=== PATIENT | male | born 1960 ===

== ENCOUNTER 2016-11-15 18:31 | Inpatient (IN) | payer BC, OTHER ==
[2016-11-15 18:36] VITALS: BMI 22.1
[2016-11-15] MEDS ORDERED: Sodium Chloride 0.9% 1,000 ML IV STA (18:49)
--- NOTE | 2016-11-15 18:50 | ED PDOC ---
Arrival/HPI - General Chief Complaint: Weakness/Neurological Deficit Time Seen by Provider: 11/15/16 18:40 Historian: Patient - History of Present Illness Narrative History of Present Illness (Text): 11/15/16 18:55 56 year old male whose past medical history includes stomach CA presents to the emergency department with weakness and difficulty ambulating for the past few weeks. reports today he was spitting up blood before falling in the bathroom. Patient reports he took excessive NSAID's. Patient also complaining of chest discomfort. Time/Duration: > week Symptom Onset: Gradual Symptom Course: Unchanged Modifying Factors (Text): None Associated Symptoms (Text): None Past Medical History - Provider Review Nursing Documentation Reviewed: Yes - Neurological Hx Multiple Sclerosis: Yes - Hematological/Oncological Hx Cancer: Yes (Abdominal) Hx Chemotherapy: Yes (4 years ago and radiation 4 years ago) - Gastrointestinal Other/Comment: Stomach CA,Esaphagal CA - Psychiatric Hx Substance Use: No - Surgical History Other/Comment: "Removed / or stomach" Family/Social History - Physician Review Nursing Documentation Reviewed: Yes Family/Social History: Unknown Family HX Smoking Status: Current Some Days Smoker Hx Alcohol Use: No Hx Substance Use: No Allergies/Home Meds Allergies/Adverse Reactions: Allergies No Known Allergies Allergy (Verified 11/15/16 18:36) Home Medications: Home Meds Medication Instructions Recorded Confirmed No Known Home Med 11/15/16 11/15/16 Review of Systems - Physician Review All systems were reviewed & negative as marked: Yes Physical Exam - Physical Exam Narrative Physical Exam (Text): - Review of Systems Constitutional: Weakness, difficulty ambulating absent: Weight Change, Fevers Eyes: Normal ENT: Normal Respiratory: Spitting up blood absent: SOB, Cough, Sputum Cardiovascular: Chest discomfort absent: Palpitations, Syncope Gastrointestinal: Normal absent: Abdominal pain, Diarrhea, Nausea, Vomiting Genitourinary: Normal. absent: Dysuria, Frequency, Hematuria Musculoskeletal: Normal. absent: Arthralgias, Back Pain, Neck Pain Skin: Normal Neurological: Normal absent: Focal Weakness Endocrine: Normal Hemo/Lymphatic: Normal Psychiatric: Normal - Physical exam Patient appears age appropriate, speaking full sentences without difficulty - Systems Exam Head: Present: Atraumatic, Normocephalic Pupils: Present: PERRL Extraocular Muscles: Present: EOMI Conjunctiva: Present: Pale conjunctiva Mouth: Present: Moist Mucous Membranes Neck: Present: Normal Range of Motion. No: MIDLINE TENDERNESS, Paraspinal Tenderness Respiratory/Chest: Present: Clear to Auscultation, Good Air Exchange. No: Respiratory Distress, Accessory Muscle Use, Tachypnic Cardiovascular: Present: Regular Rate and Rhythm, Normal S1, S2, Peripheral Pulses Present. No: Murmurs Abdomen: Present: Normal Bowel Sounds, No: Tenderness, Peritoneal Signs, Rebound, Guarding, Distention Back: Present: Normal Inspection. No: Midline Tenderness, Paraspinal Tenderness Rectal: Guaiac positive Upper Extremity: Present: Normal Inspection. No: Cyanosis, Edema Lower Extremity: Present: Normal Inspection. No: Edema Neurological: Present: GCS=15, Speech Normal, cranial nerves II through XII fully intact with no cerebellar abnormality, neuro-sensory fully intact. No focal neurological deficits. Skin: Present: Warm, Dry, Pale No: Rashes Lymphatic: Present: OX3, NI, NC Psychiatric: Present: Alert, Oriented x 3, Normal Insight, Normal Concentration. Vital Signs Reviewed: Yes Vital Signs Temp Pulse Resp BP Pulse Ox 11/15/16 19:40 97.6 F 87 18 127/92 H 100 11/15/16 19:24 80 16 122/74 100 11/15/16 18:31 98.0 F 80 18 115/79 95 Temperature: Afebrile Blood Pressure: Normal Pulse: Regular Respiratory Rate: Normal Appearance: Positive for: Non-Toxic, Comfortable, Ill-Appearing Pain Distress: None Mental Status: Positive for: Alert and Oriented X 3 Medical Decision Making ED Course and Treatment: Impression: 56 year old male whose past medical history includes stomach CA presents to the emergency department with weakness and difficulty ambulating for the past few weeks. On physical exam, patient is pale appearing with pale conjunctiva, guaiac positive stool (witnessed by Suman ED scribe). Differential Diagnosis included but are not limited to: GI bleed Plan: -- EKG, Chest X-ray -- Protonix -- Reassess and disposition Progress Notes: EKG shows NSR at [address]-segment elevations, normal intervals. Interpreted by me. 11/15/16 19:[address] Mera who accepts patient for admission to [facility] PRBC ordered and consent obtained Chest xray interpreted by ED physician shows no pneumothorax, no cardiomegaly, no infiltrates - Critical Care Critical Care Minutes: 30 minutes - Lab Interpretations Lab Results: 11/15/16 18:35 11/15/16 18:35 Lab Results 11/15/16 18:35: TIBC 195 L 11/15/16 18:35: Sodium 137, Chloride 107, Potassium 4.7, Carbon Dioxide 23, Anion Gap 12, BUN 43 H, Creatinine 0.7, Est GFR ( Amer) > 60, Est GFR ( Non-Af Amer) > 60, Random Glucose 156 H, Calcium 7.8 L, Ferritin Pending, Total Bilirubin 0.4, AST 27, ALT 37, Alkaline Phosphatase 395 H, Lactate Dehydrogenase 670, Total Creatine Kinase 75, Troponin I < 0.01, NT-Pro-B Natriuret Pep 394, Total Protein 5.5 L, Albumin 2.5 L, Globulin 3.0, Albumin/ Globulin Ratio 0.8 L, Lipase 183 11/15/16 18:35: PT 13.0 H, INR 1.20 H, APTT 26.7 11/15/16 18:35: WBC 11.8 H, RBC 2.60 L, Hgb 6.7 L*, Hct 21.1 L, MCV 81.2, MCH 25.8, MCHC 31.8, RDW 15.5 H, Plt Count 473 H, MPV 9.8, Gran % 55.3, Lymph % ( Auto) 28.4, [place] % (Auto) 8.2 H, Eos % (Auto) 7.7 H, Baso % (Auto) 0.4, Gran # 6.51 H, Lymph # 3.3, [place] # 1.0 H, Eos # 0.9 H, Baso # 0.05 11/15/16 18:35: pO2 61 H, VBG pH 7.33, VBG pCO2 46.0, VBG HCO3 24.3, VBG Total CO2 25.7, VBG O2 Sat (Calc) 94.1 H, VBG Base Excess -1.9 L, VBG Potassium 5.0, Sodium 139.0, Chloride 112.0 H, Glucose 170 H, Lactate 3.0 H, FiO2 21.0, Venous Blood Potassium 5.0 - RAD Interpretation Radiology Orders: 11/15/16 18:41 CHEST PORTABLE [RAD] Stat - EKG Interpretation Interpreted by ED Physician: Yes Type: 12 lead EKG - Medication Orders Current Medication Orders: Pantoprazole Sodium (Protonix 40mg Ivpb) 40 mg in 100 mls @ 20 mls/hr IVPB .Q5H ASHLIE Last Admin: 11/15/16 21:24 Dose: 20 mls/hr Sodium Chloride (Sodium Chloride 0.9%) 1,000 mls @ 125 mls/hr IV .Q8H ASHLIE Last Admin: 11/15/16 21:24 Dose: 125 mls/hr Discontinued Medications Sodium Chloride (Sodium Chloride 0.9%) 1,000 mls @ 1,000 mls/hr IV .Q1H STA Stop: 11/15/16 19:48 Last Admin: 11/15/16 18:45 Dose: 1,000 mls/hr Pantoprazole Sodium (Protonix Inj) 40 mg IVP STAT STA Stop: 11/15/16 18:50 Last Admin: 11/15/16 19:54 Dose: 40 mg - Scribe Statement The provider has reviewed the documentation as recorded by the Michelle Osorio Provider Scribe Attestation: All medical record entries made by the Michelle were at my direction and personally dictated by me. I have reviewed the chart and agree that the record accurately reflects my personal performance of the history, physical exam, medical decision making, and the department course for this patient. I have also personally directed, reviewed, and agree with the discharge instructions and disposition. Disposition/Present on Arrival - Present on Arrival Any Indicators Present on Arrival: No History of DVT/PE: No History of Uncontrolled Diabetes: No Urinary Catheter: No History of Decub. Ulcer: No History Surgical Site Infection Following: None - Disposition Have Diagnosis and Disposition been Completed?: Yes Diagnosis: Anemia Disposition: HOSPITALIZED Disposition Time: 19:43 Patient Plan: Admission Condition: FAIR
[2016-11-15 18:55] LABS: ADD MANUAL DIFF? NO
[2016-11-15 19:04] LABS: VENOUS BLOOD GAS BASE EXCESS -1.9 mmol/L (0.0-2.0); VENOUS BLOOD PH 7.33 (7.32-7.43)
[2016-11-15 19:10] LABS: BASO # 0.05 K/mm3 (0.0-2.0); BASO % 0.4 % (0.0-3.0); EOS # 0.9 (0.0-0.7); EOS % 7.7 % (1.5-5.0); GRAN # 6.51 (1.4-6.5); GRAN % 55.3 % (50.0-68.0); LYMPH # 3.3 (1.2-3.4); LYMPH % 28.4 % (22.0-35.0); MEAN CELL VOLUME 81.2 fL (80.0-105.0); MEAN CORPUSCULAR HEMOGLOBIN 25.8 pg (25.0-35.0); MEAN CORPUSCULAR HGB CONC 31.8 g/dl (31.0-37.0); MEAN PLATELET VOLUME 9.8 fl (7.0-11.0); MONO % 8.2 % (1.0-6.0); PLATELET COUNT 473 10^3/uL (120.0-450.0); RED CELL DISTRIBUTION WIDTH 15.5 % (11.5-14.5); WHITE BLOOD COUNT 11.8 10^3/ul (4.5-11.0)
[2016-11-15 19:15] LABS: ALB/GLOB RATIO 0.8 (1.1-1.8); ALKALINE PHOSPHATASE 395 U/L (38-133); ALT/SGPT 37 U/L (7-56); AST/SGOT 27 U/L (15-59); BILIRUBIN,TOTAL 0.4 mg/dL (0.2-1.3); BLOOD UREA NITROGEN 43 mg/dL (7-21); CALCIUM 7.8 mg/dL (8.4-10.5); CARBON DIOXIDE 23 mmol/L (21-33); CHLORIDE 107 mmol/L (98-107); GFR AFRICAN-AMERICAN > 60; GLUCOSE,RANDOM 156 mg/dL (70-110); INR 1.2 (0.93-1.08); LIPASE 183 U/L (23-300); PARTIAL THROMBOPLASTIN TIME 26.7 Seconds (23.7-30.8); POTASSIUM 4.7 mmol/L (3.6-5.0); SODIUM 137 mmol/L (132-148); TOTAL PROTEIN 5.5 g/dL (5.8-8.3)
[2016-11-15 19:16] LABS: HEMATOCRIT 21.1 % (42.0-52.0)
[2016-11-15 19:28] LABS: TROPONIN I < 0.01 ng/mL
--- NOTE | 2016-11-15 20:37 | CP.PCM.CON ---
<Aniket Fields - Last Filed: 11/16/16 02:00> History of Present Illness - History of Present Illness History of Present Illness: ICU NIGHT RESIDENT CONSULT NOTE CC:"Weakness, passed out, dark stools" HPI: Pt is a 56 year old male with a PMHx of multiple sclerosis, esophageal and stomach cancer s/p chemo and surgery, and gastroeshophageal reflux disease who presents to the ED complaining of weakness, spitting up 'ribbons' of dark blood , and a dark bowel movement earlier in the day. Pt reports that he felt so weak and dizzy that he passed out. His who is accompanying him at bedside reports that she heard a thumping sound from downstairs when he fell. Pt does not recall whether or not he hit hit head. reports that the pt was on his back when she got upstairs. He reports this occurred about 3 hours ago. The pt reports that he has been feeling weak for the past few weeks, but he began spitting up dark blood and had a very dark bowel movement today. Pt reports that he has been having body aches for the past couple of months so he has been taking aleve, motrin, and ibuprofen daily. He reports that he has been 3-6 tablets per day for the past 3-4 months. Pt reports that he experiencing chest pain earlier in the day but it is no lober there. Pt denies fever, chills, headache, shortness of breath, nausea, and vomiting. PMHx: Multiple sclerosis, esophageal and stomach cancer s/p chemo and surgery, and gastroeshophageal reflux disease Hpme medications: NSAIDs daily, was taking prednisone for multiple sclerosis but stoppped 2-3 months ago Past Surgical Hx: Gastric/Esophogeal surgery s/p gastroesophageal cancere Allergies: NKDA Social Hx: smokes 14 cigarettes.day; drinks alcohol on holidays, denies history of illicit drug abuse Family Hx: Diabetes, Cancer (maternal side) Review of Systems - Constitutional Constitutional: absent: Chills, Fever - EENT Eyes: absent: Blurred Vision, Change in Vision Ears: absent: Dizziness - Cardiovascular Cardiovascular: Chest Pain. absent: Dyspnea, Edema, Orthopnea - Respiratory Respiratory: absent: Cough, Wheezing - Gastrointestinal Gastrointestinal: Abdominal Pain, Early Satiety, Melena. absent: Vomiting - Genitourinary Genitourinary: Difficulty Urinating - Musculoskeletal Musculoskeletal: Arthralgias, Myalgias - Neurological Neurological: Dizziness. absent: Abnormal Hearing, Headaches - Psychiatric Psychiatric: absent: Anxiety - Hematologic/Lymphatic Hematologic: absent: Easy Bleeding Past Patient History - Past Social History Smoking Status: Current Some Days Smoker - NEUROLOGICAL Hx Multiple Sclerosis: Yes - HEMATOLOGICAL/ONCOLOGICAL Hx Cancer: Yes (Abdominal) Hx Chemotherapy: Yes (4 years ago and radiation 4 years ago) - GASTROINTESTINAL Other/Comment: Stomach CA,Esaphagal CA - PSYCHIATRIC Hx Substance Use: No - SURGICAL HISTORY Other/Comment: "Removed 1/3 or stomach" Meds Allergies/Adverse Reactions: Allergies Allergy/AdvReac Type Severity Reaction Status Date / Time No Known Allergies Allergy Verified 11/15/16 18:36 - Medications Medications: Current Medications Pantoprazole Sodium (Protonix 40mg Ivpb) 40 mg in 100 mls @ 20 mls/hr IVPB .Q5H ASHLIE Sodium Chloride (Sodium Chloride 0.9%) 1,000 mls @ 125 mls/hr IV .Q8H ASHLIE Physical Exam - Constitutional Appears: No Acute Distress - Head Exam Head Exam: ATRAUMATIC, NORMOCEPHALIC - Eye Exam Eye Exam: EOMI, PERRL - ENT Exam ENT Exam: Mucous Membranes Dry. absent: Mucous Membranes Moist - Neck Exam Neck exam: Positive for: Full Rom - Respiratory Exam Respiratory Exam: Prolonged Expiratory Phase. absent: Rales, Rhonchi, Wheezes - Cardiovascular Exam Cardiovascular Exam: +S1, +S2. absent: Gallop, Rubs - GI/Abdominal Exam GI & Abdominal Exam: Normal Bowel Sounds, Soft. absent: Distended, Firm, Guarding, Tenderness - Extremities Exam Extremities exam: Positive for: full ROM. Negative for: pedal edema - Neurological Exam Neurological exam: Alert, Oriented x3 - Psychiatric Exam Psychiatric exam: Normal Affect, Normal Mood - Skin Skin Exam: Normal Color, Warm Results - Vital Signs Recent Vital Signs: Last Vital Signs Temp 97.6 F 11/15/16 19:40 Pulse 87 11/15/16 19:40 Resp 18 11/15/16 19:40 BP 127/92 H 11/15/16 19:40 Pulse Ox 100 11/15/16 19:40 - Labs Result Diagrams: 11/15/16 18:35 11/15/16 18:35 Labs: Laboratory Results - last 24 hr 11/15/16 11/15/16 11/15/16 18:35 18:35 18:35 WBC 11.8 H RBC 2.60 L Hgb 6.7 L* Hct 21.1 L MCV 81.2 MCH 25.8 MCHC 31.8 RDW 15.5 H Plt Count 473 H MPV 9.8 Gran % 55.3 Lymph % (Auto) 28.4 [place] % (Auto) 8.2 H Eos % (Auto) 7.7 H Baso % (Auto) 0.4 Gran # 6.51 H Lymph # 3.3 [place] # 1.0 H Eos # 0.9 H Baso # 0.05 PT 13.0 H INR 1.20 H APTT 26.7 pO2 61 H VBG pH 7.33 VBG pCO2 46.0 VBG HCO3 24.3 VBG Total CO2 25.7 VBG O2 Sat (Calc) 94.1 H VBG Base Excess -1.9 L VBG Potassium 5.0 Sodium 139.0 Chloride 112.0 H Glucose 170 H Lactate 3.0 H FiO2 21.0 Potassium Carbon Dioxide Anion Gap BUN Creatinine Est GFR ( Amer) Est GFR (Non-Af Amer) Random Glucose Calcium TIBC Total Bilirubin AST ALT Alkaline Phosphatase Lactate Dehydrogenase Total Creatine Kinase Troponin I NT-Pro-B Natriuret Pep Total Protein Albumin Globulin Albumin/Globulin Ratio Lipase Venous Blood Potassium 5.0 Crossmatch BBK History Checked 11/15/16 11/15/16 11/15/16 18:35 18:35 20:01 WBC RBC Hgb Hct MCV MCH MCHC RDW Plt Count MPV Gran % Lymph % (Auto) [place] % (Auto) Eos % (Auto) Baso % (Auto) Gran # Lymph # [place] # Eos # Baso # PT INR APTT pO2 VBG pH VBG pCO2 VBG HCO3 VBG Total CO2 VBG O2 Sat (Calc) VBG Base Excess VBG Potassium Sodium 137 Chloride 107 Glucose Lactate FiO2 Potassium 4.7 Carbon Dioxide 23 Anion Gap 12 BUN 43 H Creatinine 0.7 Est GFR ( Amer) > 60 Est GFR (Non-Af Amer) > 60 Random Glucose 156 H Calcium 7.8 L TIBC 195 L Total Bilirubin 0.4 AST 27 ALT 37 Alkaline Phosphatase 395 H Lactate Dehydrogenase 670 Total Creatine Kinase 75 Troponin I < 0.01 NT-Pro-B Natriuret Pep 394 Total Protein 5.5 L Albumin 2.5 L Globulin 3.0 Albumin/Globulin Ratio 0.8 L Lipase 183 Venous Blood Potassium Crossmatch See Detail BBK History Checked No verified bt Assessment & Plan - Assessment and Plan (Free Text) Assessment: GI Bleed: Stool guaiac positive GI, Dr. Elizabeth, consulted. Help appreciated. Protonix Drip NS 125 cc/hr Hgb 6.7 Hct - 21.1 BUN/Cr 43/0.7 Type and cross matched; 2 units of prbcs transfused Iron studies pending NPO diet Chest Pain: Troponins negative x 1 EKG - NSR (please see full report) Serial cardiac enzymes pending Leukocytosis/Thrombocytosis: WBC-11.8 Platelets - 473 Lactate 3.0 Afebrile, nontachycardic Blood, urine cultures pending Fall: Pt refused head CT Prophylactic Measures: DVT: SCDs, checmical anticoagulation contraindicated due to GI bleed GI: Protonix drip <Samaria DOMINGUEZ,Onur - Last Filed: 11/21/16 05:48> Meds - Medications Medications: Current Medications Acetaminophen (Tylenol 650 Mg Supp) 650 mg RC Q6H PRN PRN Reason: Fever >100.4 F Last Admin: 11/20/16 12:53 Dose: 650 mg Hydromorphone HCl (Dilaudid) 0.5 mg IVP Q4H PRN PRN Reason: Pain, moderate (4-7) Last Admin: 11/21/16 03:57 Dose: 0.5 mg Ceftriaxone Sodium (Rocephin 1 Gram Ivpb) 1 gm in 100 mls @ 100 mls/hr IVPB DAILY ASHLIE PRN Reason: Protocol Last Admin: 11/20/16 11:01 Dose: 100 mls/hr Magnesium Citrate (Citrate Of Mag) 300 ml PO ONCE ONE Stop: 11/21/16 06:01 Pantoprazole Sodium (Protonix Inj) 40 mg IVP DAILY [facility] Results - Vital Signs Recent Vital Signs: Last Vital Signs Temp 99.7 F H 11/21/16 00:01 Pulse 76 11/21/16 02:00 Resp 19 11/21/16 00:01 BP 147/90 11/21/16 00:01 Pulse Ox 97 11/20/16 15:58 - Labs Result Diagrams: 11/20/16 05:00 05/09/17 05:00 Labs: Laboratory Results - last 24 hr 11/20/16 11/20/16 11/20/16 05:00 05:00 05:00 WBC 10.6 D RBC 2.69 L Hgb 7.5 L Hct 22.0 L MCV 81.8 MCH 27.9 MCHC 34.1 RDW 15.7 H Plt Count 353 MPV 9.8 Gran % 74.6 H Lymph % (Auto) 8.4 L [place] % (Auto) 16.4 H Eos % (Auto) 0.5 L Baso % (Auto) 0.1 Gran # 7.93 H Lymph # 0.9 L [place] # 1.7 H Eos # 0.1 Baso # 0.01 PT 11.9 H INR 1.10 H Sodium 136 Potassium 3.5 L Chloride 104 Carbon Dioxide 25 Anion Gap 11 BUN 11 Creatinine 0.7 Est GFR ( Amer) > 60 Est GFR (Non-Af Amer) > 60 Random Glucose 111 H Calcium 7.7 L Total Bilirubin 2.8 H AST 26 ALT 37 Alkaline Phosphatase 278 H Total Protein 5.8 Albumin 2.5 L Globulin 3.3 Albumin/Globulin Ratio 0.8 L Blood Type Antibody Screen Crossmatch BBK History Checked 11/20/16 07:45 WBC RBC Hgb Hct MCV MCH MCHC RDW Plt Count MPV Gran % Lymph % (Auto) [place] % (Auto) Eos % (Auto) Baso % (Auto) Gran # Lymph # [place] # Eos # Baso # PT INR Sodium Potassium Chloride Carbon Dioxide Anion Gap BUN Creatinine Est GFR ( Amer) Est GFR (Non-Af Amer) Random Glucose Calcium Total Bilirubin AST ALT Alkaline Phosphatase Total Protein Albumin Globulin Albumin/Globulin Ratio Blood Type O POSITIVE Antibody Screen Negative Crossmatch See Detail BBK History Checked Patient has bt Attending/Attestation - Attestation I have personally seen and examined this patient.: Yes I have fully participated in the care of the patient.: Yes I have reviewed all pertinent clinical information: Yes
[2016-11-15] MEDS: Sodium Chloride 0.9% 1,000 ML IV SCH (21:24)
[2016-11-15] MEDS: Pantoprazole 40mg/100ml IVPB 40 MG/100 ML BAG IVPB SCH (21:24)
[2016-11-16] MEDS: Pantoprazole 40mg/100ml IVPB 40 MG/100 ML BAG IVPB SCH ×5 (01:30→22:51)
--- NOTE | 2016-11-16 02:19 | CP.PCM.HP ---
<Aniket Fields - Last Filed: 11/16/16 02:15> History of Present Illness - History of Present Illness History of Present Illness: CC:"Weakness, passed out, dark stools" HPI: Pt is a 56 year old male with a PMHx of multiple sclerosis, esophageal and stomach cancer s/p chemo and surgery, and gastroeshophageal reflux disease who presents to the ED complaining of weakness, spitting up 'ribbons' of dark blood , and a dark bowel movement earlier in the day. Pt reports that he felt so weak and dizzy that he passed out. His who is accompanying him at bedside reports that she heard a thumping sound from downstairs when he fell. Pt does not recall whether or not he hit hit head. reports that the pt was on his back when she got upstairs. He reports this occurred about 3 hours ago. The pt reports that he has been feeling weak for the past few weeks, but he began spitting up dark blood and had a very dark bowel movement today. Pt reports that he has been having body aches for the past couple of months so he has been taking aleve, motrin, and ibuprofen daily. He reports that he has been 3-6 tablets per day for the past 3-4 months. Pt reports that he experiencing chest pain earlier in the day but it is no lober there. Pt denies fever, chills, headache, shortness of breath, nausea, and vomiting. PMHx: Multiple sclerosis, esophageal and stomach cancer s/p chemo and surgery, and gastroeshophageal reflux disease Hpme medications: NSAIDs daily, was taking prednisone for multiple sclerosis but stoppped 2-3 months ago Past Surgical Hx: Gastric/Esophogeal surgery s/p gastroesophageal cancere Allergies: NKDA Social Hx: smokes 14 cigarettes.day; drinks alcohol on holidays, denies history of illicit drug abuse Family Hx: Diabetes, Cancer (maternal side) Present on Admission - Present on Admission Any Indicators Present on Admission: No Review of Systems - Constitutional Constitutional: absent: Chills, Fever - EENT Eyes: absent: Blurred Vision Ears: Dizziness Nose/Mouth/Throat: absent: Epistaxis - Cardiovascular Cardiovascular: absent: Dyspnea, Edema, Leg Edema - Respiratory Respiratory: absent: Cough, Wheezing - Gastrointestinal Gastrointestinal: Abdominal Pain, Melena. absent: Diarrhea, Dyspepsia - Genitourinary Genitourinary: Difficulty Urinating - Musculoskeletal Musculoskeletal: Arthralgias, Myalgias - Neurological Neurological: Dizziness - Psychiatric Psychiatric: absent: Confusion Past Patient History - Past Social History Smoking Status: Current Some Days Smoker - CARDIAC Hx Cardiac Disorders: No - PULMONARY Hx Respiratory Disorders: No - NEUROLOGICAL Hx Multiple Sclerosis: Yes - HEENT Hx HEENT Problems: Yes (wears glasses) - RENAL Hx Chronic Kidney Disease: No - ENDOCRINE/METABOLIC Hx Endocrine Disorders: No - HEMATOLOGICAL/ONCOLOGICAL Hx Cancer: Yes (Abdominal) Hx Chemotherapy: Yes (4 years ago and radiation 4 years ago) - INTEGUMENTARY Hx Dermatological Problems: No - MUSCULOSKELETAL/RHEUMATOLOGICAL Hx Musculoskeletal Disorders: Yes Hx Falls: Yes Hx Fractures: Yes (Right ankle with metal pin) Other/Comment: Multiple Sclerosis - GASTROINTESTINAL Other/Comment: Stomach CA,Esaphagal CA - GENITOURINARY/GYNECOLOGICAL Hx Genitourinary Disorders: No - PSYCHIATRIC Hx Substance Use: No - SURGICAL HISTORY Other/Comment: "Removed 1/ or stomach" Meds Allergies/Adverse Reactions: Allergies Allergy/AdvReac Type Severity Reaction Status Date / Time No Known Allergies Allergy Verified 11/15/16 18:36 Physical Exam - Constitutional Appears: No Acute Distress - Head Exam Head Exam: ATRAUMATIC, NORMOCEPHALIC - Eye Exam Eye Exam: EOMI, PERRL - ENT Exam ENT Exam: Mucous Membranes Dry - Respiratory Exam Respiratory Exam: Clear to Auscultation Bilateral. absent: Rales, Rhonchi, Wheezes - Cardiovascular Exam Cardiovascular Exam: +S1, +S2. absent: Gallop, Rubs - GI/Abdominal Exam GI & Abdominal Exam: Normal Bowel Sounds, Soft, Tenderness. absent: Distended, Firm, Guarding Additional comments: mid epigastric tenderness - Extremities Exam Extremities exam: Positive for: full ROM. Negative for: pedal edema - Neurological Exam Neurological exam: Alert, Oriented x3 - Psychiatric Exam Psychiatric exam: Normal Affect, Normal Mood - Skin Skin Exam: Dry, Warm Results - Vital Signs Recent Vital Signs: Last Vital Signs Temp 97.6 F 11/16/16 01:00 Pulse 77 11/16/16 01:00 Resp 18 11/16/16 01:00 BP 117/75 11/16/16 01:00 Pulse Ox 100 11/16/16 00:01 - Labs Result Diagrams: 11/15/16 18:35 11/15/16 18:35 Labs: Laboratory Results - last 24 hr 11/15/16 11/15/16 20:01 20:44 Blood Type O POSITIVE Blood Type Confirm O POSITIVE Antibody Screen Negative Crossmatch See Detail BBK History Checked No verified bt Assessment & Plan - Assessment and Plan (Free Text) Assessment: GI Bleed: Stool guaiac positive GI, Dr. Elizabeth, consulted. Help appreciated. Protonix Drip NS 125 cc/hr Hgb 6.7 Hct - 21.1 BUN/Cr 43/0.7 Type and cross matched; 2 units of prbcs transfused Iron studies pending NPO diet Chest Pain: Troponins negative x 1 EKG - NSR (please see full report) Serial cardiac enzymes pending Leukocytosis/Thrombocytosis: WBC-11.8 Platelets - 473 Lactate 3.0 Afebrile, nontachycardic Blood, urine cultures pending Fall: Pt refused head CT Prophylactic Measures: DVT: SCDs, checmical anticoagulation contraindicated due to GI bleed GI: Protonix drip <Samaria DOMINGUEZ,Onur - Last Filed: 11/16/16 14:38> Results - Vital Signs Recent Vital Signs: Last Vital Signs Temp 99.3 F 11/16/16 12:00 Pulse 77 11/16/16 12:00 Resp 20 11/16/16 12:00 BP 135/89 11/16/16 12:00 Pulse Ox 100 11/16/16 14:03 - Labs Result Diagrams: 11/16/16 09:30 11/16/16 09:30 Labs: Laboratory Results - last 24 hr 11/15/16 11/15/16 11/16/16 20:01 20:44 05:30 WBC RBC Hgb Hct MCV MCH MCHC RDW Plt Count MPV Gran % Lymph % (Auto) Tillman % (Auto) Eos % (Auto) Baso % (Auto) Gran # Lymph # Tillman # Eos # Baso # pO2 VBG pH VBG pCO2 VBG HCO3 VBG Total CO2 VBG O2 Sat (Calc) VBG Base Excess VBG Potassium Sodium Chloride Glucose Lactate FiO2 Potassium Carbon Dioxide Anion Gap BUN Creatinine Est GFR ( Amer) Est GFR (Non-Af Amer) Random Glucose Calcium Phosphorus Magnesium Total Bilirubin AST ALT Alkaline Phosphatase Lactate Dehydrogenase Total Creatine Kinase CK-MB (CK-2) CK-MB (CK-2) % Troponin I Total Protein Albumin Globulin Albumin/Globulin Ratio Venous Blood Potassium Stool Occult Blood Positive H Blood Type O POSITIVE Blood Type Confirm O POSITIVE Antibody Screen Negative Crossmatch See Detail BBK History Checked No verified bt 11/16/16 11/16/16 11/16/16 09:30 09:30 09:30 WBC 12.0 H RBC 3.38 L Hgb 9.2 L Hct 27.4 L MCV 81.1 MCH 27.2 MCHC 33.6 RDW 14.6 H Plt Count 457 H MPV 9.7 Gran % 73.5 H Lymph % (Auto) 13.0 L Tillman % (Auto) 12.3 H Eos % (Auto) 1.0 L Baso % (Auto) 0.2 Gran # 8.85 H Lymph # 1.6 Tillman # 1.5 H Eos # 0.1 Baso # 0.02 pO2 29 L VBG pH 7.32 VBG pCO2 50.0 VBG HCO3 25.8 VBG Total CO2 27.3 VBG O2 Sat (Calc) 56.3 VBG Base Excess -0.9 L VBG Potassium 3.8 Sodium 142.0 142 Chloride 113.0 H 107 Glucose 92 Lactate 1.4 FiO2 21.0 Potassium 3.7 Carbon Dioxide 26 Anion Gap 13 BUN 34 H Creatinine 0.6 Est GFR ( Amer) > 60 Est GFR (Non-Af Amer) > 60 Random Glucose 89 Calcium 8.3 L Phosphorus 2.8 Magnesium 2.1 Total Bilirubin 2.6 H AST 130 H ALT 51 Alkaline Phosphatase 510 H Lactate Dehydrogenase 2912 H Total Creatine Kinase 382 H CK-MB (CK-2) 2.7 CK-MB (CK-2) % Cancelled Troponin I < 0.01 Total Protein 6.9 Albumin 3.4 Globulin 3.6 Albumin/Globulin Ratio 0.9 L Venous Blood Potassium 3.8 Stool Occult Blood Blood Type Blood Type Confirm Antibody Screen Crossmatch BBK History Checked Attending/Attestation - Attestation I have personally seen and examined this patient.: Yes I have fully participated in the care of the patient.: Yes I have reviewed all pertinent clinical information: Yes Notes (Text): 11/16/16 14:38 -I agree with the above H&P completed by the resident physician.
[2016-11-16] MEDS: Sodium Chloride 0.9% 1,000 ML IV SCH ×3 (07:16→22:07)
--- NOTE | 2016-11-16 08:39 | RAD ---
HISTORY: cough COMPARISON: None FINDINGS: LUNGS: The lungs are well inflated and clear. PLEURA: No significant pleural effusion identified, no pneumothorax apparent. CARDIOVASCULAR: Normal. OSSEOUS STRUCTURES: No significant abnormalities. VISUALIZED UPPER ABDOMEN: Normal. OTHER FINDINGS: Retrocardiac opacity is most compatible with a hiatal hernia. IMPRESSION: No active pulmonary disease.
[2016-11-16 09:48] LABS: ADD MANUAL DIFF? NO
[2016-11-16 09:52] LABS: VENOUS BLOOD GAS BASE EXCESS -0.9 mmol/L (0.0-2.0); VENOUS BLOOD PH 7.32 (7.32-7.43)
[2016-11-16 09:53] LABS: BASO # 0.02 K/mm3 (0.0-2.0); BASO % 0.2 % (0.0-3.0); EOS # 0.1 (0.0-0.7); GRAN # 8.85 (1.4-6.5); GRAN % 73.5 % (50.0-68.0); HEMATOCRIT 27.4 % (42.0-52.0); LYMPH # 1.6 (1.2-3.4); MEAN CELL VOLUME 81.1 fL (80.0-105.0); MEAN CORPUSCULAR HEMOGLOBIN 27.2 pg (25.0-35.0); MEAN CORPUSCULAR HGB CONC 33.6 g/dl (31.0-37.0); MEAN PLATELET VOLUME 9.7 fl (7.0-11.0); MONO # 1.5 (0.1-0.6); MONO % 12.3 % (1.0-6.0); PLATELET COUNT 457 10^3/uL (120.0-450.0); RED CELL DISTRIBUTION WIDTH 14.6 % (11.5-14.5)
[2016-11-16 10:02] LABS: ALB/GLOB RATIO 0.9 (1.1-1.8); ALKALINE PHOSPHATASE 510 U/L (38-133); ALT/SGPT 51 U/L (7-56); AST/SGOT 130 U/L (15-59); BILIRUBIN,TOTAL 2.6 mg/dL (0.2-1.3); BLOOD UREA NITROGEN 34 mg/dL (7-21); CALCIUM 8.3 mg/dL (8.4-10.5); CARBON DIOXIDE 26 mmol/L (21-33); CHLORIDE 107 mmol/L (98-107); GFR AFRICAN-AMERICAN > 60; GLUCOSE,RANDOM 89 mg/dL (70-110); MAGNESIUM 2.1 mg/dL (1.7-2.2); PHOSPHOROUS 2.8 mg/dL (2.5-4.5); POTASSIUM 3.7 mmol/L (3.6-5.0); SODIUM 142 mmol/L (132-148); TOTAL PROTEIN 6.9 g/dL (5.8-8.3)
[2016-11-16 10:14] LABS: TROPONIN I < 0.01 ng/mL
[2016-11-16] MEDS ORDERED: Lactated Ringer's 1,000 ML IV SCH (13:55)
[2016-11-16] MEDS ORDERED: Propofol 10 mg/ml Inj (20 ML) ONE (14:05)
--- NOTE | 2016-11-16 14:38 | CON ---
DATE: 11/16/2016 Seen and examined at the bedside earlier. REQUEST FOR CONSULTATION: For GI bleed. HISTORY OF PRESENT ILLNESS: This is a 56-year-old male with a past medical history of esophageal and stomach cancer with history of chemotherapy and surgery. This patient has a history of multiple scl erosis and has been complaining of body aches. The patient takes NSAIDs daily of Aleve, Motrin and i buprofen. He has been taking this for at least 3-4 months. The patient complains of having dark bow el movements as well as spitting up blood. He did report having bloody bowel movement. Denies any b right red blood. The patient's last endoscopy was in 2011. He was found to have an ulcer. He said he had multiple endoscopies for dilation. The patient went to the Emergency Room. He felt dizzy and passed out. On admission, he was found to have a hemoglobin of 6.7. This morning, he is status pos t 2 units of packed RBC. He does complain of epigastric burning, but no current nausea, no vomiting or hematemesis. Denies any shortness of breath or chest pain. PAST MEDICAL HISTORY: Esophageal and stomach cancer and multiple sclerosis, GERD, history of peptic ulcer disease. PAST SURGICAL HISTORY: Gastric and esophageal surgery, history of multiple endoscopies, last endosco py was in 2011, found to have ulcer. FAMILY HISTORY: Diabetes, cancer. ALLERGIES: No known drug allergies. MEDICATIONS: Reviewed as per MAR. SOCIAL HISTORY: The patient does have positive for smoking, does drink alcohol and denies any drug a buse. REVIEW OF SYSTEMS: Systems reviewed with positive findings, see HPI. VITAL SIGNS: Temperature is 98.3, blood pressure 114/70, pulse is 79, respirations 20. LABORATORIES: WBC is 12.0, H and H is 9.2 and hematocrit is 27.4, platelets is 457. PT 13.0, INR is 1.20, PTT is 26.7. Sodium 142, K 3.7, BUN 34, creatinine 0.6. Total bilirubin is 2.6, AST 130, ALT 51, alkaline phosphatase is 510. LDH is 2912. Total creatine kinase is 382. Troponin is negative x 2. Stool for guaiac is positive. IMAGING: The patient had a chest x-ray and this shows no pleural effusion, no pneumothorax. Impress ion: No active pulmonary disease. PHYSICAL EXAMINATION: HEENT: Sclera is anicteric. NECK: Supple. CARDIAC: S1, S2. LUNG SOUNDS: With decreased breath sounds, but did not hear any rales or wheeze. ABDOMEN: With bowel sounds, soft. Does have some epigastric discomfort. No rebound, guarding, or o rganomegaly. EXTREMITIES: No edema, no calf tenderness. NEUROLOGIC: Awake, alert, and oriented. ASSESSMENT: This is a 56-year-old male with a history of esophageal and stomach carcinoma, status po st chemo and surgery, comes in with complaints of melena and patient with symptomatic anemia. The pa tiekaitlyn does have history of nonsteroidal anti-inflammatory drug use, rule out any peptic ulcer disease . The patient also has history of multiple sclerosis. Complains of epigastric discomfort. The donavon ent noted to have elevated liver enzymes. PLAN: Monitor H and H, status post 2 units of packed red blood cells. We will do endoscopy today, d iscussed with the patient. He is currently n.p.o. Continue with Protonix drip, IV fluids for hydrat ion. Likely request for abdominal ultrasound, rule out any gallbladder pathology and trend LFTs and monitor for overt gastrointestinal bleed. Thank you for this consult and for allowing us to participate in your patient's care. We will make f urther recommendation based upon patient's clinical course. The patient was seen and case discussed with Dr. Elizabeth. Karen PAYNE cc: 451 TT: 11/16/2016 14:37:33 Confirmation # [id number] Dictation # [id number] en
--- NOTE | 2016-11-16 17:13 | CARD ---
APPROVED REPORT EKG Measurement Heart [id number] <Conclusion> Normal sinus rhythm Normal ECG
--- NOTE | 2016-11-16 18:43 | CP.PCM.CON ---
<Brie Osorio - Last Filed: 11/16/16 19:44> History of Present Illness - History of Present Illness History of Present Illness: General Surgery Dr. Morton HPI: 56y/o M w/ PMHx of MS, gastric/esophageal Ca, PUD, and GERD presented to ED w/ c/o weakness, syncope, and dark stools. Pt reports feeling fatigued and weak for weeks prior to the syncopal episode. Pt reports attempting to urinate when becoming dizzy and lightheaded. Shortly there afte, pt lost consciousness. Pt reports vomiting streaks of blood at home as well as 1 dark bloody BM prior to arrival in the ED. Pt reports having body aches and back pain for the last few months for which pt admits to taking multiple NSAIDs multiple times per day. Pt currently c/o twisting, crampy abd pain localized to epigastric region w / radiation to the flanks as well as headache. Pt admits to increased urgency, but denies dysuria. Pt denies F/C, SOB, CP, N/V, weakness, numbness, tingling. Pt was transfused 2 units pRBCs upon admission. Pt had 1 dark BM overnight which was sent for FOB. Pt had EGD today which showed gastric outlet obstruction and esophageal ulcers w/ no obvious signs of bleeding. PMHx: MS, esophageal/stomach Ca, PUD, GERD Meds: reviewed in chart NKDA PSHx: Gastric/Esophogeal surgery SHx: 14 cigarettes/day; social EtOH, denies drug abuse FHx: Diabetes, Cancer (maternal side) Review of Systems - Review of Systems All systems: reviewed and no additional remarkable complaints except (see HPI) Past Patient History - Past Social History Smoking Status: Current Some Days Smoker - CARDIAC Hx Cardiac Disorders: No - PULMONARY Hx Respiratory Disorders: No - NEUROLOGICAL Hx Multiple Sclerosis: Yes - HEENT Hx HEENT Problems: Yes (wears glasses) - RENAL Hx Chronic Kidney Disease: No - ENDOCRINE/METABOLIC Hx Endocrine Disorders: No - HEMATOLOGICAL/ONCOLOGICAL Hx Cancer: Yes (Abdominal) Hx Chemotherapy: Yes (4 years ago and radiation 4 years ago) - INTEGUMENTARY Hx Dermatological Problems: No - MUSCULOSKELETAL/RHEUMATOLOGICAL Hx Musculoskeletal Disorders: Yes Hx Falls: Yes Hx Fractures: Yes (Right ankle with metal pin) Other/Comment: Multiple Sclerosis - GASTROINTESTINAL Other/Comment: Stomach CA,Esaphagal CA - GENITOURINARY/GYNECOLOGICAL Hx Genitourinary Disorders: No - PSYCHIATRIC Hx Substance Use: No - SURGICAL HISTORY Other/Comment: "Removed 1/3 or stomach" Meds Allergies/Adverse Reactions: Allergies Allergy/AdvReac Type Severity Reaction Status Date / Time No Known Allergies Allergy Verified 01/29/17 16:35 - Medications Medications: Current Medications Pantoprazole Sodium (Protonix 40mg Ivpb) 40 mg in 100 mls @ 20 mls/hr IVPB .Q5H [facility] Last Admin: 11/16/16 17:42 Dose: 20 mls/hr Sodium Chloride (Sodium Chloride 0.9%) 1,000 mls @ 125 mls/hr IV .Q8H [facility] Last Admin: 11/16/16 12:37 Dose: 125 mls/hr Physical Exam - Constitutional Appears: No Acute Distress, Older Than Stated Age, Chronically Ill - Head Exam Head Exam: NORMAL INSPECTION - Eye Exam Eye Exam: Normal appearance - ENT Exam ENT Exam: Mucous Membranes Moist - Respiratory Exam Respiratory Exam: Clear to Auscultation Bilateral, NORMAL BREATHING PATTERN. absent: Accessory Muscle Use, Respiratory Distress - Cardiovascular Exam Cardiovascular Exam: REGULAR RHYTHM. absent: Bradycardia, Tachycardia - GI/Abdominal Exam GI & Abdominal Exam: Guarding (voluntary), Normal Bowel Sounds, Soft, Tenderness (epigastic TTP). absent: Distended, Firm, Rebound, Rigid - Extremities Exam Extremities exam: Positive for: normal inspection. Negative for: pedal edema, tenderness - Neurological Exam Neurological exam: Alert, Oriented x3 - Psychiatric Exam Psychiatric exam: Normal Affect, Normal Mood - Skin Skin Exam: Dry, Intact, Pallor, Warm Results - Vital Signs Recent Vital Signs: Last Vital Signs Temp 98.4 F 11/16/16 17:59 Pulse 90 11/16/16 18:00 Resp 20 11/16/16 17:59 BP 135/81 11/16/16 17:59 Pulse Ox 100 11/16/16 16:11 - Labs Result Diagrams: 11/16/16 19:00 11/16/16 09:30 Labs: Laboratory Tests 11/15/16 11/16/16 11/16/16 18:35 05:30 09:30 Hgb 6.7 L* 9.2 L Hct 21.1 L 27.4 L Stool Occult Blood Positive H - EKG Data EKG Interpreted by: Other EKG shows normal: Sinus rhythm Rate: Normal - Imaging and Cardiology Chest x-ray Status: Image reviewed by me, Report reviewed by me Assessment & Plan - Assessment and Plan (Free Text) Assessment: 56 y/o M w/ GI bleeding, gastric outlet obstruction, and non-bleeding esophageal ulcers - monitor Hbg - H/H Q6hrs - monitor bowel mvts - pain management - cont Protonix - advance diet per GI - cont medical management - no surgical intervention at this time - will continue to follow Pt discussed w/ Dr. Selene Osorio DO PGY1 <Navdeep Morton - Last Filed: 02/13/17 22:30> Results - Vital Signs Recent Vital Signs: Last Vital Signs Temp 98.0 F 11/23/16 06:00 Pulse 57 L 11/23/16 06:00 Resp 18 11/23/16 06:00 BP 113/72 11/23/16 06:00 Pulse Ox 98 11/23/16 06:00 - Labs Result Diagrams: 11/23/16 06:45 11/23/16 06:45 Assessment & Plan - Assessment and Plan (Free Text) Plan: Patient was seen and examined by me. I agree with assessment and plan as per resident's note. - Date & Time Date: 11/16/16 Time: 19:30
[2016-11-16 19:14] LABS: HEMATOCRIT 24.3 % (42.0-52.0)
[2016-11-16] MEDS: HYDROmorphone 0.5 mg/0.5 ml ISec IVP PRN (21:26)
[2016-11-17] MEDS: HYDROmorphone 0.5 mg/0.5 ml ISec IVP PRN ×3 (03:05→23:15)
[2016-11-17 03:37] LABS: MEAN CELL VOLUME 80.1 fL (80.0-105.0); MEAN CORPUSCULAR HEMOGLOBIN 27.2 pg (25.0-35.0); MEAN CORPUSCULAR HGB CONC 33.9 g/dl (31.0-37.0); MEAN PLATELET VOLUME 8.8 fl (7.0-11.0); WHITE BLOOD COUNT 14.6 10^3/ul (4.5-11.0)
[2016-11-17 03:39] LABS: HEMATOCRIT 22.1 % (42.0-52.0)
[2016-11-17] MEDS: Pantoprazole 40mg/100ml IVPB 40 MG/100 ML BAG IVPB SCH ×4 (04:13→22:01)
[2016-11-17] MEDS: Sodium Chloride 0.9% 1,000 ML IV SCH (05:37)
[2016-11-17 06:48] LABS: ADD MANUAL DIFF? NO
[2016-11-17 07:23] LABS: ALB/GLOB RATIO 0.8 (1.1-1.8); ALKALINE PHOSPHATASE 367 U/L (38-133); ALT/SGPT 39 U/L (7-56); AST/SGOT 73 U/L (15-59); BILIRUBIN,TOTAL 1.2 mg/dL (0.2-1.3); BLOOD UREA NITROGEN 19 mg/dL (7-21); CALCIUM 7.9 mg/dL (8.4-10.5); CARBON DIOXIDE 24 mmol/L (21-33); CHLORIDE 110 mmol/L (98-107); GFR AFRICAN-AMERICAN > 60; GLUCOSE,RANDOM 101 mg/dL (70-110); POTASSIUM 3.9 mmol/L (3.6-5.0); SODIUM 139 mmol/L (132-148); TOTAL PROTEIN 6.1 g/dL (5.8-8.3)
[2016-11-17 07:55] LABS: BASO # 0.01 K/mm3 (0.0-2.0); BASO % 0.1 % (0.0-3.0); EOS % 0.1 % (1.5-5.0); GRAN % 77.3 % (50.0-68.0); HEMATOCRIT 24.2 % (42.0-52.0); LYMPH # 1.1 (1.2-3.4); LYMPH % 6.1 % (22.0-35.0); MEAN CELL VOLUME 81.8 fL (80.0-105.0); MEAN CORPUSCULAR HGB CONC 33.1 g/dl (31.0-37.0); MEAN PLATELET VOLUME 9.9 fl (7.0-11.0); MONO % 16.4 % (1.0-6.0); PLATELET COUNT 385 10^3/uL (120.0-450.0); RED CELL DISTRIBUTION WIDTH 15.2 % (11.5-14.5); WHITE BLOOD COUNT 18.5 10^3/ul (4.5-11.0)
[2016-11-17] MEDS ORDERED: Sodium Chloride 0.9% 1,000 ML IV SCH (08:58)
--- NOTE | 2016-11-17 09:01 | CP.PCM.PN ---
<Ward Harrington Derek - Last Filed: 11/17/16 09:02> Subjective - Date & Time of Evaluation Date of Evaluation: 11/17/16 Time of Evaluation: 08:58 - Subjective Subjective: Gen Sx: Dr Morton Pt S&E. NAEO. States pain is well controlled now. Denies N/V, F/C. Denies any further bloody BM. Remains NPO. HgB back down this morning 7.2, being transfused additional 2 units. Has made more than adequate urine output Objective - Vital Signs/Intake and Output Vital Signs (last 24 hours): Temp Pulse Resp BP Pulse Ox 99 F 95 H 18 133/84 98 11/17/16 06:09 11/17/16 06:09 11/17/16 06:09 11/17/16 06:09 11/17/16 06:09 Intake and Output: 11/17/16 11/17/16 06:59 18:59 Intake Total 1740 Output Total 1150 Balance 590 - Medications Medications: Current Medications Hydromorphone HCl (Dilaudid) 0.5 mg IVP Q4H PRN PRN Reason: Pain, moderate (4-7) Last Admin: 11/17/16 03:05 Dose: 0.5 mg Pantoprazole Sodium (Protonix 40mg Ivpb) 40 mg in 100 mls @ 20 mls/hr IVPB .Q5H [facility] Last Admin: 11/17/16 04:13 Dose: 20 mls/hr - Labs Labs: 11/17/16 06:00 11/17/16 06:00 PT 13.0 Seconds (9.9-11.8) H 11/15/16 18:35 INR 1.20 (0.93-1.08) H 11/15/16 18:35 APTT 26.7 Seconds (23.7-30.8) 11/15/16 18:35 - Constitutional Appears: Non-toxic, No Acute Distress - ENT Exam ENT Exam: Mucous Membranes Dry - Respiratory Exam Respiratory Exam: absent: Accessory Muscle Use, Respiratory Distress - Cardiovascular Exam Cardiovascular Exam: REGULAR RHYTHM. absent: Tachycardia - GI/Abdominal Exam GI & Abdominal Exam: Soft. absent: Distended, Guarding, Rigid, Tenderness - Neurological Exam Neurological Exam: Alert, Awake, Oriented x3 - Psychiatric Exam Psychiatric exam: Normal Affect, Normal Mood - Skin Skin Exam: Dry, Normal Color, Warm. absent: Pallor Assessment and Plan - Assessment and Plan (Free Text) Assessment: 56M w/ GI bleed from unknown source, presumably gastric ulcer 2/2 NSAID use Plan: Transfuse PRN will decrease fluids as pt is -3L and making more than adequate urine output plus receiving blood will need to identify source of bleeding, possibly repeat EGD f/u CT chest read will d/w Dr Selene Harrington, DO, PGY2 <Navdeep Morton - Last Filed: 02/13/17 22:31> Objective - Vital Signs/Intake and Output Vital Signs (last 24 hours): Temp Pulse Resp BP Pulse Ox 98.0 F 57 L 18 113/72 98 11/23/16 06:00 11/23/16 06:00 11/23/16 06:00 11/23/16 06:00 11/23/16 06:00 - Labs Labs: 11/23/16 06:45 11/23/16 06:45 PT 11.9 Seconds (9.9-11.8) H 11/20/16 05:00 INR 1.10 (0.93-1.08) H 11/20/16 05:00 APTT 32.6 Seconds (23.7-30.8) H 11/18/16 06:30 Assessment and Plan - Assessment and Plan (Free Text) Plan: Patient was seen and examined by me. I agree with assessment and plan as per resident's note.
[2016-11-17] MEDS ORDERED: Dextrose 5%/0.9% NS 1,000 ML IV SCH (10:15)
--- NOTE | 2016-11-17 11:36 | CT ---
PROCEDURE: CT Chest without contrast HISTORY: gastric outlet obstruction, GIB,esophgastrectomy COMPARISON: None. TECHNIQUE: Contiguous axial images were obtained through the chest without intravenous contrast enhancement. Sagittal and coronal reconstructions were performed. Radiation dose (DLP): 329 mGy-cm. This CT exam was performed using one or more of the following dose reduction techniques: Automated exposure control, adjustment of the mA and/or kV according to patient size, and/or use of iterative reconstruction technique. FINDINGS: LUNGS: Diffuse emphysematous changes with evidence of prior right thoracotomy. MEDIASTINUM: Unremarkable thoracic aorta. No aneurysm. Normal sized heart. Main pulmonary artery unremarkable. No vascular congestion. No lymphadenopathy. Partial intrathoracic stomach with surgical clips noted. PLEURA: No pleural fluid. No pneumothorax. BONES: No fracture. No destructive lesion. UPPER ABDOMEN: Innumerable hypodense masses throughout the liver consistent with metastatic disease. Roughly 3 centimeter right adrenal mass. OTHER FINDINGS: None. IMPRESSION: Partial interval rested since stomach with surgical clips present. Innumerable masses throughout the liver as well as a 3 centimeter mass within the right adrenal gland consistent metastatic disease.
--- NOTE | 2016-11-17 11:41 | CP.PCM.PN ---
<Chen Murray - Last Filed: 11/17/16 11:56> Subjective - Date & Time of Evaluation Date of Evaluation: 11/17/16 Time of Evaluation: 07:30 - Subjective Subjective: Pt seen and evaluated at bedside. Pt denies dizziness and chest pain. Reports no stool in past day. Will be having 2 PRBC transfused later in morning. Objective - Vital Signs/Intake and Output Vital Signs (last 24 hours): Temp Pulse Resp BP Pulse Ox 100.6 F H 102 H 18 141/85 98 11/17/16 11:05 11/17/16 11:05 11/17/16 11:05 11/17/16 11:05 11/17/16 06:09 Intake and Output: 11/17/16 11/17/16 06:59 18:59 Intake Total 1740 Output Total 1150 Balance 590 - Medications Medications: Current Medications Hydromorphone HCl (Dilaudid) 0.5 mg IVP Q4H PRN PRN Reason: Pain, moderate (4-7) Last Admin: 11/17/16 03:05 Dose: 0.5 mg Pantoprazole Sodium (Protonix 40mg Ivpb) 40 mg in 100 mls @ 20 mls/hr IVPB .Q5H AHSLIE Last Admin: 11/17/16 09:59 Dose: 20 mls/hr Dextrose/Sodium Chloride (Dextrose 5%/0.9% Ns 1000 Ml) 1,000 mls @ 150 mls/hr IV .[id number] ASHLIE - Labs Labs: 11/17/16 06:00 11/17/16 06:00 PT 13.0 Seconds (9.9-11.8) H 11/15/16 18:35 INR 1.20 (0.93-1.08) H 11/15/16 18:35 APTT 26.7 Seconds (23.7-30.8) 11/15/16 18:35 - Constitutional Appears: No Acute Distress - Head Exam Head Exam: ATRAUMATIC, NORMOCEPHALIC - Eye Exam Eye Exam: EOMI, Normal appearance Pupil Exam: NORMAL ACCOMODATION, PERRL - Respiratory Exam Respiratory Exam: Clear to Ausculation Bilateral, NORMAL BREATHING PATTERN - Cardiovascular Exam Cardiovascular Exam: Tachycardia, +S1, +S2 - GI/Abdominal Exam GI & Abdominal Exam: Soft. absent: Tenderness - Exam External exam: absent: Ecchymosis, Erythema - Extremities Exam Extremities Exam: absent: Pedal Edema, Tenderness - Neurological Exam Neurological Exam: Alert, Awake - Skin Skin Exam: Intact, Pallor Assessment and Plan - Assessment and Plan (Free Text) Plan: 56 yo M PMHx of esophageal and gastric cancer s/p chemotherapy and sx, presents with hematemesis and dark stool. Hemoglobin 7. 2 PRBC transferred. Admitted for symptomatic anemia. GI Bleed: Stool guaiac positive GI, Dr. Elizabeth, consulted. Help appreciated. Protonix Drip NS/D5 Hgb 6.7, today 7.1 when overnight in 8 BUN/Cr 43/0.7---now 19/.6 Type and cross matched; 2 units of prbcs transfused yesterday, and 2 today. Iron studies: normal ferritin, TIBC 195, transferritin 135, likely due to bleed NPO diet EGD: gastric outlet obstruction, gastric [id number] Abd CT shows multiple masses in liver and 3 cm mass in R adrenal gland, most likely all mets. Chest Pain: Troponins negative x 1 EKG - NSR (please see full report) Serial cardiac enzymes pending Leukocytosis/Thrombocytosis: WBC-11.8-->18.5 Platelets - 473-->385 Lactate 3.0--->1.4 Afebrile, nontachycardic Blood neg at 24hrs, urine cultures pending Fall: Pt refused head CT Prophylactic Measures: DVT: SCDs, checmical anticoagulation contraindicated due to GI bleed GI: Protonix drip <Marichuy DOMINGUEZ,Iza - Last Filed: 11/17/16 15:04> Objective - Vital Signs/Intake and Output Vital Signs (last 24 hours): Temp Pulse Resp BP Pulse Ox 99.1 F 85 18 137/85 98 11/17/16 13:35 11/17/16 13:35 11/17/16 13:35 11/17/16 13:35 11/17/16 06:09 Intake and Output: 11/17/16 11/17/16 06:59 18:59 Intake Total 1740 325 Output Total 1150 Balance 590 325 - Medications Medications: Current Medications Hydromorphone HCl (Dilaudid) 0.5 mg IVP Q4H PRN PRN Reason: Pain, moderate (4-7) Last Admin: 11/17/16 03:05 Dose: 0.5 mg Pantoprazole Sodium (Protonix 40mg Ivpb) 40 mg in 100 mls @ 20 mls/hr IVPB .Q5H ASHLIE Last Admin: 11/17/16 09:59 Dose: 20 mls/hr Dextrose/Sodium Chloride (Dextrose 5%/0.9% Ns 1000 Ml) 1,000 mls @ 75 mls/hr IV .[id number] ASHLIE Last Admin: 11/17/16 14:31 Dose: 75 mls/hr - Labs Labs: 11/17/16 06:00 11/17/16 06:00 PT 13.0 Seconds (9.9-11.8) H 11/15/16 18:35 INR 1.20 (0.93-1.08) H 11/15/16 18:35 APTT 26.7 Seconds (23.7-30.8) 11/15/16 18:35 Attending/Attestation - Attestation I have personally seen and examined this patient.: Yes I have fully participated in the care of the patient.: Yes I have reviewed all pertinent clinical information, including history, physical exam and plan: Yes Notes (Text): Patient was seen and examined with director [employer] medical [employer] .Agreed with resident assessment and plan. 56 yrs old Male with PMHx of esophageal and gastric cancer s/p chemotherapy and sx, presents with hematemesis and dark stool, EGD was attempted by GI yesterday that showed food particle ,concern for pyloric obstruction.CT scan of chest showed possible metastasis in liver, will get CT scan of abdomen and Pelvis.Patient hemoglobin dropped to 7.5, blood transfusion has been ordered.Patient is on Protonix drip.Patient has leukocytosis, he is afebrile, we will get UA and urine culture, we will hold of antibiotics at this time. Prognosis is guarded. Management plan was discussed in detail with patient Education was provided.
[2016-11-17] MEDS: Dextrose 5%/0.9% NS 1,000 ML IV SCH (14:31)
[2016-11-17 17:36] LABS: HEMATOCRIT 26.2 % (42.0-52.0)
[2016-11-17 22:39] LABS: HEMATOCRIT 27.4 % (42.0-52.0)
[2016-11-18] MEDS: Dextrose 5%/0.9% NS 1,000 ML IV SCH ×3 (03:00→19:58)
[2016-11-18] MEDS: Pantoprazole 40mg/100ml IVPB 40 MG/100 ML BAG IVPB SCH ×5 (03:00→19:58)
[2016-11-18 06:44] LABS: HEMATOCRIT 25.4 % (42.0-52.0); MEAN CELL VOLUME 82.2 fL (80.0-105.0); MEAN CORPUSCULAR HEMOGLOBIN 27.8 pg (25.0-35.0); MEAN CORPUSCULAR HGB CONC 33.9 g/dl (31.0-37.0); RED CELL DISTRIBUTION WIDTH 15.4 % (11.5-14.5); WHITE BLOOD COUNT 17.7 10^3/ul (4.5-11.0)
[2016-11-18 06:49] LABS: ALB/GLOB RATIO 0.8 (1.1-1.8); ALKALINE PHOSPHATASE 306 U/L (38-133); ALT/SGPT 39 U/L (7-56); AST/SGOT 25 U/L (15-59); BILIRUBIN,TOTAL 1.4 mg/dL (0.2-1.3); BLOOD UREA NITROGEN 18 mg/dL (7-21); CALCIUM 7.9 mg/dL (8.4-10.5); CARBON DIOXIDE 22 mmol/L (21-33); CHLORIDE 109 mmol/L (95-110); GFR AFRICAN-AMERICAN > 60; GLUCOSE,RANDOM 131 mg/dL (70-110); POTASSIUM 3.6 mmol/L (3.6-5.0); SODIUM 138 mmol/L (132-148); TOTAL PROTEIN 5.8 g/dL (5.8-8.3)
[2016-11-18 07:02] LABS: INR 1.26 (0.93-1.08); PARTIAL THROMBOPLASTIN TIME 32.6 Seconds (23.7-30.8)
[2016-11-18] MEDS: HYDROmorphone 0.5 mg/0.5 ml ISec IVP PRN ×4 (07:20→20:02)
[2016-11-18] MEDS ORDERED: Iohexol 240 (50 ml) ONE (08:27)
--- NOTE | 2016-11-18 10:05 | CP.PCM.PN ---
<Brie Osorio - Last Filed: 11/18/16 11:04> Subjective - Date & Time of Evaluation Date of Evaluation: 11/18/16 Time of Evaluation: 09:59 - Subjective Subjective: General Surgery Dr. Morton Pt S&E @bedside. Pt transfused 1units pRBC, otherwise NAEO. Pt at radiology for CT A/P. Objective - Vital Signs/Intake and Output Vital Signs (last 24 hours): Temp Pulse Resp BP Pulse Ox 98.7 F 74 20 131/87 99 11/18/16 05:55 11/18/16 05:55 11/18/16 05:55 11/18/16 05:55 11/18/16 05:55 Intake and Output: 11/18/16 11/18/16 06:59 18:59 Intake Total 1140 Output Total 1200 Balance -60 - Medications Medications: Current Medications Hydromorphone HCl (Dilaudid) 0.5 mg IVP Q4H PRN PRN Reason: Pain, moderate (4-7) Last Admin: 11/18/16 07:20 Dose: 0.5 mg Pantoprazole Sodium (Protonix 40mg Ivpb) 40 mg in 100 mls @ 20 mls/hr IVPB .Q5H ASHLIE Last Admin: 11/18/16 08:29 Dose: 20 mls/hr Dextrose/Sodium Chloride (Dextrose 5%/0.9% Ns 1000 Ml) 1,000 mls @ 75 mls/hr IV .[id number] ASHLIE Last Admin: 11/18/16 03:00 Dose: 75 mls/hr Phytonadione 20 mg/ Sodium (Chloride) 52 mls @ 100 mls/hr IV ONCE ONE Stop: 11/18/16 10:01 - Labs Labs: 11/18/16 06:30 11/18/16 06:30 PT 13.6 Seconds (9.9-11.8) H 11/18/16 06:30 INR 1.26 (0.93-1.08) H 11/18/16 06:30 APTT 32.6 Seconds (23.7-30.8) H 11/18/16 06:30 Assessment and Plan - Assessment and Plan (Free Text) Assessment: 56 y/o M w/ gastric outlet obstruction, esopageal ulcers, and GI bleeding from unknown source - administer Vit K - H/H Q4hr - f/u CT A/P w/ PO & IV contrast - monitor vitals - pain management - f/u GI - continue conservative management - may need to be rescoped if pt continues to bleed Pt discussed w/ Dr. Selene Osorio DO PGY1 <Navdeep Morton - Last Filed: 02/13/17 22:32> Objective - Vital Signs/Intake and Output Vital Signs (last 24 hours): Temp Pulse Resp BP Pulse Ox 98.0 F 57 L 18 113/72 98 11/23/16 06:00 11/23/16 06:00 11/23/16 06:00 11/23/16 06:00 11/23/16 06:00 - Labs Labs: 11/23/16 06:45 11/23/16 06:45 PT 11.9 Seconds (9.9-11.8) H 11/20/16 05:00 INR 1.10 (0.93-1.08) H 11/20/16 05:00 APTT 32.6 Seconds (23.7-30.8) H 11/18/16 06:30 Assessment and Plan - Assessment and Plan (Free Text) Plan: Patient was seen and examined by me. I agree with assessment and plan as per resident's note.
[2016-11-18] MEDS ORDERED: Iohexol 350 MG/100 ML VIAL ONE (10:30)
--- NOTE | 2016-11-18 12:55 | CT ---
PROCEDURE: CT Abdomen and Pelvis with contrast HISTORY: please use omnipaque NO BARIUM COMPARISON: None. TECHNIQUE: Contrast dose: 100 cc of Omnipaque 300 Radiation dose: Total exam DLP = 351 mGy-cm. This CT exam was performed using one or more of the following dose reduction techniques: Automated exposure control, adjustment of the mA and/or kV according to patient size, and/or use of iterative reconstruction technique. FINDINGS: LOWER THORAX: Large hiatal hernia.. LIVER: Innumerable heterogeneously enhancing masses consistent with metastatic disease with confluent masses in the right hepatic lobe measuring up to 10.6 x 9.5 centimeters. GALLBLADDER AND BILE DUCTS: Unremarkable. PANCREAS: Unremarkable. No gross lesion or ductal dilatation. SPLEEN: Unremarkable. ADRENALS: 3.2 centimeter enhancing mass in the right adrenal gland. KIDNEYS AND URETERS: Unremarkable. No hydronephrosis. No solid mass. VASCULATURE: Unremarkable. No aortic aneurysm. BOWEL: Unremarkable. No obstruction. No gross mural thickening. APPENDIX: Normal appendix. PERITONEUM: Mild pelvic ascites. LYMPH NODES: Extensive necrotic retroperitoneal, gastrohepatic ligament, Marina pancreatic and portal lymphadenopathy. Largest confluent lymph nodes in the retrocaval space measuring 2.7 x 4.1 centimeters. BLADDER: Unremarkable. REPRODUCTIVE: Unremarkable. BONES: No acute fracture. OTHER FINDINGS: None. IMPRESSION: Innumerable heterogeneously enhancing masses throughout the liver with large confluence of masses in the right hepatic lobe as well as extensive intra-abdominal lymphadenopathy compatible with metastatic disease. Primary malignancy not definitively determined on this exam.
--- NOTE | 2016-11-18 14:15 | CP.PCM.PN ---
<Chen Murray - Last Filed: 11/18/16 16:53> Subjective - Date & Time of Evaluation Date of Evaluation: 11/18/16 Time of Evaluation: 08:40 - Subjective Subjective: Pt seen and evaluated at bedside. Pt denies any hematuria or dark/bloody stools. Afebrile overnight, though had febrile event midday yesterday of 100.6 that resolved. Objective - Vital Signs/Intake and Output Vital Signs (last 24 hours): Temp Pulse Resp BP Pulse Ox 99.4 F 80 19 132/86 99 11/18/16 12:08 11/18/16 12:08 11/18/16 12:08 11/18/16 12:08 11/18/16 05:55 Intake and Output: 11/18/16 11/18/16 06:59 18:59 Intake Total 1140 Output Total 1200 125 Balance -60 -125 - Medications Medications: Current Medications Hydromorphone HCl (Dilaudid) 0.5 mg IVP Q4H PRN PRN Reason: Pain, moderate (4-7) Last Admin: 11/18/16 12:32 Dose: 0.5 mg Pantoprazole Sodium (Protonix 40mg Ivpb) 40 mg in 100 mls @ 20 mls/hr IVPB .Q5H ASHLIE Last Admin: 11/18/16 08:29 Dose: 20 mls/hr Dextrose/Sodium Chloride (Dextrose 5%/0.9% Ns 1000 Ml) 1,000 mls @ 75 mls/hr IV .[id number] ASHLIE Last Admin: 11/18/16 03:00 Dose: 75 mls/hr - Labs Labs: 11/18/16 06:30 11/18/16 06:30 PT 13.6 Seconds (9.9-11.8) H 11/18/16 06:30 INR 1.26 (0.93-1.08) H 11/18/16 06:30 APTT 32.6 Seconds (23.7-30.8) H 11/18/16 06:30 - Additional Findings Additional findings: - Constitutional Appears: No Acute Distress - Head Exam Head Exam: ATRAUMATIC, NORMOCEPHALIC - Eye Exam Eye Exam: EOMI, Normal appearance - Respiratory Exam Respiratory Exam: Clear to Ausculation Bilateral, NORMAL BREATHING PATTERN - Cardiovascular Exam Cardiovascular Exam: not Tachycardia, +S1, +S2 - GI/Abdominal Exam GI & Abdominal Exam: Soft. absent: Tenderness - Exam External exam: absent: Ecchymosis, Erythema - Extremities Exam Extremities Exam: absent: Pedal Edema, Tenderness - Neurological Exam Neurological Exam: Alert, Awake - Skin Skin Exam: Intact, Pallor Assessment and Plan - Assessment and Plan (Free Text) Plan: 56 yo M PMHx of esophageal and gastric cancer s/p chemotherapy and sx, presents with hematemesis and dark stool. Hemoglobin 7. 2 PRBC transfused in ED. Admitted for symptomatic anemia. GI Bleed: Stool guaiac positive GI, Dr. Elizabeth, consulted. Help appreciated. Protonix Drip NS/D5 at 75 cc Hgb 6.7 initially, currently 8.6 BUN/Cr 43/0.7---now 18/.6 Type and cross matched; 2 units of prbcs transfused 11/16, and one 11/17. Iron studies: normal ferritin, TIBC 195, transferritin 135, likely due to bleed NPO diet EGD: gastric outlet obstruction, gastric [id number] Chest CT and abd CT shows multiple masses in liver and 3 cm mass in R adrenal gland, most likely all mets. Chest Pain: Troponins negative x 1 EKG - NSR (please see full report) Serial cardiac enzymes pending Leukocytosis/Thrombocytosis: WBC-11.8-->18.5-->17.7 Platelets - 473-->385-->344 Lactate 3.0--->1.4 Afebrile, nontachycardic Blood neg at 24hrs, urine cultures pending Fall: Pt refused head CT Prophylactic Measures: DVT: SCDs, checmical anticoagulation contraindicated due to GI bleed GI: Protonix drip <Marichuy DOMINGUEZ,Adaliriversideanne - Last Filed: 11/18/16 17:05> Objective - Vital Signs/Intake and Output Vital Signs (last 24 hours): Temp Pulse Resp BP Pulse Ox 99.4 F 80 19 132/86 99 11/18/16 12:08 11/18/16 12:08 11/18/16 12:08 11/18/16 12:08 11/18/16 05:55 Intake and Output: 11/18/16 11/18/16 06:59 18:59 Intake Total 1140 0 Output Total 1200 1225 Balance -60 -1225 - Medications Medications: Current Medications Acetaminophen (Tylenol 650 Mg Supp) 650 mg RC Q6H PRN PRN Reason: Fever >100.4 F Hydromorphone HCl (Dilaudid) 0.5 mg IVP Q4H PRN PRN Reason: Pain, moderate (4-7) Last Admin: 11/18/16 15:33 Dose: 0.5 mg Pantoprazole Sodium (Protonix 40mg Ivpb) 40 mg in 100 mls @ 20 mls/hr IVPB .Q5H ASHLIE Last Admin: 11/18/16 08:29 Dose: 20 mls/hr Dextrose/Sodium Chloride (Dextrose 5%/0.9% Ns 1000 Ml) 1,000 mls @ 75 mls/hr IV .[id number] [facility] Last Admin: 11/18/16 03:00 Dose: 75 mls/hr Piperacillin Sod/Tazobactam Sod (Zosyn 3.375 In Ns 100ml) 100 mls @ 200 mls/hr IVPB Q6 ASHLIE PRN Reason: Protocol - Labs Labs: 11/18/16 14:25 11/18/16 06:30 PT 13.6 Seconds (9.9-11.8) H 11/18/16 06:30 INR 1.26 (0.93-1.08) H 11/18/16 06:30 APTT 32.6 Seconds (23.7-30.8) H 11/18/16 06:30 Attending/Attestation - Attestation I have personally seen and examined this patient.: Yes I have fully participated in the care of the patient.: Yes I have reviewed all pertinent clinical information, including history, physical exam and plan: Yes Notes (Text): 11/18/16 16:58 Patient was seen and examined with medical csr .Agreed with resident assessment and plan. 56 Yrs old Male with PMHx of esophageal and gastric cancer ,SP Surgery and chemotherapy , presents with hematemesis and dark stool, EGD was attempted by GI on Saturday that showed food particle ,concern for pyloric obstruction.CT scan of chest showed possible metastasis in liver, Abdominal CT scan showed multiple liver metastasis and lymphadenopathy, Patient NPO on protonix drip , he is SP 4 units PRBC, Hemoglobin is slowly dropping GI and surgery on case.We will continue monitoring hemoglobin and hematocrit. Patient has elevated WBC , and low grade fevere,Etiology is unclear, Chest CT and abdominal CT is negative for any infectious pathology, could be aspiration cultures negative, we will start patient on IV zosyn, we will order Procalcitonin level. Prognosis is guarded. Management plan was discussed in detail with patient Education was provided.
[2016-11-18 14:30] LABS: HEMATOCRIT 28.2 % (42.0-52.0)
--- NOTE | 2016-11-18 17:07 | PN ---
DATE: 11/18/2016 SUBJECTIVE: This patient was seen and evaluated earlier today. The patient at the time of examination was just returned from the CAT scan. The patient did have an oral contrast and also IV contrast CAT scan. Complaining of some abdominal discomfort post CAT scan because of the distention. PHYSICAL EXAMINATION: VITAL SIGNS: Temperature is 99.4, blood pressure 132/86, pulse 80, respirations 19. HEENT: Atraumatic. The patient is anicteric, appears cachectic. NECK: Supple. HEART: S1, S2 heard. LUNGS: Bilateral air entry present. ABDOMEN: Softly distended. Some tenderness in the epigastric area. EXTREMITIES: No cyanosis, no clubbing, no edema. The patient appears very cachectic. LABORATORY DATA: WBC count is 17.7, hemoglobin 8.6, hematocrit 25.4, platelets 344. Chemistry: Total bilirubin 1.4, alkaline phosphatase 306. IMPRESSION: This is a 56-year-old patient with what appears to be cancer of the stomach, probably fundus or the cardia area. The patient appears to have had partial esophagogastrectomy, status post chemotherapy. The patient was being followed in [facility], had multiple endoscopies done and the last endoscopy was a long time back and the patient was admitted with vomiting blood. The patient was taking NSAIDs. Upper GI endoscopy revealed multiple esophageal ulcerations, and a large amount of gastric bezoar. Gastric outlet could not be clearly identified. The part of the ulcerations of the esophagus and this could be secondary to the reflux disease from the stasis of the foot in the stomach. The patient does have complaints of not able to take any solid food, was vomiting out, but he was able to handle liquids. The patient had a CT scan of the chest done before, which showed multiple hepatic lesions. Possible metastases. Status post transfusion. Leukocytosis. The patient's white cell count was progressively going up; the source is unclear of any infection. RECOMMENDATIONS: 1. Followup of the CT scan of the abdomen to evaluate. 2. Will dw Dr. Morton regarding surgical option . 3. Increasing WBC, [place] cultures. We will follow up the cultures. Continue the PPI. Follow up of the hemoglobin and hematocrit. Will review the CT scan. Thank you very much for allowing us to participate in the care of the patient. Annita Elizabeth MD cc: [id number] TT: 11/18/2016 17:06:31 Confirmation # [id number] Dictation # [id number] dn MTDD
[2016-11-18] MEDS: Piperacillin/Tazobact 3.375 gm 100 ML IVPB SCH (17:14)
[2016-11-18 17:44] LABS: HEMATOCRIT 23.9 % (42.0-52.0)
[2016-11-18 21:42] LABS: URINE BILIRUBIN NEGATIVE (NEGATIVE); URINE COLOR AMBER (YELLOW); URINE GLUCOSE (UA) NEGATIVE (Normal)
[2016-11-18 21:43] LABS: URINE KETONE NEGATIVE (NEGATIVE)
[2016-11-18 21:44] LABS: URINE BLOOD NEGATIVE (NEGATIVE); URINE PROTEIN 1+ mg/dL (NEGATIVE)
[2016-11-18 21:52] LABS: URINE LEUKOCYTE ESTERASE NEG Leu/uL (Negative)
[2016-11-18 23:54] LABS: HEMATOCRIT 24.1 % (42.0-52.0)
[2016-11-19] MEDS: HYDROmorphone 0.5 mg/0.5 ml ISec IVP PRN ×5 (00:01→21:07)
[2016-11-19] MEDS: Piperacillin/Tazobact 3.375 gm 100 ML IVPB SCH ×3 (00:01→12:25)
[2016-11-19 00:39] LABS: URINE APPEARANCE SL CLOUDY (CLEAR)
[2016-11-19] MEDS: Pantoprazole 40mg/100ml IVPB 40 MG/100 ML BAG IVPB SCH ×6 (01:29→23:18)
[2016-11-19 07:20] LABS: HEMATOCRIT 25.5 % (42.0-52.0); MEAN CELL VOLUME 83.9 fL (80.0-105.0); MEAN CORPUSCULAR HEMOGLOBIN 27.6 pg (25.0-35.0); MEAN CORPUSCULAR HGB CONC 32.9 g/dl (31.0-37.0); WHITE BLOOD COUNT 15.3 10^3/ul (4.5-11.0)
--- NOTE | 2016-11-19 08:30 | CP.PCM.PN ---
<James Raygoza - Last Filed: 11/19/16 14:26> Subjective - Date & Time of Evaluation Date of Evaluation: 11/19/16 Time of Evaluation: 08:25 - Subjective Subjective: General surgery progress note for Dr. Morton- James Raygoza PGY1 Patient seen and examined at bedside this morning. No acute overnight events or new complaints reported. Denies nausea, vomiting, melena, hematochezia, hematemesis. H/H has been stable thus far. Will continue to follow. Objective - Vital Signs/Intake and Output Vital Signs (last 24 hours): Temp Pulse Resp BP Pulse Ox 99.1 F 79 20 137/75 98 11/19/16 05:59 11/19/16 05:59 11/19/16 05:59 11/19/16 05:59 11/19/16 05:59 Intake and Output: 11/19/16 11/19/16 06:59 18:59 Intake Total 760 Output Total 850 Balance -90 - Medications Medications: Current Medications Acetaminophen (Tylenol 650 Mg Supp) 650 mg RC Q6H PRN PRN Reason: Fever >100.4 F Hydromorphone HCl (Dilaudid) 0.5 mg IVP Q4H PRN PRN Reason: Pain, moderate (4-7) Last Admin: 11/19/16 08:07 Dose: 0.5 mg Pantoprazole Sodium (Protonix 40mg Ivpb) 40 mg in 100 mls @ 20 mls/hr IVPB .Q5H [facility] Last Admin: 11/19/16 05:41 Dose: 20 mls/hr Dextrose/Sodium Chloride (Dextrose 5%/0.9% Ns 1000 Ml) 1,000 mls @ 75 mls/hr IV .[id number] ASHLIE Last Admin: 11/18/16 19:58 Dose: 75 mls/hr Piperacillin Sod/Tazobactam Sod (Zosyn 3.375 In Ns 100ml) 100 mls @ 200 mls/hr IVPB Q6 ASHLIE PRN Reason: Protocol Last Admin: 11/19/16 05:38 Dose: 200 mls/hr - Labs Labs: 11/19/16 06:15 11/18/16 06:30 PT 13.6 Seconds (9.9-11.8) H 11/18/16 06:30 INR 1.26 (0.93-1.08) H 11/18/16 06:30 APTT 32.6 Seconds (23.7-30.8) H 11/18/16 06:30 - Constitutional Appears: No Acute Distress - Head Exam Head Exam: ATRAUMATIC, NORMAL INSPECTION, NORMOCEPHALIC - Eye Exam Eye Exam: EOMI, PERRL - ENT Exam ENT Exam: Mucous Membranes Moist - Neck Exam Neck Exam: Normal Inspection - Respiratory Exam Respiratory Exam: Clear to Ausculation Bilateral. absent: Rales, Rhonchi, Wheezes - Cardiovascular Exam Cardiovascular Exam: +S1, +S2. absent: Gallop, Rubs - GI/Abdominal Exam GI & Abdominal Exam: Soft, Tenderness (epigastric). absent: Distended, Firm, Rigid, Rebound - Neurological Exam Neurological Exam: Alert, Awake, Oriented x3 - Psychiatric Exam Psychiatric exam: Normal Affect, Normal Mood - Skin Skin Exam: Dry, Intact, Normal Color, Warm Assessment and Plan - Assessment and Plan (Free Text) Plan: 56yo male with history of gastric and esophageal Ca, multiple sclerosis and GERD presents c/o hematemesis and melena -EGD revealed gastric outlet obstruction, non-bleeding gastric ulcers -CT Abdomen/Pelvis reviewed; multiple liver mets w/ multiple retro-peritoneal lymph nodes -H/H stable -monitor vitals -pain management -f/u GI recommendations -Advance diet as per GI recommendations -continue conservative management -Pt may need to be rescoped if he continues to bleed -Recommend liver biopsy -no surgical intervention at this time Patient seen and case discussed with Dr. Selene Raygoza DO PGY1 <Navdeep Morton - Last Filed: 02/13/17 22:32> Objective - Vital Signs/Intake and Output Vital Signs (last 24 hours): Temp Pulse Resp BP Pulse Ox 98.0 F 57 L 18 113/72 98 11/23/16 06:00 11/23/16 06:00 11/23/16 06:00 11/23/16 06:00 11/23/16 06:00 - Labs Labs: 11/23/16 06:45 11/23/16 06:45 PT 11.9 Seconds (9.9-11.8) H 11/20/16 05:00 INR 1.10 (0.93-1.08) H 11/20/16 05:00 APTT 32.6 Seconds (23.7-30.8) H 11/18/16 06:30 Assessment and Plan - Assessment and Plan (Free Text) Plan: Patient was seen and examined by me. I agree with assessment and plan as per resident's note.
[2016-11-19] MEDS: Dextrose 5%/0.9% NS 1,000 ML IV SCH (11:07)
--- NOTE | 2016-11-19 12:18 | CP.PCM.PN ---
<Jos éMiguel Cantu - Last Filed: 11/19/16 12:15> Subjective - Date & Time of Evaluation Date of Evaluation: 11/19/16 Time of Evaluation: 07:45 - Subjective Subjective: Medicine Progress note. Dr. Richardson Pt seen and examined at bedside. Denies any acute events overnight. States that he is hungry. Denies any episodes of N/V. No BMs, no melena, no dark stools, no red stools. No signs of bleeding. No F/C for the past 48hours. He denies any episodes of dizziness or headaches. No new complaints. Objective - Vital Signs/Intake and Output Vital Signs (last 24 hours): Temp Pulse Resp BP Pulse Ox 99.1 F 79 20 137/75 98 11/19/16 05:59 11/19/16 05:59 11/19/16 05:59 11/19/16 05:59 11/19/16 05:59 Intake and Output: 11/19/16 11/19/16 06:59 18:59 Intake Total 760 Output Total 850 Balance -90 - Medications Medications: Current Medications Acetaminophen (Tylenol 650 Mg Supp) 650 mg RC Q6H PRN PRN Reason: Fever >100.4 F Hydromorphone HCl (Dilaudid) 0.5 mg IVP Q4H PRN PRN Reason: Pain, moderate (4-7) Last Admin: 11/19/16 08:07 Dose: 0.5 mg Pantoprazole Sodium (Protonix 40mg Ivpb) 40 mg in 100 mls @ 20 mls/hr IVPB .Q5H [facility] Last Admin: 11/19/16 11:07 Dose: 20 mls/hr Dextrose/Sodium Chloride (Dextrose 5%/0.9% Ns 1000 Ml) 1,000 mls @ 75 mls/hr IV .[id number] [facility] Last Admin: 11/19/16 11:07 Dose: 75 mls/hr Ceftriaxone Sodium (Rocephin 1 Gram Ivpb) 1 gm in 100 mls @ 100 mls/hr IVPB DAILY [facility] PRN Reason: Protocol - Labs Labs: 11/19/16 06:15 11/18/16 06:30 PT 13.6 Seconds (9.9-11.8) H 11/18/16 06:30 INR 1.26 (0.93-1.08) H 11/18/16 06:30 APTT 32.6 Seconds (23.7-30.8) H 11/18/16 06:30 - Constitutional Appears: Well, No Acute Distress - Head Exam Head Exam: ATRAUMATIC, NORMAL INSPECTION, NORMOCEPHALIC - Eye Exam Eye Exam: EOMI, Normal appearance. absent: Scleral icterus Pupil Exam: PERRL - ENT Exam ENT Exam: Mucous Membranes Moist - Neck Exam Neck Exam: Full ROM - Respiratory Exam Respiratory Exam: Clear to Ausculation Bilateral, NORMAL BREATHING PATTERN. absent: Wheezes - Cardiovascular Exam Cardiovascular Exam: RRR, +S1, +S2. absent: JVD - GI/Abdominal Exam GI & Abdominal Exam: Soft, Normal Bowel Sounds. 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 Here for GI bleeding. 1. GI Bleeding GI, Dr. Elizabeth, consulted. Help appreciated. EGD on 11/16: Gastric outlet obstruction, non-bleeding gastric ulcers Possible repeat EGD 11/20 Abd flat plate today, then Clear liquid diet Protonix Drip NS/D5 at 75 cc Hgb 6.7 initially, currently 8.4 s/p 4U pRBCs since admission Iron studies: normal ferritin, TIBC 195, transferritin 135 NPO diet, will advance following Abd flat plate 2. Possible Metastatic Disease CT Chest, Abd Pelvis multiple masses in liver and 3 cm mass in R adrenal gland, lymphadenopathy most likely all mets. Hx of Esophageal & Stomach CA s/p chemo + Surgical resection in Aug 2010 Heme/Onc consulted, Dr. Hernandez, appreciate recs Consider new primary as the previous CA hx is 6 years ago. Consulted IR, Dr. Jude Paris, appreciate recs Will eval for possible bx Previous Oncologist at [place], Patient states that he was lost to follow up due to loss in his insurance Contacted [place] for records, however, it will take 7-10 business days as the medical record is in storage 3. Leukocytosis WBC 15.3 today, trending down Afebrile, nontachycardic Procalcitonin - 0.98 (mildly elevated) Blood Cxs NGTD Urine Cxs NGTD Consider this as a reactive cause Will place on Rocephin Cont to monitor clinically 4. PPx Protonix Drip SCDs Anticoagulation contraindicated due recent GI bleed Discussed case with Dr. Debra Cantu PGY1 <Kelsie Richardson - Last Filed: 11/19/16 13:11> Objective - Vital Signs/Intake and Output Vital Signs (last 24 hours): Temp Pulse Resp BP Pulse Ox 99 F 76 20 138/88 98 11/19/16 12:32 11/19/16 12:32 11/19/16 12:32 11/19/16 12:32 11/19/16 05:59 Intake and Output: 11/19/16 11/19/16 06:59 18:59 Intake Total 760 Output Total 850 Balance -90 - Medications Medications: Current Medications Acetaminophen (Tylenol 650 Mg Supp) 650 mg RC Q6H PRN PRN Reason: Fever >100.4 F Hydromorphone HCl (Dilaudid) 0.5 mg IVP Q4H PRN PRN Reason: Pain, moderate (4-7) Last Admin: 11/19/16 12:26 Dose: 0.5 mg Pantoprazole Sodium (Protonix 40mg Ivpb) 40 mg in 100 mls @ 20 mls/hr IVPB .Q5H [facility] Last Admin: 11/19/16 11:07 Dose: 20 mls/hr Dextrose/Sodium Chloride (Dextrose 5%/0.9% Ns 1000 Ml) 1,000 mls @ 75 mls/hr IV .[id number] [facility] Last Admin: 11/19/16 11:07 Dose: 75 mls/hr Ceftriaxone Sodium (Rocephin 1 Gram Ivpb) 1 gm in 100 mls @ 100 mls/hr IVPB DAILY [facility] PRN Reason: Protocol Last Admin: 11/19/16 12:26 Dose: 100 mls/hr - Labs Labs: 11/19/16 06:15 11/18/16 06:30 PT 13.6 Seconds (9.9-11.8) H 11/18/16 06:30 INR 1.26 (0.93-1.08) H 11/18/16 06:30 APTT 32.6 Seconds (23.7-30.8) H 11/18/16 06:30 Attending/Attestation - Attestation I have personally seen and examined this patient.: Yes I have fully participated in the care of the patient.: Yes I have reviewed all pertinent clinical information, including history, physical exam and plan: Yes Notes (Text): 11/19/16 13:03 56 year old male with past medical history of gastric and esophageal cancer s/p surgery and chemotherapy who presented with complaint of hematemesis and dark stools. He was found to have significant anemia which improved after prbc transfusions. He was seen by GI and underwent EGD which showed non-bleeding gastric ulcers, esophageal ulcers and gastric outlet obstruction. He is on NPO on iv protonix. Plan is to check abdominal xray today and repeat EGD tomorrow as per GI. CT chest/abdomen were reviewed which showed multiple liver masses, lymphadenopathy and adrenal lesion, likely metastatic. Hematology/oncology evaluation is requested. Will also request for prior records from [facility] and IR evaluation for possible biopsy. He has been afebrile x 48 hrs. He does have mild leukocytosis and elevation of procalcitonin for which he is on empiric antibiotics. Kelsie Richardson MD Hospitalist.
[2016-11-19] MEDS: cefTRIAXone 1 gm 1 GM/100 ML BAG IVPB SCH (12:26)
--- NOTE | 2016-11-19 13:07 | PN ---
DATE: 11/19/2016 Seen and examined at the bedside earlier this morning. Denies any nausea, vomiting. His abdominal p ain is much better. No complaints of any hemoptysis, hematemesis, or bleeding per rectum. Currently n.p.o. VITAL SIGNS: Temperature is 99.1, blood pressure is 137/75, pulse 69, respirations 20, 98 nasal devan kiera. LABORATORY DATA: Today, WBC is 15.3, H and H is 8.4 and 25.5, platelets are 388. PHYSICAL EXAMINATION: HEENT: Sclera is anicteric. NECK: Supple. CARDIAC: S1, S2. LUNGS: Sounds with decreased breath sounds with good air entry. No rales or wheeze. ABDOMEN: With bowel sounds, soft, not distended. No tenderness on palpation at this time. No rebou nd or guarding. EXTREMITIES: No edema. NEUROLOGIC: Awake, alert, and oriented. ASSESSMENT: A 56-year-old male with history of gastric and esophageal cancer and multiple sclerosis, came with history of gastroesophageal reflux disease, came with complaints of hematemesis and melena . The patient had upper endoscopy, found to have esophageal ulcers and gastric outlet obstruction. We sent the patient for a CT scan showing multiple liver metastasis with retroperitoneal lymph nodes. PLAN: We will request for a flat plate to follow up the gastric outlet obstruction to see if any con trast is present. If this is clear, then we will consider starting a clear liquid diet and we will p carolann for repeat endoscopy tomorrow. Currently, the patient is on IV fluids for hydration. He is on P rotonix. He is on IV antibiotics of ceftriaxone. Anemia secondary to gastrointestinal bleed. He is status post a total of 3 units. Monitor H and H. He is being followed by surgery for evaluation fo r biopsy and oncology. The patient was seen and case discussed with Dr. Elizabeth. Karen PAYNE cc: [id number] TT: 11/19/2016 13:06:36 Confirmation # [id number] Dictation # [id number]
--- NOTE | 2016-11-19 15:04 | RAD ---
HISTORY: gastric oulet obstruction COMPARISON: No prior. FINDINGS: BOWEL: Normal. No obstruction. No free air. BONES: Normal. OTHER FINDINGS: None. IMPRESSION: No active disease.
--- NOTE | 2016-11-20 00:28 | CON ---
DATE: 11/19/2016 LOCATION: The patient is in room 262, bed 1. REASON FOR CONSULTATION: Retroperitoneal lymph node metastasis, along with innumerable lesions in th e liver, most compatible with metastatic carcinoma. Etiology unclear. PAST MEDICAL HISTORY: Significant for multiple sclerosis, esophageal carcinoma with gastroesophageal carcinoma, for which he was treated initially in a neoadjuvant fashion with systemic chemotherapy, w ith chemotherapy consisting of capecitabine, epirubicin, and native. Finished and completed the ch emotherapy for about 6 cycles, then underwent surgery. At the time of surgery, was found to have pos itive lymph nodes in 2009, and he never received any postop radiation or postop chemotherapy. The lilian chino had been followed. Last PET/CT scan and blood work were in 2013, when everything was within no rmal limits. No evidence of recurrence of cancer at that time. His treating oncologist was Dr. Mikki nickerson from [facility] in [place]. The patient tells me that over the last several alejandra hs he had been having increasing back pain in the lower back pain, radiating anteriorly to his epigas tric area, and he is taking also some medications [id number] while he was still working, includ ing NSAIDs, along with Eula-Carmel, and other medications . The patient had felt weak at home, passed out, and was also passing dark stools. His , who was accompanying him, reported that she was attempting to transfer him from upstairs in his bedroom when he fell. The patient does not recal l whether he hit his head or not. reports that the patient was on his back when she got upstair s. He reported that this occurred about 3 hours ago. The patient has been feeling weak for the past several weeks. He has been spitting up dark blood and very hard and very dark bowel movements today , on the day of admission. The patient admits to taking Motrin and ibuprofen daily, plus has been ta wilfred 3-6 tablets a day for the past 3-4 months. He reports that he was experiencing pain earlier in the day, which is no longer there. The patient denies fevers, chills, headache, shortness of breath, nausea, vomiting. Past medical history is also significant for multiple sclerosis, esophageal and s tomach cancer, status post chemotherapy, gastroesophageal reflux disease. MEDICATIONS: Included NSAIDs at home. Along with this he was taking prednisone for multiple sclero sis, which he stopped about 2-3 months ago. PAST SURGICAL HISTORY: Significant for surgical resection of the gastroesophageal tumor after chemot herapy. ALLERGIES: The patient has no known allergies. SOCIAL HISTORY: Smokes 14 cigarettes a day. Does not drink on holidays. Denies any history of illi cit drug abuse or diabetes mellitus. REVIEW OF SYSTEMS: Except for what is mentioned in the HPI, 14-point review of systems is negative. ALLERGIES: The patient has no known allergies. SOCIAL HISTORY: Smokes 14 cigarettes a day. Drinks alcohol. No other related , only on holida ys. Denies any history of illicit drug abuse. FAMILY HISTORY: Diabetes and cancer maternal side. His grandmother and mother had breast cancer. O ne other member had a lymphoma. PHYSICAL EXAMINATION: GENERAL: The patient is awake, alert, and oriented, in no acute distress. VITAL SIGNS: Stable. HEENT: Conjunctivae pale. Sclerae are anicteric. Pupils are equally reactive to light and accommod ation. Examination of the oropharynx, there is no oropharyngeal lesion. CHEST: Exam of posterior aspect of the chest, there is a thoracotomy scar on the right side posterio rly. LUNGS: Relatively clear to percussion and auscultation. CARDIOVASCULAR: Reveals S1 and S2 to be normal. No gallop or murmur is heard. ABDOMEN: Soft, nontender. Bowel sounds are present. EXTREMITIES: With no cyanosis, clubbing, or edema. NEUROLOGIC: Higher functions are normal. No focal deficits are noted. PSYCHIATRIC: The patient's history is significant for smoking , related to cancer. Bianka maddox smoked less than 5 days ago. No history of any cardiac disorders or respiratory disorders. No hi story of any HEENT problems at this time. ALLERGIES: The patient has no known allergies. VITAL SIGNS: Were reviewed. T-max of 98.4, pulse of 77, respirations 18, blood pressure 117/75, pul se ox is 100% on room air. LABORATORY DATA: Reveals a white count of 11.3; hemoglobin 6.7; hematocrit 21; platelet count of 473 ,000. Sodium is 137, potassium is 4.7, chloride 107, CO2 of 23, BUN of 43, creatinine of 0.7, blood sugar 156. The patient is O positive. ASSESSMENT NOTES AND PLAN: The patient, on review of the scans, has extensive metastases to the live r, right greater than the left, with extensive retroperitoneal adenopathy, especially the infra crura l, retrocrural area, which shows necrotic lymph nodes, most compatible with a malignancy. Given a hi story of gastroesophageal cancer, this is most likely recurrent cancer, but we cannot prove this and that is why the patient will need a CT-guided biopsy under CAT scan done. We will be able to do the biopsy and will send the core tissues for further analysis. The patient's adrenal exam on the right side also appears to be enlarged and metastatic from the primary. PLAN: In view of these facts, we had a detailed discussion with the patient. Told him I would try t o get the information from outside, as well. Will try to schedule the patient for CT-guided biopsy o f one of the lesions in his liver, send it for [facility], as well, to see what adjuvant shantell g combinations he could get for palliation. Will check as well. Routine post exam instruction s have been given to the patient. The patient will be returning to see us in a short while. Ravin Hernandez MD cc: [id number] TT: 11/20/2016 00:27:33 Confirmation # [id number] Dictation # [id number]
[2016-11-20] MEDS: HYDROmorphone 0.5 mg/0.5 ml ISec IVP PRN ×3 (01:53→18:22)
[2016-11-20] MEDS: Dextrose 5%/0.9% NS 1,000 ML IV SCH (01:53)
[2016-11-20] MEDS: Pantoprazole 40mg/100ml IVPB 40 MG/100 ML BAG IVPB SCH ×2 (04:50→11:01)
[2016-11-20 06:10] LABS: BASO # 0.01 K/mm3 (0.0-2.0); BASO % 0.1 % (0.0-3.0); EOS # 0.1 (0.0-0.7); EOS % 0.5 % (1.5-5.0); GRAN # 7.93 (1.4-6.5); GRAN % 74.6 % (50.0-68.0); LYMPH # 0.9 (1.2-3.4); LYMPH % 8.4 % (22.0-35.0); MEAN CELL VOLUME 81.8 fL (80.0-105.0); MEAN CORPUSCULAR HEMOGLOBIN 27.9 pg (25.0-35.0); MEAN CORPUSCULAR HGB CONC 34.1 g/dl (31.0-37.0); MEAN PLATELET VOLUME 9.8 fl (7.0-11.0); MONO # 1.7 (0.1-0.6); PLATELET COUNT 353 10^3/uL (120.0-450.0); RED CELL DISTRIBUTION WIDTH 15.7 % (11.5-14.5); WHITE BLOOD COUNT 10.6 10^3/ul (4.5-11.0)
[2016-11-20 06:15] LABS: ADD MANUAL DIFF? NO
[2016-11-20 06:17] LABS: INR 1.1 (0.93-1.08)
[2016-11-20 06:31] LABS: ALB/GLOB RATIO 0.8 (1.1-1.8); ALKALINE PHOSPHATASE 278 U/L (38-133); ALT/SGPT 37 U/L (7-56); AST/SGOT 26 U/L (15-59); BILIRUBIN,TOTAL 2.8 mg/dL (0.2-1.3); BLOOD UREA NITROGEN 11 mg/dL (7-21); CALCIUM 7.7 mg/dL (8.4-10.5); CARBON DIOXIDE 25 mmol/L (21-33); CHLORIDE 104 mmol/L (98-107); GFR AFRICAN-AMERICAN > 60; GLUCOSE,RANDOM 111 mg/dL (70-110); POTASSIUM 3.5 mmol/L (3.6-5.0); SODIUM 136 mmol/L (132-148); TOTAL PROTEIN 5.8 g/dL (5.8-8.3)
[2016-11-20 07:02] LABS: MONO % 16.4 % (1.0-6.0)
--- NOTE | 2016-11-20 08:15 | CON ---
DATE: 11/19/2016 ADDENDUM This is an addendum to the GI consultation progress report dictated by Karen Haines NP. The patient did have an abdominal x-ray flat plate done which showed contrast in the colon. There was no contrast in the stomach noticed. The patient has been started on clear liquid diet, tolerating it. The original plan was to do an endoscopy again tomorrow to further evaluate the gastric outlet opening to decide whether he would benefit from surgery or for dilation. The patient is not able to tolerate the solid food, able to tolerate only liquids. This patient was evaluated earlier. At that time, patient's son and family were at that time and he had some and also pistachio. I told them not to take it. We will try to evaluate. I told him about the importance of the endoscopic evaluation and to stay only on a clear liquid diet. The patient is scheduled for the procedure tomorrow for an upper GI endoscopy and possible dilation. Annita Elizabeth MD cc: [id number] TT: 11/19/2016 20:16:33 Confirmation # [id number] Dictation # [id number] hayder BENZ
[2016-11-20] MEDS: cefTRIAXone 1 gm 1 GM/100 ML BAG IVPB SCH (11:01)
--- NOTE | 2016-11-20 12:07 | CP.PCM.PN ---
<James Raygoza - Last Filed: 11/20/16 14:17> Subjective - Date & Time of Evaluation Date of Evaluation: 11/20/16 Time of Evaluation: 09:00 - Subjective Subjective: General surgery progress note for Dr. Morton- James Raygoza PGY1 Patient seen and examined at bedside. No acute overnight events or new complaints reported. Denies nausea, vomiting, melena, hematochezia, hematemesis. Objective - Vital Signs/Intake and Output Vital Signs (last 24 hours): Temp Pulse Resp BP Pulse Ox 100.1 F H 61 18 131/77 95 11/20/16 11:58 11/20/16 11:58 11/20/16 11:58 11/20/16 11:58 11/20/16 05:49 Intake and Output: 11/20/16 11/20/16 06:59 18:59 Intake Total 0 400 Output Total 700 Balance -700 400 - Medications Medications: Current Medications Acetaminophen (Tylenol 650 Mg Supp) 650 mg RC Q6H PRN PRN Reason: Fever >100.4 F Hydromorphone HCl (Dilaudid) 0.5 mg IVP Q4H PRN PRN Reason: Pain, moderate (4-7) Last Admin: 11/20/16 12:00 Dose: 0.5 mg Pantoprazole Sodium (Protonix 40mg Ivpb) 40 mg in 100 mls @ 20 mls/hr IVPB .Q5H [facility] Last Admin: 11/20/16 11:01 Dose: 20 mls/hr Dextrose/Sodium Chloride (Dextrose 5%/0.9% Ns 1000 Ml) 1,000 mls @ 75 mls/hr IV .[id number] [facility] Last Admin: 11/20/16 01:53 Dose: 75 mls/hr Ceftriaxone Sodium (Rocephin 1 Gram Ivpb) 1 gm in 100 mls @ 100 mls/hr IVPB DAILY [facility] PRN Reason: Protocol Last Admin: 11/20/16 11:01 Dose: 100 mls/hr - Labs Labs: 11/20/16 05:00 11/20/16 05:00 PT 11.9 Seconds (9.9-11.8) H 11/20/16 05:00 INR 1.10 (0.93-1.08) H 11/20/16 05:00 APTT 32.6 Seconds (23.7-30.8) H 11/18/16 06:30 - Constitutional Appears: No Acute Distress - Head Exam Head Exam: ATRAUMATIC, NORMAL INSPECTION, NORMOCEPHALIC - Eye Exam Eye Exam: EOMI, PERRL - ENT Exam ENT Exam: Mucous Membranes Moist - Respiratory Exam Respiratory Exam: Clear to Ausculation Bilateral. absent: Rales, Rhonchi, Wheezes - Cardiovascular Exam Cardiovascular Exam: +S1, +S2. absent: Gallop, Rubs - GI/Abdominal Exam GI & Abdominal Exam: Soft, Tenderness. absent: Distended, Firm, Guarding, Rigid , Rebound - Neurological Exam Neurological Exam: Alert, Awake, Oriented x3 - Psychiatric Exam Psychiatric exam: Normal Affect, Normal Mood - Skin Skin Exam: Dry, Intact, Normal Color, Warm Assessment and Plan - Assessment and Plan (Free Text) Plan: 56yo male with history of gastric and esophageal Ca, multiple sclerosis and GERD presents c/o hematemesis and melena -EGD revealed gastric outlet obstruction, non-bleeding gastric ulcers -CT Abdomen/Pelvis reviewed; multiple liver mets w/ multiple retro-peritoneal lymph nodes -Continue to follow H/H and transfuse as needed -monitor vitals -pain management -f/u GI recommendations -Advance diet as per GI recommendations -continue conservative management -Recommend CT guided liver biopsy -no surgical intervention at this time Case discussed with Dr. Selene Raygoza DO PGY1 <Navdeep Morton - Last Filed: 02/13/17 22:34> Objective - Vital Signs/Intake and Output Vital Signs (last 24 hours): Temp Pulse Resp BP Pulse Ox 98.0 F 57 L 18 113/72 98 11/23/16 06:00 11/23/16 06:00 11/23/16 06:00 11/23/16 06:00 11/23/16 06:00 - Labs Labs: 11/23/16 06:45 11/23/16 06:45 PT 11.9 Seconds (9.9-11.8) H 11/20/16 05:00 INR 1.10 (0.93-1.08) H 11/20/16 05:00 APTT 32.6 Seconds (23.7-30.8) H 11/18/16 06:30 Assessment and Plan - Assessment and Plan (Free Text) Plan: Patient was seen and examined by me. I agree with assessment and plan as per resident's note.
--- NOTE | 2016-11-20 12:43 | CP.PCM.PN ---
<AlondraJosé Miguel - Last Filed: 11/20/16 12:33> Subjective - Date & Time of Evaluation Date of Evaluation: 11/20/16 Time of Evaluation: 07:00 - Subjective Subjective: Medicine Progress note. Dr. Richardson Pt seen and examined at bedside. No acute events overnight. Denies any F/C. No CP/SOB. No Dizziness. No Fatigue. Ambulates within room. States that he is hungry. Objective - Vital Signs/Intake and Output Vital Signs (last 24 hours): Temp Pulse Resp BP Pulse Ox 100.1 F H 61 18 131/77 95 11/20/16 11:58 11/20/16 11:58 11/20/16 11:58 11/20/16 11:58 11/20/16 05:49 Intake and Output: 11/20/16 11/20/16 06:59 18:59 Intake Total 0 400 Output Total 700 Balance -700 400 - Medications Medications: Current Medications Acetaminophen (Tylenol 650 Mg Supp) 650 mg RC Q6H PRN PRN Reason: Fever >100.4 F Hydromorphone HCl (Dilaudid) 0.5 mg IVP Q4H PRN PRN Reason: Pain, moderate (4-7) Last Admin: 11/20/16 12:00 Dose: 0.5 mg Pantoprazole Sodium (Protonix 40mg Ivpb) 40 mg in 100 mls @ 20 mls/hr IVPB .Q5H [facility] Last Admin: 11/20/16 11:01 Dose: 20 mls/hr Dextrose/Sodium Chloride (Dextrose 5%/0.9% Ns 1000 Ml) 1,000 mls @ 75 mls/hr IV .[id number] [facility] Last Admin: 11/20/16 01:53 Dose: 75 mls/hr Ceftriaxone Sodium (Rocephin 1 Gram Ivpb) 1 gm in 100 mls @ 100 mls/hr IVPB DAILY [facility] PRN Reason: Protocol Last Admin: 11/20/16 11:01 Dose: 100 mls/hr - Labs Labs: 11/20/16 05:00 11/20/16 05:00 PT 11.9 Seconds (9.9-11.8) H 11/20/16 05:00 INR 1.10 (0.93-1.08) H 11/20/16 05:00 APTT 32.6 Seconds (23.7-30.8) H 11/18/16 06:30 - Constitutional Appears: Well, No Acute Distress - Head Exam Head Exam: ATRAUMATIC, NORMAL INSPECTION, NORMOCEPHALIC - Eye Exam Eye Exam: EOMI, Normal appearance. absent: Scleral icterus - ENT Exam ENT Exam: Mucous Membranes Moist - Respiratory Exam Respiratory Exam: Clear to Ausculation Bilateral, NORMAL BREATHING PATTERN. absent: Wheezes - Cardiovascular Exam Cardiovascular Exam: RRR, +S1, +S2. absent: JVD - GI/Abdominal Exam GI & Abdominal Exam: Soft. 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 Here for GI bleeding. 1. GI Bleeding GI, Dr. Elizabeth, consulted. Help appreciated. EGD on 11/16: Gastric outlet obstruction, non-bleeding gastric ulcers Repeat EGD 11/20 Protonix Drip NS/D5 at 75 cc Hgb 6.7 initially, currently 7.5. Will transfuse another pRBC today Iron studies: normal ferritin, TIBC 195, transferritin 135 Diet recs as per GI following EGD 2. Possible Metastatic Disease CT Chest, Abd Pelvis multiple masses in liver and 3 cm mass in R adrenal gland, lymphadenopathy most likely all mets. Hx of Esophageal & Stomach CA s/p chemo + Surgical resection in Aug 2010 Heme/Onc consulted, Dr. Hernandez, appreciate recs Consider new primary as the previous CA hx is 6 years ago. Consulted IR, Dr. Jude Paris, appreciate recs CT guided Liver bx today at 1530 Previous Oncologist at [facility], Patient states that he was lost to follow up due to loss in his insurance 11/19: Contacted [facility] for records, however, it will take 7-10 business days as the medical record is in storage 3. Leukocytosis trending down Afebrile, nontachycardic Procalcitonin - 0.98 (mildly elevated) Blood Cxs NGTD Urine Cxs NGTD Consider this as a reactive cause Will place on Rocephin Cont to monitor clinically 4. PPx Protonix Drip SCDs Anticoagulation contraindicated due recent GI bleed Discussed case with Dr. Debra Cantu PGY1 <Kelsie Richardson - Last Filed: 11/20/16 12:49> Objective - Vital Signs/Intake and Output Vital Signs (last 24 hours): Temp Pulse Resp BP Pulse Ox 99.1 F 65 16 133/86 95 11/20/16 12:00 11/20/16 12:00 11/20/16 12:00 11/20/16 12:00 11/20/16 05:49 Intake and Output: 11/20/16 11/20/16 06:59 18:59 Intake Total 0 400 Output Total 700 Balance -700 400 - Medications Medications: Current Medications Acetaminophen (Tylenol 650 Mg Supp) 650 mg RC Q6H PRN PRN Reason: Fever >100.4 F Hydromorphone HCl (Dilaudid) 0.5 mg IVP Q4H PRN PRN Reason: Pain, moderate (4-7) Last Admin: 11/20/16 12:00 Dose: 0.5 mg Pantoprazole Sodium (Protonix 40mg Ivpb) 40 mg in 100 mls @ 20 mls/hr IVPB .Q5H [facility] Last Admin: 11/20/16 11:01 Dose: 20 mls/hr Dextrose/Sodium Chloride (Dextrose 5%/0.9% Ns 1000 Ml) 1,000 mls @ 75 mls/hr IV .[id number] [facility] Last Admin: 11/20/16 01:53 Dose: 75 mls/hr Ceftriaxone Sodium (Rocephin 1 Gram Ivpb) 1 gm in 100 mls @ 100 mls/hr IVPB DAILY [facility] PRN Reason: Protocol Last Admin: 11/20/16 11:01 Dose: 100 mls/hr - Labs Labs: 11/20/16 05:00 11/20/16 05:00 PT 11.9 Seconds (9.9-11.8) H 11/20/16 05:00 INR 1.10 (0.93-1.08) H 11/20/16 05:00 APTT 32.6 Seconds (23.7-30.8) H 11/18/16 06:30 Attending/Attestation - Attestation I have personally seen and examined this patient.: Yes I have fully participated in the care of the patient.: Yes I have reviewed all pertinent clinical information, including history, physical exam and plan: Yes Notes (Text): 11/20/16 12:46 56 year old male with past medical history of gastric and esophageal cancer s/p surgery and chemotherapy who presented with complaint of hematemesis and dark stools. He was found to have significant anemia requiring prbc transfusions. He was seen by GI and underwent EGD which showed non-bleeding gastric ulcers, esophageal ulcers and gastric outlet obstruction. He is on NPO on iv protonix. Abdominal xray was negative yesterday. Plan is for EGD today. Patient also has hemoglobin of 7.5 and will receive another unit of prbc transfusion CT chest/abdomen showed multiple liver masses, lymphadenopathy and adrenal lesion, likely metastatic. Hematology/oncology evaluation was appreciated. IR evaluation was requested for evaluation for biopsy. We have also requested for prior records from [facility]. He has been afebrile x 72 hrs. He had mild leukocytosis and elevation of procalcitonin for which he is on empiric antibiotics. Leukocytosis today has improved. Will replete and repeat potassium. Kelsie Richardson MD Hospitalist.
[2016-11-20] MEDS ORDERED: Propofol 10 mg/ml Inj (20 ML) ONE ×2 (14:15→14:30)
[2016-11-20] MEDS ORDERED: Midazolam 2 MG/2 ML VIAL ONE (14:15)
[2016-11-20] MEDS ORDERED: Lactated Ringer's 1,000 ML IV SCH (15:02)
[2016-11-20] MEDS ORDERED: Bisacodyl 5mg EC Tab PO ONE (17:12)
[2016-11-20] MEDS ORDERED: Magnesium Citrate Oral SOL (300 ml) PO ONE (17:12)
--- NOTE | 2016-11-21 01:01 | PN ---
DATE: 11/20/2016 SUBJECTIVE: 1. This patient was seen and evaluated. The patient had an upper GI endoscopy done, which showed pa rtially covered gastroduodenoscopy. There are surgical clips and suture lines noticed. There is a s mall amount of bezoar noticed. There are no significant stricture noticed. The esophageal ulceratio n appeared to be much improved. Would recommend the patient be long-term pureed diet. 2. Continue the PPI. Can discontinue the Protonix drip, change to once a day PPI Protonix. 3. The patient is scheduled for a liver biopsy. The etiology of the liver lesions, possible metast asis and primary is unclear. The patient may benefit from the colonoscopy evaluation. The patient w ill be scheduled for the procedure tomorrow. Thank you for allowing me to participate in the care of this patient. I have discussed with the patie kaitlyn's who was at bedside and also with ____ earlier today. Annita Elizabeth MD cc: [id number] TT: 11/21/2016 01:01:25 Confirmation # [id number] Dictation # [id number] raina
[2016-11-21] MEDS: HYDROmorphone 0.5 mg/0.5 ml ISec IVP PRN ×3 (03:57→16:43)
[2016-11-21] MEDS ORDERED: Magnesium Citrate Oral SOL (300 ml) PO ONE (06:00)
[2016-11-21 06:02] LABS: ADD MANUAL DIFF? NO
[2016-11-21 06:32] LABS: BASO # 0.01 K/mm3 (0.0-2.0); BASO % 0.1 % (0.0-3.0); EOS # 0.1 (0.0-0.7); EOS % 1.1 % (1.5-5.0); GRAN % 74.8 % (50.0-68.0); LYMPH # 0.9 (1.2-3.4); LYMPH % 7.9 % (22.0-35.0); MEAN CELL VOLUME 80.8 fL (80.0-105.0); MEAN CORPUSCULAR HEMOGLOBIN 27.3 pg (25.0-35.0); MEAN CORPUSCULAR HGB CONC 33.8 g/dl (31.0-37.0); MEAN PLATELET VOLUME 9.9 fl (7.0-11.0); MONO # 1.8 (0.1-0.6); MONO % 16.1 % (1.0-6.0); PLATELET COUNT 430 10^3/uL (120.0-450.0); RED CELL DISTRIBUTION WIDTH 15.5 % (11.5-14.5); WHITE BLOOD COUNT 10.8 10^3/ul (4.5-11.0)
[2016-11-21 06:48] LABS: ALB/GLOB RATIO 0.7 (1.1-1.8); ALKALINE PHOSPHATASE 275 U/L (38-133); ALT/SGPT 36 U/L (7-56); AST/SGOT 26 U/L (15-59); BILIRUBIN,TOTAL 4.3 mg/dL (0.2-1.3); BLOOD UREA NITROGEN 11 mg/dL (7-21); CALCIUM 7.8 mg/dL (8.4-10.5); CARBON DIOXIDE 26 mmol/L (21-33); CHLORIDE 104 mmol/L (98-107); GFR AFRICAN-AMERICAN > 60; GLUCOSE,RANDOM 89 mg/dL (70-110); POTASSIUM 3.1 mmol/L (3.6-5.0); SODIUM 135 mmol/L (132-148); TOTAL PROTEIN 5.7 g/dL (5.8-8.3)
[2016-11-21] MEDS: cefTRIAXone 1 gm 1 GM/100 ML BAG IVPB SCH (10:11)
[2016-11-21] MEDS ORDERED: Midazolam 2 MG/2 ML VIAL ONE (12:29)
--- NOTE | 2016-11-21 12:45 | CP.PCM.PN ---
<AlondraJosé Miguel - Last Filed: 11/21/16 12:42> Subjective - Date & Time of Evaluation Date of Evaluation: 11/21/16 Time of Evaluation: 07:00 - Subjective Subjective: Medicine Progress note. Dr. Richardson Pt seen and examined at bedside. No acute events overnight. Patient denies any N /V/D. No Abd pain. Still has back pain, well controlled with current regimen. No F/C overnight. No New complaints Objective - Vital Signs/Intake and Output Vital Signs (last 24 hours): Temp Pulse Resp BP Pulse Ox 99 F 64 20 126/91 H 97 11/21/16 11:55 11/21/16 11:55 11/21/16 11:55 11/21/16 11:55 11/20/16 15:58 Intake and Output: 11/21/16 11/21/16 06:59 18:59 Intake Total 1255 Output Total 1200 Balance 55 - Medications Medications: Current Medications Acetaminophen (Tylenol 650 Mg Supp) 650 mg RC Q6H PRN PRN Reason: Fever >100.4 F Last Admin: 11/20/16 12:53 Dose: 650 mg Hydromorphone HCl (Dilaudid) 0.5 mg IVP Q4H PRN PRN Reason: Pain, moderate (4-7) Last Admin: 11/21/16 09:41 Dose: 0.5 mg Potassium Chloride (Potassium Chloride 20 Meq/100 Ml) 20 meq in 100 mls @ 50 mls/hr IVPB Q2H [facility] [place] Stop: 11/21/16 13:14 Last Admin: 11/21/16 12:06 Dose: 50 mls/hr Ceftriaxone Sodium (Rocephin 1 Gram Ivpb) 1 gm in 100 mls @ 100 mls/hr IVPB DAILY [facility] PRN Reason: Protocol Last Admin: 11/21/16 10:11 Dose: 100 mls/hr Pantoprazole Sodium (Protonix Inj) 40 mg IVP DAILY [facility] Last Admin: 11/21/16 09:43 Dose: 40 mg - Labs Labs: 11/21/16 05:30 11/21/16 05:30 PT 11.9 Seconds (9.9-11.8) H 11/20/16 05:00 INR 1.10 (0.93-1.08) H 11/20/16 05:00 APTT 32.6 Seconds (23.7-30.8) H 11/18/16 06:30 - Constitutional Appears: Well, No Acute Distress - Head Exam Head Exam: ATRAUMATIC, NORMAL INSPECTION, NORMOCEPHALIC - Eye Exam Eye Exam: EOMI, Scleral icterus - ENT Exam ENT Exam: Mucous Membranes Moist - Respiratory Exam Respiratory Exam: NORMAL BREATHING PATTERN. absent: Wheezes - Cardiovascular Exam Cardiovascular Exam: RRR, +S1, +S2. absent: JVD - GI/Abdominal Exam GI & Abdominal Exam: Soft. absent: Distended, Guarding, Rigid, Tenderness - Extremities Exam Extremities Exam: Normal Inspection - Neurological Exam Neurological Exam: Alert, Awake, Oriented x3 - Psychiatric Exam Psychiatric exam: Normal Affect, Normal Mood - Skin Skin Exam: Dry, Intact, Warm Additional comments: Visible jaundice. Bilateral antecubital fossa with small areas of redness and induration. No fluctuance Assessment and Plan - Assessment and Plan (Free Text) Assessment: 56yo M with PMHx of Esophageal & Stomach CA s/p Chemo + Surgical resection in Aug 2010. Here for GI bleeding. 1. GI Bleeding GI, Dr. Elizabeth, consulted. Help appreciated. EGD on 11/16: Gastric outlet obstruction, non-bleeding ulcers Repeat EGD 11/20: no gastric outlet obstruction, healing esophageal ulcer To Colonoscopy today Hb stable. s/p 4 pRBCs over the course of the hospital stay Iron studies: normal ferritin, TIBC 195, transferritin 135 Protonix 40mg IV Daily Diet recs as per GI following Colonoscopy 2. Possible Metastatic Disease CT Chest, Abd Pelvis multiple masses in liver and 3 cm mass in R adrenal gland, lymphadenopathy most likely all mets. Hx of Esophageal & Stomach CA s/p chemo + Surgical resection in Aug 2010 Heme/Onc consulted, Dr. Hernandez, appreciate recs Consider new primary as the previous CA hx is 6 years ago. Consulted IR, Dr. Jude Paris, appreciate recs CT guided Liver bx to be scheduled Previous Oncologist at [place], Patient states that he was lost to follow up due to loss in his insurance Previous pathology reports from [place] are on the physical chart 3. Leukocytosis improved Low grade fever (100.1F) yesterday during blood transfusion nontachycardic Procalcitonin - 0.98 (mildly elevated) Blood Cxs NGTD Urine Cxs NGTD Consider this as a reactive cause Will place on Rocephin Cont to monitor clinically 4. Bilateral antecubital fossa early abscess continue to monitor apply warm compresses to affected area 5. PPx Protonix SCDs Anticoagulation contraindicated due recent GI bleed Discussed case with Dr. Debra Cantu PGY1 <Kelsie Richardson - Last Filed: 11/21/16 13:48> Objective - Vital Signs/Intake and Output Vital Signs (last 24 hours): Temp Pulse Resp BP Pulse Ox 99 F 64 20 126/91 H 97 11/21/16 11:55 11/21/16 11:55 11/21/16 11:55 11/21/16 11:55 11/20/16 15:58 Intake and Output: 11/21/16 11/21/16 06:59 18:59 Intake Total 1255 Output Total 1200 Balance 55 - Medications Medications: Current Medications Acetaminophen (Tylenol 650 Mg Supp) 650 mg RC Q6H PRN PRN Reason: Fever >100.4 F Last Admin: 11/20/16 12:53 Dose: 650 mg Hydromorphone HCl (Dilaudid) 0.5 mg IVP Q6H PRN PRN Reason: Pain, severe (8-10) Ceftriaxone Sodium (Rocephin 1 Gram Ivpb) 1 gm in 100 mls @ 100 mls/hr IVPB DAILY [facility] PRN Reason: Protocol Last Admin: 11/21/16 10:11 Dose: 100 mls/hr Oxycodone/Acetaminophen (Percocet 5/325 Mg Tab) 1 tab PO Q6H PRN PRN Reason: Pain, moderate (4-7) Stop: 11/24/16 13:45 Pantoprazole Sodium (Protonix Inj) 40 mg IVP DAILY [facility] Last Admin: 11/21/16 09:43 Dose: 40 mg - Labs Labs: 11/21/16 05:30 11/21/16 05:30 PT 11.9 Seconds (9.9-11.8) H 11/20/16 05:00 INR 1.10 (0.93-1.08) H 11/20/16 05:00 APTT 32.6 Seconds (23.7-30.8) H 11/18/16 06:30 Attending/Attestation - Attestation I have personally seen and examined this patient.: Yes I have fully participated in the care of the patient.: Yes I have reviewed all pertinent clinical information, including history, physical exam and plan: Yes Notes (Text): 11/21/16 13:45 56 year old male with past medical history of gastric and esophageal cancer s/p surgery and chemotherapy who presented with complaint of hematemesis and dark stools. He was found to have significant anemia requiring prbc transfusions. CT chest/abdomen showed multiple liver masses, lymphadenopathy and adrenal lesion, likely metastatic. He was seen by GI and underwent EGD which initially showed non-bleeding gastric ulcers, esophageal ulcers and gastric outlet obstruction. He had repeat EGD yesterday which showed healing esophageal ulceration without gastric outlet obstruction. Plan is for possible colonoscopy and liver biopsy today. Continue with protonix. Continue to monitor cbc closely. Will follow up with GI and oncology recommendations. Will replete and repeat potassium for hypokalemia. Kelsie Richardson MD Hospitalist.
[2016-11-21] MEDS: Sodium Chloride 0.45% 1,000 ML IV SCH (15:49)
[2016-11-21] MEDS ORDERED: Alum-Mag Hydrox-Simethicone Susp (30 mL) PO ONE (16:33)
--- NOTE | 2016-11-21 18:07 | CT ---
PROCEDURE: CT guided liver biopsy. HISTORY: Us soft the Wendy carcinoma. Status post surgery. Multiple liver lesions. Evaluate for metastatic disease. PHYSICIAN(S): Jay Paris MD. TECHNIQUE: The relative risks and indications of the procedure were explained to the patient and consent obtained. The patient was placed supine on the CT scanner and preliminary images through the liver obtained. Conscious sedation and monitoring were provided throughout the procedure by a nurse. There are multiple low-attenuation liver lesions present. A dominant 12 cm mass in the right lobe was selected for biopsy. A right lateral approach was selected and the area prepped and draped in the usual sterile fashion. 1% Xylocaine was used to anesthetize the skin and soft tissues. A 17-gauge guiding needle was advanced into the 12 cm right liver mass. Its position was confirmed with CT. Using coaxial technique, multiple core biopsies were obtained. The postprocedure images show no evidence of significant hemorrhage. IMPRESSION: 1. CT-guided liver biopsy as described above.
--- NOTE | 2016-11-21 18:09 | PN ---
DATE: 11/21/2016 HISTORY OF PRESENT ILLNESS: Seen and examined at the bedside today. The patient denies any nausea, v omiting, abdominal pain or any bleeding. He was prepped for colonoscopy last night, having dark brow n, liquid stools. No bleeding. VITAL SIGNS: Temperature is 99, blood pressure is 126/91, pulse rate 72, respirations 19, 100% nasal cannula. LABORATORY DATA: WBC is 10.8, hemoglobin is 8.1, hematocrit 24.0, platelets of 430. His sodium is 1 35, K 3.1, BUN 11, creatinine is 0.6. Total bilirubin is 4.3, AST 26, ALT 36, alkaline phosphatase i s 275. PHYSICAL EXAMINATION: HEENT: Sclerae anicteric. NECK: Supple. CARDIAC: S1, S2. LUNGS: Decreased breath sounds but good air entry. ABDOMEN: With bowel sounds, soft, nontender. No rebound, guarding. EXTREMITIES: No edema. NEUROLOGIC: Awake, alert, oriented. ASSESSMENT: This is a 56-year-old male with a history of gastric and esophageal cancer, multiple scl erosis, gastroesophageal reflux disease, came with hematemesis or melena. The patient had endoscopy initially which revealed gastric outlet obstruction and nonbleeding gastric ulcers. The patient went for a CT scan, reporting multiple liver metastases with retroperitoneal lymph nodes. The patient al so, with anemia, has been transfused a total of 4 units of packed RBCs. He had a repeat endoscopy ye sterday and found to have healing esophageal ulcers and angulated pylorus. Originally what was thoug ht to be a gastric outlet obstruction was a large food bezoar. PLAN: The patient is rescheduled for liver biopsy today. The patient was to go yesterday, but sched uling conflict. The patient is going to go for liver biopsy this afternoon. Colonoscopy will be rancho alex on hold. Continue to monitor H and H. He will resume clear liquid diet and be n.p.o. in the morn ing. The patient was noted to have hypokalemia. He got potassium replacement. Continue current syl tment. The patient was seen and case discussed with Dr. Elizabeth. Karen PAYNE cc: [id number] TT: 11/21/2016 18:09:14 Confirmation # [id number] Dictation # [id number] ln
[2016-11-21] MEDS ORDERED: Sucralfate 1 gm/10 ml Oral Susp UD PO SCH (19:45)
--- NOTE | 2016-11-21 20:00 | PN ---
DATE: 11/21/2016 On the telemetry floor. For Dr. Hernandez. SUBJECTIVE: The patient is a 56-year-old male seen lying awake in bed, being transfused 2 units of p acked red blood cells as per Dr. Hernandez's recommendations for a hemoglobin of 8.1. He is known to h lisa had 4 units of blood transfused to date with the patient now reporting he is in no acute distress . He has reported a dark bowel movement recently. With this, the patient has a history of gastroeso phageal cancer, possibly recurrent, with treatment in [place], [place] with Dr. Monge in the [facility]. PHYSICAL EXAMINATION: VITAL SIGNS: Temperature 98, pulse 86, respirations 18, blood pressure 135/67 with a pulse ox of 97% . HEENT: Unremarkable. NECK: Supple. HEART: Regular rate. LUNGS: Clear. ABDOMEN: Soft, nontender. EXTREMITIES: No edema. SKIN: Warm, dry and clear. NEUROLOGIC: Awake, alert. LABORATORY DATA: The patient's labs were done. White blood cell count of 10.8, hemoglobin 8.1. Yes terday's hemoglobin was 7.5, hematocrit of 24.0, platelet count of 430,000 with a chem metabolic pane l showing a potassium of 3.1. He is status post replenishment. We will check labs in the morning. Calcium of 7.8. T-bili of 4.3. His alkaline phosphatase was 275. Procalcitonin done 3 days prior w as 0.9. Stool for occult blood was positive 5 days prior. HIV testing was negative. The patient's urine culture, blood cultures were negative. The patient is status post liver biopsy earlier today. ASSESSMENT: Symptomatic anemia, gastrointestinal bleed?, gastric outlet obstruction, esophageal ulce r, metastases to the liver, questionable primary, retroperitoneal adenopathy, history of gastroesopha geal cancer, history of MS?. PLAN: To transfuse packed red blood cells as per Dr. Hernandez's recommendations with the patient to c ontinue clear liquids. He reports he would like [place] [employer] candies to suck on. We will allow thi s. We will await the biopsy done by Dr. Jay Paris earlier today for results with transfusions and the patient's labs to be monitored and the patient to be monitored clinically. The prognosis for thi s patient is guarded. Franky Sandoval MD cc: [id number] TT: 11/21/2016 19:59:41 Confirmation # [id number] Dictation # [id number] mn
[2016-11-21] MEDS ORDERED: POLYETHYLENE GLYCOL 3350 17 GM/Dose PACKET PO STA (20:22)
[2016-11-21] MEDS ORDERED: Bisacodyl 5mg EC Tab PO STA (20:22)
[2016-11-21] MEDS ORDERED: POLYETHYLENE GLYCOL 3350 17 GM/Dose PACKET PO ONE (22:30)
[2016-11-22] MEDS: Oxycodone/Acetaminophen 5/325 mg Tab PO PRN ×2 (00:02→23:11)
--- NOTE | 2016-11-22 00:55 | PN ---
DATE: 11/21/2016 ADDENDUM This is an addendum to the GI progress report dictated by Karen Haines NP. The patient was seen and evaluated earlier. The patient's was at bedside. He is receiving bloo d transfusion. The patient had a liver biopsy today. The patient's LFTs were found to be increasing . I would request ultrasound scan of the abdomen and profile as to further evaluate. The donavon ent was rescheduled for colonoscopy in a.m. Followup of the liver biopsy report. Thank you very muc h for allowing us to participate in the care of the patient. Annita Elizabeth MD cc: [id number] TT: 11/22/2016 00:54:31 Confirmation # [id number] Dictation # [id number] hayder
--- NOTE | 2016-11-22 01:07 | PN ---
DATE: 11/22/2016 ADDENDUM: This is an addendum to the GI progress report dictated by Karen Haines NP. SUBJECTIVE: Discussed with the patient's who was at bedside. The patient is tolerating clear liquid diet. Yesterday's endoscopy findings are discussed. PHYSICAL EXAMINATION: ABDOMEN: Soft. There is no mass palpable. No tenderness. IMPRESSION AND PLAN: Hemoglobin was 8.1, is receiving a blood transfusion. The patient has no obvious bright red blood per rectum. The patient did have a preparation, but was only fair had enemas. The patient elected to take magnesium citrate or GoLYTELY. We will start the patient on MiraLax 2 doses today and also Dulcolax. Will schedule the patient for colonoscopy tomorrow. Another concern is increasing liver function tests and total bilirubin is about 4.3. The patient does have multiple liver mets. The patient's LFTs are going up. It is reasonable to consider ultrasound scan of the abdomen to further evaluate. We will continue to closely follow up her care. Thank you very much for allowing us to participate in the care of the patient. Annita Elizabeth MD cc: [id number] TT: 11/22/2016 01:07:25 Confirmation # [id number] Dictation # [id number] hayder BENZ
[2016-11-22 06:03] LABS: ADD MANUAL DIFF? NO
[2016-11-22 06:09] LABS: BASO # 0.01 K/mm3 (0.0-2.0); BASO % 0.1 % (0.0-3.0); GRAN % 85.3 % (50.0-68.0); HEMATOCRIT 32.4 % (42.0-52.0); LYMPH # 1.1 (1.2-3.4); LYMPH % 8.5 % (22.0-35.0); MEAN CELL VOLUME 81.8 fL (80.0-105.0); MEAN CORPUSCULAR HGB CONC 34.3 g/dl (31.0-37.0); MEAN PLATELET VOLUME 9.8 fl (7.0-11.0); MONO # 0.8 (0.1-0.6); MONO % 6.1 % (1.0-6.0); PLATELET COUNT 525 10^3/uL (120.0-450.0); RED CELL DISTRIBUTION WIDTH 15.7 % (11.5-14.5); WHITE BLOOD COUNT 12.3 10^3/ul (4.5-11.0)
[2016-11-22 06:30] LABS: ALB/GLOB RATIO 0.7 (1.1-1.8); ALKALINE PHOSPHATASE 324 U/L (38-133); ALT/SGPT 33 U/L (7-56); AST/SGOT 24 U/L (15-59); BILIRUBIN,TOTAL 4.6 mg/dL (0.2-1.3); BLOOD UREA NITROGEN 14 mg/dL (7-21); CALCIUM 7.8 mg/dL (8.4-10.5); CARBON DIOXIDE 26 mmol/L (21-33); CHLORIDE 102 mmol/L (98-107); GFR AFRICAN-AMERICAN > 60; GLUCOSE,RANDOM 122 mg/dL (70-110); POTASSIUM 3.7 mmol/L (3.6-5.0); SODIUM 137 mmol/L (132-148); TOTAL PROTEIN 5.7 g/dL (5.8-8.3)
[2016-11-22] MEDS ORDERED: Propofol 10 mg/ml Inj (20 ML) ONE (07:57)
[2016-11-22] MEDS ORDERED: Sodium Chloride 0.9% 1,000 ML IV SCH (08:45)
[2016-11-22] MEDS: Sucralfate 1 gm/10 ml Oral Susp UD PO SCH ×2 (09:46→16:52)
[2016-11-22] MEDS: cefTRIAXone 1 gm 1 GM/100 ML BAG IVPB SCH (09:47)
[2016-11-22] MEDS: HYDROmorphone 0.5 mg/0.5 ml ISec IVP PRN ×2 (11:59→18:18)
--- NOTE | 2016-11-22 12:38 | US ---
HISTORY: r/o obstructive jaundice COMPARISON: CT abdomen/ pelvis 11/18/2016 TECHNIQUE: Sonographic evaluation of the abdomen. FINDINGS: LIVER: Measures 23.5 cm. Diffusely increased echogenicity of the liver parenchyma. Multiple hepatic masses, largest 10.1 x 8.4 x 11.1 cm. Consistent with metastatic disease. No intrahepatic biliary ductal dilatation. GALLBLADDER: Cholelithiasis. Minimal mural thickening, 3 mm. . Trace pericholecystic fluid is noted. . Negative sonographic Malcolm's sign. The findings are equivocal for cholecystitis. COMMON BILE DUCT: Measures 5 mm. No stones. No dilatation. PANCREAS: Unremarkable as visualized. No mass. No ductal dilatation. RIGHT KIDNEY: Measures 12.1cm. Normal echogenicity. No calculus, mass, or hydronephrosis. LEFT KIDNEY: Measures 11.6cm. Normal echogenicity. No calculus, mass, or hydronephrosis. SPLEEN: Normal in size and contour. No mass. AORTA: No aneurysmal dilatation. IVC: Unremarkable. OTHER FINDINGS: None. IMPRESSION: Hepatomegaly with multiple hepatic masses. No evidence of biliary obstruction. Cholelithiasis with minimal mural thickening and pericholecystic fluid but negative sonographic Malcolm's sign. Findings equivocal for cholecystitis.
--- NOTE | 2016-11-22 14:40 | CP.PCM.PN ---
<Lauri Muñoz - Last Filed: 11/22/16 14:26> Subjective - Date & Time of Evaluation Date of Evaluation: 11/22/16 Time of Evaluation: 14:00 - Subjective Subjective: General Surgery Pt S&E, NAEO. Pt denies any F/C, N/V. Denies RUQ abd pain. No complaints at this time. Objective - Vital Signs/Intake and Output Vital Signs (last 24 hours): Temp Pulse Resp BP Pulse Ox 97.5 F L 53 L 20 126/75 97 11/22/16 12:00 11/22/16 12:00 11/22/16 12:00 11/22/16 12:00 11/22/16 09:08 Intake and Output: 11/22/16 11/22/16 06:59 18:59 Intake Total 1870 1225 Balance 1870 1225 - Medications Medications: Current Medications Acetaminophen (Tylenol 650 Mg Supp) 650 mg RC Q6H PRN PRN Reason: Fever >100.4 F Last Admin: 11/20/16 12:53 Dose: 650 mg Hydromorphone HCl (Dilaudid) 0.5 mg IVP Q6H PRN PRN Reason: Pain, severe (8-10) Last Admin: 11/22/16 11:59 Dose: 0.5 mg Sodium Chloride (Sodium Chloride 0.45%) 1,000 mls @ 80 mls/hr IV .[id number] [facility] Last Admin: 11/21/16 15:49 Dose: 80 mls/hr Ondansetron HCl (Zofran Inj) 4 mg IVP Q6H PRN PRN Reason: Nausea/Vomiting Oxycodone/Acetaminophen (Percocet 5/325 Mg Tab) 1 tab PO Q6H PRN PRN Reason: Pain, moderate (4-7) Stop: 11/24/16 13:45 Last Admin: 11/22/16 00:02 Dose: 1 tab Pantoprazole Sodium (Protonix Inj) 40 mg IVP DAILY [facility] Last Admin: 11/22/16 09:47 Dose: 40 mg Sucralfate (Carafate Oral Susp) 1 gm PO ACBD [facility] Last Admin: 11/22/16 09:46 Dose: 1 gm - Labs Labs: 11/22/16 05:44 11/22/16 05:44 PT 11.9 Seconds (9.9-11.8) H 11/20/16 05:00 INR 1.10 (0.93-1.08) H 11/20/16 05:00 APTT 32.6 Seconds (23.7-30.8) H 11/18/16 06:30 - Constitutional Appears: Non-toxic, No Acute Distress - Head Exam Head Exam: ATRAUMATIC, NORMOCEPHALIC - Eye Exam Eye Exam: EOMI, Scleral icterus - Respiratory Exam Respiratory Exam: NORMAL BREATHING PATTERN. absent: Respiratory Distress - GI/Abdominal Exam GI & Abdominal Exam: Soft. absent: Distended, Firm, Guarding, Rigid, Tenderness , Rebound - Neurological Exam Neurological Exam: Alert, Awake, Oriented x3 Assessment and Plan - Assessment and Plan (Free Text) Assessment: 56yo male with history of gastric and esophageal Ca, multiple sclerosis and GERD presents c/o hematemesis and melena Plan: US abd reviewed: no GB wall thickening, +stones. Pericholecystic fluid likely due to edema/ascites 2/2 metastatic disease. Elevated bilirubin 2/2 metastatic disease . Pt is not TTP on abdominal exam. Pt does not have acute cholecystitis. No surgical intervention required. D/W Dr. Selene Muñoz PGY3 <Navdeep Morton - Last Filed: 02/13/17 22:34> Objective - Vital Signs/Intake and Output Vital Signs (last 24 hours): Temp Pulse Resp BP Pulse Ox 98.0 F 57 L 18 113/72 98 11/23/16 06:00 11/23/16 06:00 11/23/16 06:00 11/23/16 06:00 11/23/16 06:00 - Labs Labs: 11/23/16 06:45 11/23/16 06:45 PT 11.9 Seconds (9.9-11.8) H 11/20/16 05:00 INR 1.10 (0.93-1.08) H 11/20/16 05:00 APTT 32.6 Seconds (23.7-30.8) H 11/18/16 06:30 Assessment and Plan - Assessment and Plan (Free Text) Plan: Patient was seen and examined by me. I agree with assessment and plan as per resident's note.
--- NOTE | 2016-11-22 16:24 | CP.PCM.PN ---
<José Miguel Cantu - Last Filed: 11/22/16 16:20> Subjective - Date & Time of Evaluation Date of Evaluation: 11/22/16 Time of Evaluation: 07:55 - Subjective Subjective: Medicine Progress note. Dr. Richardson Pt seen and examined at bedside. No acute events overnight. Patient states that he will go for a colonoscopy today morning. Denies any N/V/D. Still with diffuse back pain and body aches. No F/C. No new complaints. Objective - Vital Signs/Intake and Output Vital Signs (last 24 hours): Temp Pulse Resp BP Pulse Ox 97.5 F L 53 L 20 126/75 97 11/22/16 12:00 11/22/16 12:00 11/22/16 12:00 11/22/16 12:00 11/22/16 09:08 Intake and Output: 11/22/16 11/22/16 06:59 18:59 Intake Total 1870 1225 Balance 1870 1225 - Medications Medications: Current Medications Acetaminophen (Tylenol 650 Mg Supp) 650 mg RC Q6H PRN PRN Reason: Fever >100.4 F Last Admin: 11/20/16 12:53 Dose: 650 mg Hydromorphone HCl (Dilaudid) 0.5 mg IVP Q6H PRN PRN Reason: Pain, severe (8-10) Last Admin: 11/22/16 11:59 Dose: 0.5 mg Sodium Chloride (Sodium Chloride 0.45%) 1,000 mls @ 80 mls/hr IV .[id number] [facility] Last Admin: 11/21/16 15:49 Dose: 80 mls/hr Ondansetron HCl (Zofran Inj) 4 mg IVP Q6H PRN PRN Reason: Nausea/Vomiting Oxycodone/Acetaminophen (Percocet 5/325 Mg Tab) 1 tab PO Q6H PRN PRN Reason: Pain, moderate (4-7) Stop: 11/24/16 13:45 Last Admin: 11/22/16 00:02 Dose: 1 tab Pantoprazole Sodium (Protonix Inj) 40 mg IVP DAILY [facility] Last Admin: 11/22/16 09:47 Dose: 40 mg Sucralfate (Carafate Oral Susp) 1 gm PO ACBD [facility] Last Admin: 11/22/16 09:46 Dose: 1 gm - Labs Labs: 11/22/16 05:44 11/22/16 05:44 PT 11.9 Seconds (9.9-11.8) H 11/20/16 05:00 INR 1.10 (0.93-1.08) H 11/20/16 05:00 APTT 32.6 Seconds (23.7-30.8) H 11/18/16 06:30 - Constitutional Appears: Well, No Acute Distress - Head Exam Head Exam: ATRAUMATIC, NORMAL INSPECTION, NORMOCEPHALIC - Eye Exam Eye Exam: EOMI, PERRL, Scleral icterus - ENT Exam ENT Exam: Mucous Membranes Moist - Neck Exam Neck Exam: Full ROM - Respiratory Exam Respiratory Exam: Clear to Ausculation Bilateral, NORMAL BREATHING PATTERN. absent: Decreased Breath Sounds, Wheezes, Respiratory Distress - Cardiovascular Exam Cardiovascular Exam: REGULAR RHYTHM, RRR, +S1, +S2. absent: JVD - GI/Abdominal Exam GI & Abdominal Exam: Soft. absent: Distended, Guarding, Tenderness Additional comments: Liver biopsy site bandage clean dry and intact. No Rebound. No RUQ tenderness. - Extremities Exam Extremities Exam: Normal Inspection - Neurological Exam Neurological Exam: Alert, Awake, Normal Gait, Oriented x3 - Psychiatric Exam Psychiatric exam: Normal Affect, Normal Mood - Skin Skin Exam: Dry, Intact, Warm Additional comments: Jaundice Assessment and Plan - Assessment and Plan (Free Text) Assessment: 56yo M with PMHx of Esophageal & Stomach CA s/p Chemo + Surgical resection in Aug 2010. Here for GI bleeding. 1. GI Bleeding GI, Dr. Elizabeth, consulted. Help appreciated. EGD on 11/16: Gastric outlet obstruction, non-bleeding ulcers Repeat EGD 11/20: no gastric outlet obstruction, healing esophageal ulcer Colonoscopy 11/22: Internal hemmoroids, no masses Hb stable. s/p 4 pRBCs over the course of the hospital stay Iron studies: normal ferritin, TIBC 195, transferritin 135 Protonix 40mg IV Daily Continue Pureed diet Jaundice and T.Bili/Alk Phos increasing RUQ Abd US performed- Poss cholecystitis. No Biliary obstruction MRCP requested by Dr. Elizabeth Surgical re-eval requested, Dr. Morton: No evidence of acute cholecystitis ; No plan for any acute surgery 2. Possible Metastatic Disease CT Chest, Abd Pelvis multiple masses in liver and 3 cm mass in R adrenal gland, lymphadenopathy most likely all mets. Hx of Esophageal & Stomach CA s/p chemo + Surgical resection in Aug 2010 Heme/Onc consulted, Dr. Hernandez, appreciate recs Consider new primary as the previous CA hx is 6 years ago. Consulted IR, Dr. 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 Leukocytosis improved afebrile nontachycardic Procalcitonin - 0.98 (mildly elevated) Blood Cxs NGTD Urine Cxs NGTD Consider this as a reactive cause Patient completed 5 days of IV abx Cont to monitor clinically 4. Bilateral antecubital fossa early abscess continue to monitor apply warm compresses to affected area 5. PPx Protonix SCDs Anticoagulation contraindicated due recent GI bleed Discussed case with Dr. Debra Cantu PGY1 <Kelsie Richardson - Last Filed: 11/22/16 16:49> Objective - Vital Signs/Intake and Output Vital Signs (last 24 hours): Temp Pulse Resp BP Pulse Ox 97.5 F L 89 20 126/75 97 11/22/16 12:00 11/22/16 14:00 11/22/16 12:00 11/22/16 12:00 11/22/16 09:08 Intake and Output: 11/22/16 11/22/16 06:59 18:59 Intake Total 1870 1225 Balance 1870 1225 - Medications Medications: Current Medications Acetaminophen (Tylenol 650 Mg Supp) 650 mg RC Q6H PRN PRN Reason: Fever >100.4 F Last Admin: 11/20/16 12:53 Dose: 650 mg Hydromorphone HCl (Dilaudid) 0.5 mg IVP Q6H PRN PRN Reason: Pain, severe (8-10) Last Admin: 11/22/16 11:59 Dose: 0.5 mg Sodium Chloride (Sodium Chloride 0.45%) 1,000 mls @ 80 mls/hr IV .[id number] Last Admin: 11/21/16 15:49 Dose: 80 mls/hr Ondansetron HCl (Zofran Inj) 4 mg IVP Q6H PRN PRN Reason: Nausea/Vomiting Oxycodone/Acetaminophen (Percocet 5/325 Mg Tab) 1 tab PO Q6H PRN PRN Reason: Pain, moderate (4-7) Stop: 11/24/16 13:45 Last Admin: 11/22/16 00:02 Dose: 1 tab Pantoprazole Sodium (Protonix Inj) 40 mg IVP DAILY [facility] Last Admin: 11/22/16 09:47 Dose: 40 mg Sucralfate (Carafate Oral Susp) 1 gm PO ACBD [facility] Last Admin: 11/22/16 09:46 Dose: 1 gm - Labs Labs: 11/22/16 05:44 11/22/16 05:44 PT 11.9 Seconds (9.9-11.8) H 11/20/16 05:00 INR 1.10 (0.93-1.08) H 11/20/16 05:00 APTT 32.6 Seconds (23.7-30.8) H 11/18/16 06:30 Attending/Attestation - Attestation I have personally seen and examined this patient.: Yes I have fully participated in the care of the patient.: Yes I have reviewed all pertinent clinical information, including history, physical exam and plan: Yes Notes (Text): 11/22/16 16:47 56 year old male with past medical history of gastric and esophageal cancer s/p surgery and chemotherapy who presented with complaint of hematemesis and dark stools. He was found to have significant anemia requiring prbc transfusions. CT chest/abdomen showed multiple liver masses, lymphadenopathy and adrenal lesion, likely metastatic. He was seen by GI and underwent EGD which initially showed non-bleeding gastric ulcers, esophageal ulcers and gastric outlet obstruction. He had repeat EGD which showed healing esophageal ulceration without gastric outlet obstruction. He had colonoscopy today which was reviewed as above. He is s/p liver biopsy yesterday. Case was discussed with crna today; awaiting results. He has elevated bilirubin for which abdominal US was done which was reviewed as above. MRCP is ordered. GI/Sx are following. Kelsie Richardson MD Hospitalist.
[2016-11-22] MEDS: Sodium Chloride 0.45% 1,000 ML IV SCH (18:45)
--- NOTE | 2016-11-22 21:49 | PN ---
DATE: 11/22/2016 HISTORY OF PRESENT ILLNESS: This is the patient's hospital visit on the medical floor as he was sofia sferred from telemetry earlier today. The patient is a 56-year-old male seen lying awake in bed, sta tus post transfusion of 2 additional units of packed red blood cells, total of 6 units since admissio n with hemoglobin now improving to 11.0. He also is known to have findings suspicious for his underl destini disease process as he has a history of esophageal carcinoma with gastroesophageal carcinoma syl kelley in the past and status post surgery in [address] Monge in [place] in [place]. The donavon ent is known to have innumerable lesions in the liver compatible with metastatic carcinoma. He also has a history of multiple sclerosis. At this point, the patient is resting comfortably, reporting th at the bleeding has stopped. He did report some penile shaft of the penis swelling, which was self-li mited earlier today. He is transferred from telemetry to the med/surg oncology floor. Despite his l iver function tests, ALT and AST being within normal range, his T-bili has now risen to 4.6 and is be ing evaluated by Dr. Elizabeth with ERCP possible in the near future. PHYSICAL EXAMINATION: VITAL SIGNS: Temperature 97.5, pulse 89, respirations 20, blood pressure 126/75 with a pulse ox of 9 7%. HEENT: Unremarkable. NECK: Supple. HEART: Regular rate. LUNGS: Clear. ABDOMEN: Soft. Minimal tenderness to the mid epigastrium. EXTREMITIES: No edema. SKIN: Warm, dry and clear. NEUROLOGIC: Awake, alert, and oriented x 3. LABORATORY DATA: The patient's labs were done. White blood cell count of 12.3 with hemoglobin 11.1 increased from 8.1 yesterday, hematocrit 32.4 status post transfusion, platelet count of 525,000 with a chem metabolic panel showing calcium of 7.8. T-bili of 4.6 up from 4.3 yesterday and alkaline shamika sphatase of 324, total protein 5.7. INR 2 days ago was 1.1. HIV testing was negative. The patient had abdominal ultrasound done earlier today. It was read as hepatomegaly with multiple he patic masses, no evidence of biliary obstruction. Cholelithiasis with minimal mural thickening and p ericholecystic fluid, but negative sonographic Malcolm sign. Findings equivocal for cholecystitis. The patient did have a colonoscopy done earlier today, showing hemorrhoids. Yesterday, the patient h ad an EGD showing healing esophageal ulcers, angulated pylorus by Dr. Elizabeth. ASSESSMENT: Symptomatic anemia, status post gastrointestinal bleed and esophageal ulcer, gastric outl et obstruction, questionable mets to liver, retroperitoneal adenopathy, history of gastroesophageal c ancer, history of multiple sclerosis, abnormal bilirubin, penile swelling self-limited. PLAN: The patient is to continue present medical regimen as per Dr. Richardson with further testing as p er Dr. Elizabeth. We will monitor clinically and with labs with tissue diagnosis pending as CT biopsy of the liver done yesterday by Dr. Jay Paris. Prognosis for this patient is guarded. We will also restart his oxygen at 2 liters nasal cannula p.r.n. Franky Sandoval MD cc: [phone] TT: 11/22/2016 21:48:53 Confirmation # [id number] Dictation # [id number]
[2016-11-22] MEDS ORDERED: POLYETHYLENE GLYCOL 3350 17 GM/Dose PACKET PO ONE (22:30)
[2016-11-23] MEDS: HYDROmorphone 0.5 mg/0.5 ml ISec IVP PRN ×3 (00:54→14:59)
[2016-11-23 07:05] LABS: ADD MANUAL DIFF? NO
[2016-11-23 07:18] LABS: BASO # 0.01 K/mm3 (0.0-2.0); BASO % 0.1 % (0.0-3.0); EOS # 0.1 (0.0-0.7); EOS % 0.7 % (1.5-5.0); GRAN % 75.9 % (50.0-68.0); HEMATOCRIT 30.3 % (42.0-52.0); LYMPH # 1.4 (1.2-3.4); LYMPH % 10.2 % (22.0-35.0); MEAN CELL VOLUME 82.3 fL (80.0-105.0); MEAN CORPUSCULAR HEMOGLOBIN 27.7 pg (25.0-35.0); MEAN CORPUSCULAR HGB CONC 33.7 g/dl (31.0-37.0); MEAN PLATELET VOLUME 9.7 fl (7.0-11.0); MONO # 1.8 (0.1-0.6); MONO % 13.1 % (1.0-6.0); PLATELET COUNT 574 10^3/uL (120.0-450.0); RED CELL DISTRIBUTION WIDTH 16.2 % (11.5-14.5); WHITE BLOOD COUNT 13.7 10^3/ul (4.5-11.0)
[2016-11-23 07:31] LABS: ALB/GLOB RATIO 0.9 (1.1-1.8); ALKALINE PHOSPHATASE 372 U/L (38-133); ALT/SGPT 37 U/L (7-56); AST/SGOT 25 U/L (15-59); BILIRUBIN,TOTAL 2.5 mg/dL (0.2-1.3); BLOOD UREA NITROGEN 16 mg/dL (7-21); CALCIUM 7.6 mg/dL (8.4-10.5); CARBON DIOXIDE 25 mmol/L (21-33); CHLORIDE 104 mmol/L (95-110); GFR AFRICAN-AMERICAN > 60; GLUCOSE,RANDOM 83 mg/dL (70-110); POTASSIUM 3.9 mmol/L (3.6-5.0); SODIUM 137 mmol/L (132-148); TOTAL PROTEIN 5.3 g/dL (5.8-8.3)
[2016-11-23 07:58] VITALS: BP 113/72; PULSE 57; RESP 18; TEMP 98; O2SAT 98
[2016-11-23] MEDS: Sucralfate 1 gm/10 ml Oral Susp UD PO SCH (09:33)
--- NOTE | 2016-11-23 12:16 | PN ---
DATE: 11/23/2016 This is the patient's hospital visit on the medical floor. For Dr. Hernandez. SUBJECTIVE: The patient is a 56-year-old male seen lying awake in bed for a procedure later this day with Dr. Elizabeth, ERCP, questionable planned, with the patient reporting that he is in no acute dis tress with vague abdominal discomfort now improved. He has been transfused 6 units of packed red blo od cells since his admission approximately 8 days prior and with no further bleeding at this point wi th the hemoglobin today 10.2. OBJECTIVE: PHYSICAL EXAMINATION: VITAL SIGNS: Temperature 98, pulse 61, respirations 18, blood pressure 113/72, pulse ox 98%. HEENT: Unremarkable. NECK: Supple. HEART: Regular rate. LUNGS: Clear. ABDOMEN: Soft. Minimal tenderness to the mid epigastrium. EXTREMITIES: No edema. SKIN: Warm, dry and clear. NEUROLOGIC: Awake, alert, and oriented x 3. LABORATORY DATA: The patient's labs were done with white blood cell count 13.7, hemoglobin 10.2, hem atocrit 30.3 with a platelet count of 574,000. Chem metabolic panel showed a calcium of 7.6, T-bili now is 2.5, down from 4.6 yesterday, with a normal AST, ALT, alkaline phosphatase of 372. ASSESSMENT: Gastroesophageal carcinoma, symptomatic anemia, status post transfusion, GI bleed, gastr ic outlet obstruction, questionable mets to the liver, retroperitoneal adenopathy, history of multipl e sclerosis, normal bilirubin, improving. Blood cultures and urine cultures were negative at 5 days. We await his pathology report for biopsy done by Dr. Jay Paris earlier this week. PLAN: As above. Continue present medical regimen. Await testing as per Dr. Elizabeth for MRCP with f urther recommendations as indicated. We will monitor clinically and with labs. Prognosis for this p atient is guarded. Franky Sandoval MD cc: [phone] TT: 11/23/2016 12:15:58 Confirmation # [id number] Dictation # [id number]
--- NOTE | 2016-11-23 12:53 | PN ---
DATE: 11/23/2016 Seen and examined at the bedside earlier today. The patient is waiting to go for MRCP. He is anxiously awaiting to be sent home. No acute overnight reported and patient with no new complaints. VITAL SIGNS: Temperature is 98, blood pressure 113/72, pulse 57, respirations 18, 98% nasal cannula. LABORATORY DATA: WBC is 13.7, H and H is 10.2 and 30.3, platelets are 574. Sodium 137, K 3.9, BUN is 16, creatinine is 0.7. Total bilirubin is 2.5, AST 25 , ALT 37, alk phos is 372. There is some improvement in his total bilirubin. The patient went for an abdominal ultrasound yesterday and that showed some cholelithiasis with mural thickening and trace of pericholecystic fluid. Negative sonographic Malcolm sign. The finding are equivocal for cholecystitis. Also noted to have hepatomegaly with multiple hepatic masses. No evidence of biliary obstruction. The patient is status post liver biopsy. PHYSICAL EXAMINATION: HEENT: Sclerae are icteric. NECK: Supple. CARDIAC: S1, S2. LUNGS: Decreased breath sounds, but clear. ABDOMEN: With bowel sounds, soft, not distended, nontender on palpation. No rebound or guarding. EXTREMITIES: No edema. NEUROLOGIC: Awake, alert, oriented. ASSESSMENT: This is a 56-year-old male with a history of gastric and esophageal cancer, as well as multiple sclerosis and gastroesophageal reflux disease, came with hematemesis and melena. The patient also with anemia, status post blood transfusion. He had an upper endoscopy, found to have initially a gastric outlet obstruction and nonbleeding gastric ulcer. The patient was sent for a CT scan, found to have multiple liver metastases with retroperitoneal lymph node. He is status post liver biopsy. The patient has repeat endoscopy in view of this gastric outlet obstruction and noted to have healing esophageal ulcers and an angulated pylorus, no obstruction. PLAN: Status post colonoscopy and found to have hemorrhoids. He was noted to have elevating total bilirubin, thought maybe likely secondary to metastases, but in view of ultrasound with cholelithiasis and elevating alk phos, we will rule out any CBD stones or any other abnormality. Will follow up MRCP that he is supposed to be going for today. Likely after this, he will be discharged and the liver biopsy results need to be followed up. The patient was seen and case discussed with Dr. Elizabeth. Karen PAYNE cc: [id number] TT: 11/23/2016 12:52:42 Confirmation # [id number] Dictation # [id number]
--- NOTE | 2016-11-23 16:30 | CP.PCM.DIS ---
<José Miguel Cantu - Last Filed: 11/25/16 13:48> Provider - Provider Date of Admission: 11/15/16 19:40 Attending physician: Kelsie Richardson MD Primary care physician: NO PRIMARY CARE PROVIDER Consults: GI: Glenn Heme/Onc: David Surgery: Selene IR: Jude Paris Time Spent in preparation of Discharge (in minutes): 45 Hospital Course - Lab Results Lab Results: Micro Results 11/15/16 20:20 Blood-Venous Blood Culture - Final NO GROWTH AFTER 5 DAYS 11/15/16 20:20 Blood-Venous Gram Stain - Final TEST NOT PERFORMED 11/18/16 14:18 Urine,Clean Catch Urine Culture - Final No Growth (<1,000 CFU/ML) Most Recent Lab Values WBC 13.7 10^3/ul (4.5-11.0) H 11/23/16 06:45 RBC 3.68 10^6/uL (3.5-6.1) 11/23/16 06:45 Hgb 10.2 gm/dL (14.0-18.0) L 11/23/16 06:45 Hct 30.3 % (42.0-52.0) L 11/23/16 06:45 MCV 82.3 fL (80.0-105.0) 11/23/16 06:45 MCH 27.7 pg (25.0-35.0) 11/23/16 06:45 MCHC 33.7 g/dl (31.0-37.0) 11/23/16 06:45 RDW 16.2 % (11.5-14.5) H 11/23/16 06:45 Plt Count 574 10^3/uL (120.0-450.0) H 11/23/16 06:45 MPV 9.7 fl (7.0-11.0) 11/23/16 06:45 Gran % 75.9 % (50.0-68.0) H 11/23/16 06:45 Lymph % (Auto) 10.2 % (22.0-35.0) L 11/23/16 06:45 [place] % (Auto) 13.1 % (1.0-6.0) H 11/23/16 06:45 Eos % (Auto) 0.7 % (1.5-5.0) L 11/23/16 06:45 Baso % (Auto) 0.1 % (0.0-3.0) 11/23/16 06:45 Gran # 10.40 (1.4-6.5) H 11/23/16 06:45 Lymph # 1.4 (1.2-3.4) 11/23/16 06:45 [place] # 1.8 (0.1-0.6) H 11/23/16 06:45 Eos # 0.1 (0.0-0.7) 11/23/16 06:45 Baso # 0.01 K/mm3 (0.0-2.0) 11/23/16 06:45 PT 11.9 Seconds (9.9-11.8) H 11/20/16 05:00 INR 1.10 (0.93-1.08) H 11/20/16 05:00 APTT 32.6 Seconds (23.7-30.8) H 11/18/16 06:30 pO2 29 mm/Hg (30-55) L 11/16/16 09:30 VBG pH 7.32 (7.32-7.43) 11/16/16 09:30 VBG pCO2 50.0 (40-60) 11/16/16 09:30 VBG HCO3 25.8 mmol/l (21-28) 11/16/16 09:30 VBG Total CO2 27.3 mmol.L (22-28) 11/16/16 09:30 VBG O2 Sat (Calc) 56.3 % (40-65) 11/16/16 09:30 VBG Base Excess -0.9 mmol/L (0.0-2.0) L 11/16/16 09:30 VBG Potassium 3.8 mmol/L (3.6-5.2) 11/16/16 09:30 Sodium 142.0 mmol/L (132-148) 11/16/16 09:30 Chloride 113.0 mmol/L (98-107) H 11/16/16 09:30 Glucose 92 mg/dl (75-110) 11/16/16 09:30 Lactate 1.4 mmol/L (0.7-2.1) 11/16/16 09:30 FiO2 21.0 % 11/16/16 09:30 Sodium 137 mmol/L (132-148) 11/23/16 06:45 Potassium 3.9 mmol/L (3.6-5.0) 11/23/16 06:45 Chloride 104 mmol/L (95-110) 11/23/16 06:45 Carbon Dioxide 25 mmol/L (21-33) 11/23/16 06:45 Anion Gap 12 (10-20) 11/23/16 06:45 BUN 16 mg/dL (7-21) 11/23/16 06:45 Creatinine 0.7 mg/dL (0.5-1.4) 11/23/16 06:45 Est GFR ( Amer) > 60 11/23/16 06:45 Est GFR (Non-Af Amer) > 60 11/23/16 06:45 Random Glucose 83 mg/dL (70-110) 11/23/16 06:45 Calcium 7.6 mg/dL (8.4-10.5) L 11/23/16 06:45 Phosphorus 2.8 mg/dL (2.5-4.5) 11/16/16 09:30 Magnesium 2.1 mg/dL (1.7-2.2) 11/16/16 09:30 TIBC 195 ug/dL (261-462) L 11/15/16 18:35 Transferrin 134.80 mg/dL (206-381) L 11/15/16 18:35 Ferritin 66.0 ng/mL 11/15/16 18:35 Total Bilirubin 2.5 mg/dL (0.2-1.3) H 11/23/16 06:45 AST 25 U/L (15-59) 11/23/16 06:45 ALT 37 U/L (7-56) 11/23/16 06:45 Alkaline Phosphatase 372 U/L (38-133) H 11/23/16 06:45 Lactate Dehydrogenase 2912 U/L (333-699) H 11/16/16 09:30 Total Creatine Kinase 382 U/L (35-230) H 11/16/16 09:30 CK-MB (CK-2) 2.7 ng/mL (0.0-3.6) 11/16/16 09:30 CK-MB (CK-2) % Cancelled 11/16/16 09:30 Troponin I < 0.01 ng/mL 11/16/16 09:30 NT-Pro-B Natriuret Pep 394 pg/mL (0-450) 11/15/16 18:35 Total Protein 5.3 g/dL (5.8-8.3) L 11/23/16 06:45 Albumin 2.5 g/dL (3.0-4.8) L 11/23/16 06:45 Globulin 2.9 gm/dL 11/23/16 06:45 Albumin/Globulin Ratio 0.9 (1.1-1.8) L 11/23/16 06:45 Lipase 183 U/L (23-300) 11/15/16 18:35 Procalcitonin 0.98 NG/ML (0.19-0.49) H 11/18/16 17:30 Venous Blood Potassium 3.8 mmol/L (3.6-5.2) 11/16/16 09:30 Urine Color Alfreda (YELLOW) 11/18/16 14:18 Urine Appearance Sl cloudy (CLEAR) 11/18/16 14:18 Urine pH 6.0 (5.0-8.0) 11/18/16 14:18 Ur Specific [place] > 1.060 (1.003-1.030) H 11/18/16 14:18 Urine Protein 1+ mg/dL (NEGATIVE) H 11/18/16 14:18 Urine Glucose (UA) Negative mg/dL (Normal) 11/18/16 14:18 Urine Ketones Negative mg/dL (NEGATIVE) 11/18/16 14:18 Urine Blood Negative (NEGATIVE) 11/18/16 14:18 Urine Nitrate Negative (NEGATIVE) 11/18/16 14:18 Urine Bilirubin Negative (NEGATIVE) 11/18/16 14:18 Urine Urobilinogen 2.0 mg/dL (0.2-1.0) 11/18/16 14:18 Ur Leukocyte Esterase Neg Beau/uL (Negative) 11/18/16 14:18 Stool Occult Blood Positive (NEGATIVE) H 11/16/16 05:30 HIV 1&2 Ag/Ab, 4th Gen Nonreactive (Nonreactive) 11/16/16 09:30 Blood Type O POSITIVE 11/20/16 07:45 Blood Type Confirm O POSITIVE 11/15/16 20:44 Antibody Screen Negative 11/20/16 07:45 Crossmatch See Detail 11/20/16 07:45 BBK History Checked Patient has bt 11/20/16 07:45 - Hospital Course Hospital Course: Upon Admission: 56yo M with PMHx of Gastro-Esophageal CA s/p chemo and resection in Aug 2010, Multiple Sclerosis, HTN, and GERD here for evaluation of Weakness, Dark stools. He reports spitting up "ribbons" of dark blood and having a dark stool the day of arrival. He reports daily NSAID use. In the ER, he was found to have a hemaglobin of 6.7. He was transfused and admitted to the hospital. GI evaluation was obtained and he was taken to the Endoscopy suite for EGD which was showed a possible gastric outlet obstruction and esophageal ulcers. Surgery consult was obtained as well. Patient was made NPO and started on aggressive IVF. After receiving multiple PRBCs, his hemaglobin was stable. CT chest was performed which showed post-surgical clips in the stomach and incidental masses in the liver. CT Abd/Pelvis was performed which showed retropritoneal lymphadenopathy, and multiple liver masses suspicious for metastatic disease. He was taken for repeat EGD which showed no outlet obstruction and healing esophageal ulcers. IR consult was obtained in order to get a CT guided liver biopsy and was sent for pathology. Heme/Onc consult was obtained and concerns for a new primary tumor vs. mets secondary to previous Gastro-esophageal CA was brought up. Patient obtained a Colonoscopy which showed internal hemmaroids, no masses and no biopsies obtained. Patient started to have elevations in T.Bili and started having jaundice over the course of his hospital stay. Abd US was obtained which showed possible cholecystitis and gallstones. Patient denied any RUQ pain and surgery eval recommended out-patient elective (high-risk) surgery for cholecystectomy, no requirement for emergent acute surgery. MRCP was ordered by the GI team to further evaluate CBD stone. MRI was delayed by a day due to scheduling reasons. T.Bili decreased from 4.6 to 2.5 over the 24hours during the delay. Patient elected to sign out against medical advice. He was counseled at length about the risks involved with his decision. He understood all risks including the risk of severe infection and , he understood the symptoms he had to look for and decided to leave AMA. He was asked to follow-up with Dr. Hernandez for further management and for liver biopsy results. He was also counseled on having genetic screening performed for the rest of his relatives to look for a genetic predisposition for CA. During this hospital stay, we obtained records of his previous gastro- esophageal CA resection from [place]. Summary is below: Resection was performed by Dr. Hayden Cevallos in Aug 2010. Frozen sections during the operation were negative. Pathology: Distal Eshophagus and proximal stomach, esophagogastrectomy - Invasive moderately differentiated adenocarcinoma, intestinal type, of the gastroesophageal junction. Tumor measures 5.5cm in greatest diameter. Carcinoma invades into and focally through the muscularis propria into esophageal adventitia and perigastric subserosal soft tissue. Lymphovascular space invasion is not definitively identified. Perineural space invasion is present. 6 of 29 lymph nodes were positive for metastatic adenocarcinoma. Morphometric analysis score for Her-2/ Alycia: 0(negative). Alcian blue stain reveals multilayered epithelium. (complete record received from [place] on physical chart) Patient elected to sign out Against Medical Advice. 1. Upper GI Bleed; Stable s/p multiple PRBC transfusions. Secondary to esophageal ulcer; consider NSAID overuse 2. Liver lesions; suspicious for metastatic disease. Follow up with Dr. Hernandez , Heme/Onc 3. Transient T. Bili elevation; MRCP refused. Abd US - gallstones. Down trending on day of AMA 4. Hx of HTN Discharge Exam - Head Exam Head Exam: ATRAUMATIC, NORMAL INSPECTION, NORMOCEPHALIC - Eye Exam Eye Exam: EOMI, Scleral icterus - ENT Exam ENT Exam: Mucous Membranes Moist - Respiratory Exam Respiratory Exam: Clear to PA & Lateral, NORMAL BREATHING PATTERN, UNREMARKABLE. absent: Rhonchi, Wheezes - Cardiovascular Exam Cardiovascular Exam: RRR, +S1, +S2. absent: JVD - GI/Abdominal Exam GI & Abdominal Exam: Soft, Tenderness Additional comments: Diffuse tenderness. No rebound, no guarding. Negative Malcolm's sign - Extremities Exam Extremities exam: normal inspection - Neurological Exam Neurological exam: Alert, Normal Gait, Oriented x3 - Skin Skin Exam: Dry, Intact, Warm Additional comments: Jaundice improved since yesterday Discharge Plan - Follow Up Plan Condition: FAIR Disposition: AGAINST MEDICAL ADVICE Referrals: PCP,NO [Primary Care Provider] - <Kelsie Richardson - Last Filed: 11/25/16 16:06> Provider - Provider Date of Admission: 11/15/16 19:40 Attending physician: Kelsie Richardson MD Primary care physician: KAREN PRIMARY CARE PROVIDER Hospital Course - Lab Results Lab Results: Micro Results 11/15/16 20:20 Blood-Venous Blood Culture - Final NO GROWTH AFTER 5 DAYS 11/15/16 20:20 Blood-Venous Gram Stain - Final TEST NOT PERFORMED 11/18/16 14:18 Urine,Clean Catch Urine Culture - Final No Growth (<1,000 CFU/ML) Most Recent Lab Values WBC 13.7 10^3/ul (4.5-11.0) H 11/23/16 06:45 RBC 3.68 10^6/uL (3.5-6.1) 11/23/16 06:45 Hgb 10.2 gm/dL (14.0-18.0) L 11/23/16 06:45 Hct 30.3 % (42.0-52.0) L 11/23/16 06:45 MCV 82.3 fL (80.0-105.0) 11/23/16 06:45 MCH 27.7 pg (25.0-35.0) 11/23/16 06:45 MCHC 33.7 g/dl (31.0-37.0) 11/23/16 06:45 RDW 16.2 % (11.5-14.5) H 11/23/16 06:45 Plt Count 574 10^3/uL (120.0-450.0) H 11/23/16 06:45 MPV 9.7 fl (7.0-11.0) 11/23/16 06:45 Gran % 75.9 % (50.0-68.0) H 11/23/16 06:45 Lymph % (Auto) 10.2 % (22.0-35.0) L 11/23/16 06:45 [place] % (Auto) 13.1 % (1.0-6.0) H 11/23/16 06:45 Eos % (Auto) 0.7 % (1.5-5.0) L 11/23/16 06:45 Baso % (Auto) 0.1 % (0.0-3.0) 11/23/16 06:45 Gran # 10.40 (1.4-6.5) H 11/23/16 06:45 Lymph # 1.4 (1.2-3.4) 11/23/16 06:45 [place] # 1.8 (0.1-0.6) H 11/23/16 06:45 Eos # 0.1 (0.0-0.7) 11/23/16 06:45 Baso # 0.01 K/mm3 (0.0-2.0) 11/23/16 06:45 PT 11.9 Seconds (9.9-11.8) H 11/20/16 05:00 INR 1.10 (0.93-1.08) H 11/20/16 05:00 APTT 32.6 Seconds (23.7-30.8) H 11/18/16 06:30 pO2 29 mm/Hg (30-55) L 11/16/16 09:30 VBG pH 7.32 (7.32-7.43) 11/16/16 09:30 VBG pCO2 50.0 (40-60) 11/16/16 09:30 VBG HCO3 25.8 mmol/l (21-28) 11/16/16 09:30 VBG Total CO2 27.3 mmol.L (22-28) 11/16/16 09:30 VBG O2 Sat (Calc) 56.3 % (40-65) 11/16/16 09:30 VBG Base Excess -0.9 mmol/L (0.0-2.0) L 11/16/16 09:30 VBG Potassium 3.8 mmol/L (3.6-5.2) 11/16/16 09:30 Sodium 142.0 mmol/L (132-148) 11/16/16 09:30 Chloride 113.0 mmol/L (98-107) H 11/16/16 09:30 Glucose 92 mg/dl (75-110) 11/16/16 09:30 Lactate 1.4 mmol/L (0.7-2.1) 11/16/16 09:30 FiO2 21.0 % 11/16/16 09:30 Sodium 137 mmol/L (132-148) 11/23/16 06:45 Potassium 3.9 mmol/L (3.6-5.0) 11/23/16 06:45 Chloride 104 mmol/L (95-110) 11/23/16 06:45 Carbon Dioxide 25 mmol/L (21-33) 11/23/16 06:45 Anion Gap 12 (10-20) 11/23/16 06:45 BUN 16 mg/dL (7-21) 11/23/16 06:45 Creatinine 0.7 mg/dL (0.5-1.4) 11/23/16 06:45 Est GFR ( Amer) > 60 11/23/16 06:45 Est GFR (Non-Af Amer) > 60 11/23/16 06:45 Random Glucose 83 mg/dL (70-110) 11/23/16 06:45 Calcium 7.6 mg/dL (8.4-10.5) L 11/23/16 06:45 Phosphorus 2.8 mg/dL (2.5-4.5) 11/16/16 09:30 Magnesium 2.1 mg/dL (1.7-2.2) 11/16/16 09:30 TIBC 195 ug/dL (261-462) L 11/15/16 18:35 Transferrin 134.80 mg/dL (206-381) L 11/15/16 18:35 Ferritin 66.0 ng/mL 11/15/16 18:35 Total Bilirubin 2.5 mg/dL (0.2-1.3) H 11/23/16 06:45 AST 25 U/L (15-59) 11/23/16 06:45 ALT 37 U/L (7-56) 11/23/16 06:45 Alkaline Phosphatase 372 U/L (38-133) H 11/23/16 06:45 Lactate Dehydrogenase 2912 U/L (333-699) H 11/16/16 09:30 Total Creatine Kinase 382 U/L (35-230) H 11/16/16 09:30 CK-MB (CK-2) 2.7 ng/mL (0.0-3.6) 11/16/16 09:30 CK-MB (CK-2) % Cancelled 11/16/16 09:30 Troponin I < 0.01 ng/mL 11/16/16 09:30 NT-Pro-B Natriuret Pep 394 pg/mL (0-450) 11/15/16 18:35 Total Protein 5.3 g/dL (5.8-8.3) L 11/23/16 06:45 Albumin 2.5 g/dL (3.0-4.8) L 11/23/16 06:45 Globulin 2.9 gm/dL 11/23/16 06:45 Albumin/Globulin Ratio 0.9 (1.1-1.8) L 11/23/16 06:45 Lipase 183 U/L (23-300) 11/15/16 18:35 Procalcitonin 0.98 NG/ML (0.19-0.49) H 11/18/16 17:30 Venous Blood Potassium 3.8 mmol/L (3.6-5.2) 11/16/16 09:30 Urine Color Alfreda (YELLOW) 11/18/16 14:18 Urine Appearance Sl cloudy (CLEAR) 11/18/16 14:18 Urine pH 6.0 (5.0-8.0) 11/18/16 14:18 Ur Specific [place] > 1.060 (1.003-1.030) H 11/18/16 14:18 Urine Protein 1+ mg/dL (NEGATIVE) H 11/18/16 14:18 Urine Glucose (UA) Negative mg/dL (Normal) 11/18/16 14:18 Urine Ketones Negative mg/dL (NEGATIVE) 11/18/16 14:18 Urine Blood Negative (NEGATIVE) 11/18/16 14:18 Urine Nitrate Negative (NEGATIVE) 11/18/16 14:18 Urine Bilirubin Negative (NEGATIVE) 11/18/16 14:18 Urine Urobilinogen 2.0 mg/dL (0.2-1.0) 11/18/16 14:18 Ur Leukocyte Esterase Neg Beau/uL (Negative) 11/18/16 14:18 Stool Occult Blood Positive (NEGATIVE) H 11/16/16 05:30 HIV 1&2 Ag/Ab, 4th Gen Nonreactive (Nonreactive) 11/16/16 09:30 Blood Type O POSITIVE 11/20/16 07:45 Blood Type Confirm O POSITIVE 11/15/16 20:44 Antibody Screen Negative 11/20/16 07:45 Crossmatch See Detail 11/20/16 07:45 BBK History Checked Patient has bt 11/20/16 07:45 Attending/Attestation - Attestation I have personally seen and examined this patient.: Yes I have fully participated in the care of the patient.: Yes I have reviewed all pertinent clinical information, including history, physical exam and plan: Yes Notes (Text): 11/24/16 56 year old male with past medical history of gastric and esophageal cancer s/p surgery and chemotherapy who presented with complaint of hematemesis and dark stools. He was found to have significant anemia which improved after prbc transfusions. CT chest/abdomen showed multiple liver masses, lymphadenopathy and adrenal lesion, likely metastatic. He had liver biopsy with pending results. He was seen by hematology whom he will follow up with as outpatient. He was also seen by GI and underwent EGD which initially showed non-bleeding gastric ulcers, esophageal ulcers and gastric outlet obstruction. He had repeat EGD which showed healing esophageal ulceration without gastric outlet obstruction. He had colonoscopy which showed internal hemorrhoids. He had elevated bilirubin for which abdominal US was done which was reviewed as above. MRCP was ordered which patient refused and signed out AMA. Patient was strongly advised to follow up with his pmd. Follow up with Dr. Bailey early next week to follow up on biopsy results. Follow up with GI. Recommended MRCP. Kelsie Richardson MD Hospitalist.
== END 2016-11-23 16:15 | disposition left against medical advice (07) | DRG 381 ==
LOC: ED 18:31 → ERH 19:40 → 2RNO 22:59 → UNDODISIN 11-20 14:27 → 3RSO 11-22 17:27
PROVIDERS: ADMIT Internal Medicine; ATTEND Internal Medicine
PROC: 0DJ08ZZ Inspection of Upper Intestinal Tract, Via Natural or Artificial Opening Endoscopic (ICD-10-PCS; 2016-11-16)
PROC: 30233N1 Transfusion of Nonautologous Red Blood Cells into Peripheral Vein, Percutaneous Approach (ICD-10-PCS; 2016-11-16)
PROC: 0DJ08ZZ Inspection of Upper Intestinal Tract, Via Natural or Artificial Opening Endoscopic (ICD-10-PCS; 2016-11-20)
PROC: 0FB13ZX Excision of Right Lobe Liver, Percutaneous Approach, Diagnostic (ICD-10-PCS; 2016-11-21)
PROC: 0DJD8ZZ Inspection of Lower Intestinal Tract, Via Natural or Artificial Opening Endoscopic (ICD-10-PCS; principal; 2016-11-22 08:00)
DX: K22.11 Ulcer of esophagus with bleeding (principal); C78.7 Secondary malignant neoplasm of liver and intrahepatic bile duct; G35 Multiple sclerosis; D64.9 Anemia, unspecified; K64.8 Other hemorrhoids; Z85.028 Personal history of other malignant neoplasm of stomach; Z85.01 Personal history of malignant neoplasm of esophagus; K21.9 Gastro-esophageal reflux disease without esophagitis; F17.210 Nicotine dependence, cigarettes, uncomplicated; K25.9 Gastric ulcer, unspecified as acute or chronic, without hemorrhage or perforation; T18.2XXA Foreign body in stomach, initial encounter; E87.6 Hypokalemia; I10 Essential (primary) hypertension; Z92.21 Personal history of antineoplastic chemotherapy; Z87.11 Personal history of peptic ulcer disease; Z83.3 Family history of diabetes mellitus; Z80.7 Family history of other malignant neoplasms of lymphoid, hematopoietic and related tissues; Z80.3 Family history of malignant neoplasm of breast

== ENCOUNTER 2017-01-16 17:28 | Inpatient (IN) | payer MEDICAID, OTHER ==
[2017-01-16 17:29] VITALS: BMI 22.1
--- NOTE | 2017-01-16 18:32 | ED PDOC ---
Arrival/HPI - General Chief Complaint: Chest Pain Time Seen by Provider: 01/16/17 17:52 Historian: Patient - History of Present Illness Narrative History of Present Illness (Text): 01/16/17 18:32 A 56 year old male, whose past medical history includes metasatic gastric cancer , presents to the emergency department complaining of non-radiating midsternal chest pain since this morning. Patient describes it as a tightening sensation and notes a severity of 9/10. Patient reports feeling short of breath earlier today, which has resolved. Patient notes chronic abdominal pain but denies any fever, chills, nausea, vomiting, diarrhea, urinary symptoms, shortness of breath , cough or any other complaints at this time. Time/Duration: Other (this morning) Symptom Course: Unchanged Quality: Other Context: Other Past Medical History - Provider Review Nursing Documentation Reviewed: Yes - Infectious Disease Hx of Infectious Diseases: None - Cardiac Hx Cardiac Disorders: No - Pulmonary Hx Respiratory Disorders: No - Neurological Hx Multiple Sclerosis: Yes - HEENT Hx HEENT Disorder: Yes (wears glasses) - Renal Hx Renal Disorder: No - Endocrine/Metabolic Hx Endocrine Disorders: No - Hematological/Oncological Hx Cancer: Yes (Abdominal) Hx Chemotherapy: Yes (4 years ago and radiation 4 years ago) Other/Comment: esophogeal/stomach CA recent Dx May - Integumentary Hx Dermatological Disorder: No - Musculoskeletal/Rheumatological Other/Comment: Multiple Sclerosis - Gastrointestinal Other/Comment: Stomach CA,Esaphagal CA - Genitourinary/Gynecological Hx Genitourinary Disorders: No - Psychiatric Hx Psychophysiologic Disorder: No Hx Substance Use: No - Surgical History Other/Comment: "Removed 1/3 or stomach" Family/Social History - Physician Review Nursing Documentation Reviewed: Yes Family/Social History: No Known Family HX Smoking Status: Light Smoker < 10 Cigarettes Daily Hx Alcohol Use: No Hx Substance Use: No Allergies/Home Meds Allergies/Adverse Reactions: Allergies No Known Allergies Allergy (Verified 01/16/17 17:48) Home Medications: Home Meds Medication Instructions Recorded Confirmed Esomeprazole Magnesium [Nexium] 1 tab PO BID 01/16/17 01/16/17 Hydrocodone/Acetaminophen 10 mg PO PRN PRN MDD 4 01/16/17 01/16/17 oxyCODONE 10 mg PO PRN PRN MDD 6 01/16/17 01/16/17 Review of Systems - Physician Review All systems were reviewed & negative as marked: Yes - Review of Systems Constitutional: absent: Fevers, Night Sweats Respiratory: SOB (which resolved). absent: Cough Cardiovascular: Chest Pain Gastrointestinal: Abdominal Pain (chronic). absent: Diarrhea, Nausea, Vomiting Physical Exam Vital Signs Reviewed: Yes Vital Signs Temp Pulse Resp BP Pulse Ox 01/16/17 22:03 90 18 130/85 100 01/16/17 20:32 70 16 152/103 H 100 01/16/17 18:49 76 18 141/85 98 01/16/17 17:40 98.8 F 88 18 145/93 H 98 Temperature: Afebrile Blood Pressure: Hypertensive Pulse: Regular Respiratory Rate: Normal Appearance: Positive for: Non-Toxic, Comfortable, Other (Thin male) Pain Distress: None Mental Status: Positive for: Alert and Oriented X 3 - Systems Exam Head: Present: Atraumatic, Normocephalic Pupils: Present: PERRL Extroacular Muscles: Present: EOMI Conjunctiva: Present: Normal Mouth: Present: Moist Mucous Membranes Neck: Present: Normal Range of Motion Respiratory/Chest: Present: Clear to Auscultation, Good Air Exchange. No: Respiratory Distress, Accessory Muscle Use Cardiovascular: Present: Regular Rate and Rhythm, Normal S1, S2. No: Murmurs Abdomen: Present: Tenderness (Mild diffuse tenderness, normal to baseline due to chronic abdominal pain), Normal Bowel Sounds, Scars (Left sided surgical scar ). No: Distention, Peritoneal Signs Back: Present: Normal Inspection Upper Extremity: Present: Normal Inspection. No: Cyanosis, Edema Lower Extremity: Present: Edema (bilateral trace edema), NORMAL PULSES, Normal ROM, Neurovascularly Intact. No: CALF TENDERNESS, Tenderness, Swelling, Erythema, Deformity, Temperature Abnormalties Neurological: Present: GCS=15, CN II-XII Intact, Speech Normal Skin: Present: Warm, Dry, Normal Color. No: Rashes Psychiatric: Present: Alert, Oriented x 3, Normal Insight, Normal Concentration Medical Decision Making ED Course and Treatment: 01/16/17 18:32 Impression: A 56 year old male with midsternal chest pain. Notes chronic abdominal pain but denies any other complaints at this time. Plan: -- Chest xray -- EKG -- Labs -- Aspirin -- Reassess and disposition Progress Notes: EKG shows NSR at 87 BPM with normal axis, normal intervals. Interpreted by me. - Lab Interpretations Lab Results: 01/16/17 18:25 01/16/17 18:25 Lab Results 01/16/17 18:25: Sodium 137, Potassium 4.8, Chloride 101, Carbon Dioxide 28, Anion Gap 13, BUN 14, Creatinine 0.6, Est GFR ( Amer) > 60, Est GFR (Non- Af Amer) > 60, Random Glucose 95, Calcium 8.7, Magnesium 2.1, Total Bilirubin 2.7 H, AST 46, ALT 30, Alkaline Phosphatase 1246 H, Lactate Dehydrogenase 585, Total Creatine Kinase 104, Troponin I < 0.01, NT-Pro-B Natriuret Pep 1010 H, Total Protein 6.9, Albumin 2.9 L, Globulin 4.0, Albumin/Globulin Ratio 0.7 L 01/16/17 18:25: Urine Color Yellow, Urine Appearance Sl cloudy, Urine pH 6.0, Ur Specific [place] 1.025, Urine Protein Trace H, Urine Glucose (UA) Negative, Urine Ketones Negative, Urine Blood Moderate H, Urine Nitrate Negative, Urine Bilirubin Moderate H, Urine Urobilinogen 4.0 H, Ur Leukocyte Esterase Negative, Urine RBC 10 - 15, Urine WBC 0 - 2, Calcium Oxalate Crystal Occ, Urine Bacteria Few, Urine Other Mucus 01/16/17 18:25: WBC 11.7 H, RBC 3.35 L, Hgb 8.1 L, Hct 25.7 L, MCV 76.7 L, MCH 24.2 L, MCHC 31.5, RDW 18.1 H, Plt Count 596 H, MPV 8.6, Gran % 76.0 H, Lymph % (Auto) 13.4 L, [place] % (Auto) 10.1 H, Eos % (Auto) 0.5 L, Baso % (Auto) 0.0, Gran # 8.93 H, Lymph # 1.6, [place] # 1.2 H, Eos # 0.1, Baso # 0.00 I have reviewed the lab results: Yes - RAD Interpretation Radiology Orders: 01/16/17 17:52 CHEST PORTABLE [RAD] Stat 01/16/17 19:30 ANGIO CHEST PE PROTOCOL [CT] Stat - Medication Orders Current Medication Orders: Discontinued Medications Aspirin (Aspirin) 325 mg PO STAT STA Stop: 01/16/17 17:53 Last Admin: 01/16/17 18:35 Dose: 325 mg Iohexol (Omnipaque 350 100 Ml) Confirm Administered Dose 350 mg .ROUTE .STK-MED ONE Stop: 01/16/17 19:36 - Scribe Statement The provider has reviewed the documentation as recorded by the Kingibchris Bernard Provider Scribe Attestation: All medical record entries made by the Scribe were at my direction and personally dictated by me. I have reviewed the chart and agree that the record accurately reflects my personal performance of the history, physical exam, medical decision making, and the department course for this patient. I have also personally directed, reviewed, and agree with the discharge instructions and disposition. Disposition/Present on Arrival - Present on Arrival Any Indicators Present on Arrival: No History of DVT/PE: No History of Uncontrolled Diabetes: No Urinary Catheter: No History of Decub. Ulcer: No History Surgical Site Infection Following: None - Disposition Have Diagnosis and Disposition been Completed?: Yes Diagnosis: Chest pain Disposition: HOSPITALIZED Disposition Time: 21:00 Condition: STABLE
[2017-01-16 18:46] LABS: EOS # 0.1 (0.0-0.7); EOS % 0.5 % (1.5-5.0); GRAN # 8.93 (1.4-6.5); HEMOGLOBIN 8.1 gm/dL (14.0-18.0); LYMPH # 1.6 (1.2-3.4); LYMPH % 13.4 % (22.0-35.0); MEAN CELL VOLUME 76.7 fL (80.0-105.0); MEAN CORPUSCULAR HEMOGLOBIN 24.2 pg (25.0-35.0); MEAN CORPUSCULAR HGB CONC 31.5 g/dl (31.0-37.0); MEAN PLATELET VOLUME 8.6 fl (7.0-11.0); MONO # 1.2 (0.1-0.6); MONO % 10.1 % (1.0-6.0); PLATELET COUNT 596 10^3/uL (120.0-450.0); RBC 3.35 10^6/uL (3.5-6.1); RED CELL DISTRIBUTION WIDTH 18.1 % (11.5-14.5); URINE APPEARANCE SL CLOUDY (CLEAR); URINE BILIRUBIN MODERATE (NEGATIVE); URINE BLOOD MODERATE (NEGATIVE); URINE COLOR YELLOW (YELLOW); URINE GLUCOSE (UA) NEGATIVE (NEGATIVE); URINE LEUKOCYTE ESTERASE NEGATIVE Leu/uL (NEGATIVE); URINE NITRATE NEGATIVE (NEGATIVE); URINE PROTEIN TRACE mg/dL (<30 mg/dL); WHITE BLOOD COUNT 11.7 10^3/ul (4.5-11.0)
[2017-01-16 18:48] LABS: URINE WBC 0 - 2 /hpf (0-6)
[2017-01-16 18:49] LABS: URINE BACTERIA FEW (NEG); URINE CALCIUM OXALATE CRYSTALS OCC /hpf
[2017-01-16 18:52] LABS: ALB/GLOB RATIO 0.7 (1.1-1.8); ALBUMIN 2.9 g/dL (3.0-4.8); ALT/SGPT 30 U/L (7-56); AST/SGOT 46 U/L (15-59); BLOOD UREA NITROGEN 14 mg/dL (7-21); CALCIUM 8.7 mg/dL (8.4-10.5); GFR AFRICAN-AMERICAN > 60; GFR NON-AFRICAN AMERICAN > 60; MAGNESIUM 2.1 mg/dL (1.7-2.2)
[2017-01-16 19:04] LABS: B-TYPE NATRIURETIC PEPTIDE 1010 pg/mL (0-450)
[2017-01-16 19:20] LABS: TROPONIN I < 0.01 ng/mL
[2017-01-16] MEDS ORDERED: Iohexol 350 MG/100 ML VIAL ONE (19:35)
--- NOTE | 2017-01-16 21:01 | CT ---
EXAM: CT Angiography Chest With Intravenous Contrast CLINICAL HISTORY: 56 years old, male; Pain; Chest pain; Type not specified; Prior surgery; Surgery date: 6+ months; Surgery type: HX stomach and esophageal ca; Additional info: Cp/sob - h/o metastatic colon ca TECHNIQUE: Axial computed tomographic angiography images of the chest with intravenous contrast using pulmonary embolism protocol. This CT exam was performed using one or more of the following dose reduction techniques: automated exposure control, adjustment of the mA and/or kV according to patient size, and/or use of iterative reconstruction technique. MIP reconstructed images were created and reviewed. Coronal and sagittal reformatted images were created and reviewed. CONTRAST: 100 mL of omni 350 administered intravenously. COMPARISON: CT - CHEST W/O CONTRAST 11/16/2016 8:52:32 PM FINDINGS: Limitations: Motion artifact - mild. Pulmonary arteries: No definite pulmonary embolism. Aorta: No aneurysm. No dissection. Lungs: Multiple nodules, increased in size and number from previous examination. Minimal atelectasis/scarring. No consolidation. Pleural space: Small LEFT pleural effusion. No pneumothorax. Heart: Mild cardiomegaly. No significant pericardial effusion. Mediastinum: Postsurgical changes of esophagus/stomach with pull-through. Bones/joints: No acute fracture. No dislocation. Soft tissues: Mild diffuse stranding within subcutaneous tissues. Lymph nodes: No pathologically enlarged lymph nodes. Liver: Multiple hypodense lesions, indeterminate by CT criteria. Adrenals: Mass within RIGHT adrenal gland, grossly stable. Intraperitoneal space: Small free fluid within abdomen. IMPRESSION: 1. No definite CT evidence of pulmonary embolism. 2. Findings compatible with pulmonary, hepatic, adrenal metastases. 3. Incidental/non-acute findings are described above.
--- NOTE | 2017-01-17 00:21 | CP.PCM.CON ---
History of Present Illness - History of Present Illness History of Present Illness: General Surgery- Dr. Casillas 56M w/ PMHx of metastatic gastric cancer, PUD, GERD, presented to the ED with non-radiating midsternal chest pain that started this morning. Initially patient described the pain as tight and complained of being short of breath, which has currently resolved. Pt currently complaining of chronic generalized abdominal pain. had 1 episode of vomiting yesterday of food contents, non- bloody non-bilious. Pt tolerated lunch today. BM are regular and non-bloody. Denies current N/V, fevers chills SOB. PMHx: MS, PUD, GERD, esophageal/stomach Ca PSHx: partial gastrectomy and esophgeal resection in 2010 at [facility] ALL: NKDA Hospitalization: Recently hospitalized in November for GI bleed SocialHx: 5 cigarettes/day; social ETOH, denies illicit drug use Review of Systems - Constitutional Constitutional: As Per HPI - Cardiovascular Cardiovascular: As Per HPI - Respiratory Respiratory: As Per HPI - Gastrointestinal Gastrointestinal: As Per HPI Past Patient History - Infectious Disease Hx of Infectious Diseases: None - Past Social History Smoking Status: Light Smoker < 10 Cigarettes Daily - CARDIAC Hx Cardiac Disorders: No - PULMONARY Hx Respiratory Disorders: No - NEUROLOGICAL Hx Neurological Disorder: No - HEENT Hx HEENT Problems: Yes (wears glasses) - RENAL Hx Chronic Kidney Disease: No - ENDOCRINE/METABOLIC Hx Endocrine Disorders: No - HEMATOLOGICAL/ONCOLOGICAL Hx Cancer: Yes Hx Chemotherapy: Yes (4 years ago and radiation 4 years ago) Other/Comment: esophogeal/stomach CA recent Dx November - INTEGUMENTARY Hx Dermatological Problems: No - MUSCULOSKELETAL/RHEUMATOLOGICAL Other/Comment: Multiple Sclerosis - GASTROINTESTINAL Other/Comment: Stomach CA,Esaphagal CA - GENITOURINARY/GYNECOLOGICAL Hx Genitourinary Disorders: No - PSYCHIATRIC Hx Psychophysiologic Disorder: No - SURGICAL HISTORY Hx Surgeries: Yes Other/Comment: "Removed 1/3 or stomach" Meds Allergies/Adverse Reactions: Allergies Allergy/AdvReac Type Severity Reaction Status Date / Time No Known Allergies Allergy Verified 01/16/17 17:48 - Medications Medications: Current Medications Enoxaparin Sodium (Lovenox) 40 mg SC DAILY [facility] PRN Reason: Protocol Famotidine (Pepcid) 20 mg IVP DAILY [facility] Potassium Chloride 20 meq/ (Dextrose/Sodium Chloride) 1,010 mls @ 100 mls/hr IV .Q10H6M [facility] Morphine Sulfate (Morphine) 3 mg IV Q4H PRN PRN Reason: Pain, severe (8-10) Ondansetron HCl (Zofran Inj) 4 mg IVP Q6H PRN PRN Reason: Nausea/Vomiting Physical Exam - Constitutional Appears: Well, No Acute Distress - Head Exam Head Exam: ATRAUMATIC - Neck Exam Neck exam: Positive for: Normal Inspection - Respiratory Exam Respiratory Exam: Clear to Auscultation Bilateral, NORMAL BREATHING PATTERN. absent: Accessory Muscle Use, Chest Wall Tenderness, Rales, Rhonchi, Wheezes - Cardiovascular Exam Cardiovascular Exam: REGULAR RHYTHM, +S1, +S2. absent: JVD - GI/Abdominal Exam GI & Abdominal Exam: Guarding, Normal Bowel Sounds, Soft. absent: Bruit, Diminished Bowel Sounds, Distended, Firm, Hernia, Rebound Additional comments: voluntary guarding to palpation - Neurological Exam Neurological exam: Alert, Oriented x3 - Psychiatric Exam Psychiatric exam: Normal Affect, Normal Mood - Skin Skin Exam: Intact, Normal Color, Warm Results - Vital Signs Recent Vital Signs: Last Vital Signs Temp 98.9 F 01/16/17 22:47 Pulse 75 01/16/17 22:47 Resp 17 01/16/17 22:47 BP 156/90 H 01/16/17 22:47 Pulse Ox 100 01/16/17 22:47 - Labs Result Diagrams: 01/16/17 18:25 01/16/17 18:25 Assessment & Plan - Assessment and Plan (Free Text) Assessment: 56M w/ hx of gastric Ca and mets with possible symptomatic hiatal hernia Plan: - f/u gastrografin studies - elevated alk phos 2/2 liver mets - continue medical management - no surgical intervention at this time will discuss with Dr. Vinny Canseco PGY1 - Date & Time Date: 01/17/17 Time: 00:00
[2017-01-17] MEDS: Potassium Chloride 20 MEQ in Dextrose 5%/0.45% NS 1,000 ML IV SCH ×2 (00:53→19:26)
[2017-01-17] MEDS: Morphine 4 mg/ml ISec IV PRN ×2 (00:54→09:05)
--- NOTE | 2017-01-17 02:09 | CP.PCM.HP ---
<MICHEAL KEENE - Last Filed: 01/17/17 05:14> History of Present Illness - History of Present Illness History of Present Illness: 56 year old male with a PMH of gastroeophageal ca s/p resection in 2010, MS, GERD complains of a dull substernal chest pain which started at 11:30 this a.m. Patient states that the pain was constant and non radiating, rating it a 10/10. He likened the pain to someone squeezing his chest giving him a bear hug causing shortness of breath, stating that it tends to worsen with twisting movements. Patient admits to one episode of dry heaving the day prior stating that he couldn't vomit but only dry heave. 2 months prior, patient was admitted for a syncopal episode in which he was found to be anemic. Patient stated that he was experiencing hematemesis and dark stools for about a week. The anemia was corrected after prbc transfusions. CT of abdomen and chest revealed liver masses, LAD, and an adrenal lesion all which were highly suspicious of metastasis. PMHx: Gastroesophageal cancer, Multiple Sclerosis, GERD Meds:oxycodone 10 mg PO PRN, hydrocodone/Acetaminophen 10 mg PO PRN, Nexium 20 mg 1 tab PO BID PSHx: Esophagagastrectomy Allergies:NKDA SHx: smokes 5 cigarettes a day >25 years, denies drinking or substance abuse FHx: Review of Systems Constitutional: pt denies fever, chills, generalized weakness ENT: pt denies dysphagia, ofalgia, hearing deficit, rhinorrhea Eyes: pt denies sudden loss of vision, diplopia, blurred vision MSK: pt denies muscle stiffness, joint pain, extremity cramping, facial cramping Cardio: pt denies sob, heart murmur; see hpi Pulm: pt denies cough, hemoptysis, wheeze GI: pt denies loss of appetite, abdominal pain, constipation, melena, nausea/ vomiting/diarrhea : pt denies burning on urination, urinary frequency, hematuria, urinary urgency Neuro: pt denies paresis, paresthesia, dizziness, headache, numbness, tingling Derm: pt denies skin changes, lesions, nail changes Endo: pt denies intolerance to heat/cold, diaphoresis, night sweats, polydipsia Psych: pt denies anxiety, depression, admits mood changes Physical Exam Constitutional: very thin male, a&o x 4, no acute distress Head and Neck: neck supple, no jvd, trachea midline, carotid midline, no cervical/head mass Eyes: kristel, nonicteric sclera, eom intact ENT: auditory acuity grossly intact, throat not congested, no nasal deformity Cardio: rrr, no m/r/g, no carotid bruit, nml s1, s2 Pulm: no accessory muscle use, equal nml breath sounds bilaterally, ctab Abd: normal bowel sounds present, surgical scar, palpable liver, tenderness upon palpation of abdomen Derm: no rashes, no ulcers, no lesions Extr: no edema, no cyanosis, no calf tenderness, no lesions, no varicosities Neuro: cn II-XII grossly intact, ue and le 3+ muscle strength bilaterally, no los ue, le bilaterally and core Past Patient History - Infectious Disease Hx of Infectious Diseases: None - Past Social History Smoking Status: Light Smoker < 10 Cigarettes Daily - CARDIAC Hx Cardiac Disorders: No - PULMONARY Hx Respiratory Disorders: No - NEUROLOGICAL Hx Neurological Disorder: No - HEENT Hx HEENT Problems: Yes (wears glasses) - RENAL Hx Chronic Kidney Disease: No - ENDOCRINE/METABOLIC Hx Endocrine Disorders: No - HEMATOLOGICAL/ONCOLOGICAL Hx Cancer: Yes Hx Chemotherapy: Yes (4 years ago and radiation 4 years ago) Other/Comment: esophogeal/stomach CA recent Dx May - INTEGUMENTARY Hx Dermatological Problems: No - MUSCULOSKELETAL/RHEUMATOLOGICAL Other/Comment: Multiple Sclerosis - GASTROINTESTINAL Other/Comment: Stomach CA,Esaphagal CA - GENITOURINARY/GYNECOLOGICAL Hx Genitourinary Disorders: No - PSYCHIATRIC Hx Psychophysiologic Disorder: No - SURGICAL HISTORY Hx Surgeries: Yes Other/Comment: "Removed 1/3 or stomach" Meds Allergies/Adverse Reactions: Allergies Allergy/AdvReac Type Severity Reaction Status Date / Time No Known Allergies Allergy Verified 01/16/17 17:48 Results - Vital Signs Recent Vital Signs: Last Vital Signs Temp 97.6 F 01/16/17 23:40 Pulse 74 01/16/17 23:40 Resp 20 01/16/17 23:40 BP 139/97 H 01/16/17 23:40 Pulse Ox 100 01/16/17 22:47 - Labs Result Diagrams: 01/16/17 18:25 01/16/17 18:25 Labs: Laboratory Results - last 24 hr 01/17/17 00:15 Troponin I < 0.01 Assessment & Plan - Assessment and Plan (Free Text) Assessment: 1)Chest Pain/Shortness of Breath 2)Left Lower Extremity Edema 3)Partial Esophagastrectomy 4)GERD 5)DVT Prophylaxis 6)Ulcer Prophylaxis <Jean Paul Ochoa P - Last Filed: 01/17/17 06:04> Present on Admission - Present on Admission Any Indicators Present on Admission: No Results - Vital Signs Recent Vital Signs: Last Vital Signs Temp 97.7 F 01/17/17 00:01 Pulse 70 01/17/17 02:00 Resp 18 01/17/17 00:01 BP 125/82 01/17/17 00:01 Pulse Ox 97 01/17/17 00:01 - Labs Result Diagrams: 01/16/17 18:25 01/16/17 18:25 Labs: Laboratory Results - last 24 hr 01/17/17 00:15 Troponin I < 0.01 Attending/Attestation - Attestation I have personally seen and examined this patient.: Yes I have fully participated in the care of the patient.: Yes I have reviewed all pertinent clinical information: Yes Notes (Text): 01/17/17 05:58 Except as follows: Assessment * CP suspected from symptomatic hiatal hernia with air fluid levels in the chest and distension, d/w radiologist last night, to confirm a repeat chest/ abd /pelvis CT with gastrograffin oral contrast will be done if persistent distension may confirm, surgery consulted * Hepatic, adrenal mets with major hepatomegaly * Microcytic anemia with recent esophageal errosions * has not started on chemo since the diagnosis of recurrence 2 months back * Tobacco abuse * H/o MS no significant neuro finding * H/o Opiod pain med use * Unilateral leg swelling likely from venous insufficiency form pressure of hepatomegaly r/o dvt Plan * Oral contrast gastrografin study * NPO * IVF * Iv pain meds * Surgery consulted * Venous doppler * See orders for detail.
[2017-01-17] MEDS ORDERED: Iohexol 240 (50 ml) ONE (07:06)
--- NOTE | 2017-01-17 07:06 | CP.PCM.CON ---
Addendum entered and electronically signed by Brandee Wheat DO 01/17/17 11:40 : Pending MRCP with and without contrast ROS- negative otherwise not specifically listed Original Note: <Brandee Wheat - Last Filed: 01/17/17 10:48> History of Present Illness - History of Present Illness History of Present Illness: PGY-[address] Hernandez Consultation: Esophageal & Stomach (gastroesophageal carcinoma at EGD junction) carcinoma with New Liver Mets with retroperitoneal lymphadenopathy 56 year old male with a PMH of gastroeophageal ca s/p resection in 2010, esophageal cancer, MS, GERD complains of a dull substernal chest pain which started at 11:30 yesterday. Patient states that the pain was constant and non radiating, rating it a 10/10. He likened the pain to someone squeezing his chest giving him a bear hug causing shortness of breath, stating that it tends to worsen with twisting movements. Patient admits to one episode of dry heaving without vomit. Pt reported a similar chest pain episode 3 days ago, lasting for 24 hours, relieved only with hot shower and massage. 2 months prior, patient was admitted for a syncopal episode in which he was found to be anemic. Patient stated that he was experiencing hematemesis and dark stools for about a week. The anemia was corrected after prbc transfusions. CT of abdomen and chest revealed liver masses, LAD, and an adrenal lesion all which were highly suspicious of metastasis. ROS: (+) Jaundice (+) chest pain Hx Cancer: - Esophageal carcinoma with gastroesophageal carcinoma - treated initially with neoaduvant with capecitabine, epirubicin, and [place]. Finished 6 cycles (Dr. Monge from [facility]. [place]) - Underwent esophagagastrectomy. Found positive lymph nodes 2010 - invasice moderately differentiated adenocarcinoma, intestinal type, at GE junction (neg Her2/kenneth) - No postop radiation or postop chemo - PET on 2013 was normal - Scan 2017: extensive meastases to liver (R > L), extensive retroperotoneal adenopathy (infra crurual, retrocrural area, necrotic lymph nodes) - CT guided Liver biopsy (11/21/16): CK+/CK20+/CEA+/CDX2+ adenocarcinoma of upper gastrointestinal/pancreatobilirary tract origin - Repeat EGD: No outlet onstruction, healed esophgeal ulcers/ Colonoscopy: internal hemorrhoids, no masses - Elevated T. bili and jaundice - 01/16/17: CTA shows NEW pulmonary, hepatic, adrenal metastases. Fluid in posterior mediastinum PMHx: Gastroesophageal cancer, Multiple Sclerosis, GERD PSHx: Esophagagastrectomy FH: SHx: smokes 5 cigarettes a day >25 years, denies drinking or substance abuse All: NKDA Meds: oxycodone 10 mg PO PRN, hydrocodone/Acetaminophen 10 mg PO PRN, Nexium 20 mg 1 tab PO BID Outpatient oncologist: Dr. Hernandez Past Patient History - Infectious Disease Hx of Infectious Diseases: None - Past Social History Smoking Status: Light Smoker < 10 Cigarettes Daily - CARDIAC Hx Cardiac Disorders: No - PULMONARY Hx Respiratory Disorders: No - NEUROLOGICAL Hx Neurological Disorder: No - HEENT Hx HEENT Problems: Yes (wears glasses) - RENAL Hx Chronic Kidney Disease: No - ENDOCRINE/METABOLIC Hx Endocrine Disorders: No - HEMATOLOGICAL/ONCOLOGICAL Hx Cancer: Yes Hx Chemotherapy: Yes (4 years ago and radiation 4 years ago) Other/Comment: esophogeal/stomach CA recent Dx May - INTEGUMENTARY Hx Dermatological Problems: No - MUSCULOSKELETAL/RHEUMATOLOGICAL Other/Comment: Multiple Sclerosis - GASTROINTESTINAL Other/Comment: Stomach CA,Esaphagal CA - GENITOURINARY/GYNECOLOGICAL Hx Genitourinary Disorders: No - PSYCHIATRIC Hx Psychophysiologic Disorder: No - SURGICAL HISTORY Hx Surgeries: Yes Other/Comment: "Removed 1/3 or stomach" Meds Allergies/Adverse Reactions: Allergies Allergy/AdvReac Type Severity Reaction Status Date / Time No Known Allergies Allergy Verified 01/16/17 17:48 - Medications Medications: Current Medications Aspirin (Ecotrin) 81 mg PO DAILY [facility] Enoxaparin Sodium (Lovenox) 40 mg SC DAILY [facility] PRN Reason: Protocol Famotidine (Pepcid) 20 mg IVP DAILY [facility] Last Admin: 01/17/17 02:18 Dose: 20 mg Potassium Chloride 20 meq/ (Dextrose/Sodium Chloride) 1,010 mls @ 100 mls/hr IV .Q10H6M [facility] Last Admin: 01/17/17 00:53 Dose: 100 mls/hr Morphine Sulfate (Morphine) 3 mg IV Q4H PRN PRN Reason: Pain, severe (8-10) Last Admin: 01/17/17 00:54 Dose: 3 mg Ondansetron HCl (Zofran Inj) 4 mg IVP Q6H PRN PRN Reason: Nausea/Vomiting Pneumococcal Polyvalent Vaccine (Pneumovax 23 Vaccine) 0.5 ml IM .ONCE ONE Stop: 01/19/17 10:01 Physical Exam - Constitutional Appears: No Acute Distress, Cachectic, Chronically Ill - Head Exam Head Exam: ATRAUMATIC, NORMAL INSPECTION, NORMOCEPHALIC - Eye Exam Eye Exam: EOMI, PERRL, Scleral icterus Pupil Exam: NORMAL ACCOMODATION - ENT Exam ENT Exam: Mucous Membranes Moist - Neck Exam Neck exam: Negative for: Lymphadenopathy - Respiratory Exam Respiratory Exam: Clear to Auscultation Bilateral. absent: Rales, Rhonchi, Wheezes - Cardiovascular Exam Cardiovascular Exam: REGULAR RHYTHM, +S1, +S2. absent: Systolic Murmur - GI/Abdominal Exam GI & Abdominal Exam: Firm (LUQ), Normal Bowel Sounds, Organomegaly, Soft. absent: Guarding, Rigid - Extremities Exam Extremities exam: Positive for: normal capillary refill, pedal edema, pedal pulses present. Negative for: calf tenderness - Neurological Exam Neurological exam: Alert, Oriented x3 - Psychiatric Exam Psychiatric exam: Normal Affect, Normal Mood - Skin Skin Exam: Dry, Warm Additional comments: jaundice Results - Vital Signs Recent Vital Signs: Last Vital Signs Temp 98.0 F 01/17/17 06:00 Pulse 79 01/17/17 06:00 Resp 20 01/17/17 06:00 BP 126/90 01/17/17 06:00 Pulse Ox 97 01/17/17 06:00 - Labs Result Diagrams: 01/17/17 05:45 01/17/17 05:45 Labs: Laboratory Results - last 24 hr 01/17/17 00:15 Troponin I < 0.01 Assessment & Plan - Assessment and Plan (Free Text) Plan: 56 year old male with a PMH of esophageal and stomach cancer (gastroeophageal ca s/p resection in 2010), multiple sclerosis, and GERD admitted for chest pain. Chest pain is likely atypical due to irritation by fluid at posterior mediastinum, pulmonary/liver/adrenal mets. He has microcytic anemia with recent esophageal errosion due to NSAID uses s/p u pRBC. 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 - Port-a-cath placment requested - cyramza is contraindicated - Taxol 3-hr infusion weekly (transaminases < 10 ULN and bilirubin 2-5 ULN) rate 90 mg/m^2; BSA = 2.64 sq-m - Pending repeat CT harmon-scan R/O acute abdomen from perforation (Air-fluid level) - Oral contrast gastrografin study - NPO - NS with Kcl @100 direct hyperbilirubinemia: intrahepatic (ca mets) vs post hepatic obstruction ( Extrahepatic, occlusion vs cholestasis vs compression from tumor) - CMV pending - GI consult Unilateral leg swelling - likely from venous insufficiency form pressure of hepatomegaly - Pending official read of U/S to r/o dvt Atypical chest pain - Fluid in posterior mediastinum irritation - EKG - Echo? Tobacco abuse H/o MS no significant neuro finding H/o Opiod pain med use s/r/d/ w Dr. Hernandez - Date & Time Date: 01/17/17 Time: 07:09 <Ravin Hernandez P - Last Filed: 01/27/17 01:07> Results - Vital Signs Recent Vital Signs: Last Vital Signs Temp 98.4 F 01/21/17 16:00 Pulse 84 01/21/17 16:00 Resp 18 01/21/17 16:00 BP 145/99 H 01/21/17 16:00 Pulse Ox 98 01/21/17 16:00 - Labs Result Diagrams: 01/21/17 06:40 01/21/17 06:40 Attending/Attestation - Attestation I have personally seen and examined this patient.: Yes I have fully participated in the care of the patient.: Yes I have reviewed all pertinent clinical information: Yes
[2017-01-17 07:34] LABS: ALB/GLOB RATIO 0.7 (1.1-1.8); ALBUMIN 2.6 g/dL (3.0-4.8); ALT/SGPT 27 U/L (7-56); AST/SGOT 44 U/L (15-59); BLOOD UREA NITROGEN 11 mg/dL (7-21); CALCIUM 8.3 mg/dL (8.4-10.5); GFR AFRICAN-AMERICAN > 60; GFR NON-AFRICAN AMERICAN > 60; HDL CHOLESTEROL 19 mg/dL (29-60)
[2017-01-17 07:39] LABS: BASO # 0.01 K/mm3 (0.0-2.0); BASO % 0.1 % (0.0-3.0); EOS # 0.1 (0.0-0.7); EOS % 1.1 % (1.5-5.0); GRAN # 7.34 (1.4-6.5); GRAN % 72.6 % (50.0-68.0); LYMPH # 1.4 (1.2-3.4); LYMPH % 13.7 % (22.0-35.0); MEAN CELL VOLUME 75.8 fL (80.0-105.0); MEAN CORPUSCULAR HEMOGLOBIN 23.5 pg (25.0-35.0); MEAN CORPUSCULAR HGB CONC 31.1 g/dl (31.0-37.0); MEAN PLATELET VOLUME 8.8 fl (7.0-11.0); MONO # 1.3 (0.1-0.6); MONO % 12.5 % (1.0-6.0); PLATELET COUNT 606 10^3/uL (120.0-450.0); RED CELL DISTRIBUTION WIDTH 18.4 % (11.5-14.5); WHITE BLOOD COUNT 10.1 10^3/ul (4.5-11.0)
[2017-01-17 07:44] LABS: % IRON SATURATION 9 % (20-55); IRON 15 ug/dL (45-180); LDL CHOLESTEROL 97 mg/dL (0-129); TOTAL IRON BINDING CAPACITY 171 ug/dL (261-462)
[2017-01-17 07:46] LABS: TROPONIN I < 0.01 ng/mL
[2017-01-17 07:50] LABS: HEMOGLOBIN 7.3 gm/dL (14.0-18.0)
--- NOTE | 2017-01-17 08:20 | RAD ---
HISTORY: chest pain COMPARISON: 11/15/2016 FINDINGS: LUNGS: No active pulmonary disease. PLEURA: No significant pleural effusion identified, no pneumothorax apparent. CARDIOVASCULAR: Normal. OSSEOUS STRUCTURES: No significant abnormalities. VISUALIZED UPPER ABDOMEN: Normal. OTHER FINDINGS: None. IMPRESSION: No active disease.
[2017-01-17] MEDS: Enoxaparin 40 mg Syringe SC SCH (09:05)
--- NOTE | 2017-01-17 09:35 | CARD ---
APPROVED REPORT EKG Measurement Heart [id number] <Conclusion> Normal sinus rhythm LAD ASMI, new since ECG 11/15/16
[2017-01-17] MEDS ORDERED: DiphenhydrAMINE 50 mg/ml Inj IVP ONE (11:00)
--- NOTE | 2017-01-17 12:44 | CT ---
PROCEDURE: CT Chest, Abdomen and Pelvis without intravenous contrast HISTORY: for hiatal hernia, with po gastrograffin. COMPARISON: 11/18/2016 TECHNIQUE: Radiation dose: Total exam DLP = 764 mGy-cm. This CT exam was performed using one or more of the following dose reduction techniques: Automated exposure control, adjustment of the mA and/or kV according to patient size, and/or use of iterative reconstruction technique. FINDINGS: CT CHEST WITHOUT CONTRAST: LUNGS: Multiple pulmonary nodules are seen. These are unchanged MEDIASTINUM: Unremarkable. Normal caliber aorta and pulmonary arterial trunk. Normal size heart. LYMPH NODES: Unremarkable. PLEURA: Small left pleural effusion BONES: Unremarkable. OTHER FINDINGS: None. CT ABDOMEN AND PELVIS: LIVER: There is extensive metastatic disease throughout the liver. The previous study was performed with contrast. Comparison is difficult. The lesions appear to be more confluent an increased in size. GALLBLADDER AND BILE DUCTS: Unremarkable. PANCREAS: Unremarkable. No gross lesion or ductal dilatation. SPLEEN: Unremarkable. ADRENALS: Unremarkable. No mass. KIDNEYS AND URETERS: Unremarkable. No hydronephrosis. No solid mass. VASCULATURE: Unremarkable. No aortic aneurysm. BOWEL: Unremarkable. No obstruction. No gross mural thickening. Oral contrast material is seen in the esophagus and stomach. There is a large hiatal hernia with a least half the stomach above the diaphragm. There is no obstruction. The proximal small bowel is normal in caliber. The colon is unremarkable APPENDIX: Normal appendix. PERITONEUM: There is a moderate amount of ascites and mesenteric edema. This is a new finding. LYMPH NODES: Multiple retroperitoneal lymph nodes are again seen. No significant change in size BLADDER: Unremarkable. REPRODUCTIVE: Unremarkable. BONES: No acute fracture. OTHER FINDINGS: There is some residual contrast material in the renal collecting systems and the bladder from yesterday's contrast-enhanced chest study IMPRESSION: Large hiatal hernia without evidence of obstruction. Probable increase in metastatic disease to the liver. New moderate ascites and mesenteric edema. Multiple pulmonary nodules unchanged. .
--- NOTE | 2017-01-17 13:16 | CP.PCM.CON ---
<Karen Haines - Last Filed: 01/17/17 13:06> History of Present Illness - History of Present Illness History of Present Illness: Seen and examined at bedside, chart was reviewed. Request for consult for hyperbilirubinemia. HPI: This is a 56 year old male with a PMH of Gastroesophageal cancer s/p resection in 2010, , DIANA, came to the hospital with complaints of substernal chest pain that started yesterday around mid morning. He describes the pain to be squeezing pain and c/o SOB and worsens with movement. He did have episode of dry heaving, no vomiting. He was was seen in by our service 2 month ago for Anemia, had hematemesis and dark stool. He also had a Syncopal episode. 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 On repeat egd, found to have erosion/ulcer at anastomisis, and few superficial esophageal ulcers, and an angulated pylorus, no stricture or obstruction, he was recommended to consume puree food or at least soft food and chew well. He has been eating salad , had pizza yesterday, etc. No complain of dysphagia. He underwent a colonoscopy as well to r/o colonic malignancy and that revealed internal hemorrhoids, no other colonic lesion found. He had ct angio to r/o PE and that was negative,, did show small left pleural effusion and other findings compatable with pulmonary/hepatic/adrenal metastasis. He is being followed by oncology who are considering starting on chemo, He is noted to have increased TB and alk phos, chemo med to be titrated to LFT. On last admission patient was requested to go for MRI. PMH: Esophageal and stomach cancer, Anemia, anastomotic ulcer, Multiple sclerosis, GERD, H/O Peptic ulcer PSH: Esophagogastrectomy FH noncontributory at this time Allergies: NKDA MEDS: reviewed as per MAR Social HX: positive for smoking, denies ETOH, substance abuse ROS: systems reviewed, with positive findings, see HPI. Past Patient History - Infectious Disease Hx of Infectious Diseases: None - Past Social History Smoking Status: Light Smoker < 10 Cigarettes Daily - CARDIAC Hx Cardiac Disorders: No - PULMONARY Hx Respiratory Disorders: No - NEUROLOGICAL Hx Neurological Disorder: No - HEENT Hx HEENT Problems: Yes (wears glasses) - RENAL Hx Chronic Kidney Disease: No - ENDOCRINE/METABOLIC Hx Endocrine Disorders: No - HEMATOLOGICAL/ONCOLOGICAL Hx Cancer: Yes Hx Chemotherapy: Yes (4 years ago and radiation 4 years ago) Other/Comment: esophogeal/stomach CA recent Dx May - INTEGUMENTARY Hx Dermatological Problems: No - MUSCULOSKELETAL/RHEUMATOLOGICAL Other/Comment: Multiple Sclerosis - GASTROINTESTINAL Other/Comment: Stomach CA,Esaphagal CA - GENITOURINARY/GYNECOLOGICAL Hx Genitourinary Disorders: No - PSYCHIATRIC Hx Psychophysiologic Disorder: No - SURGICAL HISTORY Hx Surgeries: Yes Other/Comment: "Removed 1/3 or stomach" Meds Allergies/Adverse Reactions: Allergies Allergy/AdvReac Type Severity Reaction Status Date / Time No Known Allergies Allergy Verified 01/16/17 17:48 - Medications Medications: Current Medications Aspirin (Ecotrin) 81 mg PO DAILY [facility] Last Admin: 01/17/17 09:05 Dose: 81 mg Enoxaparin Sodium (Lovenox) 40 mg SC DAILY [facility] PRN Reason: Protocol Last Admin: 01/17/17 09:05 Dose: 40 mg Famotidine (Pepcid) 20 mg IVP DAILY [facility] Last Admin: 01/17/17 09:05 Dose: 20 mg Hydromorphone HCl (Dilaudid) 1 mg IVP Q3H PRN PRN Reason: Pain, moderate (4-7) Potassium Chloride 20 meq/ (Dextrose/Sodium Chloride) 1,010 mls @ 100 mls/hr IV .Q10H6M [facility] Ondansetron HCl (Zofran Inj) 4 mg IVP Q6H PRN PRN Reason: Nausea/Vomiting Pneumococcal Polyvalent Vaccine (Pneumovax 23 Vaccine) 0.5 ml IM .ONCE ONE Stop: 01/19/17 10:01 Physical Exam - Constitutional Appears: No Acute Distress - Head Exam Head Exam: NORMAL INSPECTION - Eye Exam Eye Exam: Scleral icterus - ENT Exam ENT Exam: Mucous Membranes Moist - Neck Exam Neck exam: Positive for: Normal Inspection - Respiratory Exam Respiratory Exam: NORMAL BREATHING PATTERN. absent: Respiratory Distress - Cardiovascular Exam Cardiovascular Exam: +S1, +S2 - GI/Abdominal Exam GI & Abdominal Exam: Normal Bowel Sounds, Soft. absent: Guarding, Rebound, Tenderness - Extremities Exam Extremities exam: Positive for: pedal edema, pedal pulses present. Negative for : calf tenderness - Neurological Exam Neurological exam: Alert, CN II-XII Intact, Oriented x3 - Skin Skin Exam: Dry, Warm Additional comments: mild jaundice Results - Vital Signs Recent Vital Signs: Last Vital Signs Temp 98.0 F 01/17/17 06:00 Pulse 81 01/17/17 08:08 Resp 20 01/17/17 06:00 BP 126/90 01/17/17 06:00 Pulse Ox 97 01/17/17 06:00 - Labs Result Diagrams: 01/17/17 05:45 01/17/17 05:45 Labs: Laboratory Results - last 24 hr 01/17/17 01/17/17 01/17/17 00:15 05:45 05:45 WBC 10.1 RBC 3.10 L Hgb 7.3 L Hct 23.5 L MCV 75.8 L MCH 23.5 L MCHC 31.1 RDW 18.4 H Plt Count 606 H MPV 8.8 Gran % 72.6 H Lymph % (Auto) 13.7 L [place] % (Auto) 12.5 H Eos % (Auto) 1.1 L Baso % (Auto) 0.1 Gran # 7.34 H Lymph # 1.4 [place] # 1.3 H Eos # 0.1 Baso # 0.01 Sodium 136 Potassium 3.8 Chloride 102 Carbon Dioxide 25 Anion Gap 13 BUN 11 Creatinine 0.6 Est GFR ( Amer) > 60 Est GFR (Non-Af Amer) > 60 Random Glucose 83 Hemoglobin A1c Calcium 8.3 L Iron TIBC % Saturation Transferrin Total Bilirubin 2.6 H Direct Bilirubin AST 44 ALT 27 Alkaline Phosphatase 1216 H Troponin I < 0.01 < 0.01 Total Protein 6.1 Albumin 2.6 L Globulin 3.5 Albumin/Globulin Ratio 0.7 L Triglycerides 126 Cholesterol 140 LDL Cholesterol Direct 97 HDL Cholesterol 19 L Blood Type Antibody Screen Crossmatch BBK History Checked 01/17/17 01/17/17 01/17/17 05:45 05:45 05:45 WBC RBC Hgb Hct MCV MCH MCHC RDW Plt Count MPV Gran % Lymph % (Auto) [place] % (Auto) Eos % (Auto) Baso % (Auto) Gran # Lymph # [place] # Eos # Baso # Sodium Potassium Chloride Carbon Dioxide Anion Gap BUN Creatinine Est GFR ( Amer) Est GFR (Non-Af Amer) Random Glucose Hemoglobin A1c 5.6 Calcium Iron 15 L TIBC 171 L % Saturation 9 L Transferrin 98.55 L Total Bilirubin Direct Bilirubin AST ALT Alkaline Phosphatase Troponin I Total Protein Albumin Globulin Albumin/Globulin Ratio Triglycerides Cholesterol LDL Cholesterol Direct HDL Cholesterol Blood Type Antibody Screen Crossmatch BBK History Checked 01/17/17 01/17/17 07:30 10:45 WBC RBC Hgb Hct MCV MCH MCHC RDW Plt Count MPV Gran % Lymph % (Auto) [place] % (Auto) Eos % (Auto) Baso % (Auto) Gran # Lymph # [place] # Eos # Baso # Sodium Potassium Chloride Carbon Dioxide Anion Gap BUN Creatinine Est GFR ( Amer) Est GFR (Non-Af Amer) Random Glucose Hemoglobin A1c Calcium Iron TIBC % Saturation Transferrin Total Bilirubin Direct Bilirubin 2.2 H AST ALT Alkaline Phosphatase Troponin I Total Protein Albumin Globulin Albumin/Globulin Ratio Triglycerides Cholesterol LDL Cholesterol Direct HDL Cholesterol Blood Type O POSITIVE Antibody Screen Negative Crossmatch See Detail BBK History Checked Patient has bt Assessment & Plan - Assessment and Plan (Free Text) Assessment: ASSESSEMENT: Esophagus, gastroesophago cancer w/metastasis Atypical chest Pain/SOB, ct angio negative for PE Elevated LFT,mainly alk phos and TB/DB, maybe secondary to liver metastasis, but r/o pancreo/biliary causes Anemia, also noted to have Iron deficiency H/O PUD Left Pleural Effusion Multiple Sclerosis PLAN: request for MRCP w/ MRI abdomen w/wo contrast, renal function WNL NPO, continue IVF for hydration continue Pepcid on Aspirin on lovenox monitor h/h, monitor for overt GIB pain mgt trend LFT spoke to patient and Dr. Wheat regarding MRCP, agree with plan. FU ct scan chest A&P and ext doppler Thank you for this consult and for allowing us to participate in your patient care, will make further recommendations based upon clinical course. Seen and discussed with Dr. Elizabeth. <Annita Elizabeth V - Last Filed: 01/18/17 01:09> Meds - Medications Medications: Current Medications Aspirin (Ecotrin) 81 mg PO DAILY [facility] Last Admin: 01/17/17 09:05 Dose: 81 mg Enoxaparin Sodium (Lovenox) 40 mg SC DAILY [facility] PRN Reason: Protocol Last Admin: 01/17/17 09:05 Dose: 40 mg Hydromorphone HCl (Dilaudid) 1 mg IVP Q3H PRN PRN Reason: Pain, moderate (4-7) Last Admin: 01/17/17 23:01 Dose: 1 mg Potassium Chloride 20 meq/ (Dextrose/Sodium Chloride) 1,010 mls @ 100 mls/hr IV .Q10H6M [facility] Last Admin: 01/17/17 18:19 Dose: 100 mls/hr Nicotine (Nicoderm Cq) 1 patch TD DAILY [facility] Last Admin: 01/17/17 17:38 Dose: 1 patch Ondansetron HCl (Zofran Inj) 4 mg IVP Q6H PRN PRN Reason: Nausea/Vomiting Last Admin: 01/17/17 17:38 Dose: 4 mg Pantoprazole Sodium (Protonix Ec Tab) 40 mg PO 0600 [facility] Pneumococcal Polyvalent Vaccine (Pneumovax 23 Vaccine) 0.5 ml IM .ONCE ONE Stop: 01/19/17 10:01 Results - Vital Signs Recent Vital Signs: Last Vital Signs Temp 98.3 F 01/17/17 18:00 Pulse 62 01/17/17 18:00 Resp 20 01/17/17 18:00 BP 138/91 H 01/17/17 18:00 Pulse Ox 97 01/17/17 06:00 - Labs Result Diagrams: 01/17/17 05:45 01/17/17 05:45 Labs: Laboratory Results - last 24 hr 01/17/17 01/17/17 18:15 18:15 Fibrinogen 386.7 Fibrin Degrad Products >40 ug/ml
[2017-01-17 13:22] LABS: FOLATE 5.7 ng/mL
--- NOTE | 2017-01-17 13:48 | US ---
HISTORY: Leg pain and swelling. Evaluate for DVT PHYSICIAN(S): Jay Paris MD. TECHNIQUE: Duplex sonography and color-flow Doppler with graded compression were used to evaluate the deep venous systems of both lower extremities. FINDINGS: The visualized deep venous systems of both lower extremities are sonographically normal and compressible. Normal wave forms and augmentation are seen. There is no sonographic evidence for deep venous thrombosis in the visualized segments of both lower extremities. IMPRESSION: No sonographic evidence for deep venous thrombosis in the visualized segments of both lower extremities.
[2017-01-17] MEDS ORDERED: Alum-Mag Hydrox-Simethicone Susp (30 mL) PO ONE (17:17)
[2017-01-17] MEDS: Potassium Chloride 20 MEQ in Dextrose 5%/0.9% NS 1,000 ML IV SCH ×2 (17:38→18:19)
[2017-01-17] MEDS: HYDROmorphone 1 mg/ml ISec IVP PRN ×2 (18:26→23:01)
[2017-01-18] MEDS: HYDROmorphone 1 mg/ml ISec IVP PRN ×3 (03:54→12:30)
[2017-01-18] MEDS: Potassium Chloride 20 MEQ in Dextrose 5%/0.9% NS 1,000 ML IV SCH ×3 (05:46→17:35)
[2017-01-18] MEDS ORDERED: Pantoprazole 40 mg EC Tab PO SCH (06:00)
[2017-01-18 07:14] LABS: BASO # 0.01 K/mm3 (0.0-2.0); BASO % 0.1 % (0.0-3.0); GRAN % 79.9 % (50.0-68.0); HEMOGLOBIN 11.7 gm/dL (14.0-18.0); LYMPH # 1.5 (1.2-3.4); MEAN CORPUSCULAR HEMOGLOBIN 25.2 pg (25.0-35.0); MEAN CORPUSCULAR HGB CONC 32.3 g/dl (31.0-37.0); MEAN PLATELET VOLUME 9.3 fl (7.0-11.0); MONO # 1.5 (0.1-0.6); PLATELET COUNT 674 10^3/uL (120.0-450.0); RBC 4.64 10^6/uL (3.5-6.1); RED CELL DISTRIBUTION WIDTH 19.4 % (11.5-14.5); WHITE BLOOD COUNT 15.1 10^3/ul (4.5-11.0)
[2017-01-18 07:23] LABS: ALB/GLOB RATIO 0.8 (1.1-1.8); ALBUMIN 2.8 g/dL (3.0-4.8); ALT/SGPT 25 U/L (7-56); AST/SGOT 34 U/L (15-59); BLOOD UREA NITROGEN 13 mg/dL (7-21); CALCIUM 8.4 mg/dL (8.4-10.5); GFR AFRICAN-AMERICAN > 60; GFR NON-AFRICAN AMERICAN > 60
--- NOTE | 2017-01-18 08:03 | CP.PCM.PN ---
<Brandee Wheat - Last Filed: 01/18/17 18:52> Subjective - Date & Time of Evaluation Date of Evaluation: 01/18/17 Time of Evaluation: 08:02 - Subjective Subjective: PGY2 for Dr. Capone Pt complained of mid-chest pain, chronic, 8-9 but with pain med 6/10, breifly controlled by pain med. Tolerating liquid diet No BM for 3 days but with decrease appetite No complaints. Urine dark jose in color Objective - Vital Signs/Intake and Output Vital Signs (last 24 hours): Temp Pulse Resp BP Pulse Ox 97.9 F 67 20 127/83 98 01/18/17 06:00 01/18/17 06:00 01/18/17 06:00 01/18/17 06:00 01/18/17 06:00 Intake and Output: 01/18/17 01/18/17 06:59 18:59 Intake Total 1680 Balance 1680 - Medications Medications: Current Medications Aspirin (Ecotrin) 81 mg PO DAILY [facility] Last Admin: 01/17/17 09:05 Dose: 81 mg Enoxaparin Sodium (Lovenox) 40 mg SC DAILY [facility] PRN Reason: Protocol Last Admin: 01/17/17 09:05 Dose: 40 mg Hydromorphone HCl (Dilaudid) 1 mg IVP Q3H PRN PRN Reason: Pain, moderate (4-7) Last Admin: 01/18/17 03:54 Dose: 1 mg Potassium Chloride 20 meq/ (Dextrose/Sodium Chloride) 1,010 mls @ 100 mls/hr IV .Q10H6M [facility] Last Admin: 01/18/17 05:46 Dose: 100 mls/hr Nicotine (Nicoderm Cq) 1 patch TD DAILY [facility] Last Admin: 01/17/17 17:38 Dose: 1 patch Ondansetron HCl (Zofran Inj) 4 mg IVP Q6H PRN PRN Reason: Nausea/Vomiting Last Admin: 01/17/17 17:38 Dose: 4 mg Pantoprazole Sodium (Protonix Ec Tab) 40 mg PO 0600 [facility] Last Admin: 01/18/17 05:46 Dose: 40 mg Pneumococcal Polyvalent Vaccine (Pneumovax 23 Vaccine) 0.5 ml IM .ONCE ONE Stop: 01/19/17 10:01 - Labs Labs: 01/18/17 05:46 01/18/17 05:30 - Constitutional Appears: No Acute Distress - Head Exam Head Exam: NORMAL INSPECTION, NORMOCEPHALIC - Eye Exam Eye Exam: EOMI, Normal appearance, PERRL, Scleral icterus - ENT Exam ENT Exam: Mucous Membranes Moist - Neck Exam Neck Exam: absent: Lymphadenopathy - Respiratory Exam Respiratory Exam: Clear to Ausculation Bilateral. absent: Rales, Rhonchi, Wheezes - Cardiovascular Exam Cardiovascular Exam: REGULAR RHYTHM, +S1, +S2. absent: Murmur - Extremities Exam Extremities Exam: Normal Capillary Refill, Pedal Edema (doral plantar area, 1+ pitting, improved from yesterday). absent: Calf Tenderness - Neurological Exam Neurological Exam: Alert, Awake, Oriented x3 - Skin Skin Exam: Dry, Warm. absent: Petechiae Additional comments: jaundice Assessment and Plan - Assessment and Plan (Free Text) Plan: 56 year old male with a PMH of esophageal and stomach cancer (gastroeophageal ca s/p resection in 2010), multiple sclerosis, and GERD admitted for chest pain. Chest pain is likely atypical due to irritation by fluid at posterior mediastinum, pulmonary/liver/adrenal mets. He has microcytic anemia with recent esophageal errosion due to NSAID uses s/p u pRBC. Thrombocytosis likely reactive to bleed. 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 - Port-a-cath placment today - 5-FU and [place] - Port placement on Saturday - Pending CT: Large hiatal hernia no obstruction New moderate ascites and mesenteric edema increase in metatstic liver mets pumlonary nodules unchanged - MENTAL HEALTH THERAPIST: Loading Dose = __2_mg MENTAL HEALTH THERAPIST dose = __0.5__mg Continuous Dose = __2__mg/hr Lockout interval = _15_min 4 Hour Limit= _6_mg Has R/O acute abdomen from perforation (Air-fluid level) direct hyperbilirubinemia: intrahepatic (ca mets) vs post hepatic obstruction ( Extrahepatic, occlusion vs cholestasis vs compression from tumor) - CMV pending - GI consult Unilateral leg swelling - likely from venous insufficiency form pressure of hepatomegaly - Pending official read of U/S to r/o dvt Atypical chest pain - Fluid in posterior mediastinum irritation - EKG - Echo Tobacco abuse H/o MS no significant neuro finding H/o Opiod pain med use Prophylaxis - protonix - scd S/r/d/ w Dr. Hernandez <Ravin Hernandez P - Last Filed: 01/27/17 01:04> Objective - Vital Signs/Intake and Output Vital Signs (last 24 hours): Temp Pulse Resp BP Pulse Ox 98.4 F 84 18 145/99 H 98 01/21/17 16:00 01/21/17 16:00 01/21/17 16:00 01/21/17 16:00 01/21/17 16:00 - Labs Labs: 01/21/17 06:40 01/21/17 06:40 PT 14.4 Seconds (9.9-11.8) H 01/21/17 11:00 INR 1.33 (0.93-1.08) H 01/21/17 11:00 APTT 27.9 Seconds (23.7-30.8) 01/21/17 11:00 Attending/Attestation - Attestation I have personally seen and examined this patient.: Yes I have fully participated in the care of the patient.: Yes I have reviewed all pertinent clinical information, including history, physical exam and plan: Yes
--- NOTE | 2017-01-18 08:22 | CP.PCM.PN ---
Subjective - Date & Time of Evaluation Date of Evaluation: 01/18/17 Time of Evaluation: 08:19 - Subjective Subjective: PT S&E at beside. NAN. Patient tolerates pain. No BM for past 3 days. Patient denies N/V, F/C, Diarrhea. Patient states that he experiences some chest pain, but tolerates it well. Patient is stable. Objective - Vital Signs/Intake and Output Vital Signs (last 24 hours): Temp Pulse Resp BP Pulse Ox 97.9 F 67 20 127/83 98 01/18/17 06:00 01/18/17 06:00 01/18/17 06:00 01/18/17 06:00 01/18/17 06:00 Intake and Output: 01/18/17 01/18/17 06:59 18:59 Intake Total 1680 Balance 1680 - Medications Medications: Current Medications Aspirin (Ecotrin) 81 mg PO DAILY [facility] Last Admin: 01/17/17 09:05 Dose: 81 mg Enoxaparin Sodium (Lovenox) 40 mg SC DAILY [facility] PRN Reason: Protocol Last Admin: 01/17/17 09:05 Dose: 40 mg Hydromorphone HCl (Dilaudid) 1 mg IVP Q3H PRN PRN Reason: Pain, moderate (4-7) Last Admin: 01/18/17 08:01 Dose: 1 mg Potassium Chloride 20 meq/ (Dextrose/Sodium Chloride) 1,010 mls @ 100 mls/hr IV .Q10H6M [facility] Last Admin: 01/18/17 05:46 Dose: 100 mls/hr Nicotine (Nicoderm Cq) 1 patch TD DAILY [facility] Last Admin: 01/17/17 17:38 Dose: 1 patch Ondansetron HCl (Zofran Inj) 4 mg IVP Q6H PRN PRN Reason: Nausea/Vomiting Last Admin: 01/17/17 17:38 Dose: 4 mg Pantoprazole Sodium (Protonix Ec Tab) 40 mg PO 0600 [facility] Last Admin: 01/18/17 05:46 Dose: 40 mg Pneumococcal Polyvalent Vaccine (Pneumovax 23 Vaccine) 0.5 ml IM .ONCE ONE Stop: 01/19/17 10:01 - Labs Labs: 01/18/17 05:46 01/18/17 05:30 - Constitutional Appears: No Acute Distress, Chronically Ill - Head Exam Head Exam: NORMAL INSPECTION - Eye Exam Eye Exam: EOMI, Normal appearance - ENT Exam ENT Exam: Mucous Membranes Moist - Neck Exam Neck Exam: Full ROM, Normal Inspection. absent: Thyromegaly - Respiratory Exam Respiratory Exam: Accessory Muscle Use, NORMAL BREATHING PATTERN. absent: Respiratory Distress - Cardiovascular Exam Cardiovascular Exam: REGULAR RHYTHM. absent: Bradycardia, Tachycardia - GI/Abdominal Exam GI & Abdominal Exam: Soft, Tenderness. absent: Distended, Firm, Guarding, Rebound - Extremities Exam Extremities Exam: Full ROM, Normal Inspection. absent: Pedal Edema - Neurological Exam Neurological Exam: Alert, Awake, Oriented x3 - Psychiatric Exam Psychiatric exam: Flat Affect, Normal Mood - Skin Skin Exam: Dry, Intact, Mottled, Warm Assessment and Plan - Assessment and Plan (Free Text) Assessment: 56 M admitted for hiatal hernia with a history of GERD, gastric esophageal cancer. With a past surgical history of gastrectomy and esophagectomy in 2010. Plan: PT is stable. H&Hs stable. Patient is scheduled to have an MRCP, and port placement today 01/18 , which will be followed by primary and medicine team. Patient is not currently a surgical candidate at this point. Patients will sign off.
--- NOTE | 2017-01-18 09:56 | CP.PCM.PN ---
<Karen Haines - Last Filed: 01/18/17 09:49> Subjective - Date & Time of Evaluation Date of Evaluation: 01/18/17 Time of Evaluation: 08:15 - Subjective Subjective: S&E at bedside, chart reviewed. NO c/o N/V or abdominal pain. chest discomfort much improved, tolerating clear liquids. No BM at 3-4 days, no h/o of melena or BRBPR. Awaiting to go for MRCP & port placement. CT chest/A&P: pulomonary nodules, unchanged/large H/H with contrast material, no obstruction/liver suresh, with increase in size EXT doppler: negative for DVT bilaterally Objective - Vital Signs/Intake and Output Vital Signs (last 24 hours): Temp Pulse Resp BP Pulse Ox 97.9 F 67 20 127/83 98 01/18/17 06:00 01/18/17 06:00 01/18/17 06:00 01/18/17 06:00 01/18/17 06:00 Intake and Output: 01/18/17 01/18/17 06:59 18:59 Intake Total 1680 Balance 1680 - Medications Medications: Current Medications Aspirin (Ecotrin) 81 mg PO DAILY [facility] Last Admin: 01/17/17 09:05 Dose: 81 mg Docusate Sodium (Colace) 100 mg PO BID [facility] Enoxaparin Sodium (Lovenox) 40 mg SC DAILY [facility] PRN Reason: Protocol Last Admin: 01/17/17 09:05 Dose: 40 mg Hydromorphone HCl (Dilaudid) 1 mg IVP Q3H PRN PRN Reason: Pain, moderate (4-7) Last Admin: 01/18/17 08:01 Dose: 1 mg Potassium Chloride 20 meq/ (Dextrose/Sodium Chloride) 1,010 mls @ 100 mls/hr IV .Q10H6M [facility] Last Admin: 01/18/17 05:46 Dose: 100 mls/hr Nicotine (Nicoderm Cq) 1 patch TD DAILY [facility] Last Admin: 01/17/17 17:38 Dose: 1 patch Ondansetron HCl (Zofran Inj) 4 mg IVP Q6H PRN PRN Reason: Nausea/Vomiting Last Admin: 01/17/17 17:38 Dose: 4 mg Pantoprazole Sodium (Protonix Ec Tab) 40 mg PO 0600 [facility] Last Admin: 07/07/17 05:46 Dose: 40 mg Pneumococcal Polyvalent Vaccine (Pneumovax 23 Vaccine) 0.5 ml IM .ONCE ONE Stop: 01/19/17 10:01 - Labs Labs: 01/18/17 05:46 01/18/17 05:30 - Constitutional Appears: No Acute Distress - Head Exam Head Exam: NORMAL INSPECTION - Eye Exam Eye Exam: PERRL, Scleral icterus - ENT Exam ENT Exam: Mucous Membranes Moist - Neck Exam Neck Exam: Normal Inspection - Respiratory Exam Respiratory Exam: Decreased Breath Sounds, NORMAL BREATHING PATTERN. absent: Respiratory Distress - Cardiovascular Exam Cardiovascular Exam: +S1, +S2 - GI/Abdominal Exam GI & Abdominal Exam: Soft, Normal Bowel Sounds. absent: Guarding, Tenderness, Rebound - Extremities Exam Extremities Exam: Pedal Edema (trace). absent: Calf Tenderness - Neurological Exam Neurological Exam: Alert, Awake, Oriented x3 - Skin Skin Exam: Dry (jaundice), Warm Assessment and Plan - Assessment and Plan (Free Text) Assessment: ASSESSEMENT: Esophagus, gastroesophago cancer w/metastasis Atypical chest Pain/SOB, ct angio negative for PE Elevated LFT,mainly alk phos and TB/DB, maybe secondary to liver metastasis, but r/o pancreo/biliary causes Anemia, also noted to have Iron deficiency Large Hiatal Hernia, no obstruction H/O PUD Left Pleural Effusion Multiple Sclerosis Constipation PLAN: pending MRCP w/ MRI abdomen w/wo contrast today, FU results when done NPO, continue IVF for hydration continue Pepcid on Aspirin on lovenox monitor h/h, monitor for overt GIB pain mgt trend LFT for port placement as per oncology Seen and discussed with Dr. Elizabeth. <Annita Elizabeth V - Last Filed: 01/18/17 23:54> Objective - Vital Signs/Intake and Output Vital Signs (last 24 hours): Temp Pulse Resp BP Pulse Ox 98.6 F 73 20 149/94 H 98 01/18/17 17:57 01/18/17 18:00 01/18/17 17:57 01/18/17 17:57 01/18/17 06:00 - Medications Medications: Current Medications Cyproheptadine HCl (Periactin) 4 mg PO BID [facility] Last Admin: 01/18/17 17:12 Dose: 4 mg Enoxaparin Sodium (Lovenox) 40 mg SC DAILY [facility] PRN Reason: Protocol Last Admin: 01/18/17 11:08 Dose: Not Given Potassium Chloride 20 meq/ (Dextrose/Sodium Chloride) 1,010 mls @ 100 mls/hr IV .Q10H6M [facility] Last Admin: 01/18/17 17:35 Dose: 100 mls/hr Hydromorphone HCl (Dilaudid-Hp 1 Mg/Ml Motor Builder Assembler) 25 mls @ 2 mls/hr IV PRN PRN PRN Reason: TITRATE PER MD ORDERS Nicotine (Nicoderm Cq) 1 patch TD DAILY [facility] Last Admin: 01/18/17 11:11 Dose: 1 patch Ondansetron HCl (Zofran Inj) 4 mg IVP Q6H PRN PRN Reason: Nausea/Vomiting Last Admin: 01/18/17 11:11 Dose: 4 mg Pantoprazole Sodium (Protonix Ec Tab) 40 mg PO BID [facility] Last Admin: 01/18/17 17:13 Dose: 40 mg Pneumococcal Polyvalent Vaccine (Pneumovax 23 Vaccine) 0.5 ml IM .ONCE ONE Stop: 01/19/17 10:01 Polyethylene Glycol (Miralax) 17 gm PO BID [facility] Last Admin: 01/18/17 17:12 Dose: Not Given Senna/Docusate Sodium (Senokot S 50 Mg-8.6 Mg) 1 tab PO BID [facility] Last Admin: 01/18/17 17:13 Dose: Not Given Sucralfate (Carafate Oral Susp) 1 gm PO ACHS [facility] Last Admin: 01/18/17 22:21 Dose: 1 gm - Labs Labs: 01/18/17 05:46 01/18/17 05:30 Attending/Attestation - Attestation I have personally seen and examined this patient.: Yes I have fully participated in the care of the patient.: Yes I have reviewed all pertinent clinical information, including history, physical exam and plan: Yes Notes (Text): 01/18/17 23:53 th
[2017-01-18] MEDS ORDERED: Gadodiamide 287 MG/ML VIAL (15ML) IV ONE (10:02)
[2017-01-18] MEDS: Enoxaparin 40 mg Syringe SC SCH (11:08)
--- NOTE | 2017-01-18 12:19 | MRI ---
PROCEDURE: Magnetic Resonance Cholangiopancreatography HISTORY: Abdominal pain COMPARISON: None available. TECHNIQUE: Multiplanar, multisequence MR images of the abdomen were obtained, including heavily T2 weighted MRCP images of the biliary system. Rotating maximum intensity projection images of the biliary system were generated. FINDINGS: MRCP: The common bile duct is of a normal caliber. No evidence of choledocholithiasis. No intrahepatic biliary ductal dilatation. LIVER: Multiple innumerable mass lesion in the liver consistent with widespread liver metastasis. There is a large heterogeneous mass lesion at the right liver lobe measures approximately 11.6 centimeter in the transverse diameter. GALLBLADDER: Multiple small gallstones seen without MRI evidence of acute cholecystitis SPLEEN: The spleen is mildly enlarged measures 13.2 centimeter in the longitudinal diameter. No evidence of mass lesion in the spleen. PANCREAS: Unremarkable. ADRENALS: There is mass lesion right adrenal gland highly suspicious for metastasis measures 3.7 x 1.9 centimeter. KIDNEYS: The kidneys enhance symmetrically without evidence of hydronephrosis or enhancing mass lesion. AORTA: No aneurysm. ASCITES: Small ascites seen in the abdomen. OTHER FINDINGS: Small to moderate left pleural effusion and trace right pleural effusion seen. IMPRESSION: Gallstones without evidence of acute cholecystitis. No evidence of choledocholithiasis or extrahepatic biliary ductal obstruction. Multiple mass lesions in the liver. Right adrenal nodule/mass also suspicious for metastasis. Left pleural effusion. Ascites.
[2017-01-18] MEDS ORDERED: HYDROmorphone 1 mg/ml PCA 25 ML IV PRN ×3 (14:50→23:15)
[2017-01-18] MEDS: Sucralfate 1 gm/10 ml Oral Susp UD PO SCH ×2 (17:01→22:21)
[2017-01-18] MEDS: POLYETHYLENE GLYCOL 3350 17 GM/Dose PACKET PO SCH (17:12)
[2017-01-18] MEDS: Pantoprazole 40 mg EC Tab PO SCH (17:13)
[2017-01-18] MEDS: Docusate-Senna 50 mg-8.6 mg Tab PO SCH (17:13)
--- NOTE | 2017-01-18 21:25 | CP.PCM.PN ---
Subjective - Date & Time of Evaluation Date of Evaluation: 01/18/17 Time of Evaluation: 14:30 - Subjective Subjective: pt seen and examined bedside. pt continues to complain of pain with baseline 6/ 10 that sometimes goes to 10/10, and a decreased appetite. The pain is not new. Pt denies shortness of breath, palpitations, n/v. Objective - Vital Signs/Intake and Output Vital Signs (last 24 hours): Temp Pulse Resp BP Pulse Ox 98.6 F 73 20 149/94 H 98 01/18/17 17:57 01/18/17 18:00 01/18/17 17:57 01/18/17 17:57 01/18/17 06:00 - Medications Medications: Current Medications Cyproheptadine HCl (Periactin) 4 mg PO BID [facility] Last Admin: 01/18/17 17:12 Dose: 4 mg Enoxaparin Sodium (Lovenox) 40 mg SC DAILY [facility] PRN Reason: Protocol Last Admin: 01/18/17 11:08 Dose: Not Given Potassium Chloride 20 meq/ (Dextrose/Sodium Chloride) 1,010 mls @ 100 mls/hr IV .[id number] [facility] Last Admin: 01/18/17 17:35 Dose: 100 mls/hr Hydromorphone HCl (Dilaudid-Hp 1 Mg/Ml Air Breaker Operator) 25 mls @ 2 mls/hr IV PRN PRN PRN Reason: TITRATE PER MD ORDERS Last Admin: 01/18/17 16:21 Dose: 2 mls/hr Nicotine (Nicoderm Cq) 1 patch TD DAILY [facility] Last Admin: 01/18/17 11:11 Dose: 1 patch Ondansetron HCl (Zofran Inj) 4 mg IVP Q6H PRN PRN Reason: Nausea/Vomiting Last Admin: 01/18/17 11:11 Dose: 4 mg Pantoprazole Sodium (Protonix Ec Tab) 40 mg PO BID [facility] Last Admin: 01/18/17 17:13 Dose: 40 mg Pneumococcal Polyvalent Vaccine (Pneumovax 23 Vaccine) 0.5 ml IM .ONCE ONE Stop: 01/19/17 10:01 Polyethylene Glycol (Miralax) 17 gm PO BID [facility] Last Admin: 01/18/17 17:12 Dose: Not Given Senna/Docusate Sodium (Senokot S 50 Mg-8.6 Mg) 1 tab PO BID [facility] Last Admin: 01/18/17 17:13 Dose: Not Given Sucralfate (Carafate Oral Susp) 1 gm PO ACHS [facility] Last Admin: 01/18/17 17:01 Dose: Not Given - Labs Labs: 01/18/17 05:46 01/18/17 05:30 - Constitutional Appears: Well, No Acute Distress - Head Exam Head Exam: ATRAUMATIC, NORMOCEPHALIC - Eye Exam Eye Exam: EOMI, Normal appearance, PERRL - ENT Exam ENT Exam: Mucous Membranes Moist, Normal Exam - Respiratory Exam Respiratory Exam: Clear to Ausculation Bilateral, NORMAL BREATHING PATTERN. absent: Accessory Muscle Use, Chest Wall Tenderness, Rales, Rhonchi, Wheezes, Respiratory Distress - Cardiovascular Exam Cardiovascular Exam: REGULAR RHYTHM, RRR, +S1, +S2. absent: Gallop, Irregular Rhythm, Rubs, Murmur - GI/Abdominal Exam GI & Abdominal Exam: Soft, Normal Bowel Sounds. absent: Guarding, Tenderness - Extremities Exam Extremities Exam: Normal Inspection - Neurological Exam Neurological Exam: Alert, Awake, Normal Gait, Oriented x3 - Psychiatric Exam Psychiatric exam: Normal Affect, Normal Mood - Skin Skin Exam: Normal Color, Warm. absent: Cyanosis, Pallor Assessment and Plan - Assessment and Plan (Free Text) Assessment: 1. Abdominal pain likely 2/2 hiatal hernia - add oxycontin 20mg PO Q12 - continue Dilaudid - MRCP:gallstones w/o evidence of acute cholecystitis. multiple mass lesions in liver. R adrenal mass suspicious for mets. Large pleural effusion. +ascites. - No plan for EGD/colonoscopy - Protonix BID, sucralfate ACHS - Max advance to [facility]e - GI consulted 2. gastroeophageal adenocarcinoma s/p resection - add famotidine and carafate - continue zofran, PTX - Port-a-cath placment today - 5-FU and soboba - Port placement on Saturday - trend LFT - Oncology consulted 3. anemia, non-symptomatic, resolved - s/p 2u pRBC transfused - Hb 11.7 s/p transfusion - monitor H/H 4. Constipation - Add Miralax 5. Tobacco abuse - Nicotine patch Prophylaxis - protonix - scd Patient seen, discussed and evaluated with attending, Dr. Nj Naidu PGY1
[2017-01-18] MEDS ORDERED: oxyCODONE 20 mg ER Tab (oxyCONTIN) PO SCH (22:00)
[2017-01-19] MEDS: Potassium Chloride 20 MEQ in Dextrose 5%/0.9% NS 1,000 ML IV SCH ×2 (04:32→08:00)
[2017-01-19 07:08] LABS: BASO # 0.01 K/mm3 (0.0-2.0); BASO % 0.1 % (0.0-3.0); EOS # 0.1 (0.0-0.7); EOS % 0.3 % (1.5-5.0); GRAN # 11.16 (1.4-6.5); GRAN % 77.5 % (50.0-68.0); HEMOGLOBIN 10.8 gm/dL (14.0-18.0); LYMPH # 1.6 (1.2-3.4); MEAN CORPUSCULAR HEMOGLOBIN 25.1 pg (25.0-35.0); MEAN CORPUSCULAR HGB CONC 31.4 g/dl (31.0-37.0); MEAN PLATELET VOLUME 8.9 fl (7.0-11.0); MONO # 1.6 (0.1-0.6); MONO % 11.1 % (1.0-6.0); PLATELET COUNT 657 10^3/uL (120.0-450.0); RED CELL DISTRIBUTION WIDTH 19.6 % (11.5-14.5); WHITE BLOOD COUNT 14.4 10^3/ul (4.5-11.0)
[2017-01-19 07:14] LABS: ALB/GLOB RATIO 0.8 (1.1-1.8); ALBUMIN 2.8 g/dL (3.0-4.8); ALT/SGPT 24 U/L (7-56); AST/SGOT 27 U/L (15-59); BLOOD UREA NITROGEN 12 mg/dL (7-21); CALCIUM 8.4 mg/dL (8.4-10.5); GFR AFRICAN-AMERICAN > 60; GFR NON-AFRICAN AMERICAN > 60
[2017-01-19] MEDS ORDERED: HYDROmorphone 1 mg/ml PCA 25 ML IV PRN ×2 (07:35→15:26)
[2017-01-19] MEDS: Sucralfate 1 gm/10 ml Oral Susp UD PO SCH ×4 (07:40→21:48)
--- NOTE | 2017-01-19 08:06 | CP.PCM.PN ---
Subjective - Date & Time of Evaluation Date of Evaluation: 01/19/17 Time of Evaluation: 07:45 - Subjective Subjective: Pt lying in bed lethargic but arouseable, in NAD, w analgesics to be adjusted, FACTORY SUPERINTENDENT at 2mg/hr of Dilaudid continuous, will cut back Objective - Vital Signs/Intake and Output Vital Signs (last 24 hours): Temp Pulse Resp BP Pulse Ox 97.6 F 76 20 137/79 98 01/19/17 07:08 01/19/17 06:00 01/19/17 07:08 01/19/17 07:08 01/19/17 06:00 Intake and Output: 01/19/17 01/19/17 06:59 18:59 Intake Total 360 1222 Output Total 875 Balance -515 1222 - Medications Medications: Current Medications Cyproheptadine HCl (Periactin) 4 mg PO BID [facility] Last Admin: 01/18/17 17:12 Dose: 4 mg Enoxaparin Sodium (Lovenox) 40 mg SC DAILY [facility] PRN Reason: Protocol Last Admin: 01/18/17 11:08 Dose: Not Given Hydromorphone HCl (Dilaudid-Hp 1 Mg/Ml Air Control Electronics Operator) 25 mls @ 1 mls/hr IV PRN PRN PRN Reason: TITRATE PER MD ORDERS Potassium Chloride 20 meq/ (Dextrose/Sodium Chloride) 1,010 mls @ 50 mls/hr IV .[id number] [facility] Nicotine (Nicoderm Cq) 1 patch TD DAILY [facility] Last Admin: 01/18/17 11:11 Dose: 1 patch Ondansetron HCl (Zofran Inj) 4 mg IVP Q6H PRN PRN Reason: Nausea/Vomiting Last Admin: 01/18/17 11:11 Dose: 4 mg Pantoprazole Sodium (Protonix Ec Tab) 40 mg PO BID [facility] Last Admin: 01/18/17 17:13 Dose: 40 mg Pneumococcal Polyvalent Vaccine (Pneumovax 23 Vaccine) 0.5 ml IM .ONCE ONE Stop: 01/19/17 10:01 Polyethylene Glycol (Miralax) 17 gm PO BID [facility] Last Admin: 01/18/17 17:12 Dose: Not Given Senna/Docusate Sodium (Senokot S 50 Mg-8.6 Mg) 1 tab PO BID [facility] Last Admin: 01/18/17 17:13 Dose: Not Given Sucralfate (Carafate Oral Susp) 1 gm PO ACHS [facility] Last Admin: 01/18/17 22:21 Dose: 1 gm - Labs Labs: 01/19/17 06:30 01/19/17 06:30 - Constitutional Appears: No Acute Distress - Head Exam Head Exam: NORMOCEPHALIC - ENT Exam ENT Exam: Mucous Membranes Moist - Neck Exam Neck Exam: Normal Inspection - Respiratory Exam Respiratory Exam: Clear to Ausculation Bilateral - Cardiovascular Exam Cardiovascular Exam: REGULAR RHYTHM - GI/Abdominal Exam GI & Abdominal Exam: Soft, Normal Bowel Sounds - Extremities Exam Extremities Exam: Normal Inspection - Neurological Exam Neurological Exam: Awake Additional comments: lethargic - Skin Skin Exam: Dry, Warm Assessment and Plan (1) Multiple sclerosis Status: Acute (3) Esophageal carcinoma Status: Acute (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
--- NOTE | 2017-01-19 09:24 | CARD ---
APPROVED REPORT EXAM: Two-dimensional and M-mode echocardiogram with Doppler and color Doppler. Other Information Quality : GoodRhythm : INDICATION Chest Pain 2D DIMENSIONS Left Atrium (2D)4.7 (1.6-4.0cm)IVSd1.2 (0.7-1.1cm) LVDd3.8 (3.9-5.9cm)PWd1.2 (0.7-1.1cm) LVDs2.8 (2.5-4.0cm)FS (%) 25.8 % LVEF (%)51.0 (>50%) M-Mode DIMENSIONS Aortic Root2.90 (2.2-3.7cm)Aortic Cusp Exc.1.50 (1.5-2.0cm) Aortic Valve AoV Peak Lpvhkdbb661.0cm/s Mitral Valve MV E Ojorfgsu04.9cm/sMV A Tqytmrbc01.7cm/sE/A ratio0.8 TDI E/Lateral E'0.0E/Medial E'0.0 Tricuspid Valve TR Peak [id number]/sRAP [id number] Peak Gr.20mmHg [id number] LEFT VENTRICLE The left ventricle is normal size. There is mild concentric left ventricular hypertrophy. The left ventricular function is normal. The left ventricular ejection fraction is within the normal range. There is normal LV segmental wall motion. RIGHT VENTRICLE The right ventricle is normal size. ATRIA The left atrium is mildly dilated. The right atrium size is normal. The interatrial septum is intact with no evidence for an atrial septal defect. AORTIC VALVE The aortic valve is normal in structure. MITRAL VALVE The mitral valve is normal in structure. Mitral regurgitation is mild. TRICUSPID VALVE The tricuspid valve is normal in structure. There is mild tricuspid regurgitation. PULMONIC VALVE The pulmonary valve is normal in structure. There is trace pulmonic valvular regurgitation. GREAT VESSELS The aortic root is normal in size. PERICARDIAL EFFUSION There is no pericardial effusion. <Conclusion> The left ventricle is normal size. There is mild concentric left ventricular hypertrophy. The left ventricular function is normal. Mitral regurgitation is mild. There is mild tricuspid regurgitation.
[2017-01-19] MEDS ORDERED: Pneumococcal 23-Valent Vaccine IM ONE (10:00)
[2017-01-19] MEDS: POLYETHYLENE GLYCOL 3350 17 GM/Dose PACKET PO SCH ×2 (11:45→17:05)
[2017-01-19] MEDS: Pantoprazole 40 mg EC Tab PO SCH ×2 (11:46→17:10)
[2017-01-19] MEDS: Docusate-Senna 50 mg-8.6 mg Tab PO SCH ×2 (11:46→17:05)
--- NOTE | 2017-01-19 15:42 | CP.PCM.PN ---
<ZANDRA NAIDU - Last Filed: 01/19/17 15:38> Subjective - Date & Time of Evaluation Date of Evaluation: 01/19/17 Time of Evaluation: 09:40 - Subjective Subjective: Patient was seen and examined. Patient states that his pain has decreased significantly once they put the machine in and that his reflux has also improved. Denies palpitations, shortness of breath, n/v/d, fevers or chills. Objective - Vital Signs/Intake and Output Vital Signs (last 24 hours): Temp Pulse Resp BP Pulse Ox 98 F 99 H 16 131/76 98 01/19/17 11:56 01/19/17 11:56 01/19/17 11:56 01/19/17 11:56 01/19/17 06:00 Intake and Output: 01/19/17 01/19/17 06:59 18:59 Intake Total 360 1222 Output Total 875 Balance -515 1222 - Medications Medications: Current Medications Cyproheptadine HCl (Periactin) 4 mg PO BID [facility] Last Admin: 01/19/17 11:46 Dose: 4 mg Enoxaparin Sodium (Lovenox) 40 mg SC DAILY [facility] PRN Reason: Protocol Last Admin: 01/18/17 11:08 Dose: Not Given Potassium Chloride 20 meq/ (Dextrose/Sodium Chloride) 1,010 mls @ 50 mls/hr IV .[id number] [facility] Last Admin: 01/19/17 08:00 Dose: 50 mls/hr Hydromorphone HCl (Dilaudid-Hp 1 Mg/Ml Recycling Sorter) 25 mls @ 0.5 mls/hr IV PRN PRN PRN Reason: TITRATE PER MD ORDERS Nicotine (Nicoderm Cq) 1 patch TD DAILY [facility] Last Admin: 01/19/17 11:47 Dose: 1 patch Ondansetron HCl (Zofran Inj) 4 mg IVP Q6H PRN PRN Reason: Nausea/Vomiting Last Admin: 01/18/17 11:11 Dose: 4 mg Pantoprazole Sodium (Protonix Ec Tab) 40 mg PO BID [facility] Last Admin: 01/19/17 11:46 Dose: 40 mg Polyethylene Glycol (Miralax) 17 gm PO BID [facility] Last Admin: 01/19/17 11:45 Dose: 17 gm Senna/Docusate Sodium (Senokot S 50 Mg-8.6 Mg) 1 tab PO BID [facility] Last Admin: 01/19/17 11:46 Dose: 1 tab Sucralfate (Carafate Oral Susp) 1 gm PO ACHS [facility] Last Admin: 01/19/17 11:49 Dose: 1 gm - Labs Labs: 01/19/17 06:30 01/19/17 06:30 - Constitutional Appears: Well, No Acute Distress - Head Exam Head Exam: ATRAUMATIC, NORMOCEPHALIC - Eye Exam Eye Exam: EOMI, Normal appearance - ENT Exam ENT Exam: Mucous Membranes Moist, Normal Exam - Respiratory Exam Respiratory Exam: Clear to Ausculation Bilateral, NORMAL BREATHING PATTERN. absent: Accessory Muscle Use, Chest Wall Tenderness, Rales, Rhonchi, Wheezes, Respiratory Distress - Cardiovascular Exam Cardiovascular Exam: RRR. absent: Gallop, Rubs, Murmur - GI/Abdominal Exam GI & Abdominal Exam: Soft, Normal Bowel Sounds. absent: Distended, Tenderness - Neurological Exam Neurological Exam: Alert, Awake, Oriented x3 - Psychiatric Exam Psychiatric exam: Normal Affect, Normal Mood - Skin Skin Exam: Warm. absent: Cyanosis, Pallor Additional comments: mildly jaundiced Assessment and Plan - Assessment and Plan (Free Text) Assessment: 1. Abdominal pain likely 2/2 hiatal hernia - Tapering off Dilaudid Recycling Sorter, decreased to 0.5mls/hr IV - continue carafate, Zofran - No plan for EGD/colonoscopy - Max advance to [facility] [place] - GI consulted 2. gastroeophageal adenocarcinoma s/p resection - add famotidine and carafate - continue zofran, PTX - Port-a-cath placment MANNIE - 5-FU and [place] - Port placement on Saturday - LFTs WNL - Oncology consulted 3. anemia, non-symptomatic, resolved - s/p 2u pRBC transfused - Hb 11.7 s/p transfusion - H/H:10.8/34.4 4. Constipation - continue Miralax 5. Tobacco abuse - Nicotine patch Prophylaxis - protonix BID - scd Patient seen, discussed and evaluated with attending, Dr. Eze Naidu PGY1 <Ree Loo - Last Filed: 01/19/17 20:57> Objective - Vital Signs/Intake and Output Vital Signs (last 24 hours): Temp Pulse Resp BP Pulse Ox 97.6 F 73 20 135/65 99 01/19/17 17:18 01/19/17 17:18 01/19/17 17:18 01/19/17 17:26 01/19/17 17:18 Intake and Output: 01/19/17 01/20/17 18:59 06:59 Intake Total 1222 Balance 1222 - Medications Medications: Current Medications Cyproheptadine HCl (Periactin) 4 mg PO BID [facility] Last Admin: 01/19/17 17:10 Dose: 4 mg Enoxaparin Sodium (Lovenox) 40 mg SC DAILY [facility] PRN Reason: Protocol Last Admin: 01/18/17 11:08 Dose: Not Given Potassium Chloride 20 meq/ (Dextrose/Sodium Chloride) 1,010 mls @ 50 mls/hr IV .[id number] [facility] Last Admin: 01/19/17 08:00 Dose: 50 mls/hr Hydromorphone HCl (Dilaudid-Hp 1 Mg/Ml Recycling Sorter) 25 mls @ 0.5 mls/hr IV PRN PRN PRN Reason: TITRATE PER MD ORDERS Nicotine (Nicoderm Cq) 1 patch TD DAILY [facility] Last Admin: 01/19/17 11:47 Dose: 1 patch Ondansetron HCl (Zofran Inj) 4 mg IVP Q6H PRN PRN Reason: Nausea/Vomiting Last Admin: 01/18/17 11:11 Dose: 4 mg Pantoprazole Sodium (Protonix Ec Tab) 40 mg PO BID [facility] Last Admin: 01/19/17 17:10 Dose: 40 mg Polyethylene Glycol (Miralax) 17 gm PO BID [facility] Last Admin: 01/19/17 17:05 Dose: Not Given Senna/Docusate Sodium (Senokot S 50 Mg-8.6 Mg) 1 tab PO BID [facility] Last Admin: 01/19/17 17:05 Dose: Not Given Sucralfate (Carafate Oral Susp) 1 gm PO ACHS [facility] Last Admin: 01/19/17 17:10 Dose: 1 gm - Labs Labs: 01/19/17 06:30 01/19/17 06:30 Attending/Attestation - Attestation I have personally seen and examined this patient.: Yes I have fully participated in the care of the patient.: Yes I have reviewed all pertinent clinical information, including history, physical exam and plan: Yes Notes (Text): 01/19/17 20:55 Patient seen and examined at bedside. Labs, vitals and notes reviewed. TENANT COORDINATOR ordered by oncology and tapered to a reduced dose today AM. Patient tolerating liquid diet and it will be advanced as tolerated. GI follow up ongoing and no plans for EGD in this admission. Port-a-cath to be placed for chemotherapy. Agree with the plan of care outlined by the resident.
[2017-01-20] MEDS ORDERED: HYDROmorphone 1 mg/ml PCA 25 ML IV PRN ×3 (06:42→18:09)
[2017-01-20 07:51] LABS: ALB/GLOB RATIO 0.8 (1.1-1.8); ALBUMIN 2.7 g/dL (3.0-4.8); ALT/SGPT 32 U/L (7-56); AST/SGOT 49 U/L (15-59); BLOOD UREA NITROGEN 12 mg/dL (7-21); CALCIUM 8.5 mg/dL (8.4-10.5); GFR AFRICAN-AMERICAN > 60; GFR NON-AFRICAN AMERICAN > 60
[2017-01-20] MEDS: Sucralfate 1 gm/10 ml Oral Susp UD PO SCH ×4 (07:53→21:56)
[2017-01-20 08:00] LABS: BASO # 0.01 K/mm3 (0.0-2.0); BASO % 0.1 % (0.0-3.0); EOS # 0.1 (0.0-0.7); GRAN % 76.3 % (50.0-68.0); HEMOGLOBIN 9.3 gm/dL (14.0-18.0); LYMPH # 1.2 (1.2-3.4); LYMPH % 9.3 % (22.0-35.0); MEAN CELL VOLUME 80.1 fL (80.0-105.0); MEAN CORPUSCULAR HEMOGLOBIN 24.7 pg (25.0-35.0); MEAN CORPUSCULAR HGB CONC 30.8 g/dl (31.0-37.0); MEAN PLATELET VOLUME 9.1 fl (7.0-11.0); MONO # 1.7 (0.1-0.6); MONO % 13.3 % (1.0-6.0); PLATELET COUNT 581 10^3/uL (120.0-450.0); RBC 3.77 10^6/uL (3.5-6.1); RED CELL DISTRIBUTION WIDTH 19.9 % (11.5-14.5); WHITE BLOOD COUNT 12.4 10^3/ul (4.5-11.0)
--- NOTE | 2017-01-20 09:00 | CP.PCM.PN ---
Subjective - Date & Time of Evaluation Date of Evaluation: 01/19/17 Time of Evaluation: 18:00 - Subjective Subjective: on pured diet. Tolerating patient's is at bedside. Objective - Vital Signs/Intake and Output Vital Signs (last 24 hours): Temp Pulse Resp BP Pulse Ox 97.6 F 73 20 135/65 99 01/19/17 17:18 01/19/17 17:18 01/19/17 17:18 01/19/17 17:26 01/19/17 17:18 Intake and Output: 01/19/17 01/20/17 18:59 06:59 Intake Total 1222 660 Output Total 400 Balance 1222 260 - Medications Medications: Current Medications Cyproheptadine HCl (Periactin) 4 mg PO BID [facility] Last Admin: 01/19/17 17:10 Dose: 4 mg Enoxaparin Sodium (Lovenox) 40 mg SC DAILY [facility] PRN Reason: Protocol Last Admin: 01/18/17 11:08 Dose: Not Given Potassium Chloride 20 meq/ (Dextrose/Sodium Chloride) 1,010 mls @ 50 mls/hr IV .[id number] [facility] Last Admin: 01/19/17 08:00 Dose: 50 mls/hr Hydromorphone HCl (Dilaudid-Hp 1 Mg/Ml Domestic Maid) 25 mls @ 0.5 mls/hr IV PRN PRN PRN Reason: TITRATE PER MD ORDERS Nicotine (Nicoderm Cq) 1 patch TD DAILY [facility] Last Admin: 01/19/17 11:47 Dose: 1 patch Ondansetron HCl (Zofran Inj) 4 mg IVP Q6H PRN PRN Reason: Nausea/Vomiting Last Admin: 01/18/17 11:11 Dose: 4 mg Pantoprazole Sodium (Protonix Ec Tab) 40 mg PO BID [facility] Last Admin: 01/19/17 17:10 Dose: 40 mg Polyethylene Glycol (Miralax) 17 gm PO BID [facility] Last Admin: 01/19/17 17:05 Dose: Not Given Senna/Docusate Sodium (Senokot S 50 Mg-8.6 Mg) 1 tab PO BID [facility] Last Admin: 01/19/17 17:05 Dose: Not Given Sucralfate (Carafate Oral Susp) 1 gm PO ACHS [facility] Last Admin: 07/08/17 21:48 Dose: 1 gm - Labs Labs: 01/19/17 06:30 01/19/17 06:30 - Head Exam Head Exam: ATRAUMATIC, NORMOCEPHALIC - Eye Exam Eye Exam: EOMI Pupil Exam: PERRL - ENT Exam ENT Exam: Mucous Membranes Moist - Neck Exam Neck Exam: Full ROM. absent: Lymphadenopathy - Respiratory Exam Respiratory Exam: Clear to Ausculation Bilateral, NORMAL BREATHING PATTERN - Cardiovascular Exam Cardiovascular Exam: REGULAR RHYTHM, +S1, +S2. absent: JVD - GI/Abdominal Exam GI & Abdominal Exam: Soft, Normal Bowel Sounds. absent: Tenderness - Extremities Exam Extremities Exam: Full ROM, Normal Inspection. absent: Pedal Edema - Neurological Exam Neurological Exam: Alert, Oriented x3 Assessment and Plan - Assessment and Plan (Free Text) Assessment: 1.gastroesophageal cancer w/metastasis 2,anemia 3. Elevated LFT, gallstones MRI with MRCP reviewed extensive liver lesions which contributed to this elevated LFT CBD normal no obstruction 4.esophageal ulcerations status post her partial gastric outlet obstruction due to which probably contributed to the infection and ulcerations 5 Atypical chest Pain/SOB, ct angio negative for PE Plan: 1. Continue pured diet tolerating would not advance the diet further as the patient has angulated pyloruswhich causes partial gastric outlet obstructive features which contributed to th increased retroflexed and the esophageal ulcerations.. 2 .Continue PPI and Carafate 3. Patient is planned for 8 AM on Saturday we discussed with the 4. We'll also discuss with the Dr. de leon reg the extensive hepatic lesions which contributes to the increased LFT and a dose adjustment and close monitoring of LFT post chemo
[2017-01-20] MEDS: POLYETHYLENE GLYCOL 3350 17 GM/Dose PACKET PO SCH ×2 (10:00→17:16)
[2017-01-20] MEDS: Pantoprazole 40 mg EC Tab PO SCH ×2 (10:01→17:16)
[2017-01-20] MEDS: Docusate-Senna 50 mg-8.6 mg Tab PO SCH ×2 (10:01→17:16)
--- NOTE | 2017-01-20 14:43 | CP.PCM.PN ---
<ZANDRA NAIDU - Last Filed: 01/20/17 14:37> Subjective - Date & Time of Evaluation Date of Evaluation: 01/20/17 Time of Evaluation: 15:00 - Subjective Subjective: patient was seen and examined bedside. He states that he is feeling much better and that he is minimizing the use of his Natural Gas Treating Unit Operator pump and is maintaining a 2/10 pain level on his regimen. He states that his reflux pain has completely resolved and that he feels that his GI mobility has improved despite his soft diet. denies cp/sob/palpitations, n/v/d Objective - Vital Signs/Intake and Output Vital Signs (last 24 hours): Temp Pulse Resp BP Pulse Ox 98.6 F 111 H 19 136/88 98 01/20/17 06:00 01/20/17 06:00 01/20/17 06:00 01/20/17 06:00 01/20/17 06:00 Intake and Output: 01/20/17 01/20/17 06:59 18:59 Intake Total 660 Output Total 808 Balance -148 - Medications Medications: Current Medications Cyproheptadine HCl (Periactin) 4 mg PO BID [facility] Last Admin: 01/20/17 10:02 Dose: 4 mg Enoxaparin Sodium (Lovenox) 40 mg SC DAILY [facility] PRN Reason: Protocol Last Admin: 01/18/17 11:08 Dose: Not Given Potassium Chloride 20 meq/ (Dextrose/Sodium Chloride) 1,010 mls @ 50 mls/hr IV .[id number] [facility] Last Admin: 01/19/17 08:00 Dose: 50 mls/hr Hydromorphone HCl (Dilaudid-Hp 1 Mg/Ml [employer] Treating Unit Operator) 25 mls @ 0.5 mls/hr IV PRN PRN PRN Reason: TITRATE PER MD ORDERS Last Admin: 01/20/17 06:43 Dose: 0.5 mls/hr Nicotine (Nicoderm Cq) 1 patch TD DAILY [facility] Last Admin: 01/20/17 10:09 Dose: Not Given Ondansetron HCl (Zofran Inj) 4 mg IVP Q6H PRN PRN Reason: Nausea/Vomiting Last Admin: 01/18/17 11:11 Dose: 4 mg Pantoprazole Sodium (Protonix Ec Tab) 40 mg PO BID [facility] Last Admin: 01/20/17 10:01 Dose: 40 mg Polyethylene Glycol (Miralax) 17 gm PO BID [facility] Last Admin: 01/20/17 10:00 Dose: 17 gm Senna/Docusate Sodium (Senokot S 50 Mg-8.6 Mg) 1 tab PO BID [facility] Last Admin: 01/20/17 10:01 Dose: 1 tab Sucralfate (Carafate Oral Susp) 1 gm PO ACHS [facility] Last Admin: 01/20/17 12:05 Dose: 1 gm - Labs Labs: 01/20/17 07:00 01/20/17 07:00 - Constitutional Appears: Well, No Acute Distress - Head Exam Head Exam: ATRAUMATIC, NORMOCEPHALIC - Eye Exam Eye Exam: Normal appearance, PERRL, Scleral icterus - ENT Exam ENT Exam: Mucous Membranes Moist, Normal Exam - Neck Exam Neck Exam: Full ROM - Respiratory Exam Respiratory Exam: Clear to Ausculation Bilateral, NORMAL BREATHING PATTERN. absent: Chest Wall Tenderness, Rales, Rhonchi, Wheezes, Respiratory Distress - Cardiovascular Exam Cardiovascular Exam: REGULAR RHYTHM. absent: Gallop, Rubs, Murmur - GI/Abdominal Exam GI & Abdominal Exam: Soft, Hypoactive Bowel Sounds. absent: Distended, Guarding , Tenderness - Neurological Exam Neurological Exam: Alert, Awake, Oriented x3 - Psychiatric Exam Psychiatric exam: Normal Affect, Normal Mood - Skin Skin Exam: Warm Additional comments: mild jaundice Assessment and Plan - Assessment and Plan (Free Text) Plan: Abdominal pain likely 2/2 hiatal hernia - Tapering off Dilaudid Natural Gas Treating Unit Operator, decreased to 0.5mg/hr IV - No plan for EGD/colonoscopy - Diet advanced to puree. 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 Eze Naidu PGY1 <Ree Loo - Last Filed: 01/20/17 19:07> Objective - Vital Signs/Intake and Output Vital Signs (last 24 hours): Temp Pulse Resp BP Pulse Ox 98.4 F 76 18 141/95 H 98 01/20/17 18:58 01/20/17 18:58 01/20/17 18:58 01/20/17 18:58 01/20/17 18:58 - Medications Medications: Current Medications Cyproheptadine HCl (Periactin) 4 mg PO BID [facility] Last Admin: 01/20/17 17:16 Dose: 4 mg Enoxaparin Sodium (Lovenox) 40 mg SC DAILY [facility] PRN Reason: Protocol Last Admin: 01/18/17 11:08 Dose: Not Given Fentanyl (Duragesic) 1 patch TD Q72H [facility] Last Admin: 01/20/17 17:44 Dose: 1 patch Potassium Chloride 20 meq/ (Dextrose/Sodium Chloride) 1,010 mls @ 50 mls/hr IV .[id number] [facility] Last Admin: 01/20/17 17:09 Dose: 50 mls/hr Nicotine (Nicoderm Cq) 1 patch TD DAILY [facility] Last Admin: 01/20/17 10:09 Dose: Not Given Ondansetron HCl (Zofran Inj) 4 mg IVP Q6H PRN PRN Reason: Nausea/Vomiting Last Admin: 01/18/17 11:11 Dose: 4 mg Oxycodone HCl (Oxycodone Immediate Release Tab) 5 mg PO Q4H PRN PRN Reason: Pain, severe (8-10) Pantoprazole Sodium (Protonix Ec Tab) 40 mg PO BID [facility] Last Admin: 01/20/17 17:16 Dose: 40 mg Polyethylene Glycol (Miralax) 17 gm PO BID [facility] Last Admin: 01/20/17 17:16 Dose: 17 gm Senna/Docusate Sodium (Senokot S 50 Mg-8.6 Mg) 1 tab PO BID [facility] Last Admin: 01/20/17 17:16 Dose: 1 tab Sucralfate (Carafate Oral Susp) 1 gm PO ACHS [facility] Last Admin: 01/20/17 17:16 Dose: 1 gm - Labs Labs: 01/20/17 07:00 01/20/17 07:00 Attending/Attestation - Attestation I have personally seen and examined this patient.: Yes I have fully participated in the care of the patient.: Yes I have reviewed all pertinent clinical information, including history, physical exam and plan: Yes Notes (Text): 01/20/17 19:05 Patient seen and examined at bedside. Reports improvement in his pain today and denies any new symptoms/complaints. Appetite remains poor. Labs, vitals and notes reviewed. FARM SPECIALIST pump to be discontinued and duragesic patch and prn PO Opiate regimen initiated. Plan for portacath in AM and discharge for outpatient follow up with Medical Oncology service. Agree with the remainder of plan outlined by the resident.
[2017-01-20] MEDS: Potassium Chloride 20 MEQ in Dextrose 5%/0.9% NS 1,000 ML IV SCH (17:09)
--- NOTE | 2017-01-20 17:49 | CP.PCM.PN ---
Subjective - Date & Time of Evaluation Date of Evaluation: 01/20/17 Time of Evaluation: 15:30 - Subjective Subjective: Pt sitting up in bed w family at bedside reporting that for the 1st time in a long while he had relief of his intractable pain, with his CARTON MAKING MACHINE OPERATOR dose now being tapered , with transition to patch, and po narcotic analgesics in anticipation of port placement tomororrow with possible dc home only if no further eval bt DR [facility] is indicated at this time as the pt needed to be txfused earlier in his stay Objective - Vital Signs/Intake and Output Vital Signs (last 24 hours): Temp Pulse Resp BP Pulse Ox 98.6 F 111 H 19 136/88 98 01/20/17 06:00 01/20/17 06:00 01/20/17 06:00 01/20/17 06:00 01/20/17 06:00 Intake and Output: 01/20/17 01/20/17 06:59 18:59 Intake Total 660 Output Total 808 Balance -148 - Medications Medications: Current Medications Cyproheptadine HCl (Periactin) 4 mg PO BID [facility] Last Admin: 01/20/17 10:02 Dose: 4 mg Enoxaparin Sodium (Lovenox) 40 mg SC DAILY [facility] PRN Reason: Protocol Last Admin: 01/18/17 11:08 Dose: Not Given Fentanyl (Duragesic) 1 patch TD Q72H [facility] Potassium Chloride 20 meq/ (Dextrose/Sodium Chloride) 1,010 mls @ 50 mls/hr IV .[id number] [facility] Last Admin: 01/19/17 08:00 Dose: 50 mls/hr Hydromorphone HCl (Dilaudid-Hp 1 Mg/Ml [employer]) 25 mls @ 0 mls/hr IV PRN PRN; Per Protocol PRN Reason: TITRATE PER MD ORDERS Nicotine (Nicoderm Cq) 1 patch TD DAILY [facility] Last Admin: 01/20/17 10:09 Dose: Not Given Ondansetron HCl (Zofran Inj) 4 mg IVP Q6H PRN PRN Reason: Nausea/Vomiting Last Admin: 01/18/17 11:11 Dose: 4 mg Oxycodone HCl (Oxycodone Immediate Release Tab) 5 mg PO Q4H PRN PRN Reason: Pain, severe (8-10) Pantoprazole Sodium (Protonix Ec Tab) 40 mg PO BID [facility] Last Admin: 01/20/17 10:01 Dose: 40 mg Polyethylene Glycol (Miralax) 17 gm PO BID [facility] Last Admin: 01/20/17 10:00 Dose: 17 gm Senna/Docusate Sodium (Senokot S 50 Mg-8.6 Mg) 1 tab PO BID [facility] Last Admin: 01/20/17 10:01 Dose: 1 tab Sucralfate (Carafate Oral Susp) 1 gm PO ACHS [facility] Last Admin: 01/20/17 12:05 Dose: 1 gm - Labs Labs: 01/20/17 07:00 01/20/17 07:00 - Constitutional Appears: Cachectic - Head Exam Head Exam: NORMOCEPHALIC - Eye Exam Eye Exam: Normal appearance - ENT Exam ENT Exam: Mucous Membranes Moist - Neck Exam Neck Exam: Normal Inspection - Respiratory Exam Respiratory Exam: NORMAL BREATHING PATTERN - Cardiovascular Exam Cardiovascular Exam: REGULAR RHYTHM - GI/Abdominal Exam GI & Abdominal Exam: Soft - Extremities Exam Extremities Exam: Normal Inspection - Neurological Exam Neurological Exam: Alert, Awake, Oriented x3 - Skin Skin Exam: Normal Color, Warm Assessment and Plan (1) Intractable abdominal pain Status: Acute (3) Esophageal carcinoma Status: Acute (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 Pt for port tomorrow, check labs, monitor cliically
[2017-01-20] MEDS ORDERED: HYDROmorphone 1 mg/ml PCA IV PRN (18:36)
[2017-01-20] MEDS: oxyCODONE 5 mg Immediate Release Tab PO PRN (22:01)
[2017-01-21] MEDS: oxyCODONE 5 mg Immediate Release Tab PO PRN ×3 (01:46→11:57)
[2017-01-21] MEDS: Potassium Chloride 20 MEQ in Dextrose 5%/0.9% NS 1,000 ML IV SCH ×2 (01:47→15:11)
[2017-01-21] MEDS ORDERED: HYDROmorphone 0.5 mg/0.5 ml ISec IVP STA (02:53)
[2017-01-21] MEDS ORDERED: Lidocaine 2% Inj (20ml) ONE (06:46)
[2017-01-21 07:24] LABS: BASO # 0.01 K/mm3 (0.0-2.0); BASO % 0.1 % (0.0-3.0); EOS % 0.1 % (1.5-5.0); GRAN % 81.4 % (50.0-68.0); HEMOGLOBIN 9.4 gm/dL (14.0-18.0); LYMPH # 0.9 (1.2-3.4); LYMPH % 6.1 % (22.0-35.0); MEAN CORPUSCULAR HEMOGLOBIN 24.9 pg (25.0-35.0); MEAN CORPUSCULAR HGB CONC 31.5 g/dl (31.0-37.0); MEAN PLATELET VOLUME 9.1 fl (7.0-11.0); MONO # 1.8 (0.1-0.6); MONO % 12.3 % (1.0-6.0); PLATELET COUNT 526 10^3/uL (120.0-450.0); RBC 3.77 10^6/uL (3.5-6.1); RED CELL DISTRIBUTION WIDTH 20.4 % (11.5-14.5)
[2017-01-21] MEDS ORDERED: Midazolam 2 MG/2 ML VIAL ONE ×2 (07:35→08:25)
[2017-01-21] MEDS: Sucralfate 1 gm/10 ml Oral Susp UD PO SCH ×3 (07:38→17:02)
[2017-01-21 07:50] LABS: ALB/GLOB RATIO 0.7 (1.1-1.8); ALBUMIN 2.6 g/dL (3.0-4.8); ALT/SGPT 38 U/L (7-56); AST/SGOT 76 U/L (15-59); BLOOD UREA NITROGEN 10 mg/dL (7-21); CALCIUM 8.4 mg/dL (8.4-10.5); GFR AFRICAN-AMERICAN > 60; GFR NON-AFRICAN AMERICAN > 60
--- NOTE | 2017-01-21 08:33 | CP.PCM.PN ---
<Brandee Wheat - Last Filed: 01/22/17 06:32> Subjective - Date & Time of Evaluation Date of Evaluation: 01/21/17 Time of Evaluation: 08:28 - Subjective Subjective: PGY2 for Dr. Capone Mid-chest pain, chronic, 3/10, on durgesic patch. Break through pain 8/10, controlled by oxycodone IR 5q4 PRN. Pt pt, needs to be q3. Tolerating liquid diet decrease appetite No complaints. Urine dark jose in color (+) large BM, brown, hard Objective - Vital Signs/Intake and Output Vital Signs (last 24 hours): Temp Pulse Resp BP Pulse Ox 99 F 79 19 141/95 H 96 01/21/17 08:07 01/21/17 08:07 01/21/17 08:07 01/21/17 08:07 01/21/17 08:07 Intake and Output: 01/21/17 01/21/17 06:59 18:59 Intake Total 540 Output Total 700 Balance -160 - Medications Medications: Current Medications Cyproheptadine HCl (Periactin) 4 mg PO BID [facility] Last Admin: 01/20/17 17:16 Dose: 4 mg Enoxaparin Sodium (Lovenox) 40 mg SC DAILY [facility] PRN Reason: Protocol Last Admin: 01/18/17 11:08 Dose: Not Given Fentanyl (Duragesic) 1 patch TD Q72H [facility] Last Admin: 01/20/17 17:44 Dose: 1 patch Potassium Chloride 20 meq/ (Dextrose/Sodium Chloride) 1,010 mls @ 50 mls/hr IV .[id number] [facility] Last Admin: 01/21/17 01:47 Dose: 50 mls/hr Nicotine (Nicoderm Cq) 1 patch TD DAILY [facility] Last Admin: 01/20/17 10:09 Dose: Not Given Ondansetron HCl (Zofran Inj) 4 mg IVP Q6H PRN PRN Reason: Nausea/Vomiting Last Admin: 01/18/17 11:11 Dose: 4 mg Oxycodone HCl (Oxycodone Immediate Release Tab) 5 mg PO Q4H PRN PRN Reason: Pain, severe (8-10) Last Admin: 01/21/17 06:47 Dose: 5 mg Pantoprazole Sodium (Protonix Ec Tab) 40 mg PO BID [facility] Last Admin: 01/20/17 17:16 Dose: 40 mg Polyethylene Glycol (Miralax) 17 gm PO BID [facility] Last Admin: 01/20/17 17:16 Dose: 17 gm Senna/Docusate Sodium (Senokot S 50 Mg-8.6 Mg) 1 tab PO BID [facility] Last Admin: 01/20/17 17:16 Dose: 1 tab Sucralfate (Carafate Oral Susp) 1 gm PO ACHS [facility] Last Admin: 01/21/17 07:38 Dose: Not Given - Labs Labs: 01/21/17 06:40 01/21/17 06:40 - Constitutional Appears: No Acute Distress - Head Exam Head Exam: NORMAL INSPECTION, NORMOCEPHALIC - Eye Exam Eye Exam: EOMI, Normal appearance, PERRL, Scleral icterus Pupil Exam: NORMAL ACCOMODATION - ENT Exam ENT Exam: Mucous Membranes Moist - Neck Exam Neck Exam: absent: Meningismus - Respiratory Exam Respiratory Exam: Clear to Ausculation Bilateral. absent: Rales, Rhonchi, Wheezes Additional comments: port-a-cath on R chest, dressing d/c/i - Cardiovascular Exam Cardiovascular Exam: REGULAR RHYTHM, +S1, +S2 - GI/Abdominal Exam GI & Abdominal Exam: Normal Bowel Sounds, Organomegaly - Extremities Exam Extremities Exam: Normal Capillary Refill, Pedal Edema (dorsum plantar slight). absent: Calf Tenderness, Tenderness - Neurological Exam Neurological Exam: Alert, Awake, Oriented x3 - Psychiatric Exam Psychiatric exam: Normal Affect, Normal Mood - Skin Skin Exam: Dry, Warm Additional comments: jaundice Assessment and Plan - Assessment and Plan (Free Text) Plan: 56 year old male with a PMH of esophageal and stomach cancer (gastroeophageal ca s/p resection in 2010), multiple sclerosis, and GERD admitted for chest pain. Chest pain is likely atypical due to irritation by fluid at posterior mediastinum, pulmonary/liver/adrenal mets. He has microcytic anemia with recent esophageal errosion due to NSAID uses s/p u pRBC. Thrombocytosis likely reactive to bleed. GI bleed vs cancer bleed - Hb stable at 9.4. Plt 526 (high). s/p 2u pRBC on 01/17 - MRCP: gallstone but no acute cholecyctits No choledocholithasis, no extrahepatic biliary ductal obstruction multilple liver mass Right adrenal mass Left pleural effusion with ascites - EGD today Many esophageal ulcers (non-bleeding) and Ulceration in esophago-gastric anastomosis in lower-third of esophagus. Acutely angulated pylorus with moderate bezoar. 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, s/ p resection - Port-a-cath placment today - will start 5-FU and [place] - CT: Large hiatal hernia no obstruction New moderate ascites and mesenteric edema increase in metatstic liver mets pumlonary nodules unchanged - durgesic and oxycodone IR PRN - periactin to help appetite Direct hyperbilirubinemia: intrahepatic (ca mets) vs post hepatic obstruction ( Extrahepatic, occlusion vs cholestasis vs compression from tumor) - CMV pending - GI consult Leukocytosis Thrombocytosis - reactive Unilateral leg swelling - likely from venous insufficiency form pressure of hepatomegaly - Negatove U/S. Has r/o dvt Atypical chest pain - Fluid in posterior mediastinum irritation vs hiatal hernia - Has R/O acute abdomen from perforation (Air-fluid level) - Off dilaudud MUSTANGER; on durgesic and oxycodone IR 5q4 - Echo EF 51% Constipation on sennakot / miralax bid Tobacco abuse on nicotine patch. 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 Hernandez <Ravin Hernandez P - Last Filed: 01/27/17 00:59> Objective - Vital Signs/Intake and Output Vital Signs (last 24 hours): Temp Pulse Resp BP Pulse Ox 98.4 F 84 18 145/99 H 98 01/21/17 16:00 01/21/17 16:00 01/21/17 16:00 01/21/17 16:00 01/21/17 16:00 - Labs Labs: 01/21/17 06:40 01/21/17 06:40 PT 14.4 Seconds (9.9-11.8) H 01/21/17 11:00 INR 1.33 (0.93-1.08) H 01/21/17 11:00 APTT 27.9 Seconds (23.7-30.8) 01/21/17 11:00 Attending/Attestation - Attestation I have personally seen and examined this patient.: Yes I have fully participated in the care of the patient.: Yes I have reviewed all pertinent clinical information, including history, physical exam and plan: Yes
[2017-01-21] MEDS ORDERED: Propofol 10 mg/ml Inj (20 ML) ONE (09:21)
[2017-01-21] MEDS ORDERED: Lidocaine 1% Inj (20ml) ONE (09:50)
[2017-01-21 10:38] VITALS: RESP 18
[2017-01-21 11:49] LABS: INR 1.33 (0.93-1.08); PARTIAL THROMBOPLASTIN TIME 27.9 Seconds (23.7-30.8); PROTHROMBIN TIME 14.4 Seconds (9.9-11.8)
[2017-01-21] MEDS: POLYETHYLENE GLYCOL 3350 17 GM/Dose PACKET PO SCH ×2 (11:56→18:39)
[2017-01-21] MEDS: Pantoprazole 40 mg EC Tab PO SCH ×2 (11:58→18:39)
[2017-01-21] MEDS: Docusate-Senna 50 mg-8.6 mg Tab PO SCH ×2 (11:58→18:39)
[2017-01-21] MEDS ORDERED: oxyCODONE 5 mg Immediate Release Tab PO PRN (12:59)
--- NOTE | 2017-01-21 15:35 | VASCULAR ---
PROCEDURE: Ultrasound and fluoroscopic right internal jugular venous access port. CLINICAL HISTORY: Gastroesophageal carcinoma. Metastatic disease.Venous port for chemotherapy. PHYSICIAN(S): Jay Paris M.D. TECHNIQUE: The relative risks and indications of the procedure were explained to the patient and consent obtained. The patient was placed supine on the arteriogram table and the right neck and chest prepped and draped in the usual sterile fashion. Conscious sedation monitoring was provided throughout the procedure by a nurse. Antibiotics were given prior to the procedure. Under direct ultrasound guidance, the right internal jugular vein was punctured with a micro-puncture set. A 0.035 angled Glidewire was advanced into the IVC. A 4 cm incision was made below the right clavicle and the pocket blunted dissected. A 8 Romansh single-lumen catheter, 23 cm long, was advanced to the SVC/RA junction. The catheter was trimmed and attached to the port. The port aspirates and injects easily. The port was placed in the pocket and closed in 2 layers. An access needle was placed. The patient tolerated the procedure well. IMPRESSION: Ultrasound and fluoroscopically placed right internal jugular venous access port.
[2017-01-21 17:52] VITALS: BP 145/99; PULSE 84; TEMP 98.4; O2SAT 98
--- NOTE | 2017-01-22 06:14 | CP.PCM.DIS ---
<ZANDRA DANG - Last Filed: 01/22/17 06:15> Provider - Provider Date of Admission: 01/17/17 12:29 Attending physician: Prema Martinez MD Time Spent in preparation of Discharge (in minutes): 45 Hospital Course - Lab Results Lab Results: Most Recent Lab Values WBC 15.0 10^3/ul (4.5-11.0) H D 01/21/17 06:40 RBC 3.77 10^6/uL (3.5-6.1) 01/21/17 06:40 Hgb 9.4 gm/dL (14.0-18.0) L 01/21/17 06:40 Hct 29.8 % (42.0-52.0) L 01/21/17 06:40 MCV 79.0 fL (80.0-105.0) L 01/21/17 06:40 MCH 24.9 pg (25.0-35.0) L 01/21/17 06:40 MCHC 31.5 g/dl (31.0-37.0) 01/21/17 06:40 RDW 20.4 % (11.5-14.5) H 01/21/17 06:40 Plt Count 526 10^3/uL (120.0-450.0) H 01/21/17 06:40 MPV 9.1 fl (7.0-11.0) 01/21/17 06:40 Gran % 81.4 % (50.0-68.0) H 01/21/17 06:40 Lymph % (Auto) 6.1 % (22.0-35.0) L 01/21/17 06:40 Har[place] % (Auto) 12.3 % (1.0-6.0) H 01/21/17 06:40 Eos % (Auto) 0.1 % (1.5-5.0) L 01/21/17 06:40 Baso % (Auto) 0.1 % (0.0-3.0) 01/21/17 06:40 Gran # 12.20 (1.4-6.5) H 01/21/17 06:40 Lymph # 0.9 (1.2-3.4) L 01/21/17 06:40 Harney # 1.8 (0.1-0.6) H 01/21/17 06:40 Eos # 0.0 (0.0-0.7) 01/21/17 06:40 Baso # 0.01 K/mm3 (0.0-2.0) 01/21/17 06:40 PT 14.4 Seconds (9.9-11.8) H 01/21/17 11:00 INR 1.33 (0.93-1.08) H 01/21/17 11:00 APTT 27.9 Seconds (23.7-30.8) 01/21/17 11:00 Fibrinogen 386.7 mg/dL (187-400) 01/17/17 18:15 Fibrin Degrad Products >40 ug/ml (< 10 ug/mL) 01/17/17 18:15 Sodium 132 mmol/L (132-148) 01/21/17 06:40 Potassium 3.9 mmol/L (3.6-5.0) 01/21/17 06:40 Chloride 99 mmol/L (98-107) 01/21/17 06:40 Carbon Dioxide 26 mmol/L (21-33) 01/21/17 06:40 Anion Gap 11 (10-20) 01/21/17 06:40 BUN 10 mg/dL (7-21) 01/21/17 06:40 Creatinine 0.6 mg/dL (0.5-1.4) 01/21/17 06:40 Est GFR ( Amer) > 60 01/21/17 06:40 Est GFR (Non-Af Amer) > 60 01/21/17 06:40 Random Glucose 91 mg/dL (70-110) 01/21/17 06:40 Hemoglobin A1c 5.6 % (4.2-6.5) 01/17/17 05:45 Calcium 8.4 mg/dL (8.4-10.5) 01/21/17 06:40 Phosphorus 3.5 mg/dL (2.5-4.5) 01/21/17 06:40 Magnesium 2.0 mg/dL (1.7-2.2) 01/21/17 06:40 Iron 15 ug/dL (45-180) L 01/17/17 05:45 TIBC 171 ug/dL (261-462) L 01/17/17 05:45 % Saturation 9 % (20-55) L 01/17/17 05:45 Transferrin 98.55 mg/dL (206-381) L 01/17/17 05:45 Ferritin 221.0 ng/mL 01/17/17 05:45 Total Bilirubin 5.3 mg/dL (0.2-1.3) H 01/21/17 06:40 Direct Bilirubin 2.2 mg/dL (0.0-0.4) H 01/17/17 07:30 AST 76 U/L (15-59) H 01/21/17 06:40 ALT 38 U/L (7-56) 01/21/17 06:40 Alkaline Phosphatase 1371 U/L (38-133) H 01/21/17 06:40 Lactate Dehydrogenase 585 U/L (333-699) 01/16/17 18:25 Total Creatine Kinase 104 U/L (35-230) 01/16/17 18:25 Troponin I < 0.01 ng/mL 01/17/17 05:45 NT-Pro-B Natriuret Pep 1010 pg/mL (0-450) H 01/16/17 18:25 Total Protein 6.4 g/dL (5.8-8.3) 01/21/17 06:40 Albumin 2.6 g/dL (3.0-4.8) L 01/21/17 06:40 Globulin 3.7 gm/dL 01/21/17 06:40 Albumin/Globulin Ratio 0.7 (1.1-1.8) L 01/21/17 06:40 Triglycerides 126 mg/dL (35-160) 01/17/17 05:45 Cholesterol 140 mg/dL (130-200) 01/17/17 05:45 LDL Cholesterol Direct 97 mg/dL (0-129) 01/17/17 05:45 HDL Cholesterol 19 mg/dL (29-60) L 01/17/17 05:45 Vitamin B12 > 1000 pg/mL (239-931) H 01/17/17 05:45 Folate 5.7 ng/mL 01/17/17 05:45 Urine Color Yellow (YELLOW) 01/16/17 18:25 Urine Appearance Sl cloudy (CLEAR) 01/16/17 18:25 Urine pH 6.0 (4.7-8.0) 01/16/17 18:25 Ur Specific [place] 1.025 (1.005-1.035) 01/16/17 18:25 Urine Protein Trace mg/dL (<30 mg/dL) H 01/16/17 18:25 Urine Glucose (UA) Negative mg/dL (NEGATIVE) 01/16/17 18:25 Urine Ketones Negative mg/dL (NEGATIVE) 01/16/17 18:25 Urine Blood Moderate (NEGATIVE) H 01/16/17 18:25 Urine Nitrate Negative (NEGATIVE) 01/16/17 18:25 Urine Bilirubin Moderate (NEGATIVE) H 01/16/17 18:25 Urine Urobilinogen 4.0 E.U./dL (<1 E.U./dL) H 01/16/17 18:25 Ur Leukocyte Esterase Negative Beau/uL (NEGATIVE) 01/16/17 18:25 Urine RBC 10 - 15 /hpf (0-2) 01/16/17 18:25 Urine WBC 0 - 2 /hpf (0-6) 01/16/17 18:25 Calcium Oxalate Crystal Occ /hpf 01/16/17 18:25 Urine Bacteria Few (NEG) 01/16/17 18:25 Urine Other Mucus 01/16/17 18:25 Stool Occult Blood Positive (NEGATIVE) H 01/21/17 14:14 Blood Type O POSITIVE 01/17/17 10:45 Antibody Screen Negative 01/17/17 10:45 Crossmatch See Detail 01/17/17 10:45 BBK History Checked Patient has bt 01/17/17 10:45 - Hospital Course Hospital Course: Mr. Maria is a 56 year old male with a PMH of gastroeophageal ca s/p resection in 2010, MS, GERD presents on 01/16/17 with complaints of a dull squeezing substernal chest pain which was constant and non radiating, 04/23. Patient has a normal baseline of pain due to his cancer but states that this was different. IN ED, EKG showed NSR. Troponins were negative. CT revealed large hiatal hernia w/o obstruction, and pulmonary, hepatic, and adrenal mets. The patient was transferred to the medicine floors for further management and workup. The patient was found to be anemic with Hg 7.3 from 8.1, and was transfused 2u pRBC and Hgb increased to 11.7. Surgery, GI and Heme-Onc were all consulted. Echo was normal and showed LVEF 51%. MRCP was done and showed gallstones without evidence of acute cholecystitis, multiple mass lesions in liver, R adrenal mas suspicious for mets. The patient had a por-a-cath placed on 01/21 for continued chemorx. The patient had an endoscopy which showed esophago- gastric anastomosis (from prior resection) and many non-bleeding gastric ulcers with no signs of recent bleeding. This morning, the patient stated that his pain is controlled at 2 but sometimes spikes to 6, but denies cp/palpitations, shortness of breath, headaches, or dizziness. Patient had a large loose BM brown in color, per nurse. Patient was instructed to followup with Dr. Hernandez for chemorx and followup, as well as a GI and PMD. Scripts were written by Dr. Hernandez for Mr. Maria for #10 Duragesic patches (25mcg/hr) Q72H, and #90 Oxycodone 5mg Q3H PRN. Carafate was also prescribed as it controlled his PUD symptoms well. Patient was discharged in the evening of 01/21/17. - Date & Time of H&P Date of H&P: 01/17/17 Time of H&P: 02:05 Discharge Exam - Additional Findings Additional findings: - Constitutional Appears: Well, No Acute Distress - Head Exam Head Exam: ATRAUMATIC, NORMOCEPHALIC - Eye Exam Eye Exam: Normal appearance, PERRL, Scleral icterus - ENT Exam ENT Exam: Mucous Membranes Moist, Normal Exam - Neck Exam Neck Exam: Full ROM - Respiratory Exam Respiratory Exam: Clear to Ausculation Bilateral, NORMAL BREATHING PATTERN. absent: Chest Wall Tenderness, Rales, Rhonchi, Wheezes, Respiratory Distress - Cardiovascular Exam Cardiovascular Exam: REGULAR RHYTHM. absent: Gallop, Rubs, Murmur - GI/Abdominal Exam GI & Abdominal Exam: Soft, Hypoactive Bowel Sounds. absent: Distended, Guarding , Tenderness - Neurological Exam Neurological Exam: Alert, Awake, Oriented x3 - Psychiatric Exam Psychiatric exam: Normal Affect, Normal Mood - Skin Skin Exam: Warm Additional comments: mild jaundice Discharge Plan - Discharge Medications Prescriptions: fentaNYL 25 mcg/hr [Duragesic Patch 25 mcg/hr] 1 patch TD Q72H #10 patch oxyCODONE [oxyCODONE Immediate Release Tab] 5 mg PO Q3H PRN #90 tab PRN Reason: Pain, Severe (8-10) Sucralfate [Carafate Oral Susp] 1 gm PO ACHS #30 - Follow Up Plan Condition: STABLE Disposition: HOME/ ROUTINE Instructions: Chest Pain (ED) Additional Instructions: Mr. Maria, 1. You should follow-up with your primary care physician within 1 week. 2. You should follow-up with Dr. Hernandez in the Oncology clinic for management of chemotherapy. 3. You should follow-up with a bureau director (GI) doctor for further management. 4. Medications: Duragesic patch (25mcg/hr) once every THREE days. Oxycodone immediate release tab (5mg) every three hours IF NEEDED. Carafate Oral suspension 1gm at night. If you experience any shortness of breath, new or abnormal chest pain you should return to ER. Zandra Dang PGY1 <Prema Martinez - Last Filed: 01/22/17 14:14> Provider - Provider Date of Admission: 01/17/17 12:29 Attending physician: Prema Martinez MD Hospital Course - Lab Results Lab Results: Most Recent Lab Values WBC 15.0 10^3/ul (4.5-11.0) H D 01/21/17 06:40 RBC 3.77 10^6/uL (3.5-6.1) 01/21/17 06:40 Hgb 9.4 gm/dL (14.0-18.0) L 01/21/17 06:40 Hct 29.8 % (42.0-52.0) L 01/21/17 06:40 MCV 79.0 fL (80.0-105.0) L 01/21/17 06:40 MCH 24.9 pg (25.0-35.0) L 01/21/17 06:40 MCHC 31.5 g/dl (31.0-37.0) 01/21/17 06:40 RDW 20.4 % (11.5-14.5) H 01/21/17 06:40 Plt Count 526 10^3/uL (120.0-450.0) H 01/21/17 06:40 MPV 9.1 fl (7.0-11.0) 01/21/17 06:40 Gran % 81.4 % (50.0-68.0) H 01/21/17 06:40 Lymph % (Auto) 6.1 % (22.0-35.0) L 01/21/17 06:40 Harney % (Auto) 12.3 % (1.0-6.0) H 01/21/17 06:40 Eos % (Auto) 0.1 % (1.5-5.0) L 01/21/17 06:40 Baso % (Auto) 0.1 % (0.0-3.0) 01/21/17 06:40 Gran # 12.20 (1.4-6.5) H 01/21/17 06:40 Lymph # 0.9 (1.2-3.4) L 01/21/17 06:40 Harney # 1.8 (0.1-0.6) H 01/21/17 06:40 Eos # 0.0 (0.0-0.7) 01/21/17 06:40 Baso # 0.01 K/mm3 (0.0-2.0) 01/21/17 06:40 PT 14.4 Seconds (9.9-11.8) H 01/21/17 11:00 INR 1.33 (0.93-1.08) H 01/21/17 11:00 APTT 27.9 Seconds (23.7-30.8) 01/21/17 11:00 Fibrinogen 386.7 mg/dL (187-400) 01/17/17 18:15 Fibrin Degrad Products >40 ug/ml (< 10 ug/mL) 01/17/17 18:15 Sodium 132 mmol/L (132-148) 01/21/17 06:40 Potassium 3.9 mmol/L (3.6-5.0) 01/21/17 06:40 Chloride 99 mmol/L (98-107) 01/21/17 06:40 Carbon Dioxide 26 mmol/L (21-33) 01/21/17 06:40 Anion Gap 11 (10-20) 01/21/17 06:40 BUN 10 mg/dL (7-21) 01/21/17 06:40 Creatinine 0.6 mg/dL (0.5-1.4) 01/21/17 06:40 Est GFR ( Amer) > 60 01/21/17 06:40 Est GFR (Non-Af Amer) > 60 01/21/17 06:40 Random Glucose 91 mg/dL (70-110) 01/21/17 06:40 Hemoglobin A1c 5.6 % (4.2-6.5) 01/17/17 05:45 Calcium 8.4 mg/dL (8.4-10.5) 01/21/17 06:40 Phosphorus 3.5 mg/dL (2.5-4.5) 01/21/17 06:40 Magnesium 2.0 mg/dL (1.7-2.2) 01/21/17 06:40 Iron 15 ug/dL (45-180) L 01/17/17 05:45 TIBC 171 ug/dL (261-462) L 01/17/17 05:45 % Saturation 9 % (20-55) L 01/17/17 05:45 Transferrin 98.55 mg/dL (206-381) L 01/17/17 05:45 Ferritin 221.0 ng/mL 01/17/17 05:45 Total Bilirubin 5.3 mg/dL (0.2-1.3) H 01/21/17 06:40 Direct Bilirubin 2.2 mg/dL (0.0-0.4) H 01/17/17 07:30 AST 76 U/L (15-59) H 01/21/17 06:40 ALT 38 U/L (7-56) 01/21/17 06:40 Alkaline Phosphatase 1371 U/L (38-133) H 01/21/17 06:40 Lactate Dehydrogenase 585 U/L (333-699) 01/16/17 18:25 Total Creatine Kinase 104 U/L (35-230) 01/16/17 18:25 Troponin I < 0.01 ng/mL 01/17/17 05:45 NT-Pro-B Natriuret Pep 1010 pg/mL (0-450) H 01/16/17 18:25 Total Protein 6.4 g/dL (5.8-8.3) 01/21/17 06:40 Albumin 2.6 g/dL (3.0-4.8) L 01/21/17 06:40 Globulin 3.7 gm/dL 01/21/17 06:40 Albumin/Globulin Ratio 0.7 (1.1-1.8) L 01/21/17 06:40 Triglycerides 126 mg/dL (35-160) 01/17/17 05:45 Cholesterol 140 mg/dL (130-200) 01/17/17 05:45 LDL Cholesterol Direct 97 mg/dL (0-129) 01/17/17 05:45 HDL Cholesterol 19 mg/dL (29-60) L 01/17/17 05:45 Vitamin B12 > 1000 pg/mL (239-931) H 01/17/17 05:45 Folate 5.7 ng/mL 01/17/17 05:45 Urine Color Yellow (YELLOW) 01/16/17 18:25 Urine Appearance Sl cloudy (CLEAR) 01/16/17 18:25 Urine pH 6.0 (4.7-8.0) 01/16/17 18:25 Ur Specific [place] 1.025 (1.005-1.035) 01/16/17 18:25 Urine Protein Trace mg/dL (<30 mg/dL) H 01/16/17 18:25 Urine Glucose (UA) Negative mg/dL (NEGATIVE) 01/16/17 18:25 Urine Ketones Negative mg/dL (NEGATIVE) 01/16/17 18:25 Urine Blood Moderate (NEGATIVE) H 01/16/17 18:25 Urine Nitrate Negative (NEGATIVE) 01/16/17 18:25 Urine Bilirubin Moderate (NEGATIVE) H 01/16/17 18:25 Urine Urobilinogen 4.0 E.U./dL (<1 E.U./dL) H 01/16/17 18:25 Ur Leukocyte Esterase Negative Beau/uL (NEGATIVE) 01/16/17 18:25 Urine RBC 10 - 15 /hpf (0-2) 01/16/17 18:25 Urine WBC 0 - 2 /hpf (0-6) 01/16/17 18:25 Calcium Oxalate Crystal Occ /hpf 01/16/17 18:25 Urine Bacteria Few (NEG) 01/16/17 18:25 Urine Other Mucus 01/16/17 18:25 Stool Occult Blood Positive (NEGATIVE) H 01/21/17 14:14 CMV IgG Ab >10.00 U/mL H 01/18/17 05:30 CMV IgM Ab <30.00 AU/mL 01/18/17 05:30 Blood Type O POSITIVE 01/17/17 10:45 Antibody Screen Negative 01/17/17 10:45 Crossmatch See Detail 01/17/17 10:45 BBK History Checked Patient has bt 01/17/17 10:45 Attending/Attestation - Attestation I have personally seen and examined this patient.: Yes I have fully participated in the care of the patient.: Yes I have reviewed all pertinent clinical information, including history, physical exam and plan: Yes Notes (Text): I have seen and examined patient at bedside. Agree with the above note with the following additions/ exceptions: Briefly this is 6 year old male with history of gastroeophageal ca s/p resection in 2010, MS, GERD who came for evaluation of epigastric pain and found to have Esophageal ulcer on endoscopy and anemia s/ p prbc transfusion. Port a cath was also placed for chemo treatment. Advised patient to continue protonix and carafate. Advised patient to follow up with Dr Hernandez and Dr Elizabeth. Dr Prema Martinez
== END 2017-01-21 20:03 | disposition home or self-care (01) | DRG 392 ==
LOC: ED 17:28 → ERH 21:25 → 2RNO 22:56 → OBSVTOIN 01-17 12:29 → 3RNO 01-19 12:51
PROVIDERS: ADMIT Hospitalist; ATTEND Hospitalist
PROC: 30233N1 Transfusion of Nonautologous Red Blood Cells into Peripheral Vein, Percutaneous Approach (ICD-10-PCS; 2017-01-17)
PROC: 05HM33Z Insertion of Infusion Device into Right Internal Jugular Vein, Percutaneous Approach (ICD-10-PCS; 2017-01-21)
PROC: B543ZZA Ultrasonography of Right Jugular Veins, Guidance (ICD-10-PCS; 2017-01-21)
PROC: 0DJ08ZZ Inspection of Upper Intestinal Tract, Via Natural or Artificial Opening Endoscopic (ICD-10-PCS; principal; 2017-01-21 08:00)
DX: K44.9 Diaphragmatic hernia without obstruction or gangrene (principal); K22.10 Ulcer of esophagus without bleeding; J90 Pleural effusion, not elsewhere classified; C78.7 Secondary malignant neoplasm of liver and intrahepatic bile duct; C78.00 Secondary malignant neoplasm of unspecified lung; C77.2 Secondary and unspecified malignant neoplasm of intra-abdominal lymph nodes; R64 Cachexia; C79.70 Secondary malignant neoplasm of unspecified adrenal gland; R18.8 Other ascites; K25.9 Gastric ulcer, unspecified as acute or chronic, without hemorrhage or perforation; T18.2XXA Foreign body in stomach, initial encounter; D50.9 Iron deficiency anemia, unspecified; F17.210 Nicotine dependence, cigarettes, uncomplicated; K31.89 Other diseases of stomach and duodenum; I87.2 Venous insufficiency (chronic) (peripheral); K21.9 Gastro-esophageal reflux disease without esophagitis; G35 Multiple sclerosis; K80.20 Calculus of gallbladder without cholecystitis without obstruction; G89.3 Neoplasm related pain (acute) (chronic); D47.3 Essential (hemorrhagic) thrombocythemia; K59.00 Constipation, unspecified; R07.89 Other chest pain; Z85.028 Personal history of other malignant neoplasm of stomach; Z68.24 Body mass index [BMI] 24.0-24.9, adult; Z87.11 Personal history of peptic ulcer disease

== ENCOUNTER 2017-01-29 15:32 | Inpatient (IN) | payer MEDICAID, OTHER ==
--- NOTE | 2017-01-29 15:55 | ED PDOC ---
Arrival/HPI - General Chief Complaint: Weakness/Neurological Deficit Time Seen by Provider: 01/29/17 15:42 Historian: Patient, Spouse - History of Present Illness Time/Duration: Prior to Arrival Symptom Onset: Gradual Symptom Course: Worsening Severity Level: Severe Activities at Onset: Rest Associated Symptoms (Text): 01/29/17 16:00 Severe generalized weakness and fatigue along with bilateral lower extremity pedal edema left greater than right. Patient was recently discharged from the hospital after workup that included MRCP, EGD, CAT scan, ultrasound and cardiac catheterization CT scanning. History of esophageal cancer which has recurred with metastases to liver and adrenal and stomach. He has not started chemotherapy again yet. Past Medical History - Infectious Disease Hx of Infectious Diseases: None - Cardiac Hx Cardiac Disorders: No - Pulmonary Hx Respiratory Disorders: No - Neurological Hx Neurological Disorder: No - HEENT Hx HEENT Disorder: Yes (wears glasses) - Renal Hx Renal Disorder: No - Endocrine/Metabolic Hx Endocrine Disorders: No - Hematological/Oncological Hx Blood Transfusions: No Hx Blood Transfusion Reaction: No - Integumentary Hx Dermatological Disorder: No - Musculoskeletal/Rheumatological Other/Comment: Multiple Sclerosis - Gastrointestinal Other/Comment: Stomach CA,Esaphagal CA - Genitourinary/Gynecological Hx Genitourinary Disorders: No - Psychiatric Hx Psychophysiologic Disorder: No Hx Substance Use: No - Surgical History Other/Comment: "Removed 07/17 or stomach" - Anesthesia Hx Anesthesia Reactions: No Hx Malignant Hyperthermia: No Family/Social History - Physician Review Nursing Documentation Reviewed: Yes Family/Social History: Unknown Family HX Smoking Status: Light Smoker < 10 Cigarettes Daily Hx Alcohol Use: Yes (Social wine drinker.) Hx Substance Use: No Allergies/Home Meds Allergies/Adverse Reactions: Allergies No Known Allergies Allergy (Verified 01/29/17 16:35) Home Medications: Home Meds Medication Instructions Recorded Confirmed Morphine [Morphine Extended 15 mg PO PRN PRN 01/29/17 01/29/17 Release Tab] Prochlorperazine Maleate 10 mg PO PRN PRN 01/29/17 01/29/17 oxyCODONE [oxyCODONE Immediate 10 mg PO Q3H PRN 01/29/17 01/29/17 Release Tab] Review of Systems - Physician Review All systems were reviewed & negative as marked: Yes - Review of Systems Constitutional: Fatigue. absent: Fevers Respiratory: absent: SOB, Cough Cardiovascular: absent: Chest Pain, Palpitations, Syncope Gastrointestinal: absent: Abdominal Pain, Diarrhea, Vomiting Neurological: absent: Headache, Dizziness, Focal Weakness Physical Exam Vital Signs Temp Pulse Resp BP Pulse Ox 01/29/17 16:31 99.1 F 01/29/17 15:58 98.8 F 96 H 20 150/95 H 98 Temperature: Afebrile Blood Pressure: Normal Pulse: Regular Respiratory Rate: Normal Appearance: Positive for: Well-Appearing, Non-Toxic, Comfortable, Other (Thin cachectic jaundiced edematous and chronically ill-appearing) Pain Distress: None Mental Status: Positive for: Alert and Oriented X 3 - Systems Exam Head: Present: Atraumatic, Normocephalic Pupils: Present: PERRL Extroacular Muscles: Present: EOMI Conjunctiva: Present: Normal Mouth: Present: Moist Mucous Membranes Pharnyx: No: ERYTHEMA, EXUDATE, TONSILS ENLARGED Neck: Present: Normal Range of Motion Respiratory/Chest: Present: Clear to Auscultation, Good Air Exchange, Other ( Right-sided Port-A-Cath). No: Respiratory Distress, Accessory Muscle Use Cardiovascular: Present: Regular Rate and Rhythm, Normal S1, S2. No: Murmurs Abdomen: Present: Normal Bowel Sounds. No: Tenderness, Distention, Peritoneal Signs, Rebound, Guarding Upper Extremity: Present: Normal Inspection. No: Cyanosis, Edema Lower Extremity: Present: Edema (2+ left lower extremity edema, and 1+ right lower extremity edema) Neurological: Present: GCS=15, CN II-XII Intact, Speech Normal, Motor Func Grossly Intact Skin: Present: Warm, Dry, Other (Jaundiced). No: Rashes Psychiatric: Present: Alert, Oriented x 3, Normal Insight, Normal Concentration Medical Decision Making ED Course and Treatment: 01/29/17 16:27 EKG shows normal sinus rhythm rate approximately 90 with poor R-wave progression and no acute ST or T-wave changes 01/29/17 18:19 Bilateral lower extremity venous Dopplers as read by the radiologist are negative for DVT 01/29/17 18:21 Dr. Hernandez called and wants the patient admitted for chemotherapy. - Lab Interpretations Lab Results: 01/29/17 16:00 01/29/17 16:00 Lab Results 01/29/17 16:00: Sodium 136, Potassium 3.7, Chloride 100, Carbon Dioxide 27, Anion Gap 13, BUN 16, Creatinine 0.8, Est GFR ( Amer) > 60, Est GFR (Non- Af Amer) > 60, Random Glucose 83, Calcium 8.3 L, Total Bilirubin 5.5 H, AST 47, ALT 32, Alkaline Phosphatase 1290 H, Lactate Dehydrogenase 715 H, Total Creatine Kinase 40, Troponin I < 0.01, NT-Pro-B Natriuret Pep 1000 H, Total Protein 6.6, Albumin 2.7 L, Globulin 3.9, Albumin/Globulin Ratio 0.7 L 01/29/17 16:00: PT 14.4 H, INR 1.33 H, APTT 31.3 H 01/29/17 16:00: WBC 11.3 H D, RBC 3.58, Hgb 8.9 L, Hct 27.7 L, MCV 77.4 L, MCH 24.9 L, MCHC 32.1, RDW 20.8 H, Plt Count 354, MPV 9.2, Gran % 80.8 H, Lymph % ( Auto) 9.3 L, [place] % (Auto) 9.6 H, Eos % (Auto) 0.2 L, Baso % (Auto) 0.1, Gran # 9.14 H, Lymph # 1.1 L, Starke # 1.1 H, Eos # 0.0, Baso # 0.01 - RAD Interpretation Radiology Orders: 01/29/17 15:57 DUPLEX LOWER EXTRM VEIN BILAT [US] Stat 01/29/17 15:58 CHEST PORTABLE [RAD] Stat Chest one view shows a left pleural effusion and a right sided line. No infiltrate or cardiomegaly Bung Remover: ED Physician, Radiologist Disposition/Present on Arrival - Present on Arrival Any Indicators Present on Arrival: No History of DVT/PE: No History of Uncontrolled Diabetes: No Urinary Catheter: No History of Decub. Ulcer: No History Surgical Site Infection Following: None - Disposition Have Diagnosis and Disposition been Completed?: Yes Diagnosis: Anemia, Esophageal carcinoma, Weakness, Jaundice, Pedal edema Disposition: HOSPITALIZED Disposition Time: 18:20 Patient Plan: Observation Patient Problems: Current Active Problems Problem Status Onset Anemia Acute Esophageal carcinoma Acute Jaundice Acute Pedal edema Acute Weakness Acute Condition: FAIR Discharge Instructions (ExitCare): Weakness (ED) Referrals: David,Devarajan P, MD [Primary Care Provider] - Follow up with primary
[2017-01-29 15:57] VITALS: BMI 20.9
[2017-01-29 16:48] LABS: ALB/GLOB RATIO 0.7 (1.1-1.8); ALBUMIN 2.7 g/dL (3.0-4.8); ALT/SGPT 32 U/L (7-56); AST/SGOT 47 U/L (15-59); BLOOD UREA NITROGEN 16 mg/dL (7-21); CALCIUM 8.3 mg/dL (8.4-10.5); GFR AFRICAN-AMERICAN > 60; GFR NON-AFRICAN AMERICAN > 60
[2017-01-29 16:52] LABS: BASO # 0.01 K/mm3 (0.0-2.0); BASO % 0.1 % (0.0-3.0); EOS % 0.2 % (1.5-5.0); GRAN # 9.14 (1.4-6.5); GRAN % 80.8 % (50.0-68.0); HEMOGLOBIN 8.9 gm/dL (14.0-18.0); LYMPH # 1.1 (1.2-3.4); LYMPH % 9.3 % (22.0-35.0); MEAN CELL VOLUME 77.4 fL (80.0-105.0); MEAN CORPUSCULAR HEMOGLOBIN 24.9 pg (25.0-35.0); MEAN CORPUSCULAR HGB CONC 32.1 g/dl (31.0-37.0); MEAN PLATELET VOLUME 9.2 fl (7.0-11.0); MONO # 1.1 (0.1-0.6); MONO % 9.6 % (1.0-6.0); PLATELET COUNT 354 10^3/uL (120.0-450.0); RBC 3.58 10^6/uL (3.5-6.1); RED CELL DISTRIBUTION WIDTH 20.8 % (11.5-14.5); WHITE BLOOD COUNT 11.3 10^3/ul (4.5-11.0)
[2017-01-29 17:05] LABS: B-TYPE NATRIURETIC PEPTIDE 1000 pg/mL (0-450); TROPONIN I < 0.01 ng/mL
[2017-01-29 17:08] LABS: INR 1.33 (0.93-1.08); PARTIAL THROMBOPLASTIN TIME 31.3 Seconds (23.7-30.8); PROTHROMBIN TIME 14.4 Seconds (9.9-11.8)
--- NOTE | 2017-01-29 17:20 | RAD ---
HISTORY: sob COMPARISON: Prior comparison 01/16/2017 chest radiograph. FINDINGS: LUNGS: Medial left basilar atelectasis or infiltrate is not excluded. PLEURA: Although no pneumothorax is identified, a small left pleural effusion now encountered partially obscuring the left base laterally. CARDIOVASCULAR: A right central venous chest portion and now identified placement and turning in the atrial junction by a pair right are darker approach. No right-sided pneumothorax. OSSEOUS STRUCTURES: No significant abnormalities. VISUALIZED UPPER ABDOMEN: Normal. OTHER FINDINGS: None. IMPRESSION: Interval left basilar atelectasis or infiltrate is questioned at the medial base as well as a mild left pleural effusion. A right-sided chest port is now been placed in the interval. No pneumothorax bilaterally.
[2017-01-29 18:26] LABS: HYPOCHROMIA SLIGHT; LYMPHOCYTE 4 % (22.0-35.0); MONOCYTE 9 % (1.0-6.0); NEUTROPHIL 87 % (50.0-70.0); PLATELET ESTIMATE NORMAL (NORMAL); POLYCHROMASIA SLIGHT
[2017-01-29 18:27] LABS: ANISOCYTOSIS SLIGHT; MICROCYTOSIS SLIGHT; TARGET CELLS 1+
--- NOTE | 2017-01-29 18:51 | CARD ---
APPROVED REPORT EKG Measurement Heart [id number] <Conclusion> Normal sinus rhythm Normal ECG
--- NOTE | 2017-01-29 18:54 | US ---
PROCEDURE: Bilateral lower extremity venous duplex Doppler. HISTORY: edema COMPARISON: None available. TECHNIQUE: Bilateral common femoral, superficial femoral, popliteal and posterior tibial veins were evaluated. Flow was assessed with color Doppler, compressibility, assessment of phasic flow and augmentation response. FINDINGS: COMMON FEMORAL VEIN: Right CFV: Normal flow and compressibility. Left CFV: Normal flow and compressibility. SUPERFICIAL FEMORAL VEIN: Right SFV: Normal flow and compressibility. Left SFV: Normal flow and compressibility. POPLITEAL VEIN: Right Popliteal: Normal flow and compressibility. Left Popliteal: Normal flow and compressibility. POSTERIOR TIBIAL VEIN: Right PTV: Normal flow and compressibility. Left PTV: Normal flow and compressibility. OTHER FINDINGS: None. IMPRESSION: No evidence of deep venous thrombosis.
[2017-01-29] MEDS ORDERED: Sodium Chloride 0.45% 1,000 ML IV SCH (22:00)
[2017-01-29] MEDS: oxyCODONE 15 mg Immediate Release Tab PO PRN (22:39)
[2017-01-30 02:31] LABS: BILIRUBIN,DIRECT 4.5 mg/dL (0.0-0.4)
[2017-01-30 06:45] LABS: PH,URINE 5.5 (4.7-8.0); URINE BILIRUBIN MODERATE (NEGATIVE); URINE BLOOD NEGATIVE (NEGATIVE); URINE GLUCOSE (UA) NEGATIVE (NEGATIVE); URINE LEUKOCYTE ESTERASE NEGATIVE Leu/uL (NEGATIVE); URINE NITRATE NEGATIVE (NEGATIVE); URINE PROTEIN TRACE mg/dL (<30 mg/dL)
[2017-01-30 06:47] LABS: URINE APPEARANCE CLOUDY (CLEAR)
[2017-01-30 06:48] LABS: URINE COLOR AMBER (YELLOW)
[2017-01-30 06:53] LABS: URINE EPITHELIAL CELLS 0 - 2 /hpf (0-5); URINE FINE GRANULAR CAST 0 - 2 /hpf (0-2); URINE RBC 0 - 2 /hpf (0-2)
[2017-01-30 06:54] LABS: URINE BACTERIA RARE (NEG)
--- NOTE | 2017-01-30 10:05 | US ---
HISTORY: ATTENTION CBD PANCREAS COMPARISON: MRCP and MRI abdomen 01/18/2017 TECHNIQUE: Sonographic evaluation of the abdomen. FINDINGS: LIVER: Measures 22 x 11 x 13 cm. Heterogeneous echogenicity of the liver parenchyma. Multiple intra hepatic hyperechoic masses consistent with left and right hepatic metastases. The largest on the right measures 10.4 by 12.7 x 8.6 cm. The 2 largest on the left are 3.1 x 2.7 x 2.9 cm and 3 and a 3.3 x 3.6 x 3.7 cm No intrahepatic bile duct dilatation. GALLBLADDER: Innumerable gallstones within the gallbladder. . No gross gallbladder wall edema or sonographic positive Malcolm's sign COMMON BILE DUCT: Measures 6 mm. No stones. No dilatation. PANCREAS: Images the body appear unremarkable pancreatic head appears somewhat prominent -however limited visualization here RIGHT KIDNEY: Measures 11.7 x 5.4 x 5.7cm. Normal echogenicity. No calculus, mass, or hydronephrosis. LEFT KIDNEY: Measures 11.8 x 5.1 x 4 point sickcm. Normal echogenicity. No calculus, mass, or hydronephrosis. SPLEEN: Normal in size and contour. No mass. AORTA: No aneurysmal dilatation. IVC: Unremarkable. OTHER FINDINGS: Ascites and bilateral pleural effusions IMPRESSION: Extensive left and right hepatic metastases. Ascites and bilateral pleural effusions. No hydronephrosis Multiple gallstones within the gallbladder. No ancillary signs to suggest concomitant acute cholecystitis
--- NOTE | 2017-01-30 11:39 | CP.PCM.CON ---
History of Present Illness - History of Present Illness History of Present Illness: Seen and examined at bedside, chart was reviewed. Request for consult for stomach cancer, liver metastasis HPI: This is a 56 year old male with a PMH of Gastroesophageal cancer s/p resection in 2010, MS, GERD, came to the hospital with complaints of weakness anad lower extremities edema, he had a doppler of bilateral LE and that was negative. Denies, N/V, abdominal pain, abdominal distension. Tolerating oral intake, no problem with swallowing. Patient was [place] [facility] was seen by our service for elevated bilirubin and oncology was considering starting patient on chemo, which would be titrated to LFT. He went for MRCP and that revealed gallstones, without evidence of acute cholecystitis, multiple liver masses, right adrenal mass suspicious for metastasis. PMH: Esophageal and stomach cancer, Anemia, anastomotic ulcer, Multiple sclerosis, GERD, H/O Peptic ulcer, liver mass, gallstones PSH: Esophagogastrectomy, 2017 egd: found to have erosion/ulcer at anastomisis, and few superficial esophageal ulcers, and an angulated pylorus, no stricture or obstruction, colonoscopy as well to r/o colonic malignancy and that revealed internal hemorrhoids, no other colonic lesion found, liver bx of right liver mass that was reported to be metastatic adenocarcinoma/ adenocarcinoma of upper GI/pancreatobiliary tract origin. FH noncontributory at this time Allergies: NKDA MEDS: reviewed as per MAR Social HX: positive for smoking, denies ETOH, substance abuse ROS: systems reviewed, with positive findings, see HPI. Past Patient History - Infectious Disease Hx of Infectious Diseases: None - Past Social History Smoking Status: Current Some Days Smoker - CARDIAC Hx Cardiac Disorders: No - PULMONARY Hx Respiratory Disorders: No - NEUROLOGICAL Hx Neurological Disorder: No - HEENT Hx HEENT Problems: Yes (wears glasses) - RENAL Hx Chronic Kidney Disease: No - ENDOCRINE/METABOLIC Hx Endocrine Disorders: No - HEMATOLOGICAL/ONCOLOGICAL Hx Anemia: Yes Hx Cancer: Yes (ESAPHAGEAL/STOMACH c LIVER METS) - INTEGUMENTARY Hx Dermatological Problems: No - MUSCULOSKELETAL/RHEUMATOLOGICAL Hx Falls: Yes - GASTROINTESTINAL Other/Comment: Stomach CA,Esaphagal CA - GENITOURINARY/GYNECOLOGICAL Hx Genitourinary Disorders: No - PSYCHIATRIC Hx Substance Use: No - SURGICAL HISTORY Other/Comment: "Removed 1/3 or stomach" - ANESTHESIA Hx Anesthesia Reactions: No Hx Malignant Hyperthermia: No Meds Allergies/Adverse Reactions: Allergies Allergy/AdvReac Type Severity Reaction Status Date / Time No Known Allergies Allergy Verified 01/29/17 16:35 - Medications Medications: Current Medications Fentanyl (Duragesic) 1 patch TD Q72H [facility] Last Admin: 01/29/17 22:39 Dose: 1 patch Sodium Chloride (Sodium Chloride 0.45%) 1,000 mls @ 60 mls/hr IV .[id number] [facility] Last Admin: 01/29/17 22:30 Dose: 60 mls/hr Ondansetron HCl (Zofran Inj) 4 mg IVP Q6H PRN PRN Reason: Nausea/Vomiting Oxycodone HCl (Oxycodone Immediate Release Tab) 15 mg PO Q4 PRN PRN Reason: BREAKTHRU PAIN Last Admin: 01/29/17 22:39 Dose: 15 mg Pantoprazole Sodium (Protonix Inj) 40 mg IVP DAILY [facility] Last Admin: 01/30/17 09:28 Dose: 40 mg Sucralfate (Carafate Tab) 1 gm PO BID [facility] Last Admin: 01/30/17 09:28 Dose: 1 gm Physical Exam - Constitutional Appears: Cachectic - Head Exam Head Exam: NORMAL INSPECTION - Eye Exam Eye Exam: Scleral icterus - ENT Exam ENT Exam: Mucous Membranes Moist - Neck Exam Neck exam: Positive for: Normal Inspection - Respiratory Exam Respiratory Exam: Decreased Breath Sounds, NORMAL BREATHING PATTERN. absent: Rales, Wheezes, Respiratory Distress - Cardiovascular Exam Cardiovascular Exam: +S1, +S2 - GI/Abdominal Exam GI & Abdominal Exam: Distended, Normal Bowel Sounds, Soft. absent: Guarding, Rebound, Tenderness Additional comments: mild - Extremities Exam Extremities exam: Positive for: pedal edema, pedal pulses present. Negative for : calf tenderness - Neurological Exam Neurological exam: Alert, Oriented x3 - Skin Skin Exam: Dry, Warm Additional comments: jaundice Results - Vital Signs Recent Vital Signs: Last Vital Signs Temp 98.1 F 01/30/17 00:42 Pulse 78 01/30/17 00:42 Resp 20 01/30/17 00:42 BP 137/98 H 01/30/17 00:42 Pulse Ox 99 01/29/17 20:35 - Labs Result Diagrams: 01/30/17 12:10 01/30/17 12:10 Labs: Laboratory Results - last 24 hr 01/30/17 01/30/17 02:19 04:10 Total Bilirubin 5.2 H Direct Bilirubin 4.5 H Urine Color Alfreda Urine Appearance Cloudy Urine pH 5.5 Ur Specific [place] 1.020 Urine Protein Trace H Urine Glucose (UA) Negative Urine Ketones Negative Urine Blood Negative Urine Nitrate Negative Urine Bilirubin Moderate H Urine Urobilinogen 4.0 H Ur Leukocyte Esterase Negative Urine RBC 0 - 2 Urine WBC 1 - 3 Ur Epithelial Cells 0 - 2 Urine Bacteria Rare Hyaline Casts 1 - 3 Fine Granular Casts 0 - 2 Assessment & Plan - Assessment and Plan (Free Text) Assessment: ASSESSEMENT: 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 Seen and discussed with Dr. Elizabeth. Addendum: abdominal US: multiple gallstones, no signs of acute cholecystitis, CBD 6mm, no cbd stones or dilation, right and left hepatic masses.
--- NOTE | 2017-01-30 11:42 | HP ---
CHIEF COMPLAINT: This is a 56-year-old white male with a documented recurrent stage-IV metastatic carcinoma of the esophagus, discovered recently about a month and half ago, when he had presented with progressive back pain, epigastric pain, chest pain, and had exhaustive workup, which revealed the patient to have recurrent metastatic disease from the esophagus into the retroperitoneal lymph nodes, into the mediastinal nodes, and there was also evidence of possibly lung metastasis as well. The patient's initial admission required blood transfusion, had been taking lot of NSAIDs prior to the admission over the last several months to prior to admission, beginning in July and August of 2016. The patient has also lost more than 30 to 35 pounds of weight over the course of time, after the first admission after the diagnoses of the current disease was made by liver biopsy, the patient was being attempted to be set up for systemic therapy. In the meantime, the patient will need to have a port put in, but because of insurance issues, we could not technically set up the port. The patient was in the interim admitted about six weeks later to the [facility] through the emergency room complaining of increasing chest pain. At that time, the patient was noted to have no evidence of any cardiac issues or a PE based on the workup and he was scoped and was found to have large hiatal hernia, if it is of gastritis for which he was put on Carafate in addition to the PPI that he was on and he felt symptomatically much improved. The patient had port put in at that time, discharged to have chemotherapy administrated as an outpatient. Unfortunately, a few weeks have gone by and we have been unable to get treatment until he had his insurance authorized. The patient's insurance was authorized at Medicaid only recently, but the family had called me and said that he had been lying in bed for the last three days, spends more than 50% of his time in bed and been feeling very weak with increasing edema, poor appetite, no fever, no chills, increasing abdominal discomfort, and pain for which he is on Duragesic and oxycodone as an outpatient. The patient had not had systemic chemotherapy for the documented recurrence at this time. PAST MEDICAL HISTORY: Significant to the fact that in 2010, he was diagnosed to have locally advanced EG junctional adenocarcinoma for which he was diagnosed and treated at [facility] in [facility]. The patient had neoadjuvant chemotherapy followed by surgical resection and end-to-end anastomosis and it appears from the records obtained from what the patient has been telling us, he did not get any postoperative radiation or further treatment. The patient had subsequent follow PET-CT scans, which was negative up to two years ago. Chemotherapy consisted of epirubicin, [place], and capecitabine. 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 REVIEW OF SYSTEMS: A 14-system review is negative except for the HPI. The patient denies any history of fevers or chills. Complaining of generalized fatigue and weakness along with bilateral lower extremities edema or swelling, the right greater than the left over the last several days. Appetite has also significantly decreased. The patient denies any fever or chills of mention, denies any shortness of breath or coughing, denies any significant chest pain at this time, especially after being put on Carafate, no palpitations or syncope. The patient has been complaining of increasing epigastric and abdominal pain, especially at the side of the right upper quadrant, where his liver is enlarged. He denies any history of headache, dizziness, or focal weakness. FAMILY HISTORY: Noncontributory. ALLERGIES: THE PATIENT HAS NO KNOWN ALLERGIES. HOME MEDICATIONS: Include, extended release morphine 15 mg p.o. every 12 hours. He is on prochlorperazine 10 mg p.o every 8 hours as needed for nausea, oxycodone 15 mg p.o. every 4 hours p.r.n. and he is also on Duragesic patches 25 mcg put in on the chest wall at this time, during the last admission. PHYSICAL EXAMINATION: VITAL SIGNS: At the time of admission; T-max is 98.4, pulse is 96, respirations 20, blood pressure is 150/95 and pulse ox of 98%. GENERAL: The patient is awake, alert, and oriented x3. HEENT: Head is normocephalic and atraumatic. Conjunctivae pale. Sclerae are icteric. Pupils are equally reactive to light and accommodation. Temporal muscle wasting is noted. The patient appears to be comfortable but appears to be thin, cachectic, jaundiced, edematous and chronically ill appearing. The patient has been having significant pain requiring both Duragesic patches and oral oxycodone pills. Examination of mouth reveals moist mucous membranes. No ulcerations are noted. There is no erythema or exudate on examination of his pharynx. Tonsils do appear enlarged. NECK: Supple. There is no adenopathy. No jugular venous distention noted. LUNGS: Reveal it to be clear to percussion and auscultation anteriorly with decreased breath sounds on the left side posteriorly. CARDIOVASCULAR: Reveals S1 and S2 to be normal. No gallop is heard. The patient is slightly tachycardic. ABDOMEN: Soft and mildly distended. The patient has a huge enlarged liver, especially the right lobe of the liver with some tenderness. No rebound, rigidity, or guarding is noted. Bowel sounds are present. EXTREMITIES: Upper extremities are normal to inspection. There is no evidence of cyanosis, edema, or clubbing. Examination of lower extremities reveals 2+ edema to left lower extremity and 1+ edema the right lower extremity. Higher functions are normal. No focal deficits are noted. SKIN: Warm and dry. The patient is jaundiced with no evidence of rashes or any skin lesions. PSYCHIATRIC: The patient is appropriate in his affect and of course is depressed because of his progressive illness. LABORATORY DATA: From the ER reveals a white count of 11.3, hemoglobin 8.9, hematocrit 27.7, and platelet count of 354,000. Sodium is 136, potassium 3.7, chloride is 100, CO2 is 27, BUN 16, creatinine 0.8, and glucose is 83. EKG shows the normal sinus rhythm with rate of 90 with poor R-wave progression. The patient's bilateral lower extremity Doppler studies are negative for DVT. 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 The patient's tumor did not express HER2/kenneth receptor, so he is not a candidate for medications such as Herceptin. We have been watching the liver function, as it has been deteriorating over the last month and even up to two weeks ago his total bilirubin was up to 2.6, now is up to 5.5. MRCP done during the last admission did not show any obstructive changes in the common bile duct or the pancreatic head and more suggestive of cholestatic pattern. The patient is not a candidate for any of the vascular endothelial growth factor inhibitors such as ramucirumab or Avastin in view of the fact that he had significant bleeding both during the first admission where he required three units of blood, second admission where he required two units of blood. I have requested for an ultrasound of the abdomen with attention to the liver and pancreas, to have a better understanding of the progression of the disease before we initiate chemotherapy, consultation with both GI and Renal has been obtained to monitor the electrolyte imbalances, which could foreseeably happen if we did start to give him any systemic therapy. The patient has been started on IV fluids for now, he is on gastric prophylaxis and we will put him also on deep venous thrombosis prophylaxis as well. I cleared the concern that I had with the chest x-ray with pleural effusion, this may need to be addressed because it could be related to progressive disease. Since the patient has not had chemotherapy for more than five years, it could be considered a new initiation of therapy and the therapy would be complex for the patient. The only way we would be able to give him, which would not compromise our ability to give the treatment, is he has reasonable renal function and his liver functions have deteriorated, so the true drugs of choice that will be easier to offer will be modified doses of Taxol or to give the patient Platinol and 5-FU, the dose of which would also have to be modified. We will discuss with appropriate people before making any decisions. In the meantime, we will type and cross the patient for two units of blood for possible transfusion as I expect the blood counts to go down further. Prognosis for the patient is guarded. Routine post exam instructions have been given to the patient to make sure we get palliative care consult in as well, as a routine. Ravin Hernandez MD
[2017-01-30] MEDS: oxyCODONE 15 mg Immediate Release Tab PO PRN ×2 (12:10→18:18)
[2017-01-30 12:12] LABS: BASO # 0.01 K/mm3 (0.0-2.0); BASO % 0.1 % (0.0-3.0); EOS % 0.2 % (1.5-5.0); GRAN # 9.45 (1.4-6.5); GRAN % 77.2 % (50.0-68.0); HEMOGLOBIN 8.6 gm/dL (14.0-18.0); LYMPH # 1.5 (1.2-3.4); MEAN CELL VOLUME 77.7 fL (80.0-105.0); MEAN CORPUSCULAR HEMOGLOBIN 24.6 pg (25.0-35.0); MEAN CORPUSCULAR HGB CONC 31.7 g/dl (31.0-37.0); MEAN PLATELET VOLUME 8.8 fl (7.0-11.0); MONO # 1.3 (0.1-0.6); MONO % 10.5 % (1.0-6.0); PLATELET COUNT 341 10^3/uL (120.0-450.0); RBC 3.49 10^6/uL (3.5-6.1); RED CELL DISTRIBUTION WIDTH 21.2 % (11.5-14.5); WHITE BLOOD COUNT 12.3 10^3/ul (4.5-11.0)
[2017-01-30 12:26] LABS: ALB/GLOB RATIO 0.7 (1.1-1.8); ALBUMIN 2.5 g/dL (3.0-4.8); ALT/SGPT 31 U/L (7-56); AST/SGOT 50 U/L (15-59); BLOOD UREA NITROGEN 16 mg/dL (7-21); CALCIUM 8.2 mg/dL (8.4-10.5); GFR AFRICAN-AMERICAN > 60; GFR NON-AFRICAN AMERICAN > 60
--- NOTE | 2017-01-30 14:32 | CP.PCM.PN ---
Subjective - Date & Time of Evaluation Date of Evaluation: 01/30/17 Time of Evaluation: 07:00 - Subjective Subjective: PGY-[address] Hernandez Pt complaint of sudden worsening of generalized weakness and decreased appeptite. Strength slowly improves after PT Objective - Vital Signs/Intake and Output Vital Signs (last 24 hours): Temp Pulse Resp BP Pulse Ox 98.6 F 68 20 136/93 H 100 01/30/17 06:00 01/30/17 06:00 01/30/17 06:00 01/30/17 06:00 01/30/17 06:00 Intake and Output: 01/30/17 01/30/17 06:59 18:59 Intake Total 120 Balance 120 - Medications Medications: Current Medications Fentanyl (Duragesic) [address] [facility] Last Admin: 01/29/17 22:39 Dose: 1 patch Furosemide (Lasix) [address] [facility] Ondansetron HCl (Zofran Inj) 4 mg IVP Q6H PRN PRN Reason: Nausea/Vomiting Oxycodone HCl (Oxycodone Immediate Release Tab) 15 mg PO Q4 PRN PRN Reason: BREAKTHRU PAIN Last Admin: 01/30/17 12:10 Dose: 15 mg Pantoprazole Sodium (Protonix Inj) [address] [facility] Last Admin: 01/30/17 09:28 Dose: 40 mg Sucralfate (Carafate Tab) [address] [facility] Last Admin: 01/30/17 09:28 Dose: 1 gm - Labs Labs: 01/30/17 12:10 01/30/17 12:10 PT 14.4 Seconds (9.9-11.8) H 01/29/17 16:00 INR 1.33 (0.93-1.08) H 01/29/17 16:00 APTT 31.3 Seconds (23.7-30.8) H 01/29/17 16:00 - Constitutional Appears: Cachectic, Chronically Ill - Head Exam Head Exam: ATRAUMATIC, NORMAL INSPECTION, NORMOCEPHALIC - Eye Exam Eye Exam: EOMI, Normal appearance, PERRL, Scleral icterus Pupil Exam: NORMAL ACCOMODATION - ENT Exam ENT Exam: Mucous Membranes Moist, Normal Exam Additional comments: bitemporal wasting - Neck Exam Neck Exam: Normal Inspection - Respiratory Exam Respiratory Exam: Clear to Ausculation Bilateral. absent: Rales, Rhonchi, Wheezes - Cardiovascular Exam Cardiovascular Exam: REGULAR RHYTHM, +S1, +S2 - GI/Abdominal Exam GI & Abdominal Exam: Distended, Soft, Normal Bowel Sounds, Organomegaly. 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 Liver function is deteriorating over the last month. Total bilirubin is 5.5. MRCP + gallstone, acute cholecystitis, liver mets, R adrenal mets. He was admitted for sudden onset generalized weakness that he remained bedbound at home. 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 Taxol or Platinol + 5Fu - Alk phos 1300 likely cancer burden Hx GI bleed - t&C 2u on hold Liver dysfunction due to mets b/l LE edema - negative doppler - Extensive L and R hepatic metastses - Ascites and b/l pleural effusion - No hydronephrosis - Multiple gallstone no acute cholecystits - lasix PO qd Leukocytosis - 12.3 Microcytic anemia - Hb 8.9 --> 8.6 INR 1.33 Direct Hyperbilirubinemia at 4.5 Malnutrition - alb 2.5, decrease appetite, dietitian consult, periactin Pain - Duragesic - oxycodone IR 15 q4 prn Consult - Dietitian - GI - Dr. Elizabeth - [facility] - Dr. Dover s/r/d/w Dr. Hernandez
[2017-01-30] MEDS ORDERED: Sodium Chloride 0.45% 1,000 ML IV SCH ×2 (20:45)
[2017-01-30] MEDS ORDERED: DiphenhydrAMINE 50 mg/ml Inj IVP ONE (21:13)
[2017-01-30] MEDS: Morphine 2 mg/ml ISec IVP PRN (21:20)
--- NOTE | 2017-01-31 02:12 | CON ---
DATE: 01/30/2017 ADMITTING PHYSICIAN: Dr. Hernandez. REFERRING MD: Dr. Hernandez. REASON FOR CONSULTATION: To help manage electrolytes in a patient who presented for metastatic esophageal cancer, lower extremity edema with ascites. 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 This was diagnosed in 2010. Patient is status post surgical resection and chemotherapy. According to patient, he continues to receive chemotherapy. Patient has had progressive weight loss. Patient has developed lower extremity edema. He has no kidney disease. No protein in his urine, but he does have low albumin levels, likely secondary to ongoing metastatic disease to the liver. We are asked to evaluate the patient to help manage his fluid status and electrolytes. Patient states that he will likely receive chemotherapy during the hospitalization. Patient also has a history of hiatal hernia and anemia secondary to the ongoing malignancy. PAST MEDICAL HISTORY: Significant for that of metastatic esophageal cancer with mets to lymph nodes, lung, liver and adrenal gland; history of hiatal hernia; history of anemia; history of edema of the lower extremity of recent duration. MEDICATIONS AT HOME: Include fentanyl, Carafate, prochlorperazine maleate, morphine p.r.n., and oxycodone p.r.n. ALLERGIES: The patient has no known allergies to medications. PRESENT MEDICATIONS IN HOSPITAL: Include Carafate, Duragesic, oxycodone, Protonix, half normal saline 60 mL an hour and Zofran. SOCIAL HISTORY: Positive history of cigarette smoking. No history of alcohol use. FAMILY HISTORY: Noncontributory. REVIEW OF SYSTEMS: GENERAL: Patient admits to progressive weight loss, but this has been stable over the recent times. Diminished p.o. intake secondary to nausea. ENT: Negative. PULMONARY: No shortness of breath or pulmonary diseases. CARDIAC: History is negative. GASTROINTESTINAL: Positive mild abdominal pain, nausea, intermittent vomiting. GENITOURINARY: No history of chronic kidney disease. ENDOCRINE: No history of diabetes. MUSCULOSKELETAL: No complaints. NEUROLOGIC: No history of CVA, TIA, seizures, or syncope. HEME/ONC: History of anemia, likely secondary to metastatic esophageal cancer. PSYCHIATRIC: History is negative. PHYSICAL EXAMINATION GENERAL: Patient is currently seen on 3R. He appears to be in no acute distress, but he is concerned about his lower extremity edema. VITAL SIGNS: Blood pressure ranging from 121-137 systolic with diastolics ranging from 82-98, heart rate is 68, temperature 98.6, respiratory rate is 20. HEENT: Shows him to be normocephalic, atraumatic, temporomandibular wasting. Sclerae are icteric. Conjunctivae are pale. Pupils are equal, reactive to light and accommodation. Extraocular muscles are intact. Posterior pharynx is normal. NECK: Supple. No neck vein distention. No thyromegaly, no lymphadenopathy, no bruits. CHEST: Clear to auscultation and percussion with slight decreased breath sounds at bases. CARDIOVASCULAR: Shows a regular rate and rhythm with no murmurs, rubs or gallops noted. ABDOMEN: Soft, mild tenderness on palpation of all quadrants, but mostly in the lower quadrants. No tenderness over the liver. No appreciable fluid wave. Bowel sounds are normal. No rebound, no guarding, no masses. BACK: No CVA tenderness, spinal tenderness. EXTREMITIES: Shows no cyanosis, no clubbing, he does have trace to 1+ pitting edema of his ankles and lower leg bilaterally. NEUROLOGIC: Shows him to be alert and oriented x3 with no gross focal motor or sensory deficits noted. LABORATORY DATA AND IMAGING: Admitting ultrasound showed gallstones, liver mets, no evidence for acute cholecystitis, ascites with bilateral pleural effusions. Admitting chest x-ray showing a right chest wall port. Left base atelectasis, left base pleural effusion. Lower extremity venous Doppler showed no evidence of DVT. CBC: White blood cell count 12.3, hemoglobin 8.6 with a platelet count of 341,000. Coag showed a PT of 14.4, with a PTT of 31.3. Chemistries showed normal electrolytes. BUN 16 with a creatinine of 0.8. Potassium is 3.8 with a sodium of 135. Calcium is 8.2 albumin of 2.5. Bilirubin is elevated at 5.3. Liver enzymes are normal. Alkaline phosphatase is elevated at 1319. Urine showed trace protein, otherwise unremarkable with exception of bilirubin in the urine and urobilinogen in the urine. ASSESSMENT: 1. Stage IV metastatic esophageal cancer with mets to lymph nodes, lung, liver and adrenal gland. Patient states he is in for more chemotherapy. 2. Anemia likely secondary to metastatic cancer. 3. Lower extremity edema, perhaps secondary to low albumin level secondary to ongoing liver disease secondary to mets to liver. There is no evidence for chronic kidney disease and no evidence for proteinuria. 4. History of hiatal hernia, currently being treated with protein pump inhibition therapy. PLAN: 1. Discussed with patient. I explained to him that at present he has no ongoing issues with his electrolytes, but we will monitor him closely as per the request of Dr. Hernandez. 2. I would suggest starting low-dose Lasix therapy and if his p.o. intake is adequate, perhaps discontinuation of IV fluid therapy. 3. I did explain to patient in all likelihood the edema is secondary to low albumin level secondary to ongoing liver disease. I reassured him that he has no issues with his kidney. 4. Leg elevation and low-sodium diet. 5. Continue to monitor labs closely with the initiation of diuretic therapy. 6. Further chemotherapy as per Dr. Hernnadez and ____. 7. No evidence for deep vein thrombosis is seen on venous Doppler study of his lower extremity. 8. Anemia. This will be evaluated by Dr. Hernandez. Patient may be transfused on an as needed basis. I will check patient's iron, TIBC, and ferritin levels. Thank you for letting me part take and share in the care of your patient. Rd Dover MD
[2017-01-31] MEDS: Morphine 2 mg/ml ISec IVP PRN (05:29)
--- NOTE | 2017-01-31 07:57 | CP.PCM.PN ---
Subjective - Date & Time of Evaluation Date of Evaluation: 01/31/17 Time of Evaluation: 07:54 - Subjective Subjective: PGY-[address] Hernandez 2nd unit of PRBC transfusion completed at 5am Lasix 20 mg IVP once Start cisplatin, day 1 today with pre-med with benadryl 25, ativan 0.5 Code star at 3:15. Pt's main complaints were due to dizziness and loss of balance. Pt receive nacortic for cancer pain, pre-med for chemo, and on diuretics. Objective - Vital Signs/Intake and Output Vital Signs (last 24 hours): Temp Pulse Resp BP Pulse Ox 98.1 F 69 20 128/91 H 99 01/31/17 05:45 01/31/17 05:45 01/31/17 05:45 01/31/17 05:45 01/30/17 16:00 Intake and Output: 01/31/17 01/31/17 06:59 18:59 Intake Total 1838 Output Total 1100 Balance 738 - Medications Medications: Current Medications Cyproheptadine HCl (Periactin) 4 mg PO TID [facility] Last Admin: 01/30/17 17:19 Dose: 4 mg Fentanyl (Duragesic) 1 patch TD Q72H [facility] Last Admin: 01/29/17 22:39 Dose: 1 patch Furosemide (Lasix) 40 mg PO DAILY [facility] Last Admin: 01/30/17 17:19 Dose: 40 mg Sodium Chloride (Sodium Chloride 0.45%) 1,000 mls @ 60 mls/hr IV .[id number] [facility] Stop: 01/31/17 10:00 Last Admin: 01/30/17 21:06 Dose: 60 mls/hr Morphine Sulfate (Morphine) 2 mg IVP Q4H PRN PRN Reason: Pain, moderate (4-7) Last Admin: 01/31/17 05:29 Dose: 2 mg Ondansetron HCl (Zofran Inj) 4 mg IVP Q6H PRN PRN Reason: Nausea/Vomiting Oxycodone HCl (Oxycodone Immediate Release Tab) 15 mg PO Q4 PRN PRN Reason: BREAKTHRU PAIN Last Admin: 01/30/17 18:18 Dose: 15 mg Pantoprazole Sodium (Protonix Inj) 40 mg IVP DAILY [facility] Last Admin: 01/30/17 09:28 Dose: 40 mg Sucralfate (Carafate Tab) 1 gm PO BID [facility] Last Admin: 01/30/17 17:19 Dose: 1 gm - Labs Labs: PT 14.4 Seconds (9.9-11.8) H 01/29/17 16:00 INR 1.33 (0.93-1.08) H 01/29/17 16:00 APTT 31.3 Seconds (23.7-30.8) H 01/29/17 16:00 - Constitutional Appears: No Acute Distress - Head Exam Head Exam: NORMAL INSPECTION, NORMOCEPHALIC Additional comments: superficial abrasion on R periorbital area, R maxilla - Eye Exam Eye Exam: EOMI, Normal appearance, PERRL. absent: Scleral icterus - ENT Exam ENT Exam: Mucous Membranes Moist - Respiratory Exam Respiratory Exam: Clear to Ausculation Bilateral. absent: Rales, Rhonchi, Wheezes - Cardiovascular Exam Cardiovascular Exam: REGULAR RHYTHM, +S1, +S2 - GI/Abdominal Exam GI & Abdominal Exam: Soft, Normal Bowel Sounds, Organomegaly. absent: Guarding , Rigid, Tenderness - Extremities Exam Extremities Exam: Pedal Edema (2+ pitting on dorsum foot). 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 Liver function is deteriorating over the last month. Total bilirubin is 5.5. MRCP + gallstone, acute cholecystitis, liver mets, R adrenal mets. He was admitted for sudden onset generalized weakness that he remained bedbound at home. Differential includes Anemic symptomatic vs deconditioning from cancer load vs malnutrition. Code star at 3: 15. Pt's main complaints were due to dizziness and loss of balance. Pt receive nacortic for cancer pain, pre-med for chemo, and on diuretics. Sudden worsening of weakness, generalized s/p Code star - pt able to recall fall for 15 mins. Recheck in 1 hr, pt has amnesia of the fall. AAOx3 - Re-consult PT before discharge tomorrow - 1:1 for safety - pending CT head - Continue fentynl patch, use only oxycodone IR as severe pain PRN per Dr. 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 - Tumor is HER2/kenneth negative, not a candidate for Herceptin - Not candidate for avastin or ramucirumab due to Hx significant GI bleed - U/S abdomen - gallstone no acute cholecystitis, diffuse liver mets - Start chemo Platinol - Alk phos 1300 likely cancer burden Hx GI bleed - 2u transfused Liver dysfunction due to mets b/l LE edema - negative doppler - Extensive L and R hepatic metastses - Ascites and b/l pleural effusion - No hydronephrosis - Multiple gallstone no acute cholecystits - lasix PO qd Leukocytosis - resolved Microcytic anemia - Hb 8.9 --> 8.6 s/p 2u pRBC --> 10.8 INR 1.33 Total bilirubin > 5 Direct Hyperbilirubinemia at 4.5 Malnutrition - alb 2.5, decrease appetite, dietitian consult, periactin Pain - Duragesic - oxycodone IR 15 q4 prn Consult - Dietitian - GI - Dr. Elizabeth - [facility] - Dr. Dover s/r/d/w Dr. Hernandez
[2017-01-31 08:10] LABS: ALB/GLOB RATIO 0.7 (1.1-1.8); ALBUMIN 2.7 g/dL (3.0-4.8); ALT/SGPT 33 U/L (7-56); AST/SGOT 59 U/L (15-59); BLOOD UREA NITROGEN 19 mg/dL (7-21); CALCIUM 8.2 mg/dL (8.4-10.5); GFR AFRICAN-AMERICAN > 60; GFR NON-AFRICAN AMERICAN > 60; MAGNESIUM 1.9 mg/dL (1.7-2.2)
[2017-01-31 08:14] LABS: BASO # 0.01 K/mm3 (0.0-2.0); BASO % 0.1 % (0.0-3.0); GRAN # 9.96 (1.4-6.5); GRAN % 89.6 % (50.0-68.0); HEMOGLOBIN 10.8 gm/dL (14.0-18.0); LYMPH # 0.8 (1.2-3.4); LYMPH % 7.2 % (22.0-35.0); MEAN CELL VOLUME 77.7 fL (80.0-105.0); MEAN CORPUSCULAR HEMOGLOBIN 25.9 pg (25.0-35.0); MEAN CORPUSCULAR HGB CONC 33.3 g/dl (31.0-37.0); MEAN PLATELET VOLUME 9.7 fl (7.0-11.0); MONO # 0.3 (0.1-0.6); MONO % 3.1 % (1.0-6.0); PLATELET COUNT 392 10^3/uL (120.0-450.0); RBC 4.17 10^6/uL (3.5-6.1); RED CELL DISTRIBUTION WIDTH 22.4 % (11.5-14.5); WHITE BLOOD COUNT 11.1 10^3/ul (4.5-11.0)
--- NOTE | 2017-01-31 09:49 | CP.PCM.PN ---
<Karen Haines - Last Filed: 01/31/17 09:48> Subjective - Date & Time of Evaluation Date of Evaluation: 01/31/17 Time of Evaluation: 09:10 - Subjective Subjective: S&E, chart reviewed, No SOB, chest pain,N/V or abdominal pain, tolerated some of breakfast. Awaiting to go for chemo today. s/p 2 units of PRBC yesterday. abdominal US: multiple gallstones, no signs of acute cholecystitis, CBD 6mm, no cbd stones or dilation, right and left hepatic masses Objective - Vital Signs/Intake and Output Vital Signs (last 24 hours): Temp Pulse Resp BP Pulse Ox 98.1 F 69 20 128/91 H 98 01/31/17 06:00 01/31/17 06:00 01/31/17 06:00 01/31/17 09:22 01/31/17 06:00 Intake and Output: 01/31/17 01/31/17 06:59 18:59 Intake Total 1838 Output Total 1100 Balance 738 - Medications Medications: Current Medications Cyproheptadine HCl (Periactin) 4 mg PO TID [facility] Last Admin: 01/31/17 09:22 Dose: 4 mg Fentanyl (Duragesic) 1 patch TD Q72H [facility] Last Admin: 01/29/17 22:39 Dose: 1 patch Furosemide (Lasix) 40 mg PO DAILY [facility] Last Admin: 01/31/17 09:22 Dose: 40 mg Sodium Chloride (Sodium Chloride 0.45%) 1,000 mls @ 60 mls/hr IV .[id number] [facility] Stop: 01/31/17 10:00 Last Admin: 01/30/17 21:06 Dose: 60 mls/hr Dexamethasone 20 mg/Diphenhydramine HCl 25 mg/Famotidine 20 mg/ Sodium Chloride 57.5 mls @ 171 mls/hr IVPB ONCE ONE Stop: 01/31/17 12:20 Magnesium Sulfate 16 meq/ (Sodium Chloride) 1,003.9408 mls @ 167.323 mls/hr IV ONCE ONE Stop: 01/31/17 17:59 Fosaprepitant 150 mg/ Sodium (Chloride) 150 mls @ 290 mls/hr IVPB ONCE ONE Stop: 01/31/17 12:31 Cisplatin 75 mg/ Mannitol 12.5 (gm/ Sodium Chloride) 625 mls @ 156.25 mls/hr IV ONCE ONE Stop: 01/31/17 16:59 Lorazepam (Ativan) 0.5 mg IV ONCE ONE Stop: 01/31/17 12:01 Morphine Sulfate (Morphine) 2 mg IVP Q4H PRN PRN Reason: Pain, moderate (4-7) Last Admin: 01/31/17 05:29 Dose: 2 mg Ondansetron HCl (Zofran Inj) 4 mg IVP Q6H PRN PRN Reason: Nausea/Vomiting Oxycodone HCl (Oxycodone Immediate Release Tab) 15 mg PO Q4 PRN PRN Reason: BREAKTHRU PAIN Last Admin: 01/30/17 18:18 Dose: 15 mg Palonosetron (Aloxi) 0.25 mg IVP ONCE ONE Stop: 01/31/17 12:01 Pantoprazole Sodium (Protonix Inj) 40 mg IVP DAILY [facility] Last Admin: 01/31/17 09:23 Dose: 40 mg Sucralfate (Carafate Tab) 1 gm PO BID [facility] Last Admin: 01/31/17 09:23 Dose: 1 gm - Labs Labs: 01/31/17 07:00 01/31/17 07:00 PT 14.4 Seconds (9.9-11.8) H 01/29/17 16:00 INR 1.33 (0.93-1.08) H 01/29/17 16:00 APTT 31.3 Seconds (23.7-30.8) H 01/29/17 16:00 - Constitutional Appears: Cachectic - Eye Exam Eye Exam: Scleral icterus - ENT Exam ENT Exam: Mucous Membranes Moist - Neck Exam Neck Exam: Normal Inspection - Respiratory Exam Respiratory Exam: Decreased Breath Sounds, NORMAL BREATHING PATTERN. absent: Respiratory Distress - Cardiovascular Exam Cardiovascular Exam: +S1, +S2 - GI/Abdominal Exam GI & Abdominal Exam: Distended, Soft, Normal Bowel Sounds. absent: Guarding, Tenderness, Rebound - Extremities Exam Extremities Exam: Pedal Edema. absent: Calf Tenderness, Tenderness - Neurological Exam Neurological Exam: Alert, Awake, Oriented x3 - Skin Skin Exam: Dry, Warm Additional comments: jaundice Assessment and Plan - Assessment and Plan (Free Text) Assessment: ASSESSEMENT: Stage IV Esophageal Gastroesophageal cancer w/lung and liver metastasis Elevated LFT,mainly alk phos and TB/DB, likely secondary to liver metastasis, had MRCP done, no biliary duct abnormalities, or stones, Anemia, H/O Iron deficiency, s/p transfusion Large Hiatal Hernia, no obstruction H/O PUD Multiple Sclerosis PLAN: start chemo today, see order as per oncology continue Protonix, carafate on Zofran prn nausea continue regular diet pain mgt trend LFT, CBC DVT prophylaxsis Seen and discussed with Dr. Elizabeth. <Annita Elizabeth V - Last Filed: 01/31/17 22:01> Objective - Vital Signs/Intake and Output Vital Signs (last 24 hours): Temp Pulse Resp BP Pulse Ox 97.6 F 71 20 135/97 H 100 01/31/17 16:00 01/31/17 16:00 01/31/17 16:00 01/31/17 16:00 01/31/17 16:00 - Medications Medications: Current Medications Acetaminophen (Tylenol 325mg Tab) 650 mg PO Q6H PRN PRN Reason: Pain, severe (8-10) Cyproheptadine HCl (Periactin) 4 mg PO TID [facility] Last Admin: 01/31/17 17:10 Dose: 4 mg Fentanyl (Duragesic) 1 patch TD Q72H [facility] Last Admin: 01/29/17 22:39 Dose: 1 patch Furosemide (Lasix) 40 mg PO DAILY [facility] Last Admin: 01/31/17 09:22 Dose: 40 mg Ondansetron HCl (Zofran Inj) 4 mg IVP Q6H PRN PRN Reason: Nausea/Vomiting Oxycodone HCl (Oxycodone Immediate Release Tab) 15 mg PO Q4 PRN PRN Reason: BREAKTHRU PAIN Last Admin: 01/31/17 18:51 Dose: 15 mg Pantoprazole Sodium (Protonix Inj) 40 mg IVP DAILY [facility] Last Admin: 01/31/17 09:23 Dose: 40 mg Sucralfate (Carafate Tab) 1 gm PO BID [facility] Last Admin: 01/31/17 17:10 Dose: 1 gm - Labs Labs: 01/31/17 07:00 01/31/17 07:00 PT 14.4 Seconds (9.9-11.8) H 01/29/17 16:00 INR 1.33 (0.93-1.08) H 01/29/17 16:00 APTT 31.3 Seconds (23.7-30.8) H 01/29/17 16:00 Attending/Attestation - Attestation I have personally seen and examined this patient.: Yes I have fully participated in the care of the patient.: Yes I have reviewed all pertinent clinical information, including history, physical exam and plan: Yes Notes (Text): this
[2017-01-31] MEDS ORDERED: MAGNESIUM SULFATE IV ONE (12:00)
[2017-01-31] MEDS ORDERED: SODIUM CHLORIDE 0.9% IV ONE ×2 (12:00→13:00)
[2017-01-31] MEDS ORDERED: Dexamethasone 20 MG, DiphenhydrAMINE 25 MG, Famotidine 20 MG in Sodium Chloride 0.9% 50 ML IVPB ONE (12:00)
[2017-01-31] MEDS ORDERED: Palonosetron 0.25 mg/5 mL Inj IVP ONE (12:00)
[2017-01-31] MEDS ORDERED: MANNITOL IV ONE (13:00)
[2017-01-31] MEDS ORDERED: CISPLATIN IV ONE (13:00)
--- NOTE | 2017-01-31 15:39 | CP.PCM.PN ---
Addendum entered and electronically signed by MICHEAL KEENE DO 01/31/17 16:52 : Accucheck STAT Orthostatics were not performed at this moment because patient cannot stand for 1 minute, will start checking orthostatic vitals tonight. Original Note: <MICHEAL KEENE - Last Filed: 01/31/17 16:50> Subjective - Date & Time of Evaluation Date of Evaluation: 01/31/17 Time of Evaluation: 03:04 - Subjective Subjective: Responded to code star STAT and found patient sitting on the floor due to unwitnessed fall in which there was no loss of consciousness. Patient states he was trying to urinate, and lost his balance when he stood up. He denies nausea, vomiting, visual changes, headache. Patient is a 56 year old male with history of GI bleed requiring transfusion currently receiving treatment for gastroesophageal junction cancer stage IV. He was admitted originally for complaints of sudden generalized weakness. Today was his first dose of cisplastin. Patient was also medicated pre-chemotherapy with benadryl 25 mg and Ativan 0.5 mg IVP. Review of Systems Neuro: Patient admits to dizziness and loss of balance. CV: Patient denies chest pain Physical Exam Vitals: BP- 117/81, O2% 97%, HR- 71, T: 95.3 F HEENT: Superficial abrasion to right lateral orbital area and maxillary region without active bleeding; slight swelling noted around the abrasions, no localized tenderness or hematomas felt on the scalp, EOMI, pupils equal and reactive to light, sclera icteric, no tongue bite mishra Neck: no localized c spine tenderness or paraspinal tenderness CVS: S1 and S2, RRR Lungs: Clear to ausculation bilateral, old scar noted on right side of chest Chest Wall: no localized tenderness noted Abdomen: nontender, bowel sounds present Extremities: moves well at all joints Neuro: AAO x3, CN II-XII grossly intact, sensory and motor grossly intact Back: No spinal or paraspinal tenderness Skin: Superficial abrasion on right lateral orbital area and right maxillary region without active bleeding, no ecchymotic areas noted on upper and lower extremities. Assessment 56 year old male past medical history of GI Bleed requiring transfusion currently receiving Cisplatin for chemotherapy was found on the ground sitting position s/p fall. Right periorbital and maxillary abrasions with slight swelling around regions. Dizziness possibly related to sedation prior to chemotherapy. Plan - STAT CT of head and maxillofacial bones without contrast - Neurochecks q1x4 hours then q4 for the next 20 hours - Orthostatic vital signs q4x24 - 1 to 1 sitter for observation - Ice packs to right side of face (orbital and maxillary area) Objective - Vital Signs/Intake and Output Vital Signs (last 24 hours): Temp Pulse Resp BP Pulse Ox 98.1 F 69 20 128/91 H 98 01/31/17 06:00 01/31/17 06:00 01/31/17 06:00 01/31/17 09:22 01/31/17 06:00 Intake and Output: 01/31/17 01/31/17 06:59 18:59 Intake Total 1838 Output Total 1100 Balance 738 - Medications Medications: Current Medications Acetaminophen (Tylenol 325mg Tab) 650 mg PO Q6H PRN PRN Reason: Pain, severe (8-10) Cyproheptadine HCl (Periactin) 4 mg PO TID [facility] Last Admin: 01/31/17 13:21 Dose: 4 mg Fentanyl (Duragesic) 1 patch TD Q72H [facility] Last Admin: 01/29/17 22:39 Dose: 1 patch Furosemide (Lasix) 40 mg PO DAILY [facility] Last Admin: 01/31/17 09:22 Dose: 40 mg Magnesium Sulfate 16 meq/ (Sodium Chloride) 1,003.9408 mls @ 167.323 mls/hr IV ONCE ONE Stop: 01/31/17 17:59 Last Admin: 01/31/17 11:50 Dose: 167.323 mls/hr Cisplatin 75 mg/ Mannitol 12.5 (gm/ Sodium Chloride) 625 mls @ 156.25 mls/hr IV ONCE ONE Stop: 01/31/17 16:59 Last Admin: 01/31/17 13:45 Dose: 156.25 mls/hr Morphine Sulfate (Morphine) 2 mg IVP Q4H PRN PRN Reason: Pain, moderate (4-7) Last Admin: 01/31/17 05:29 Dose: 2 mg Ondansetron HCl (Zofran Inj) 4 mg IVP Q6H PRN PRN Reason: Nausea/Vomiting Oxycodone HCl (Oxycodone Immediate Release Tab) 15 mg PO Q4 PRN PRN Reason: BREAKTHRU PAIN Last Admin: 01/30/17 18:18 Dose: 15 mg Pantoprazole Sodium (Protonix Inj) 40 mg IVP DAILY [facility] Last Admin: 01/31/17 09:23 Dose: 40 mg Sucralfate (Carafate Tab) 1 gm PO BID [facility] Last Admin: 01/31/17 09:23 Dose: 1 gm - Labs Labs: 01/31/17 07:00 01/31/17 07:00 PT 14.4 Seconds (9.9-11.8) H 01/29/17 16:00 INR 1.33 (0.93-1.08) H 01/29/17 16:00 APTT 31.3 Seconds (23.7-30.8) H 01/29/17 16:00 <Rehana Flores - Last Filed: 01/31/17 17:01> Objective - Vital Signs/Intake and Output Vital Signs (last 24 hours): Temp Pulse Resp BP Pulse Ox 98.1 F 69 20 128/91 H 98 01/31/17 06:00 01/31/17 06:00 01/31/17 06:00 01/31/17 09:22 01/31/17 06:00 Intake and Output: 01/31/17 01/31/17 06:59 18:59 Intake Total 1838 Output Total 1100 Balance 738 - Medications Medications: Current Medications Acetaminophen (Tylenol 325mg Tab) 650 mg PO Q6H PRN PRN Reason: Pain, severe (8-10) Cyproheptadine HCl (Periactin) 4 mg PO TID [facility] Last Admin: 01/31/17 13:21 Dose: 4 mg Fentanyl (Duragesic) 1 patch TD Q72H [facility] Last Admin: 01/29/17 22:39 Dose: 1 patch Furosemide (Lasix) 40 mg PO DAILY [facility] Last Admin: 01/31/17 09:22 Dose: 40 mg Magnesium Sulfate 16 meq/ (Sodium Chloride) 1,003.9408 mls @ 167.323 mls/hr IV ONCE ONE Stop: 01/31/17 17:59 Last Admin: 01/31/17 11:50 Dose: 167.323 mls/hr Cisplatin 75 mg/ Mannitol 12.5 (gm/ Sodium Chloride) 625 mls @ 156.25 mls/hr IV ONCE ONE Stop: 01/31/17 16:59 Last Admin: 01/31/17 13:45 Dose: 156.25 mls/hr Ondansetron HCl (Zofran Inj) 4 mg IVP Q6H PRN PRN Reason: Nausea/Vomiting Oxycodone HCl (Oxycodone Immediate Release Tab) 15 mg PO Q4 PRN PRN Reason: BREAKTHRU PAIN Last Admin: 01/30/17 18:18 Dose: 15 mg Pantoprazole Sodium (Protonix Inj) 40 mg IVP DAILY [facility] Last Admin: 01/31/17 09:23 Dose: 40 mg Sucralfate (Carafate Tab) 1 gm PO BID [facility] Last Admin: 01/31/17 09:23 Dose: 1 gm - Labs Labs: 01/31/17 07:00 01/31/17 07:00 PT 14.4 Seconds (9.9-11.8) H 01/29/17 16:00 INR 1.33 (0.93-1.08) H 01/29/17 16:00 APTT 31.3 Seconds (23.7-30.8) H 01/29/17 16:00 Attending/Attestation - Attestation I have personally seen and examined this patient.: Yes I have fully participated in the care of the patient.: Yes I have reviewed all pertinent clinical information, including history, physical exam and plan: Yes Notes (Text): 01/31/17 16:59 Temp was repeated,it was 97.6(oral) Accucheck was 139
--- NOTE | 2017-01-31 16:43 | CT ---
PROCEDURE: CT HEAD WITHOUT CONTRAST. HISTORY: fall COMPARISON: None available. TECHNIQUE: Axial computed tomography images were obtained through the head/brain without intravenous contrast. Radiation dose: Total exam DLP = 774 mGy-cm. This CT exam was performed using one or more of the following dose reduction techniques: Automated exposure control, adjustment of the mA and/or kV according to patient size, and/or use of iterative reconstruction technique. FINDINGS: HEMORRHAGE: No intracranial hemorrhage. BRAIN: No mass effect or edema. There is mild atrophy. There are no acute findings VENTRICLES: Unremarkable. No hydrocephalus. CALVARIUM: Unremarkable. PARANASAL SINUSES: Unremarkable as visualized. No significant inflammatory changes. MASTOID AIR CELLS: Unremarkable as visualized. No inflammatory changes. OTHER FINDINGS: None. IMPRESSION: No acute intracranial findings
--- NOTE | 2017-01-31 16:58 | CT ---
PROCEDURE: CT MAXILLOFACIAL BONES WITHOUT CONTRAST HISTORY: fall COMPARISON: None TECHNIQUE: Contiguous axial CT images of the maxillofacial bones were obtained. Coronal and sagittal reformats were generated. Radiation dose: Total exam DLP = 786 mGy-cm. This CT exam was performed using one or more of the following dose reduction techniques: Automated exposure control, adjustment of the mA and/or kV according to patient size, and/or use of iterative reconstruction technique. FINDINGS: NASAL BONES: No fracture identified. ORBITS: Questionable bilateral medial upper periorbital soft tissue edema extending across the nasal bridge soft tissues. PARANASAL SINUSES/ MASTOIDS: Clear. MAXILLA: Unremarkable. MANDIBLE/ TEMPOROMANDIBULAR JOINTS: Unremarkable. SKULL BASE: Unremarkable. TEMPORAL BONES: Middle ears and mastoid grossly unremarkable. OTHER FINDINGS: None. IMPRESSION: No fracture identified. Questionable bilateral medial periorbital and nasal soft tissue edema.
[2017-01-31] MEDS: oxyCODONE 15 mg Immediate Release Tab PO PRN ×2 (18:51→23:33)
--- NOTE | 2017-01-31 19:07 | PN ---
DATE: 01/31/2017 SUBJECTIVE: The patient is seen lying in bed. He is awake. He is alert. He denies any pain. He does have some nausea. PHYSICAL EXAMINATION: GENERAL: Thinly built cachectic appearing icteric middle-aged male lying in bed. VITAL SIGNS: Blood pressure 128/91, heart rate 69, respiratory rate 20, and temperature 98.1. HEENT: Normocephalic, atraumatic, positive pallor, positive icterus. NECK: Supple, no JVD. CARDIOPULMONARY: S1 and S2. Regular rate, and rhythm, no murmur, no gallop, no rub. LUNGS: Bilateral equal air entry. ABDOMEN: Soft, nondistended, and nontender, bowel sounds present. EXTREMITIES: No lower extremity edema. INTAKE/OUTPUT: 1890/1100. LABORATORY DATA: WBC 11, hemoglobin 10.8, hematocrit 32, and platelets 292. Sodium 135, potassium 3.7, chloride 98, CO2 26, BUN 19, creatinine 0.8, glucose 112, calcium 8.2, phosphorous 4.3, and magnesium 1.9. Total bilirubin 5.5, AST 59, ALT 33, and albumin 2.7. Urinalysis, jose and cloudy, pH 5.5, specific gravity 1.020, protein trace, bilirubin moderate, and urobilinogen 4.0. CURRENT MEDICATIONS: 1. Carafate. 2. Cisplatin. 3. Lasix 40 daily. 4. Magnesium sulfate. 5. Normal saline. 6. Periactin. 7. Protonix. 8. Zofran. 9. Aloxi. ASSESSMENT: 1. 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 2. Anemia. 3. Hiatal hernia. 4. Hypokalemia. 5. Elevated liver function tests. PLAN: 1. Monitor potassium closely. 2. Continue low dose Lasix. 3. Chemotherapy as per Dr. Hernandez. 4. Replace potassium as needed. Rona Spring MD
[2017-02-01] MEDS: oxyCODONE 15 mg Immediate Release Tab PO PRN ×2 (03:25→09:29)
[2017-02-01 06:51] LABS: GRAN # 12.79 (1.4-6.5); GRAN % 85.2 % (50.0-68.0); HEMOGLOBIN 11.2 gm/dL (14.0-18.0); LYMPH # 1.3 (1.2-3.4); LYMPH % 8.3 % (22.0-35.0); MEAN CORPUSCULAR HEMOGLOBIN 25.7 pg (25.0-35.0); MEAN CORPUSCULAR HGB CONC 33.4 g/dl (31.0-37.0); MEAN PLATELET VOLUME 9.1 fl (7.0-11.0); MONO % 6.5 % (1.0-6.0); PLATELET COUNT 399 10^3/uL (120.0-450.0); RBC 4.35 10^6/uL (3.5-6.1); RED CELL DISTRIBUTION WIDTH 20.6 % (11.5-14.5)
[2017-02-01 06:57] LABS: ALB/GLOB RATIO 0.7 (1.1-1.8); ALBUMIN 2.6 g/dL (3.0-4.8); ALT/SGPT 40 U/L (7-56); AST/SGOT 63 U/L (15-59); BLOOD UREA NITROGEN 24 mg/dL (7-21); GFR AFRICAN-AMERICAN > 60; GFR NON-AFRICAN AMERICAN > 60
[2017-02-01] MEDS ORDERED: MethylPREDNISolone 40 mg Vial IVP STA (07:45)
[2017-02-01] MEDS ORDERED: Sodium Chloride 0.9% 1,500 ML IV SCH (07:45)
[2017-02-01] MEDS ORDERED: Potassium Chloride 40 mEq/30 ml LIQ UD PO ONE (08:55)
[2017-02-01 09:25] VITALS: O2SAT 99
--- NOTE | 2017-02-01 09:45 | CP.PCM.DIS ---
Provider - Provider Date of Admission: 01/30/17 14:39 Attending physician: Franky Sandoval MD Primary care physician: Ravin Hernandez MD Consults: GI = Dr. Elizabeth Urol = Dr. Dover Time Spent in preparation of Discharge (in minutes): 45 Hospital Course - Lab Results Lab Results: Most Recent Lab Values WBC 15.0 10^3/ul (4.5-11.0) H D 02/01/17 06:15 RBC 4.35 10^6/uL (3.5-6.1) 02/01/17 06:15 Hgb 11.2 gm/dL (14.0-18.0) L 02/01/17 06:15 Hct 33.5 % (42.0-52.0) L 02/01/17 06:15 MCV 77.0 fL (80.0-105.0) L 02/01/17 06:15 MCH 25.7 pg (25.0-35.0) 02/01/17 06:15 MCHC 33.4 g/dl (31.0-37.0) 02/01/17 06:15 RDW 20.6 % (11.5-14.5) H 02/01/17 06:15 Plt Count 399 10^3/uL (120.0-450.0) 02/01/17 06:15 MPV 9.1 fl (7.0-11.0) 02/01/17 06:15 Gran % 85.2 % (50.0-68.0) H 02/01/17 06:15 Lymph % (Auto) 8.3 % (22.0-35.0) L 02/01/17 06:15 Hanson % (Auto) 6.5 % (1.0-6.0) H 02/01/17 06:15 Eos % (Auto) 0.0 % (1.5-5.0) L 02/01/17 06:15 Baso % (Auto) 0.0 % (0.0-3.0) 02/01/17 06:15 Gran # 12.79 (1.4-6.5) H 02/01/17 06:15 Lymph # 1.3 (1.2-3.4) 02/01/17 06:15 Hanson # 1.0 (0.1-0.6) H 02/01/17 06:15 Eos # 0.0 (0.0-0.7) 02/01/17 06:15 Baso # 0.00 K/mm3 (0.0-2.0) 02/01/17 06:15 Neutrophils % (Manual) 87 % (50.0-70.0) H 01/29/17 16:00 Lymphocytes % (Manual) 4 % (22.0-35.0) L 01/29/17 16:00 Monocytes % (Manual) 9 % (1.0-6.0) H 01/29/17 16:00 Platelet Evaluation Normal (NORMAL) 01/29/17 16:00 Polychromasia Slight 01/29/17 16:00 Hypochromasia Slight 01/29/17 16:00 Anisocytosis (manual) Slight 01/29/17 16:00 Microcytosis (manual) Slight 01/29/17 16:00 Target Cells 1+ 01/29/17 16:00 PT 14.4 Seconds (9.9-11.8) H 01/29/17 16:00 INR 1.33 (0.93-1.08) H 01/29/17 16:00 APTT 31.3 Seconds (23.7-30.8) H 01/29/17 16:00 Sodium 136 mmol/L (132-148) 02/01/17 06:15 Potassium 3.3 mmol/L (3.6-5.0) L 02/01/17 06:15 Chloride 98 mmol/L (95-110) 02/01/17 06:15 Carbon Dioxide 26 mmol/L (21-33) 02/01/17 06:15 Anion Gap 15 (10-20) 02/01/17 06:15 BUN 24 mg/dL (7-21) H 02/01/17 06:15 Creatinine 0.8 mg/dL (0.5-1.4) 02/01/17 06:15 Est GFR ( Amer) > 60 02/01/17 06:15 Est GFR (Non-Af Amer) > 60 02/01/17 06:15 POC Glucose (mg/dL) 114 mg/dL (65-110) H 01/31/17 17:15 Random Glucose 131 mg/dL (70-110) H 02/01/17 06:15 Calcium 8.0 mg/dL (8.4-10.5) L 02/01/17 06:15 Phosphorus 4.3 mg/dL (2.5-4.5) 01/31/17 07:00 Magnesium 2.1 mg/dL (1.7-2.2) 02/01/17 06:30 Total Bilirubin 4.3 mg/dL (0.2-1.3) H 02/01/17 06:15 Direct Bilirubin 4.5 mg/dL (0.0-0.4) H 01/30/17 02:19 AST 63 U/L (15-59) H 02/01/17 06:15 ALT 40 U/L (7-56) 02/01/17 06:15 Alkaline Phosphatase 1271 U/L (38-133) H 02/01/17 06:15 Lactate Dehydrogenase 715 U/L (333-699) H 01/29/17 16:00 Total Creatine Kinase 40 U/L (35-230) 01/29/17 16:00 Troponin I < 0.01 ng/mL 01/29/17 16:00 NT-Pro-B Natriuret Pep 1000 pg/mL (0-450) H 01/29/17 16:00 Total Protein 6.2 g/dL (5.8-8.3) 02/01/17 06:15 Albumin 2.6 g/dL (3.0-4.8) L 02/01/17 06:15 Globulin 3.6 gm/dL 02/01/17 06:15 Albumin/Globulin Ratio 0.7 (1.1-1.8) L 02/01/17 06:15 Urine Color Alfreda (YELLOW) 01/30/17 04:10 Urine Appearance Cloudy (CLEAR) 01/30/17 04:10 Urine pH 5.5 (4.7-8.0) 01/30/17 04:10 Ur Specific [place] 1.020 (1.005-1.035) 01/30/17 04:10 Urine Protein Trace mg/dL (<30 mg/dL) H 01/30/17 04:10 Urine Glucose (UA) Negative mg/dL (NEGATIVE) 01/30/17 04:10 Urine Ketones Negative mg/dL (NEGATIVE) 01/30/17 04:10 Urine Blood Negative (NEGATIVE) 01/30/17 04:10 Urine Nitrate Negative (NEGATIVE) 01/30/17 04:10 Urine Bilirubin Moderate (NEGATIVE) H 01/30/17 04:10 Urine Urobilinogen 4.0 E.U./dL (<1 E.U./dL) H 01/30/17 04:10 Ur Leukocyte Esterase Negative Beau/uL (NEGATIVE) 01/30/17 04:10 Urine RBC 0 - 2 /hpf (0-2) 01/30/17 04:10 Urine WBC 1 - 3 /hpf (0-6) 01/30/17 04:10 Ur Epithelial Cells 0 - 2 /hpf (0-5) 01/30/17 04:10 Urine Bacteria Rare (NEG) 01/30/17 04:10 Hyaline Casts 1 - 3 /hpf 01/30/17 04:10 Fine Granular Casts 0 - 2 /hpf (0-2) 01/30/17 04:10 Blood Type O POSITIVE 01/30/17 16:10 Antibody Screen Negative 01/30/17 16:10 Crossmatch See Detail 01/30/17 16:10 BBK History Checked Patient has bt 01/30/17 16:10 - Hospital Course Hospital Course: 56 M with Hx severe GI bleed, 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 Liver function is deteriorating over the last month. Total bilirubin is 5.5. MRCP + gallstone, acute cholecystitis, liver mets, R adrenal mets. He was admitted for sudden onset generalized weakness that he remained bedbound at home. Differential includes Anemic symptomatic vs deconditioning from cancer load vs malnutrition. Physical therapy has worked with the patient during this hospital stay, and recommended home with pt service. Pt has 2 flights of stairs to home. He is home bound by weakness. 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 Code star at 3:15. Pt's main complaints were due to dizziness and loss of balance. Pt receive nacortic for cancer pain, pre-med for chemo, and on diuretics. His pain med was decreased, tolerated by pt. Re-consulted physical therapy to re-evaluate pt s/p code star. Pt does not qualified for skilled PT rehab. Home PT consult was in. Patient healthcare proxy is , Kendal Maria Advance directives: No CPR, intubation, permanent feeding tube No POLST yet Sudden worsening of weakness, generalized s/p Code star - pt able to recall fall for 15 mins. Recheck in 1 hr, pt has amnesia of the fall. AAOx3 - Re-consult PT before discharge tomorrow - 1:1 for safety - CT head and maxillary negative - Continue fentynl patch, use only oxycodone IR as severe pain PRN per Dr. 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 - Tumor is HER2/kenneth negative, not a candidate for Herceptin - Not candidate for avastin or ramucirumab due to Hx significant GI bleed - U/S abdomen - gallstone no acute cholecystitis, diffuse liver mets - Start chemo Platinol - Alk phos 1300 likely cancer burden Hx GI bleed - 2u transfused Liver dysfunction due to mets b/l LE edema - negative doppler - Extensive L and R hepatic metastses - Ascites and b/l pleural effusion - No hydronephrosis - Multiple gallstone no acute cholecystits - lasix PO qd Leukocytosis - resolved Microcytic anemia - H/H stable INR 1.33 Total bilirubin > 5 Direct Hyperbilirubinemia at 4.5 Malnutrition - alb 2.5, decrease appetite, dietitian consult, periactin Pain - Duragesic - oxycodone IR 15 q4 prn Consult - Palliative care - GI - Dr. Elizabeth - URol - Dr. Dover s/r/d/w Dr. Hernandez - Date & Time of H&P Date of H&P: 02/01/17 Time of H&P: 09:46 Discharge Exam - Head Exam Head Exam: NORMAL INSPECTION, NORMOCEPHALIC - Eye Exam Eye Exam: EOMI, Normal appearance, PERRL, Scleral icterus Pupil Exam: NORMAL ACCOMODATION - ENT Exam ENT Exam: Mucous Membranes Moist - Neck Exam Additional comments: supple - Respiratory Exam Respiratory Exam: Clear to PA & Lateral. absent: Rales, Rhonchi, Wheezes - Cardiovascular Exam Cardiovascular Exam: REGULAR RHYTHM, +S1, +S2 - GI/Abdominal Exam GI & Abdominal Exam: Distended, Normal Bowel Sounds, Organomegaly, Soft. absent : Firm, Guarding, Rigid - Extremities Exam Extremities exam: normal capillary refill, pedal edema Additional comments: 2+ dorsal foot pitting - Neurological Exam Neurological exam: Alert, Oriented x3 - Psychiatric Exam Psychiatric exam: Normal Affect, Normal Mood - Skin Skin Exam: Dry, Warm Discharge Plan - Discharge Medications Prescriptions: Cyproheptadine [Periactin] 4 mg PO TID #21 tab Folic Acid 1 mg PO DAILY #30 tab Furosemide [Lasix] 40 mg PO DAILY #30 tab Methylprednisolone [Medrol] 4 mg PO BID #4 tablet Pantoprazole Sodium [Protonix] 40 mg PO DAILY #30 ect Prochlorperazine [Compazine Tab] 10 mg PO Q8 #10 tab - Follow Up Plan Condition: FAIR Disposition: HOME/ ROUTINE Additional Instructions: Discharge instructions 1. Tomorrow, (Friday 02/02), Come to [facility] [place] to register. Rx: hydration 2. Come to oncology clinic next Saturday, Sat, , saturday 4. Follow up with Dr. Hernanedz office in 1 week 5. Follow up with GI doctor in 2-4 weeks 6. Follow up with primary care doctor in 1 week 7. Exercise fall precautions Instructions of this round of chemotherapy, 01/31/17 1. Increase water intake. 2. Compazine 10 mg every 8 hours x 3 days 3. medrol 4 mg 2 tabs BID x 2 d New meds: folic acid, cyproheptadine, pantoprazole Referrals: Rona Spring MD [Staff Provider] - Ravin Hernandez MD [Primary Care Provider] - Annita Elizabeth MD [Medical Doctor] -
--- NOTE | 2017-02-01 09:48 | CP.PCM.CON ---
History of Present Illness - History of Present Illness History of Present Illness: Palliative consult requested by Dr Julián Hernandez Reason: Advance care planning 56 year old male with history of metastatic esophageal cancer who presented with progressive back, epigastric and chest pain. PMHx: advanced esophageal junction carcinoma. s/p surgical resection and chemotherapy,MS, GERD,PUD,anemia Family History: Non contributory. Social History: Former smoker,no alcohol, or drug use. , lives with spouse Advance Care Planning: the patient has an Advanced directive, he stipulates he is DNR/DNI. Review of Systems - Constitutional Constitutional: Fatigue, Weight Loss, Weakness - EENT Additional comments: negative - Cardiovascular Additional comments: occasional chest pain - Respiratory Additional comments: negative - Gastrointestinal Additional comments: epigastric/abdominal pain as per HPI - Reproductive: Male Additional comments: negative - Musculoskeletal Musculoskeletal: Muscle Weakness - Integumentary Additional comments: swelling of lower extremities L >R - Neurological Additional comments: negative - Psychiatric Additional comments: negative Past Patient History - Infectious Disease Hx of Infectious Diseases: None - Past Social History Smoking Status: Current Some Days Smoker - CARDIAC Hx Cardiac Disorders: No - PULMONARY Hx Respiratory Disorders: No - NEUROLOGICAL Hx Neurological Disorder: No - HEENT Hx HEENT Problems: Yes (wears glasses) - RENAL Hx Chronic Kidney Disease: No - ENDOCRINE/METABOLIC Hx Endocrine Disorders: No - HEMATOLOGICAL/ONCOLOGICAL Hx Anemia: Yes Hx Cancer: Yes (ESAPHAGEAL/STOMACH c LIVER METS) - INTEGUMENTARY Hx Dermatological Problems: No - MUSCULOSKELETAL/RHEUMATOLOGICAL Hx Falls: Yes - GASTROINTESTINAL Other/Comment: Stomach CA,Esaphagal CA - GENITOURINARY/GYNECOLOGICAL Hx Genitourinary Disorders: No - PSYCHIATRIC Hx Substance Use: No - SURGICAL HISTORY Other/Comment: "Removed 1/3 or stomach" - ANESTHESIA Hx Anesthesia Reactions: No Hx Malignant Hyperthermia: No Meds Allergies/Adverse Reactions: Allergies Allergy/AdvReac Type Severity Reaction Status Date / Time No Known Allergies Allergy Verified 01/29/17 16:35 - Medications Medications: Current Medications Acetaminophen (Tylenol 325mg Tab) 650 mg PO Q6H PRN PRN Reason: Pain, severe (8-10) Last Admin: 02/01/17 01:55 Dose: 650 mg Cyproheptadine HCl (Periactin) 4 mg PO TID [facility] Last Admin: 02/01/17 09:28 Dose: 4 mg Fentanyl (Duragesic) 1 patch TD Q72H [facility] Last Admin: 01/29/17 22:39 Dose: 1 patch Furosemide (Lasix) 40 mg PO DAILY [facility] Last Admin: 02/01/17 09:28 Dose: 40 mg Sodium Chloride (Sodium Chloride 0.9%) 1,500 mls @ 225 mls/hr IV .Q6H40M [facility] Potassium Chloride (Potassium Chloride 20 Meq/100 Ml) 20 meq in 100 mls @ 50 mls/hr IVPB Q2H [facility] Stop: 02/01/17 12:14 Last Admin: 02/01/17 08:53 Dose: 50 mls/hr Ondansetron HCl (Zofran Inj) 4 mg IVP Q6H PRN PRN Reason: Nausea/Vomiting Oxycodone HCl (Oxycodone Immediate Release Tab) 15 mg PO Q4 PRN PRN Reason: BREAKTHRU PAIN Last Admin: 02/01/17 09:29 Dose: 15 mg Pantoprazole Sodium (Protonix Inj) 40 mg IVP DAILY [facility] Last Admin: 02/01/17 09:28 Dose: 40 mg Sucralfate (Carafate Tab) 1 gm PO BID [facility] Last Admin: 02/01/17 09:28 Dose: 1 gm Physical Exam - Constitutional Appears: Cachectic, Chronically Ill - Head Exam Head Exam: NORMOCEPHALIC - Eye Exam Eye Exam: Normal appearance, PERRL - ENT Exam ENT Exam: Mucous Membranes Moist, Normal Oropharynx - Respiratory Exam Respiratory Exam: Clear to Auscultation Bilateral, NORMAL BREATHING PATTERN - Cardiovascular Exam Cardiovascular Exam: REGULAR RHYTHM, +S1, +S2 - GI/Abdominal Exam GI & Abdominal Exam: Hypoactive Bowel Sounds, Normal Bowel Sounds, Soft Additional comments: hepatomegaly - Extremities Exam Extremities exam: Positive for: pedal pulses present Additional comments: edema of lower extremities - Back Exam Back exam: NORMAL INSPECTION - Neurological Exam Neurological exam: Alert, Oriented x3 - Skin Skin Exam: Pallor Additional comments: jaundice - Additional Findings Additional findings: palliative performance scale rating 60 % Results - Vital Signs Recent Vital Signs: Last Vital Signs Temp 97.7 F 02/01/17 06:00 Pulse 58 L 02/01/17 06:00 Resp 19 02/01/17 06:00 BP 139/96 H 02/01/17 09:28 Pulse Ox 99 02/01/17 06:00 - Labs Result Diagrams: 02/01/17 06:15 02/01/17 06:15 Labs: Laboratory Results - last 24 hr 01/31/17 01/31/17 02/01/17 16:58 17:15 06:15 WBC RBC Hgb Hct MCV MCH MCHC RDW Plt Count MPV Gran % Lymph % (Auto) Nash % (Auto) Eos % (Auto) Baso % (Auto) Gran # Lymph # Nash # Eos # Baso # Sodium 136 Potassium 3.3 L Chloride 98 Carbon Dioxide 26 Anion Gap 15 BUN 24 H Creatinine 0.8 Est GFR ( Amer) > 60 Est GFR (Non-Af Amer) > 60 POC Glucose (mg/dL) 139 H 114 H Random Glucose 131 H Calcium 8.0 L Magnesium Total Bilirubin 4.3 H AST 63 H ALT 40 Alkaline Phosphatase 1271 H Total Protein 6.2 Albumin 2.6 L Globulin 3.6 Albumin/Globulin Ratio 0.7 L 02/01/17 02/01/17 06:15 06:30 WBC 15.0 H D RBC 4.35 Hgb 11.2 L Hct 33.5 L MCV 77.0 L MCH 25.7 MCHC 33.4 RDW 20.6 H Plt Count 399 MPV 9.1 Gran % 85.2 H Lymph % (Auto) 8.3 L Nash % (Auto) 6.5 H Eos % (Auto) 0.0 L Baso % (Auto) 0.0 Gran # 12.79 H Lymph # 1.3 Nash # 1.0 H Eos # 0.0 Baso # 0.00 Sodium Potassium Chloride Carbon Dioxide Anion Gap BUN Creatinine Est GFR ( Amer) Est GFR (Non-Af Amer) POC Glucose (mg/dL) Random Glucose Calcium Magnesium 2.1 Total Bilirubin AST ALT Alkaline Phosphatase Total Protein Albumin Globulin Albumin/Globulin Ratio Assessment & Plan - Assessment and Plan (Free Text) Assessment: 56 year old male with a history of metastatic esophageal adenocarcinoma who was admitted with abdominal pain, elevated LFT's lower extremity edema, anemia, weakness,anorexia/cachexia. The patient is alert and oriented. He complains of weakness. I spoke with him about resuscitation status and advance care planning. The patient has an Advanced Directive at home, his Kendal Maria is health care proxy. The patient state he does not want CPR,intubation or permanent feeding tube. POLST explained, question answered. Patient will consider doing POLST the future, wants to discuss with his first. Time spent in advance care panning discussion, 15 minutes Plan: Advance care planning - Date & Time Date: 02/01/17 Time: 09:00
--- NOTE | 2017-02-01 10:29 | CP.PCM.CON ---
History of Present Illness - History of Present Illness History of Present Illness: Palliative consult requested by Dr Julián Hernandez Reason: Advance care planning 89 year old male who presented with PMHx: Social History: Family History: Review of Systems:As per HPI, all other systems reviewed and are negative Past Patient History - Infectious Disease Hx of Infectious Diseases: None - Past Social History Smoking Status: Current Some Days Smoker - CARDIAC Hx Cardiac Disorders: No - PULMONARY Hx Respiratory Disorders: No - NEUROLOGICAL Hx Neurological Disorder: No - HEENT Hx HEENT Problems: Yes (wears glasses) - RENAL Hx Chronic Kidney Disease: No - ENDOCRINE/METABOLIC Hx Endocrine Disorders: No - HEMATOLOGICAL/ONCOLOGICAL Hx Anemia: Yes Hx Cancer: Yes (ESAPHAGEAL/STOMACH c LIVER METS) - INTEGUMENTARY Hx Dermatological Problems: No - MUSCULOSKELETAL/RHEUMATOLOGICAL Hx Falls: Yes - GASTROINTESTINAL Other/Comment: Stomach CA,Esaphagal CA - GENITOURINARY/GYNECOLOGICAL Hx Genitourinary Disorders: No - PSYCHIATRIC Hx Substance Use: No - SURGICAL HISTORY Other/Comment: "Removed 1/3 or stomach" - ANESTHESIA Hx Anesthesia Reactions: No Hx Malignant Hyperthermia: No Meds Allergies/Adverse Reactions: Allergies Allergy/AdvReac Type Severity Reaction Status Date / Time No Known Allergies Allergy Verified 01/29/17 16:35 - Medications Medications: Current Medications Acetaminophen (Tylenol 325mg Tab) 650 mg PO Q6H PRN PRN Reason: Pain, severe (8-10) Last Admin: 02/01/17 01:55 Dose: 650 mg Cyproheptadine HCl (Periactin) 4 mg PO TID [facility] Last Admin: 02/01/17 09:28 Dose: 4 mg Fentanyl (Duragesic) 1 patch TD Q72H [facility] Last Admin: 01/29/17 22:39 Dose: 1 patch Folic Acid (Folic Acid) 1 mg PO DAILY [facility] Furosemide (Lasix) 40 mg PO DAILY [facility] Last Admin: 02/01/17 09:28 Dose: 40 mg Sodium Chloride (Sodium Chloride 0.9%) 1,500 mls @ 225 mls/hr IV .Q6H40M [facility] Potassium Chloride (Potassium Chloride 20 Meq/100 Ml) 20 meq in 100 mls @ 50 mls/hr IVPB Q2H [facility] Stop: 02/01/17 12:14 Last Admin: 02/01/17 08:53 Dose: 50 mls/hr Ondansetron HCl (Zofran Inj) 4 mg IVP Q6H PRN PRN Reason: Nausea/Vomiting Oxycodone HCl (Oxycodone Immediate Release Tab) 15 mg PO Q4 PRN PRN Reason: BREAKTHRU PAIN Last Admin: 02/01/17 09:29 Dose: 15 mg Pantoprazole Sodium (Protonix Inj) 40 mg IVP DAILY [facility] Last Admin: 02/01/17 09:28 Dose: 40 mg Sucralfate (Carafate Tab) 1 gm PO BID [facility] Last Admin: 02/01/17 09:28 Dose: 1 gm Results - Vital Signs Recent Vital Signs: Last Vital Signs Temp 97.7 F 02/01/17 06:00 Pulse 58 L 02/01/17 06:00 Resp 19 02/01/17 06:00 BP 139/96 H 02/01/17 09:28 Pulse Ox 99 02/01/17 06:00 - Labs Result Diagrams: 02/01/17 06:15 02/01/17 06:15 Labs: Laboratory Results - last 24 hr 01/31/17 01/31/17 02/01/17 16:58 17:15 06:15 WBC RBC Hgb Hct MCV MCH MCHC RDW Plt Count MPV Gran % Lymph % (Auto) [place] % (Auto) Eos % (Auto) Baso % (Auto) Gran # Lymph # [place] # Eos # Baso # Sodium 136 Potassium 3.3 L Chloride 98 Carbon Dioxide 26 Anion Gap 15 BUN 24 H Creatinine 0.8 Est GFR ( Amer) > 60 Est GFR (Non-Af Amer) > 60 POC Glucose (mg/dL) 139 H 114 H Random Glucose 131 H Calcium 8.0 L Magnesium Total Bilirubin 4.3 H AST 63 H ALT 40 Alkaline Phosphatase 1271 H Total Protein 6.2 Albumin 2.6 L Globulin 3.6 Albumin/Globulin Ratio 0.7 L 02/01/17 02/01/17 06:15 06:30 WBC 15.0 H D RBC 4.35 Hgb 11.2 L Hct 33.5 L MCV 77.0 L MCH 25.7 MCHC 33.4 RDW 20.6 H Plt Count 399 MPV 9.1 Gran % 85.2 H Lymph % (Auto) 8.3 L [place] % (Auto) 6.5 H Eos % (Auto) 0.0 L Baso % (Auto) 0.0 Gran # 12.79 H Lymph # 1.3 [place] # 1.0 H Eos # 0.0 Baso # 0.00 Sodium Potassium Chloride Carbon Dioxide Anion Gap BUN Creatinine Est GFR ( Amer) Est GFR (Non-Af Amer) POC Glucose (mg/dL) Random Glucose Calcium Magnesium 2.1 Total Bilirubin AST ALT Alkaline Phosphatase Total Protein Albumin Globulin Albumin/Globulin Ratio
--- NOTE | 2017-02-01 11:36 | CP.PCM.PN ---
<Karen Haines - Last Filed: 02/01/17 11:35> Subjective - Date & Time of Evaluation Date of Evaluation: 02/01/17 Time of Evaluation: 09:10 - Subjective Subjective: S&E at bedside, s/p first dose chemo yesterday, No N/V or abdominal pain, eating carefully, and chewing well. He had episode feeling dizzy, got OOB and fell, bumped head, ct scan head negative, OOB to chair eating. Had formed BM, no bleeding. No other events reported. Objective - Vital Signs/Intake and Output Vital Signs (last 24 hours): Temp Pulse Resp BP Pulse Ox 97.7 F 58 L 19 139/96 H 99 02/01/17 06:00 02/01/17 06:00 02/01/17 06:00 02/01/17 09:28 02/01/17 06:00 Intake and Output: 02/01/17 02/01/17 06:59 18:59 Intake Total 120 Output Total 1150 500 Balance -1150 -380 - Medications Medications: Current Medications Acetaminophen (Tylenol 325mg Tab) 650 mg PO Q6H PRN PRN Reason: Pain, severe (8-10) Last Admin: 02/01/17 01:55 Dose: 650 mg Cyproheptadine HCl (Periactin) 4 mg PO TID [facility] Last Admin: 02/01/17 09:28 Dose: 4 mg Fentanyl (Duragesic) 1 patch TD Q72H [facility] Last Admin: 01/29/17 22:39 Dose: 1 patch Folic Acid (Folic Acid) 1 mg PO DAILY [facility] Furosemide (Lasix) 40 mg PO DAILY [facility] Last Admin: 02/01/17 09:28 Dose: 40 mg Sodium Chloride (Sodium Chloride 0.9%) 1,500 mls @ 225 mls/hr IV .Q6H40M [facility] Potassium Chloride (Potassium Chloride 20 Meq/100 Ml) 20 meq in 100 mls @ 50 mls/hr IVPB Q2H [facility] Stop: 02/01/17 12:14 Last Admin: 02/01/17 08:53 Dose: 50 mls/hr Ondansetron HCl (Zofran Inj) 4 mg IVP Q6H PRN PRN Reason: Nausea/Vomiting Oxycodone HCl (Oxycodone Immediate Release Tab) 15 mg PO Q4 PRN PRN Reason: BREAKTHRU PAIN Last Admin: 02/01/17 09:29 Dose: 15 mg Pantoprazole Sodium (Protonix Inj) 40 mg IVP DAILY [facility] Last Admin: 02/01/17 09:28 Dose: 40 mg Sucralfate (Carafate Tab) 1 gm PO BID [facility] Last Admin: 02/01/17 09:28 Dose: 1 gm - Labs Labs: 02/01/17 06:15 02/01/17 06:15 PT 14.4 Seconds (9.9-11.8) H 01/29/17 16:00 INR 1.33 (0.93-1.08) H 01/29/17 16:00 APTT 31.3 Seconds (23.7-30.8) H 01/29/17 16:00 - Constitutional Appears: No Acute Distress, Cachectic - Head Exam Head Exam: NORMOCEPHALIC - Eye Exam Eye Exam: Scleral icterus - ENT Exam ENT Exam: Mucous Membranes Moist - Neck Exam Neck Exam: Normal Inspection - Respiratory Exam Respiratory Exam: Decreased Breath Sounds, NORMAL BREATHING PATTERN. absent: Wheezes, Respiratory Distress - Cardiovascular Exam Cardiovascular Exam: +S1, +S2 - GI/Abdominal Exam GI & Abdominal Exam: Distended, Soft, Normal Bowel Sounds. absent: Guarding, Tenderness, Rebound - Extremities Exam Extremities Exam: Pedal Edema. 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 Elizabeth. <Annita Elizabeth V - Last Filed: 02/01/17 23:51> Objective - Vital Signs/Intake and Output Vital Signs (last 24 hours): Temp Pulse Resp BP Pulse Ox 98 F 64 20 130/84 99 02/01/17 16:00 02/01/17 16:00 02/01/17 16:00 02/01/17 16:00 02/01/17 16:00 Intake and Output: 02/01/17 02/02/17 18:59 06:59 Intake Total 120 Output Total 500 Balance -380 - Labs Labs: 02/01/17 06:15 02/01/17 06:15 PT 14.4 Seconds (9.9-11.8) H 01/29/17 16:00 INR 1.33 (0.93-1.08) H 01/29/17 16:00 APTT 31.3 Seconds (23.7-30.8) H 01/29/17 16:00
--- NOTE | 2017-02-01 12:23 | PN ---
DATE: 02/01/2017 SUBJECTIVE: The patient is seen sitting in chair. He is awake. He is alert. He received chemotherapy yesterday. He complaints of some nausea. PHYSICAL EXAMINATION GENERAL: Thinly built middle-aged male sitting in chair. VITAL SIGNS: Blood pressure 139/96, heart rate 58, respiratory rate 19, temperature 97.7. HEENT: Normocephalic, atraumatic. Positive pallor, positive icterus. NECK: Supple, no JVD. LUNGS: Bilateral equal air entry, no rales, scattered rhonchi. CARDIAC: S1 and S2. Regular rate and rhythm. No murmur. No rubs. ABDOMEN: Soft, nondistended, and nontender. Bowel sounds are present. EXTREMITIES: 2+ 3 edema of the lower extremities. INTAKE AND OUTPUT: 120/1150 LABORATORY DATA: WBC 15, hemoglobin 11.2, hematocrit 34, platelets 399. Sodium 136, potassium 3.3, chloride 98, CO2 is 26, BUN 24, creatinine 0.8, glucose 131, calcium 8.0, phosphorous not checked, magnesium 2.1, total bilirubin 4.3. AST 63, ALT 40, albumin 2.6. CURRENT MEDICATIONS: Carafate, Duragesic, folic acid, Lasix 40 daily, Periactin, oxycodone, Protonix, normal saline, Tylenol, Zofran, Aloxi, Cisplatin, Decadron, and Fosaprepitant. ASSESSMENT AND PLAN: 1. Severe hypokalemia. 2. Esophageal cancer. 3. Hiatal hernia. 4. Elevated liver function tests. PLAN: 1. Replace potassium aggressively, KCl 20 mEq x2. 2. Continue low dose Lasix. 3. Monitor electrolytes closely. Rona Spring MD
[2017-02-01 18:05] VITALS: BP 130/84; PULSE 64; RESP 20; TEMP 98
== END 2017-02-01 18:39 | disposition home or self-care (01) | DRG 172 ==
LOC: ED 15:32 → ERH 18:17 → 3RSO 20:41 → OBSVTOIN 01-30 14:39 → 3RSO 01-30 20:31
PROVIDERS: ADMIT Family Medicine; ATTEND Family Medicine
PROC: 30233N1 Transfusion of Nonautologous Red Blood Cells into Peripheral Vein, Percutaneous Approach (ICD-10-PCS; 2017-01-30)
PROC: 3E03305 Introduction of Other Antineoplastic into Peripheral Vein, Percutaneous Approach (ICD-10-PCS; principal; 2017-01-31)
DX: C16.0 Malignant neoplasm of cardia (principal); C78.7 Secondary malignant neoplasm of liver and intrahepatic bile duct; C78.00 Secondary malignant neoplasm of unspecified lung; C77.9 Secondary and unspecified malignant neoplasm of lymph node, unspecified; C79.71 Secondary malignant neoplasm of right adrenal gland; J90 Pleural effusion, not elsewhere classified; R64 Cachexia; E46 Unspecified protein-calorie malnutrition; R18.8 Other ascites; G35 Multiple sclerosis; E87.6 Hypokalemia; D50.9 Iron deficiency anemia, unspecified; K21.9 Gastro-esophageal reflux disease without esophagitis; D63.0 Anemia in neoplastic disease; K44.9 Diaphragmatic hernia without obstruction or gangrene; Z66 Do not resuscitate; K80.20 Calculus of gallbladder without cholecystitis without obstruction; S00.211A Abrasion of right eyelid and periocular area, initial encounter; S00.81XA Abrasion of other part of head, initial encounter; W19.XXXA Unspecified fall, initial encounter; Y92.238 Other place in hospital as the place of occurrence of the external cause; Z74.01 Bed confinement status; Z68.22 Body mass index [BMI] 22.0-22.9, adult; Z87.891 Personal history of nicotine dependence

== ENCOUNTER 2017-04-01 14:16 | Inpatient (IN) | payer MEDICAID ==
--- NOTE | 2017-04-01 14:56 | ED PDOC ---
Arrival/HPI - General Chief Complaint: Abnormal Labs Time Seen by Provider: 04/01/17 14:35 Historian: Patient - History of Present Illness Narrative History of Present Illness (Text): 04/01/17 Gareth Maria is a 56 year old male, whose past medical history includes stage IV metastatic cancer, who presents to the emergency department sent in by Dr. Hernandez due to elevated potassium and magnesium levels. Patient was administered 20 mg of Mg and 2g of K via IV by Dr. Hernandez. Patient denies any fever, shortness of breath, chest pain, headache, or other complaints. Time/Duration: Prior to Arrival, 1-3 hours Symptom Course: Unchanged Past Medical History - Provider Review Nursing Documentation Reviewed: Yes - Infectious Disease Hx of Infectious Diseases: None - Cardiac Hx Cardiac Disorders: No - Pulmonary Hx Respiratory Disorders: No - Neurological Hx Neurological Disorder: No - HEENT Hx HEENT Disorder: Yes (wears glasses) - Renal Hx Renal Disorder: No - Endocrine/Metabolic Hx Endocrine Disorders: No - Hematological/Oncological Hx Anemia: Yes Hx Cancer: Yes (ESAPHAGEAL/STOMACH c LIVER METS) - Integumentary Hx Dermatological Disorder: No - Musculoskeletal/Rheumatological Hx Falls: Yes - Gastrointestinal Other/Comment: Stomach CA,Esaphagal CA - Genitourinary/Gynecological Hx Genitourinary Disorders: No - Psychiatric Hx Psychophysiologic Disorder: No Hx Substance Use: No - Surgical History Other/Comment: "Removed 1/3 or stomach" - Anesthesia Hx Anesthesia Reactions: No Hx Malignant Hyperthermia: No Family/Social History - Physician Review Nursing Documentation Reviewed: Yes Family/Social History: Unknown Family HX Smoking Status: Current Some Days Smoker Hx Alcohol Use: No Hx Substance Use: No Allergies/Home Meds Allergies/Adverse Reactions: Allergies No Known Allergies Allergy (Verified 04/01/17 17:26) Home Medications: Home Meds Medication Instructions Recorded Confirmed oxyCODONE [oxyCODONE Immediate 10 mg PO Q6H PRN 01/29/17 04/01/17 Release Tab] DiphenhydrAMINE [Benadryl] 50 mg PO HS 02/28/17 04/01/17 Magnesium Oxide [Mag-Ox] 400 mg PO BID 02/28/17 04/01/17 Megestrol Acetate [Megace] 400 mg PO BID 02/28/17 04/01/17 Morphine Sulfate [Ms Contin] 15 mg PO DAILY PRN 02/28/17 04/01/17 Morphine Sulfate [Ms Contin] 15 mg PO HS 02/28/17 04/01/17 Sucralfate [Carafate Oral Susp] 1 gm PO QID 02/28/17 04/01/17 Ondansetron HCl [Zofran] 4 mg PO PRN PRN 03/15/17 04/01/17 Potassium Chloride [K-Dur 20 mEq 20 meq PO DAILY 03/15/17 04/01/17 ER Tab] fentaNYL 50 mcg/hr [Duragesic 1 patch TD Q72 03/15/17 04/01/17 Patch 50 mcg/hr] Spironolactone [Aldactone] 50 mg PO DAILY 04/01/17 04/01/17 oxyCODONE [oxycodone Hydrochloride] 10 mg PO Q6 PRN 04/01/17 04/01/17 Review of Systems - Review of Systems Constitutional: Other (elevated potassium and magnesium levels ). absent: Fevers Respiratory: absent: SOB Cardiovascular: absent: Chest Pain Gastrointestinal: absent: Abdominal Pain Physical Exam Vital Signs Reviewed: Yes Vital Signs Temp Pulse Resp BP Pulse Ox 04/01/17 16:24 119/77 04/01/17 16:21 88 19 99 04/01/17 14:28 98.4 F 98 H 20 102/61 99 Temperature: Afebrile Blood Pressure: Normal Pulse: Tachycardic Respiratory Rate: Normal Appearance: Positive for: Well-Appearing, Non-Toxic, Comfortable Pain Distress: None Mental Status: Positive for: Alert and Oriented X 3 - Systems Exam Head: Present: Atraumatic, Normocephalic Pupils: Present: PERRL Extroacular Muscles: Present: EOMI Conjunctiva: Present: Icteric Mouth: Present: Moist Mucous Membranes Neck: Present: Normal Range of Motion Respiratory/Chest: Present: Clear to Auscultation, Tachypneic. No: Respiratory Distress, Accessory Muscle Use Cardiovascular: Present: Regular Rate and Rhythm, Normal S1, S2. No: Murmurs Abdomen: Present: Normal Bowel Sounds. No: Tenderness, Distention, Peritoneal Signs Back: Present: Normal Inspection Upper Extremity: Present: Normal Inspection. No: Cyanosis, Edema Lower Extremity: Present: Normal Inspection, Other (2+ pedal edema). No: Edema Neurological: Present: GCS=15, CN II-XII Intact, Speech Normal Skin: Present: Warm, Dry, Normal Color, Other (Jaudice). No: Rashes Psychiatric: Present: Alert, Oriented x 3, Normal Insight, Normal Concentration Medical Decision Making ED Course and Treatment: 04/01/17 Impression: 56 year old male with tachypneic, jaundice, icetric eyes, sent in by Dr. Hernandez for elevated potassium and magnesium levels. Plan: -- Potassium Chloride -- Reassess and disposition Progress Notes: 20mg of potassium was ordered here and case was discussed with Dr. Hernandez who is aware of plan and treatment. Accepts patient into his service. - Medication Orders Current Medication Orders: Diphenhydramine HCl (Benadryl) 50 mg PO HS [facility] Fentanyl (Duragesic) 1 patch TD Q72 [facility] Folic Acid (Folic Acid) 1 mg PO DAILY [facility] Furosemide (Lasix) 40 mg PO DAILY [facility] Potassium Chloride (Potassium Chloride 20 Meq/100 Ml) 20 meq in 100 mls @ 50 mls/hr IVPB Q2H [facility] Stop: 04/01/17 18:44 Last Admin: 04/01/17 16:25 Dose: 50 mls/hr Potassium Chloride (Potassium Chloride 20 Meq/100 Ml) 20 meq in 100 mls @ 50 mls/hr IVPB Q2H [facility] Stop: 04/01/17 21:44 Magnesium Oxide (Mag-Ox) 400 mg PO BID [facility] Megestrol Acetate (Megace) 400 mg PO BID [facility] Ondansetron HCl (Zofran Tab) 4 mg PO PRN PRN PRN Reason: Nausea/Vomiting Oxycodone HCl (Oxycodone Immediate Release Tab) 10 mg PO Q6H PRN PRN Reason: Pain, severe (8-10) Pantoprazole Sodium (Protonix Ec Tab) 40 mg PO DAILY [facility] Spironolactone (Aldactone) 50 mg PO DAILY [facility] Sucralfate (Carafate Oral Susp) 1 gm PO QID [facility] - Scribe Statement The provider has reviewed the documentation as recorded by the Scribe Talia Munoz Provider Scribe Attestation: All medical record entries made by the Scribe were at my direction and personally dictated by me. I have reviewed the chart and agree that the record accurately reflects my personal performance of the history, physical exam, medical decision making, and the department course for this patient. I have also personally directed, reviewed, and agree with the discharge instructions and disposition. Disposition/Present on Arrival - Present on Arrival Any Indicators Present on Arrival: No History of DVT/PE: No History of Uncontrolled Diabetes: No Urinary Catheter: No History of Decub. 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
[2017-04-01] MEDS ORDERED: oxyCODONE 5 mg Immediate Release Tab PO PRN (17:27)
[2017-04-01] MEDS: Sucralfate 1 gm/10 ml Oral Susp UD PO SCH ×2 (18:03→21:47)
[2017-04-01] MEDS: Magnesium Oxide 400 mg Tab UD PO SCH (18:04)
[2017-04-01] MEDS: Megestrol Acetate 40 mg/ml Cup PO SCH (18:04)
[2017-04-01] MEDS ORDERED: Morphine 2 mg/ml ISec IVP PRN (19:19)
--- NOTE | 2017-04-01 20:46 | CARD ---
APPROVED REPORT EKG Measurement Heart [id number] <Conclusion> Normal sinus rhythm Left axis deviation Abnormal ECG
[2017-04-01] MEDS: Morphine 15 mg SR Tab PO SCH (21:47)
[2017-04-01 23:12] VITALS: BMI 20.6
[2017-04-01] MEDS ORDERED: Pneumococcal 23-Valent Vaccine IM ONE (23:12)
[2017-04-02 07:36] LABS: EOS % 0.1 % (1.5-5.0); GRAN # 6.25 (1.4-6.5); GRAN % 71.5 % (50.0-68.0); LYMPH # 1.2 (1.2-3.4); LYMPH % 13.5 % (22.0-35.0); MEAN CELL VOLUME 86.9 fl (80.0-105.0); MEAN CORPUSCULAR HEMOGLOBIN 29.2 pg (25.0-35.0); MEAN CORPUSCULAR HGB CONC 33.6 g/dl (31.0-37.0); MEAN PLATELET VOLUME 9.6 fl (7.0-11.0); MONO # 1.3 (0.1-0.6); MONO % 14.9 % (1.0-6.0); RED CELL DISTRIBUTION WIDTH 18.1 % (11.5-14.5); WHITE BLOOD COUNT 8.7 10^3/ul (4.5-11.0)
[2017-04-02 07:38] LABS: ALB/GLOB RATIO 0.7 (1.1-1.8); ALKALINE PHOSPHATASE 424 U/L (38-126); ALT/SGPT 34 U/L (7-56); AST/SGOT 33 U/L (17-59); BILIRUBIN,TOTAL 14.6 mg/dL (0.2-1.3); BLOOD UREA NITROGEN 20 mg/dL (7-21); CALCIUM 7.8 mg/dL (8.4-10.5); CARBON DIOXIDE 29 mmol/L (21-33); CHLORIDE 102 mmol/L (95-110); GFR AFRICAN-AMERICAN > 60; GLUCOSE,RANDOM 75 mg/dL (70-110); SODIUM 140 mmol/L (132-148); TOTAL PROTEIN 5.3 g/dL (5.8-8.3)
[2017-04-02 07:39] LABS: HEMATOCRIT 23.2 % (42.0-52.0)
[2017-04-02 07:53] LABS: POTASSIUM 2.4 mmol/L (3.6-5.0)
--- NOTE | 2017-04-02 09:36 | CP.PCM.PN ---
Subjective - Date & Time of Evaluation Date of Evaluation: 04/02/17 Time of Evaluation: 09:30 - Subjective Subjective: Mr Maria is known to our department. He has metastatic esophageal cancer with epigastric discomfort from his retroperitoneal disease. We saw him in consultation as an outpatient last week. He had a PET scan yesterday. We are currently working on his palliative radiation therapy plan which we will be starting as soon as possible. Since he is an inpatient, we will begin his therapy while he is in the hospital. Objective - Vital Signs/Intake and Output Vital Signs (last 24 hours): Temp Pulse Resp BP Pulse Ox 98.6 F 86 20 123/78 98 04/02/17 09:17 04/02/17 09:17 04/02/17 09:17 04/02/17 09:17 04/02/17 09:17 Intake and Output: 04/02/17 04/02/17 06:59 18:59 Intake Total 400 Output Total 975 Balance -575 - Medications Medications: Current Medications Diphenhydramine HCl (Benadryl) 50 mg PO HS [facility] Last Admin: 04/01/17 21:47 Dose: 50 mg Fentanyl (Duragesic) 1 patch TD Q72 [facility] Last Admin: 04/01/17 21:53 Dose: 1 patch Folic Acid (Folic Acid) 1 mg PO DAILY [facility] Furosemide (Lasix) 40 mg PO DAILY [facility] Magnesium Oxide (Mag-Ox) 400 mg PO BID [facility] Last Admin: 04/01/17 18:04 Dose: 400 mg Megestrol Acetate (Megace) 400 mg PO BID [facility] Last Admin: 04/01/17 18:04 Dose: 400 mg Morphine Sulfate (Morphine Extended Release Tab) 15 mg PO Q12 [facility] Last Admin: 04/01/17 21:47 Dose: 15 mg Morphine Sulfate (Morphine) 2 mg IVP Q4H PRN PRN Reason: pain, sever Last Admin: 04/01/17 20:17 Dose: 2 mg Ondansetron HCl (Zofran Tab) 4 mg PO Q6H PRN PRN Reason: Nausea/Vomiting Oxycodone HCl (Oxycodone Immediate Release Tab) 10 mg PO Q6H PRN PRN Reason: Pain, severe (8-10) Pantoprazole Sodium (Protonix Ec Tab) 40 mg PO DAILY [facility] Spironolactone (Aldactone) 50 mg PO DAILY [facility] Sucralfate (Carafate Oral Susp) 1 gm PO QID [facility] Last Admin: 04/01/17 21:47 Dose: 1 gm - Labs Labs: 04/02/17 07:07 04/02/17 07:07
[2017-04-02] MEDS: Morphine 15 mg SR Tab PO SCH ×2 (10:38→21:09)
[2017-04-02] MEDS: Magnesium Oxide 400 mg Tab UD PO SCH ×2 (10:39→19:08)
[2017-04-02] MEDS: Sucralfate 1 gm/10 ml Oral Susp UD PO SCH ×4 (10:39→21:09)
[2017-04-02] MEDS: Megestrol Acetate 40 mg/ml Cup PO SCH ×2 (10:39→19:08)
[2017-04-02] MEDS: Pantoprazole 40 mg EC Tab PO SCH (10:40)
[2017-04-02] MEDS ORDERED: DiphenhydrAMINE 50 mg/ml Inj IVP ONE ×2 (12:15)
[2017-04-02] MEDS: Morphine 4 mg/ml ISec IVP PRN (14:12)
--- NOTE | 2017-04-02 16:03 | CP.PCM.CON ---
<Karen Haines - Last Filed: 04/02/17 16:02> History of Present Illness - History of Present Illness History of Present Illness: Seen and examined at bedside earlier today, chart was reviewed. GI consult is for Elevated LFT. HPI: This is a 56 year old male with a PMH of Metestatic Esophageal Cancer, MS, GERD, was sent to the ER by oncologist for hypokalemia and hypomagnesium levels. He had an outpatient PET in evaluation for palliative radiation. Found to have multiple lung nodules which shoe slight increase, 2 foci of increased FDG uptake at thoracic inlet suspicious for metastasis, multple foci in liver consistent with metastasis and also bony lesion at C&. He also had an outpatient abdominal US as well which report the hepatic metastasis,lesions in the left lobe are stable, marker lesion in the right hepatic lobe appear larger , cholelithiasis, no acute cholelithiasis, CBD 4.2. Pateint deneis SOB, CP, N/V or abdominal pain. He is cachetic and severely jaundice. He denies overt GI bleeding. He had EGD 01/2017 found to have multiple ulcer. He reports tolerating oral intake, no problem with swallowing. BM are loose, does not notice bleeding. This patient is known to our service from previous admission. 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 FH noncontributory at this time Allergies: NKDA MEDS: reviewed as per MAR Social HX: positive for smoking, denies ETOH, substance abuse ROS: systems reviewed, with positive findings, see HPI. Past Patient History - Infectious Disease Hx of Infectious Diseases: None - Past Social History Smoking Status: Former Smoker - CARDIAC Hx Cardiac Disorders: No - PULMONARY Hx Respiratory Disorders: No - NEUROLOGICAL Hx Neurological Disorder: No - HEENT Hx HEENT Problems: Yes (wears glasses) - RENAL Hx Chronic Kidney Disease: No - ENDOCRINE/METABOLIC Hx Endocrine Disorders: No - HEMATOLOGICAL/ONCOLOGICAL Hx Blood Disorders: Yes Hx Anemia: Yes Hx Cancer: Yes (ESAPHAGEAL/STOMACH c LIVER METS) - INTEGUMENTARY Hx Dermatological Problems: No - MUSCULOSKELETAL/RHEUMATOLOGICAL Hx Falls: Yes - GASTROINTESTINAL Other/Comment: Stomach CA,Esaphagal CA - GENITOURINARY/GYNECOLOGICAL Hx Genitourinary Disorders: No - PSYCHIATRIC Hx Psychophysiologic Disorder: No Hx Substance Use: No - SURGICAL HISTORY Hx Surgeries: Yes (PORT RCW,RIGHT ANKLE WITH METAL PIN) Other/Comment: "Removed 1/3 or stomach" - ANESTHESIA Hx Anesthesia Reactions: No Hx Malignant Hyperthermia: No Meds Allergies/Adverse Reactions: Allergies Allergy/AdvReac Type Severity Reaction Status Date / Time No Known Allergies Allergy Verified 04/01/17 17:26 - Medications Medications: Current Medications Diphenhydramine HCl (Benadryl) 50 mg PO HS [facility] Last Admin: 04/01/17 21:47 Dose: 50 mg Fentanyl (Duragesic) 1 patch TD Q72 [facility] Last Admin: 04/01/17 21:53 Dose: 1 patch Folic Acid (Folic Acid) 1 mg PO DAILY [facility] Last Admin: 04/02/17 10:38 Dose: 1 mg Furosemide (Lasix) 40 mg PO DAILY [facility] Last Admin: 04/02/17 10:38 Dose: 40 mg Potassium Chloride 40 meq/ (Sodium Chloride) 1,020 mls @ 60 mls/hr IV .Q17H [facility] Last Admin: 04/02/17 12:21 Dose: 60 mls/hr Potassium Chloride (Potassium Chloride 20 Meq/100 Ml) 20 meq in 100 mls @ 50 mls/hr IVPB Q2H [facility] Stop: 04/02/17 17:44 Last Admin: 04/02/17 12:21 Dose: 50 mls/hr Magnesium Oxide (Mag-Ox) 400 mg PO BID [facility] Last Admin: 04/02/17 10:39 Dose: 400 mg Megestrol Acetate (Megace) 400 mg PO BID [facility] Last Admin: 04/02/17 10:39 Dose: 400 mg Morphine Sulfate (Morphine Extended Release Tab) 15 mg PO Q12 [facility] Last Admin: 04/02/17 10:38 Dose: 15 mg Morphine Sulfate (Morphine) 4 mg IVP Q4H PRN PRN Reason: Pain, severe (8-10) Ondansetron HCl (Zofran Tab) 4 mg PO Q6H PRN PRN Reason: Nausea/Vomiting Oxycodone HCl (Oxycodone Immediate Release Tab) 10 mg PO Q6H PRN PRN Reason: Pain, severe (8-10) Pantoprazole Sodium (Protonix Ec Tab) 40 mg PO DAILY [facility] Last Admin: 04/02/17 10:40 Dose: 40 mg Spironolactone (Aldactone) 50 mg PO DAILY [facility] Last Admin: 04/02/17 10:38 Dose: 50 mg Sucralfate (Carafate Oral Susp) 1 gm PO QID [facility] Last Admin: 04/02/17 10:39 Dose: 1 gm Physical Exam - Constitutional Appears: Cachectic, Chronically Ill - Head Exam Head Exam: NORMOCEPHALIC - Eye Exam Eye Exam: Scleral icterus - ENT Exam ENT Exam: Mucous Membranes Moist - Neck Exam Neck exam: Positive for: Normal Inspection - Respiratory Exam Respiratory Exam: NORMAL BREATHING PATTERN. absent: Respiratory Distress - Cardiovascular Exam Cardiovascular Exam: +S1, +S2 - GI/Abdominal Exam GI & Abdominal Exam: Distended, Normal Bowel Sounds, Soft. absent: Guarding, Rebound, Tenderness - Extremities Exam Extremities exam: Positive for: pedal edema, pedal pulses present. Negative for : calf tenderness - Neurological Exam Neurological exam: Alert, Oriented x3 - Skin Skin Exam: Dry, Warm Additional comments: Jaundice Results - Vital Signs Recent Vital Signs: Last Vital Signs Temp 98.6 F 04/02/17 09:17 Pulse 86 04/02/17 09:17 Resp 20 04/02/17 09:17 BP 123/78 04/02/17 10:38 Pulse Ox 98 04/02/17 09:17 - Labs Result Diagrams: 04/02/17 07:07 04/02/17 07:07 Labs: Laboratory Results - last 24 hr 04/02/17 04/02/17 04/02/17 07:07 07:07 07:30 WBC 8.7 RBC 2.67 L Hgb 7.8 L D Hct 23.2 L MCV 86.9 MCH 29.2 MCHC 33.6 RDW 18.1 H Plt Count 246 MPV 9.6 Gran % 71.5 H Lymph % (Auto) 13.5 L [place] % (Auto) 14.9 H Eos % (Auto) 0.1 L Baso % (Auto) 0.0 Gran # 6.25 Lymph # 1.2 [place] # 1.3 H Eos # 0.0 Baso # 0.00 Sodium 140 Potassium 2.4 L* D Chloride 102 Carbon Dioxide 29 Anion Gap 11 BUN 20 Creatinine 0.6 Est GFR ( Amer) > 60 Est GFR (Non-Af Amer) > 60 Random Glucose 75 Calcium 7.8 L Magnesium 1.8 Total Bilirubin 14.6 H AST 33 ALT 34 Alkaline Phosphatase 424 H Total Protein 5.3 L Albumin 2.2 L Globulin 3.0 Albumin/Globulin Ratio 0.7 L Crossmatch BBK History Checked 04/02/17 12:02 WBC RBC Hgb Hct MCV MCH MCHC RDW Plt Count MPV Gran % Lymph % (Auto) [place] % (Auto) Eos % (Auto) Baso % (Auto) Gran # Lymph # [place] # Eos # Baso # Sodium Potassium Chloride Carbon Dioxide Anion Gap BUN Creatinine Est GFR ( Amer) Est GFR (Non-Af Amer) Random Glucose Calcium Magnesium Total Bilirubin AST ALT Alkaline Phosphatase Total Protein Albumin Globulin Albumin/Globulin Ratio Crossmatch See Detail BBK History Checked Patient has bt Assessment & Plan - Assessment and Plan (Free Text) Assessment: ASSESSMENT: Metestatic Esophageal Cancer Elevated LFT, pt had MRCP01/2017 no cbd stone or extrahepatic ductal dilitation Hypokalemia Hypomagnesium Anemia PUD PLAN: monitor H/H continue PPI for blood transfusion ? EGD trend LFT oncology following Thank you for this consult and for allowing us to participate in your patient care, further recommendation based upon clinical course. Seen and discussed w/ Dr. Elizabeth. <Annita Elizabeth V - Last Filed: 04/02/17 23:53> Meds - Medications Medications: Current Medications Diphenhydramine HCl (Benadryl) 50 mg PO HS [facility] Last Admin: 04/02/17 21:09 Dose: 50 mg Fentanyl (Duragesic) 1 patch TD Q72 [facility] Last Admin: 04/01/17 21:53 Dose: 1 patch Folic Acid (Folic Acid) 1 mg PO DAILY [facility] Last Admin: 04/02/17 10:38 Dose: 1 mg Potassium Chloride 40 meq/ (Sodium Chloride) 1,020 mls @ 60 mls/hr IV .Q17H [facility] Last Admin: 04/02/17 12:21 Dose: 60 mls/hr Magnesium Oxide (Mag-Ox) 400 mg PO BID [facility] Last Admin: 04/02/17 19:08 Dose: 400 mg Megestrol Acetate (Megace) 400 mg PO BID [facility] Last Admin: 04/02/17 19:08 Dose: 400 mg Morphine Sulfate (Morphine Extended Release Tab) 15 mg PO Q12 [facility] Last Admin: 04/02/17 21:09 Dose: 15 mg Morphine Sulfate (Morphine) 4 mg IVP Q4H PRN PRN Reason: Pain, severe (8-10) Last Admin: 04/02/17 14:12 Dose: 4 mg Ondansetron HCl (Zofran Tab) 4 mg PO Q6H PRN PRN Reason: Nausea/Vomiting Oxycodone HCl (Oxycodone Immediate Release Tab) 10 mg PO Q6H PRN PRN Reason: Pain, severe (8-10) Pantoprazole Sodium (Protonix Ec Tab) 40 mg PO DAILY [facility] Last Admin: 04/02/17 10:40 Dose: 40 mg Spironolactone (Aldactone) 50 mg PO DAILY [facility] Last Admin: 04/02/17 10:38 Dose: 50 mg Sucralfate (Carafate Oral Susp) 1 gm PO QID [facility] Last Admin: 04/02/17 21:09 Dose: 1 gm Results - Vital Signs Recent Vital Signs: Last Vital Signs Temp 97.6 F 04/02/17 23:13 Pulse 80 04/02/17 23:13 Resp 18 04/02/17 23:13 BP 118/78 04/02/17 23:13 Pulse Ox 97 04/02/17 16:00 - Labs Result Diagrams: 04/02/17 07:07 04/02/17 07:07 Labs: Laboratory Results - last 24 hr 04/02/17 04/02/17 04/02/17 07:07 07:07 07:30 WBC 8.7 RBC 2.67 L Hgb 7.8 L D Hct 23.2 L MCV 86.9 MCH 29.2 MCHC 33.6 RDW 18.1 H Plt Count 246 MPV 9.6 Gran % 71.5 H Lymph % (Auto) 13.5 L [place] % (Auto) 14.9 H Eos % (Auto) 0.1 L Baso % (Auto) 0.0 Gran # 6.25 Lymph # 1.2 [place] # 1.3 H Eos # 0.0 Baso # 0.00 Sodium 140 Potassium 2.4 L* D Chloride 102 Carbon Dioxide 29 Anion Gap 11 BUN 20 Creatinine 0.6 Est GFR ( Amer) > 60 Est GFR (Non-Af Amer) > 60 Random Glucose 75 Calcium 7.8 L Magnesium 1.8 Total Bilirubin 14.6 H AST 33 ALT 34 Alkaline Phosphatase 424 H Total Protein 5.3 L Albumin 2.2 L Globulin 3.0 Albumin/Globulin Ratio 0.7 L Blood Type Antibody Screen Crossmatch BBK History Checked 04/02/17 12:02 WBC RBC Hgb Hct MCV MCH MCHC RDW Plt Count MPV Gran % Lymph % (Auto) [place] % (Auto) Eos % (Auto) Baso % (Auto) Gran # Lymph # [place] # Eos # Baso # Sodium Potassium Chloride Carbon Dioxide Anion Gap BUN Creatinine Est GFR ( Amer) Est GFR (Non-Af Amer) Random Glucose Calcium Magnesium Total Bilirubin AST ALT Alkaline Phosphatase Total Protein Albumin Globulin Albumin/Globulin Ratio Blood Type O POSITIVE Antibody Screen Negative Crossmatch See Detail BBK History Checked Patient has bt Attending/Attestation - Attestation I have personally seen and examined this patient.: Yes I have fully participated in the care of the patient.: Yes I have reviewed all pertinent clinical information: Yes Notes (Text): 04/02/17 23:53 p
--- NOTE | 2017-04-02 23:50 | CON ---
DATE: 04/02/2017 The patient admitted for Dr. Franky Sandoval. REFERRING MD: Franky Sandoval MD REASON FOR CONSULTATION: Evaluation of a patient known to me from previous evaluation who presents with severe hypokalemia in the setting of diuretic therapy for lower extremity edema in the setting of metastatic esophageal cancer. 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 This was diagnosed in 2010, status post surgical resection and chemotherapy. The patient is currently being evaluated for palliative radiation therapy. The patient is a DNR/DNI. The patient comes into the hospital because of severe hypokalemia and increasing weakness. The patient has had progressive weight loss and loss of appetite despite taking stimulants to improve his appetite and oral intake. The patient has anemia secondary to ongoing malignancy. He has significant lower extremity edema and had been on diuretic therapy, both loop diuretics and potassium-sparing diuretics in the outpatient setting. We are asked to evaluate the patient to help correct his electrolytes and to assist with his fluid balance. PAST MEDICAL HISTORY: Significant for that of metastatic esophageal cancer with metastasis to lymph node, lung, liver and adrenal gland, history of hiatal hernia, history of anemia, history of edema of the lower extremity. The patient is a DNR/DNI. MEDICATIONS: At home included that of Carafate, oxycodone, Aldactone, Periactin, MS Contin, magnesium oxide, folic acid, Zofran p.r.n., Megace, p.o. Lasix, Benadryl, fentanyl patch, K-Tab, Compazine p.r.n. and Protonix. Current medications in hospital include that of Aldactone, Benadryl, Carafate, Duragesic, folic acid, oral Lasix, magnesium oxide, Megace, morphine, oxycodone, K-riders, IV fluid with potassium, Protonix, and Zofran p.r.n. ALLERGIES: THE PATIENT HAS NO KNOWN ALLERGIES TO MEDICATIONS. FAMILY HISTORY: Noncontributory. SOCIAL HISTORY: Positive history of cigarette smoking. No history of alcohol use. REVIEW OF SYSTEMS: GENERAL: The patient admits to progressive weight loss and loss of appetite despite taking Megace. ENT: Negative. PULMONARY: Positive shortness of breath secondary to anemia. CARDIAC: History of intermittent chest discomfort, likely secondary to progressive anemia. No palpitations. GI: Only mild nausea, no vomiting. No abdominal pain. No diarrhea or constipation. : No history of chronic kidney disease or UTIs. ENDOCRINE: Negative. MUSCULOSKELETAL: No complaints. NEUROLOGIC: No history of CVA, TIA, seizures or syncope. HEME/ONC: History of anemia secondary to chronic kidney disease, history of metastatic stage IV esophageal cancer. PSYCHIATRIC: History is negative. PHYSICAL EXAMINATION GENERAL: The patient is currently seen on 3R. He is lying comfortable supine in bed. K-riders are infusing and IV fluid with potassium is infusing. The patient is scheduled to receive transfusion of packed red blood cells later today. VITAL SIGNS: Blood pressure 123/78, temperature 98.6, pulse 86 with a respiratory rate of 20, oxygen saturation is 98%. HEENT: Examination shows him to be normocephalic, atraumatic. Temporomandibular wasting. Sclerae are icteric. Conjunctivae are pale. Pupils equal and reactive to light and accommodation. Extraocular muscles are intact. Posterior pharynx is normal. NECK: Supple. No neck vein distention. No thyromegaly. No lymphadenopathy. No bruits. CARDIOVASCULAR: Shows a regular rate and rhythm without audible murmurs, rubs, or gallops. CHEST: Clear to auscultation and percussion with slight decreased breath sounds at the bases. ABDOMEN: Soft. No tenderness on palpation. No appreciable fluid wave. Bowel sounds are normal. No rebound, no guarding, no masses. BACK: No CVAT. No spinal tenderness. EXTREMITIES: Showed no cyanosis or clubbing. He does have 2+ pitting edema, ankles up to the mid calf, lying supine in bed. Diminished lower extremity pulses secondary to edema. NEUROLOGIC: Shows him to be alert and oriented with no gross focal motor or sensory deficits. No asterixis. IMAGING: Admitting EKG shows a normal sinus rhythm with left axis deviation. LABORATORY DATA: CBC, white blood cell count 8.7, hemoglobin 7.8 with a platelet count of 246,000. Chemistries showed a sodium of 140, potassium of 2.4, yesterday he was 2.1. On 03/29/2017 as an outpatient, it was 2.4. Chloride 102 with a CO2 of 29, BUN is 20 with a creatinine of 0.6, glucose 75, calcium 7.8, magnesium 1.8, phosphorus is pending, bilirubin is elevated at 14.6. AST and ALT are normal. Alkaline phosphatase is 424, albumin level is 2.2. ASSESSMENT: 1. Severe refractory hypokalemia in the setting of diuretic therapy for lower extremity edema. I will hold oral Lasix therapy. The patient may continue Aldactone as there is a potassium-sparing diuretic. This might allow to some increase in his lower extremity edema, but at present it is not safe to give loop diuretics with potassium levels in the low-to-mid 2 range. Agree with intravenous K-riders and intravenous fluid with potassium. The patient can be given oral potassium supplements post intravenous potassium chloride supplementation. 2. Metastatic stage IV esophageal cancer with metastasis to lymph nodes, liver, lungs, and adrenal gland. The patient is being evaluated for palliative radiation therapy. He is status post chemotherapy. 3. DNR/DNI noted. 4. History of hiatal hernia, currently stable. The patient will continue Protonix therapy. 5. Edema dependent in his lower extremity in part secondary to hypoalbuminemia. The patient once his potassium level is corrected can receive Lasix therapy in addition to Aldactone, but for right now, I would hold Lasix therapy. I will increase Aldactone to twice a day from daily. PLAN: 1. Agree with plan to transfuse the patient to a hemoglobin of 9 to 10. Anemia secondary to malignancy. 2. Continue potassium supplements. 3. Hold oral Lasix therapy at this point in time until potassium level is supplemented. 4. Agree with palliative radiation therapy. 5. Check urinalysis. 6. Check phosphorus level and p.r.n. use of potassium and phosphorus supplements. 7. Continue Megace with the hope of stimulating appetite, increasing protein intake and improving his iron levels. Thank you for letting me partake and share in the care of your patient. Rd Dover MD
[2017-04-03 08:25] LABS: BASO # 0.01 K/mm3 (0.0-2.0); BASO % 0.1 % (0.0-3.0); GRAN # 10.66 (1.4-6.5); GRAN % 81.4 % (50.0-68.0); HEMATOCRIT 33.8 % (42.0-52.0); LYMPH # 1.1 (1.2-3.4); LYMPH % 8.3 % (22.0-35.0); MEAN CELL VOLUME 85.1 fl (80.0-105.0); MEAN CORPUSCULAR HEMOGLOBIN 29.7 pg (25.0-35.0); MEAN CORPUSCULAR HGB CONC 34.9 g/dl (31.0-37.0); MEAN PLATELET VOLUME 9.8 fl (7.0-11.0); MONO # 1.3 (0.1-0.6); MONO % 10.2 % (1.0-6.0); RED CELL DISTRIBUTION WIDTH 16.5 % (11.5-14.5); WHITE BLOOD COUNT 13.1 10^3/ul (4.5-11.0)
[2017-04-03 08:34] LABS: ALB/GLOB RATIO 0.8 (1.1-1.8); ALKALINE PHOSPHATASE 481 U/L (38-126); ALT/SGPT 35 U/L (7-56); AST/SGOT 33 U/L (17-59); BILIRUBIN,TOTAL 15.3 mg/dL (0.2-1.3); BLOOD UREA NITROGEN 24 mg/dL (7-21); CALCIUM 7.9 mg/dL (8.4-10.5); CARBON DIOXIDE 26 mmol/L (21-33); CHLORIDE 105 mmol/L (98-107); GFR AFRICAN-AMERICAN > 60; GLUCOSE,RANDOM 98 mg/dL (70-110); MAGNESIUM 1.6 mg/dL (1.7-2.2); POTASSIUM 3.5 mmol/L (3.6-5.0); SODIUM 140 mmol/L (132-148); TOTAL PROTEIN 5.5 g/dL (5.8-8.3)
[2017-04-03] MEDS: Sucralfate 1 gm/10 ml Oral Susp UD PO SCH ×4 (09:51→22:04)
[2017-04-03] MEDS: Magnesium Oxide 400 mg Tab UD PO SCH ×2 (09:51→17:53)
[2017-04-03] MEDS: Megestrol Acetate 40 mg/ml Cup PO SCH ×2 (09:52→17:54)
[2017-04-03] MEDS: Pantoprazole 40 mg EC Tab PO SCH (09:52)
[2017-04-03] MEDS: Morphine 15 mg SR Tab PO SCH ×2 (09:52→22:03)
--- NOTE | 2017-04-03 10:11 | CP.PCM.CON ---
History of Present Illness - History of Present Illness History of Present Illness: Palliative consult requested by Dr Hernandez Reason: Goals of care 56 year old male with history of advanced esophageal cancer who was sent by Dr Hernandez with hypokalemia (K 2.4),low magnesium and anemia he denied fever, chest pain, shortness of breath or other complaints. PMHX:Metastatic esophageal cancer s/p resection, receiving chemotherapy, hiatal hernia, anemia. Social History: Former smoker, no alcohol or drug use. , resides with spouse Family History: Noncontributory. Advance Care Planning: The patient has an Advanced Directive: he is DNR/DNI. Review of Systems - Constitutional Constitutional: Weight Loss, Weakness - EENT Additional comments: scleral icterus - Cardiovascular Cardiovascular: Dyspnea on Exertion Additional comments: chest pressure - Respiratory Additional comments: shortness of breath - Gastrointestinal Gastrointestinal: Early Satiety Additional comments: mild nausea - Genitourinary Additional comments: negative - Reproductive: Male Additional comments: negative - Musculoskeletal Additional comments: negative - Integumentary Integumentary: Jaundice - Neurological Additional comments: negative - Psychiatric Additional comments: negative - Endocrine Additional Comments: negative - Hematologic/Lymphatic Additional comments: anemia Past Patient History - Infectious Disease Hx of Infectious Diseases: None - Past Social History Smoking Status: Former Smoker - CARDIAC Hx Cardiac Disorders: No - PULMONARY Hx Respiratory Disorders: No - NEUROLOGICAL Hx Neurological Disorder: No - HEENT Hx HEENT Problems: Yes (wears glasses) - RENAL Hx Chronic Kidney Disease: No - ENDOCRINE/METABOLIC Hx Endocrine Disorders: No - HEMATOLOGICAL/ONCOLOGICAL Hx Blood Disorders: Yes Hx Anemia: Yes Hx Cancer: Yes (ESAPHAGEAL/STOMACH c LIVER METS) - INTEGUMENTARY Hx Dermatological Problems: No - MUSCULOSKELETAL/RHEUMATOLOGICAL Hx Falls: Yes - GASTROINTESTINAL Other/Comment: Stomach CA,Esaphagal CA - GENITOURINARY/GYNECOLOGICAL Hx Genitourinary Disorders: No - PSYCHIATRIC Hx Psychophysiologic Disorder: No Hx Substance Use: No - SURGICAL HISTORY Hx Surgeries: Yes (PORT RCW,RIGHT ANKLE WITH METAL PIN) Other/Comment: "Removed 1/3 or stomach" - ANESTHESIA Hx Anesthesia Reactions: No Hx Malignant Hyperthermia: No Meds Allergies/Adverse Reactions: Allergies Allergy/AdvReac Type Severity Reaction Status Date / Time No Known Allergies Allergy Verified 04/01/17 17:26 - Medications Medications: Current Medications Diphenhydramine HCl (Benadryl) 50 mg PO HS [facility] Last Admin: 04/02/17 21:09 Dose: 50 mg Fentanyl (Duragesic) 1 patch TD Q72 [facility] Last Admin: 04/01/17 21:53 Dose: 1 patch Folic Acid (Folic Acid) 1 mg PO DAILY [facility] Last Admin: 04/03/17 09:51 Dose: 1 mg Potassium Chloride 40 meq/ (Sodium Chloride) 1,020 mls @ 60 mls/hr IV .Q17H [facility] Last Admin: 04/02/17 12:21 Dose: 60 mls/hr Magnesium Oxide (Mag-Ox) 400 mg PO BID [facility] Last Admin: 04/03/17 09:51 Dose: 400 mg Megestrol Acetate (Megace) 400 mg PO BID [facility] Last Admin: 04/03/17 09:52 Dose: 400 mg Morphine Sulfate (Morphine Extended Release Tab) 15 mg PO Q12 [facility] Last Admin: 04/03/17 09:52 Dose: 15 mg Morphine Sulfate (Morphine) 4 mg IVP Q4H PRN PRN Reason: Pain, severe (8-10) Last Admin: 04/02/17 14:12 Dose: 4 mg Ondansetron HCl (Zofran Tab) 4 mg PO Q6H PRN PRN Reason: Nausea/Vomiting Last Admin: 04/03/17 08:44 Dose: 4 mg Oxycodone HCl (Oxycodone Immediate Release Tab) 10 mg PO Q6H PRN PRN Reason: Pain, severe (8-10) Last Admin: 04/03/17 08:44 Dose: 10 mg Pantoprazole Sodium (Protonix Ec Tab) 40 mg PO DAILY [facility] Last Admin: 04/03/17 09:52 Dose: 40 mg Spironolactone (Aldactone) 50 mg PO DAILY [facility] Last Admin: 04/03/17 09:51 Dose: 50 mg Sucralfate (Carafate Oral Susp) 1 gm PO QID [facility] Last Admin: 04/03/17 09:51 Dose: 1 gm Physical Exam - Constitutional Appears: Cachectic, Chronically Ill - Head Exam Head Exam: NORMAL INSPECTION - Eye Exam Eye Exam: PERRL, Scleral icterus - ENT Exam ENT Exam: Mucous Membranes Moist - Neck Exam Neck exam: Positive for: Normal Inspection - Respiratory Exam Respiratory Exam: Clear to Auscultation Bilateral, NORMAL BREATHING PATTERN - Cardiovascular Exam Cardiovascular Exam: REGULAR RHYTHM, +S1, +S2 - GI/Abdominal Exam GI & Abdominal Exam: Normal Bowel Sounds, Soft - Extremities Exam Additional comments: + edema of both lower extremities - Back Exam Back exam: NORMAL INSPECTION - Neurological Exam Neurological exam: Alert, Oriented x3 - Skin Skin Exam: Dry, Warm Additional comments: jaundice - Additional Findings Additional findings: Palliative performance scale rating 50 % Results - Vital Signs Recent Vital Signs: Last Vital Signs Temp 98.0 F 04/03/17 06:00 Pulse 73 04/03/17 06:00 Resp 20 04/03/17 06:00 BP 132/99 H 04/03/17 06:00 Pulse Ox 97 04/03/17 06:00 - Labs Result Diagrams: 04/03/17 08:00 04/03/17 08:00 Labs: Laboratory Results - last 24 hr 04/02/17 04/03/17 04/03/17 12:02 08:00 08:00 WBC 13.1 H D RBC 3.97 Hgb 11.8 L D Hct 33.8 L MCV 85.1 MCH 29.7 MCHC 34.9 RDW 16.5 H Plt Count 266 MPV 9.8 Gran % 81.4 H Lymph % (Auto) 8.3 L Metcalfe % (Auto) 10.2 H Eos % (Auto) 0.0 L Baso % (Auto) 0.1 Gran # 10.66 H Lymph # 1.1 L Metcalfe # 1.3 H Eos # 0.0 Baso # 0.01 Sodium 140 Potassium 3.5 L Chloride 105 Carbon Dioxide 26 Anion Gap 13 BUN 24 H Creatinine 0.7 Est GFR ( Amer) > 60 Est GFR (Non-Af Amer) > 60 Random Glucose 98 Calcium 7.9 L Magnesium 1.6 L Total Bilirubin 15.3 H AST 33 ALT 35 Alkaline Phosphatase 481 H Total Protein 5.5 L Albumin 2.4 L Globulin 3.1 Albumin/Globulin Ratio 0.8 L Blood Type O POSITIVE Antibody Screen Negative Crossmatch See Detail BBK History Checked Patient has bt Assessment & Plan - Assessment and Plan (Free Text) Assessment: 56 year old male with history of metastatic esophageal canc er who was admitted with hypokalemia, hypomagnesia, anemia, weakness, cachexia. The patient is alert, oriented. States his appetite is fair. He complains of mild fatigue. Denies pain at this time. The patient is known to me form previous admission. During that visit we discussed advance care planning. The patient has an Advance Directive in which he states he is DNR/DNI, he does not want dialysis or permanent feeding tube. Patient's Kendal is his health care proxy. Today we discussed future goals of care. Patient states although he is limited in activity, his pain is controlled and that his quality of life is acceptable. He is aware that despite treatment his disease is advancing. Patient understands that he has option to continue treatment or to transition to hospice care. The patient states he is willing to receive palliative radiation and chemotherapy for as long as he is able to do so. He is appreciative of opportunity to discuss options and future goals. Psychosocial support given. Time spent in goals of care discussion/advance care planning, 30 minutes Plan: Advance care planning Palliative support
--- NOTE | 2017-04-03 12:29 | CP.PCM.PN ---
<Karen Haines - Last Filed: 04/03/17 12:29> Subjective - Date & Time of Evaluation Date of Evaluation: 04/03/17 Time of Evaluation: 09:50 - Subjective Subjective: Seen and examined at the bedside, chart was reviewed. Status post 3 units of packed RBCs. Patient reports no overt GI bleed, this morning he has some nausea and some abdominal discomfort. He tolerated some juice. Objective - Vital Signs/Intake and Output Vital Signs (last 24 hours): Temp Pulse Resp BP Pulse Ox 98.0 F 73 20 132/99 H 97 04/03/17 06:00 04/03/17 06:00 04/03/17 06:00 04/03/17 06:00 04/03/17 06:00 Intake and Output: 04/03/17 04/03/17 06:59 18:59 Intake Total 1205 Output Total 650 Balance 555 - Medications Medications: Current Medications Diphenhydramine HCl (Benadryl) 50 mg PO HS [facility] Last Admin: 04/02/17 21:09 Dose: 50 mg Fentanyl (Duragesic) 1 patch TD Q72 [facility] Last Admin: 04/01/17 21:53 Dose: 1 patch Folic Acid (Folic Acid) 1 mg PO DAILY [facility] Last Admin: 04/03/17 09:51 Dose: 1 mg Potassium Chloride 40 meq/ (Sodium Chloride) 1,020 mls @ 60 mls/hr IV .Q17H [facility] Last Admin: 04/02/17 12:21 Dose: 60 mls/hr Magnesium Oxide (Mag-Ox) 400 mg PO BID [facility] Last Admin: 04/03/17 09:51 Dose: 400 mg Megestrol Acetate (Megace) 400 mg PO BID [facility] Last Admin: 04/03/17 09:52 Dose: 400 mg Morphine Sulfate (Morphine Extended Release Tab) 15 mg PO Q12 [facility] Last Admin: 04/03/17 09:52 Dose: 15 mg Morphine Sulfate (Morphine) 4 mg IVP Q4H PRN PRN Reason: Pain, severe (8-10) Last Admin: 04/02/17 14:12 Dose: 4 mg Ondansetron HCl (Zofran Tab) 4 mg PO Q6H PRN PRN Reason: Nausea/Vomiting Last Admin: 04/03/17 08:44 Dose: 4 mg Oxycodone HCl (Oxycodone Immediate Release Tab) 10 mg PO Q6H PRN PRN Reason: Pain, severe (8-10) Last Admin: 04/03/17 08:44 Dose: 10 mg Pantoprazole Sodium (Protonix Ec Tab) 40 mg PO DAILY [facility] Last Admin: 04/03/17 09:52 Dose: 40 mg Spironolactone (Aldactone) 50 mg PO DAILY [facility] Last Admin: 04/03/17 09:51 Dose: 50 mg Sucralfate (Carafate Oral Susp) 1 gm PO QID [facility] Last Admin: 04/03/17 09:51 Dose: 1 gm - Labs Labs: 04/03/17 08:00 04/03/17 08:00 - Constitutional Appears: Cachectic - Head Exam Head Exam: NORMOCEPHALIC - Eye Exam Eye Exam: Scleral icterus - ENT Exam ENT Exam: Mucous Membranes Moist - Neck Exam Neck Exam: Normal Inspection - Respiratory Exam Respiratory Exam: NORMAL BREATHING PATTERN. absent: Respiratory Distress - Cardiovascular Exam Cardiovascular Exam: +S1, +S2 - GI/Abdominal Exam GI & Abdominal Exam: Distended, Soft, Tenderness, Normal Bowel Sounds. absent: Rigid, Rebound - Extremities Exam Extremities Exam: Pedal Edema. absent: Calf Tenderness - Neurological Exam Neurological Exam: Alert, Awake, Oriented x3 Assessment and Plan - Assessment and Plan (Free Text) Assessment: ASSESSMENT: Metestatic Esophageal Cancer Elevated LFT, pt had MRCP01/2017 no cbd stone or extrahepatic ductal dilitation Hypokalemia Hypomagnesium Anemia, status post blood transfusion PUD PLAN: monitor H/H continue PPI Continue Carafate On Aldactone trend LFT Pain management Monitor electrolytes and replete as necessary oncology following plans for possible EGD tomorrow, nothing by mouth after midnight. Seen and discussed w/ Dr. Elizabeth. <Annita Elizabeth V - Last Filed: 04/03/17 23:41> Objective - Vital Signs/Intake and Output Vital Signs (last 24 hours): Temp Pulse Resp BP Pulse Ox 98.6 F 82 20 131/91 H 98 04/03/17 16:00 04/03/17 16:00 04/03/17 16:00 04/03/17 16:00 04/03/17 16:00 Intake and Output: 04/03/17 04/04/17 18:59 06:59 Intake Total 480 360 Output Total 525 400 Balance -45 -40 - Medications Medications: Current Medications Diphenhydramine HCl (Benadryl) 50 mg PO HS [facility] Last Admin: 04/03/17 22:02 Dose: 50 mg Fentanyl (Duragesic) 1 patch TD Q72 [facility] Last Admin: 04/01/17 21:53 Dose: 1 patch Folic Acid (Folic Acid) 1 mg PO DAILY [facility] Last Admin: 04/03/17 09:51 Dose: 1 mg Potassium Chloride 40 meq/ (Sodium Chloride) 1,020 mls @ 60 mls/hr IV .Q17H [facility] Last Admin: 04/02/17 12:21 Dose: 60 mls/hr Magnesium Oxide (Mag-Ox) 400 mg PO BID [facility] Last Admin: 04/03/17 17:53 Dose: 400 mg Megestrol Acetate (Megace) 400 mg PO BID [facility] Last Admin: 04/03/17 17:54 Dose: 400 mg Morphine Sulfate (Morphine Extended Release Tab) 15 mg PO Q12 [facility] Last Admin: 04/03/17 22:03 Dose: 15 mg Morphine Sulfate (Morphine) 4 mg IVP Q4H PRN PRN Reason: Pain, severe (8-10) Last Admin: 04/03/17 20:30 Dose: 4 mg Ondansetron HCl (Zofran Tab) 4 mg PO Q6H PRN PRN Reason: Nausea/Vomiting Last Admin: 04/03/17 14:06 Dose: 4 mg Oxycodone HCl (Oxycodone Immediate Release Tab) 10 mg PO Q6H PRN PRN Reason: Pain, severe (8-10) Last Admin: 04/03/17 08:44 Dose: 10 mg Pantoprazole Sodium (Protonix Ec Tab) 40 mg PO DAILY [facility] Last Admin: 04/03/17 09:52 Dose: 40 mg Spironolactone (Aldactone) 50 mg PO DAILY [facility] Last Admin: 04/03/17 09:51 Dose: 50 mg Sucralfate (Carafate Oral Susp) 1 gm PO QID [facility] Last Admin: 04/03/17 22:04 Dose: 1 gm - Labs Labs: 04/03/17 08:00 04/03/17 08:00 Attending/Attestation - Attestation I have personally seen and examined this patient.: Yes I have fully participated in the care of the patient.: Yes I have reviewed all pertinent clinical information, including history, physical exam and plan: Yes Notes (Text): This is an addendum to GI progress report dictated by Karen Haines APN.The patient was seen and examined earlier. Medical records, lab studies, imagings were reviewed. Last 24 hours events reviewed. Agreed with the above treatment plan as outlined in Karen Haines APN's notes the with the addition of the following on examination patient was cachectic deeply jaundiced Status post transfusion Imaging studies reviewed History of esophageal ulcerations probably secondary to the gastroparesis and partial gastric outlet obstruction secondary to the acute angulation of pylorus patient was advised to to take puree food but patient is not very compliant with that . status post chemotherapy patient does not have any obvious melena bright red blood per rectum We'll defer doing an upper endoscopy in this patient at the present time patient did have a multiple endoscopies done before would prefer conservative management unless patient has an active obvious bleeding Supportive care with transfusions and PPI 04/03/17 23:37
[2017-04-03] MEDS: Morphine 4 mg/ml ISec IVP PRN ×2 (14:02→20:30)
[2017-04-03] MEDS ORDERED: Magnesium Sulfate 1 gm in D5W 1 GM/100 ML BAG IVPB ONE (16:52)
--- NOTE | 2017-04-03 22:43 | HP ---
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 The patient had edema going above the knees bilaterally and that is why he had been started on diuretics, but in addition to that, the patient has been getting Platinol, which is a nephrotoxic drug, which causes potassium and magnesium wastage as well. The patient was admitted as his potassium is in very dangerous levels which can cause cardiac dysrhythmias. HISTORY OF PRESENT ILLNESS: The patient is a 56-year-old male with history of stage IV metastatic gastroesophageal cancer involving retroperitoneal lymph nodes, liver metastasis, lungs past the adrenal gland. The patient had initial diagnosis made in 2010, status post neoadjuvant chemotherapy and surgical resection. The patient was doing well until 2017 when he had recurrence and he has been started on single-agent systemic chemotherapy with Platinol because he had developed significant jaundice with bilirubin up to 5.7, now it is up to greater than 10, and has been started on single-agent therapy. The patient is a DNR/DNI and is being evaluated for palliative radiation to the back as he has a pain score of 0-10, it is at least 8 or 9 all the time. It is a band-like fashion in the midepigastric region extending backwards secondary to retroperitoneal disease. The patient has a huge hiatal hernia from where he has had bleeding in the past from the stalk area secondary to the use of NSAIDS which has been stopped. There was no tumor erosion into the stomach. The patient has had progressive weight loss and loss of appetite despite taking stimulants to improve his appetite. The patient has anemia related to the ongoing malignancy, he has been getting blood transfusion. He has significant lower extremity edema and has been on diuretic therapy, looked like some potassium-sparing diuretics on an outpatient setting. PAST MEDICAL HISTORY: Significant for the fact that he also has evidence on the prior CAT scans of lung, liver, and retroperitoneal metastases and a huge hiatal hernia. MEDICATIONS: Medications at home were reviewed and they include Carafate, oxycodone, Aldactone, Periactin, MS Contin, magnesium oxide, folic acid, Zofran p.r.n., Megace, Lasix, Benadryl, fentanyl patch 50 mcg, K-Tab, Compazine p.r.n., and Protonix. ALLERGIES: THE PATIENT HAS NO KNOWN ALLERGIES TO ANY MEDICATIONS. FAMILY HISTORY: Noncontributory. SOCIAL HISTORY: Positive for cigarette smoking. He did not consume alcohol. REVIEW OF SYSTEMS: All system review was done. The patient admits to progressive weight loss, loss of appetite, shortness of breath secondary to anemia, intermittent chest discomfort most likely secondary to the gastroesophageal reflux, and significant hiatal hernia as evidenced from the most recent endoscopy done when he had come in with a GI bleed. There is only mild nausea and no vomiting recently. He has been having midepigastric pain that radiates in the burst-like fashion. It is constant in nature, related to retroperitoneal metastasis. PHYSICAL EXAMINATION: GENERAL: The patient is seen on the floor. He was admitted through the emergency room. The patient has been lying comfortable. The patient is on IV K-riders infusing that were started in the Oncology Clinic. The patient is also scheduled to receive blood transfusion as his hemoglobin and hematocrit have also dropped. VITAL SIGNS: Stable. Blood pressure is 123/78, T-max is 98.4, pulse is 86, respiration is 20, O2 saturation is 98%. HEENT: Head is normocephalic, atraumatic. Temporal muscle wasting is noted. Sclerae are icteric. Conjunctivae pale. Pupils are equally reactive to light and accommodation. Posterior oropharynx is normal. NECK: Supple. There is no jugular venous distention noted. No lymphadenopathy noted. No bruits. CARDIOVASCULAR: Reveals S1 and S2 to be normal. No gallop or murmur is heard. LUNGS: Clear to percussion and auscultation with decreased breath sounds in both bases. ABDOMEN: Soft. The patient has a huge palpable liver in the right upper quadrant that extends at least 15 cm below the right costal margin, slightly tender. Bowel sounds are present. BACK: The patient complains of significant back pain in the mid-spine area related to the retroperitoneal metastasis. EXTREMITIES: Reveal no cyanosis or clubbing. He has 2+ pitting edema of the ankles up to the mid calf, lying supine in bed, diminished extremity pulses secondary to the significant edema. NEUROLOGIC: The patient is awake, alert, and oriented, in no acute distress. No focal findings are noted. LABORATORY DATA: Admitting EKG shows normal sinus rhythm. Lab data was reviewed and he has significant hypokalemia. Hemoglobin is 7.8, platelets 246,000. White count is 8.7. Potassium was initially 2.1, now it is up to 2.4. CO2 is 29, BUN 20 with creatinine of 0.6, glucose is 75, calcium is 7.8, magnesium is 1.8, alkaline phosphatase is 424. AST and ALT are normal. Total bilirubin is 14.6. ASSESSMENT NOTES AND PLAN: The patient has severe refractory hypokalemia in the setting of diuretic therapy for anasarca. The patient is on Aldactone and Lasix. We will hold off on the Lasix until his current treatment improves. The patient has increasing lower extremity edema, but it is probably safe to continue the Aldactone and hold off on the Lasix. The patient is also on magnesium and potassium riders and he is going to be getting blood transfusion as well. The patient has metastatic stage IV esophageal carcinoma with metastasis to the retroperitoneal lymph nodes, liver metastasis, cholestatic jaundice, intractable pain from retroperitoneal adenopathy. The patient is a DO NOT RESUSCITATE/DO NOT INTUBATE. Hiatal hernia appears to be stable. Drop in the hemoglobin could be from the Platinol, but could also be from gastroesophageal erosion. We will get Gastroenterology to comment on it. Edema could also be hypoalbuminemia, which is a function of liver, which has affected the extensive disease. I agreed to resume transfusing to the patient to bring the hemoglobin up to 9 or 10. Continue potassium supplements, hold off on diuretics especially the loop diuretics, evaluate for palliative radiation therapy, check phosphorus, potassium and phosphorus supplements, continue with Megace. The patient is a DO NOT RESUSCITATE/DO NOT INTUBATE. The patient recently had a PET/CT scan. We will look for the results of the PET/CT scan and speak to Dr. Arora if he is a candidate for palliative radiation at this point in time. The patient is cognitive of all the findings and he has acceptance to the fact that his cancer is progressing. I have asked Palliative Care also see him to make any further decisions if necessary for evaluation for hospice. Right now, we are assessing for palliative radiation. He would be due for his next chemotherapy, but we are going to hold off and see how the patient does. Routine post-examination instruction have been given to the patient. Ravin Hernandez MD
--- NOTE | 2017-04-03 22:59 | PN ---
DATE: 04/03/2017 SUBJECTIVE: The patient is seen lying in bed. He is complaining of severe nausea. He is complaining of abdominal pain. He denies any vomiting. He denies any diarrhea. He reports he is constipated. He moved his bowels 2 days ago. Appetite is poor. PHYSICAL EXAMINATION GENERAL: Thinly build, cachectic-appearing elderly male, lying in bed. VITAL SIGNS: Blood pressure 132/99, heart rate 73, respiratory rate 20, temperature 98. HEENT: Normocephalic, atraumatic, positive pallor, positive icterus. NECK: Supple, no JVD. LUNGS: Bilateral equal air entry, no rales appreciated. CARDIAC: S1, S2, regular rate and rhythm, no murmur, no rub. ABDOMEN: Distended, soft, positive tenderness in the upper quadrants, bowel sounds present. EXTREMITIES: A 3+ pitting edema of the lower extremities. INTAKE AND OUTPUT: 2096/1550. LABORATORY DATA: WBC 13, hemoglobin 11.8, hematocrit 34, platelets 266. Sodium 140, potassium 3.5, chloride 105, CO2 26, BUN 24, creatinine 0.7, glucose 98, calcium 7.9, magnesium 1.6, albumin 2.4, corrected calcium 8.9, total bili 15. Status post 3 units of PRBCs. CURRENT MEDICATIONS: Aldactone 50 daily, Benadryl, Carafate, Duragesic, folic acid, mag oxide, Megace, morphine, normal saline with 40 mEq of KCL at 60, Protonix, Zofran. ASSESSMENT: 1. Severe hypokalemia, resolving slowly. 2. Metastatic esophageal cancer with lung, liver and adrenal metastasis. 3. Ascites. 4. Obstructive jaundice. 5. Severe anemia status post blood transfusion. PLAN: 1. Continue IV fluids with potassium. 2. Continue potassium sparing diuretic. 3. Potassium with K riders. 4. Pain control. 5. Comfort care. 6. IV magnesium x1. Rona Spring MD
[2017-04-04] MEDS: Morphine 4 mg/ml ISec IVP PRN (05:51)
[2017-04-04 06:43] LABS: EOS % 0.1 % (1.5-5.0); GRAN # 10.08 (1.4-6.5); GRAN % 76.4 % (50.0-68.0); HEMATOCRIT 35.7 % (42.0-52.0); LYMPH # 1.5 (1.2-3.4); LYMPH % 11.6 % (22.0-35.0); MEAN CELL VOLUME 86.9 fl (80.0-105.0); MEAN CORPUSCULAR HEMOGLOBIN 29.4 pg (25.0-35.0); MEAN CORPUSCULAR HGB CONC 33.9 g/dl (31.0-37.0); MEAN PLATELET VOLUME 9.6 fl (7.0-11.0); MONO # 1.6 (0.1-0.6); MONO % 11.9 % (1.0-6.0); WHITE BLOOD COUNT 13.2 10^3/ul (4.5-11.0)
[2017-04-04 06:46] LABS: INR 2.44 (0.93-1.08); PARTIAL THROMBOPLASTIN TIME 33.8 Seconds (23.7-30.8)
[2017-04-04 07:09] LABS: ALB/GLOB RATIO 0.8 (1.1-1.8); ALKALINE PHOSPHATASE 496 U/L (38-126); ALT/SGPT 32 U/L (7-56); AST/SGOT 36 U/L (17-59); BILIRUBIN,TOTAL 14.4 mg/dL (0.2-1.3); BLOOD UREA NITROGEN 22 mg/dL (7-21); CALCIUM 7.9 mg/dL (8.4-10.5); CARBON DIOXIDE 25 mmol/L (21-33); CHLORIDE 105 mmol/L (98-107); GFR AFRICAN-AMERICAN > 60; GLUCOSE,RANDOM 66 mg/dL (70-110); POTASSIUM 4.4 mmol/L (3.6-5.0); SODIUM 141 mmol/L (132-148); TOTAL PROTEIN 5.5 g/dL (5.8-8.3)
[2017-04-04] MEDS: Sucralfate 1 gm/10 ml Oral Susp UD PO SCH (09:26)
[2017-04-04] MEDS: Megestrol Acetate 40 mg/ml Cup PO SCH (09:28)
[2017-04-04] MEDS: Magnesium Oxide 400 mg Tab UD PO SCH (09:28)
[2017-04-04] MEDS: Pantoprazole 40 mg EC Tab PO SCH (09:29)
[2017-04-04] MEDS: Morphine 15 mg SR Tab PO SCH (09:29)
[2017-04-04 09:38] VITALS: BP 138/98; PULSE 80; RESP 20; TEMP 99; O2SAT 98
--- NOTE | 2017-04-06 06:38 | DS ---
LOCATION: The patient is in room 375, bed 2. The patient is being discharged today, was admitted on 04/01/2017. PROBLEMS: This is a 56-year-old male with metastatic recurrent progressive stage IV carcinoma of the EG junction with documented retroperitoneal, liver, and lung metastases and retroperitoneal disease, on outpatient systemic therapy with single-agent Taxol because of cholestatic jaundice, unable to get any other medicines except the kobuk. On outpatient therapy has had about three cycles so far, was admitted to the hospital with significant hypokalemia with potassium less than 2.1 along with hypomagnesemia, has had several riders with gradual correction of his electrolytes, was anemic, received blood transfusion, who was admitted to the hospital mainly for that. During the hospital course, the patient's pain was also controlled. He has been given IV morphine. Patch has been increased from 50 to 75. Still remain on the MS Contin 15 mg every 12 hours along with oxycodone 30 mg q. 4 to q. 6 hours p.r.n. for pain. During the hospital course, we had a long discussion with the patient and the palliative care team. The patient is a DNR/DNI, but does not want to stop treatment at this time. Would not consider hospice. We are planning to continue with our treatments till we see it becoming difficulty to give him the treatments or becomes impossible with continuing chemotherapy. In the meantime, we are assessing the patient to see if he is candidate for any of the newer drugs like ramucirumab or BMSI came back as high, or mutational tumor burden came back as high, would be a candidate for drug like Keytruda on a compassionate basis. Most recent ultrasound of the abdomen, CAT scan of the abdomen including the PET/CT scan shows progressive disease in the liver, retroperitoneal mets and lung mets as well. The patient was recently seen by radiation oncology to see if he is a candidate for palliative radiation to the back and they are going to be assessing him for radiation treatment planning. He had his first treatment today and they are going to monitor him very carefully while he is on the treatment. Told the patient we are going to hold off on any additional chemotherapy at this point in time till he finishes the radiation, monitor him carefully as he has significant hiatal hernia issues and radiation is going to be given [facility] in that area and that is where we have to be careful, there is no interaction between the two medicines. PHYSICAL EXAMINATION: GENERAL: Physically, the patient is thinly built, cachectic, icteric, but in no significant distress. VITAL SIGNS: Blood pressure is 132/90, heart rate is 73, respirations 20. The patient is afebrile. HEENT: Head is normocephalic, atraumatic. Temporal muscle wasting is noted. The patient is emaciated, icteric. NECK: Supple. No jugular venous distention noted. Examination of the oropharynx, his tongue to be moist. No fungal infections are noted. LUNGS: Revealed decreased breath sounds in both bases. HEART: Reveals S1 and S2 to be normal. No gallop or murmur is heard. ABDOMEN: Distended. Liver is huge in the right upper quadrant, tender. The patient has pain in the belt-like fashion along the upper quadrant extending from the right subcostal margin to the left in a band-like distribution or a belt-like distribution related to retroperitoneal metastasis. EXTREMITIES: 3+ pitting edema of the lower extremities noted but it is better than when he came into the hospital. LABORATORY DATA: Lab data is reviewed blood to be stable. MEDICATIONS: The patient will stay on the Aldactone 50 daily, Benadryl, Carafate, Duragesic, mag oxide, Megace, and his oxycodone and morphine extended release. Routine post exam instructions have been given to the patient. No dietary restrictions have been made. The patient will come return to see us as an outpatient. He is set up to continue his palliative course of radiations of 10 treatments starting today itself. Overall prognosis is guarded. Family and the patient are quite aware and they appreciate whatever else we are doing for him at this point in time. 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 Ravin Hernandez MD
== END 2017-04-04 14:18 | disposition home or self-care (01) | DRG 296 ==
LOC: ED 14:16 → ERH 14:45 → 3RSO 16:37
PROVIDERS: ADMIT Family Medicine; ATTEND Family Medicine
DX: E87.6 Hypokalemia (principal); C78.7 Secondary malignant neoplasm of liver and intrahepatic bile duct; R64 Cachexia; C78.00 Secondary malignant neoplasm of unspecified lung; C77.2 Secondary and unspecified malignant neoplasm of intra-abdominal lymph nodes; C79.70 Secondary malignant neoplasm of unspecified adrenal gland; C16.0 Malignant neoplasm of cardia; K83.1 Obstruction of bile duct; R18.8 Other ascites; G35 Multiple sclerosis; E83.42 Hypomagnesemia; Z66 Do not resuscitate; K44.9 Diaphragmatic hernia without obstruction or gangrene; K21.9 Gastro-esophageal reflux disease without esophagitis; D63.0 Anemia in neoplastic disease; K59.00 Constipation, unspecified; K31.84 Gastroparesis; K27.9 Peptic ulcer, site unspecified, unspecified as acute or chronic, without hemorrhage or perforation; F17.210 Nicotine dependence, cigarettes, uncomplicated

== ENCOUNTER 2017-04-07 14:16 | Inpatient (IN) | payer MEDICAID ==
--- NOTE | 2017-04-07 14:44 | ED PDOC ---
Arrival/HPI - General Chief Complaint: Weakness/Neurological Deficit Time Seen by Provider: 04/07/17 14:41 - History of Present Illness Narrative History of Present Illness (Text): 04/07/17 14:54 56yo male with weakness, and bodyaches. Pt also states he has dizziness, which feels like his previous vertigo. Also c/o chest pain. States he has SOB as well. No cough, no fevers, no chills. Past Medical History - Provider Review Nursing Documentation Reviewed: Yes - Infectious Disease Hx of Infectious Diseases: None - Cardiac Hx Cardiac Disorders: Yes Other/Comment: hypokalemia - Pulmonary Hx Respiratory Disorders: No - Neurological Hx Neurological Disorder: Yes Hx Vertigo: Yes - HEENT Hx HEENT Disorder: Yes (wears glasses) - Renal Hx Renal Disorder: No - Endocrine/Metabolic Hx Endocrine Disorders: No - Hematological/Oncological Hx Blood Disorders: Yes Hx Anemia: Yes Hx Blood Transfusions: Yes Hx Blood Transfusion Reaction: No Hx Cancer: Yes (ESAPHAGEAL/STOMACH c LIVER METS) - Integumentary Hx Dermatological Disorder: No - Musculoskeletal/Rheumatological Hx Falls: Yes - Gastrointestinal Other/Comment: Stomach CA,Esaphagal CA, Liver CA - Genitourinary/Gynecological Hx Genitourinary Disorders: No - Psychiatric Hx Psychophysiologic Disorder: No Hx Substance Use: No - Surgical History Other/Comment: "Removed 1/3 or stomach". R chest port - Anesthesia Hx Anesthesia: Yes Hx Anesthesia Reactions: No Hx Malignant Hyperthermia: No Family/Social History Family/Social History: Unknown Family HX Smoking Status: Former Smoker Hx Alcohol Use: No Hx Substance Use: No Allergies/Home Meds Allergies/Adverse Reactions: Allergies No Known Allergies Allergy (Verified 04/07/17 14:18) Home Medications: Home Meds Medication Instructions Recorded Confirmed DiphenhydrAMINE [Benadryl] 50 mg PO HS 02/28/17 04/07/17 Magnesium Oxide [Mag-Ox] 400 mg PO BID 02/28/17 04/07/17 Megestrol Acetate [Megace] 400 mg PO BID 02/28/17 04/07/17 Morphine Sulfate [Ms Contin] 15 mg PO DAILY PRN 02/28/17 04/07/17 Sucralfate [Carafate Oral Susp] 1 gm PO QID 02/28/17 04/07/17 Ondansetron HCl [Zofran] 4 mg PO PRN PRN 03/15/17 04/07/17 Potassium Chloride [K-Dur 20 mEq 20 meq PO DAILY 03/15/17 04/07/17 ER Tab] Spironolactone [Aldactone] 50 mg PO DAILY 04/01/17 04/07/17 oxyCODONE [oxyCODONE Immediate 10 mg PO Q6 PRN 04/01/17 04/07/17 Release Tab] Physical Exam - Physical Exam Narrative Physical Exam (Text): - Review of Systems Constitutional: weakness. absent: Fevers Eyes: Normal ENT: denies sore throat, denies tristhmus Respiratory: Normal. absent: SOB, Cough, Sputum Cardiovascular: Chest pain. absent: Palpitations, Syncope Gastrointestinal: Normal. absent: Abdominal Pain, Diarrhea, Nausea, Vomiting Genitourinary: Normal. absent: Dysuria, Frequency, Hematuria Musculoskeletal: Normal. absent: Arthralgias, Back Pain, Neck Pain Skin: no rashes, no erythema Neurological: absent: Focal Weakness Endocrine: Normal Hemo/Lymphatic: Normal Psychiatric: No suicidal or homicidal ideations Physical exam Patient appears cachectic, age appropriate in no resp distress, speaking full sentences without difficulty - Systems Exam Head: Present: Atraumatic, Normocephalic Pupils: Present: PERRL Extroacular Muscles: Present: EOMI Conjunctiva: Present: Normal Mouth: Present: Dry Mucous Membranes Neck: Present: Normal Range of Motion. No: MIDLINE TENDERNESS, Paraspinal Tenderness Respiratory/Chest: Present: Clear to Auscultation, Good Air Exchange. No: Respiratory Distress, Accessory Muscle Use, Tachypneic Cardiovascular: Present: Regular Rate and Rhythm, Normal S1, S2, Peripheal Pulses Present. No: Murmurs Abdomen: Present: Normal Bowel Sounds. No: Tenderness, Distention, Peritoneal Signs, Rebound, Guarding Back: Present: Normal Inspection. No: Midline Tenderness, Paraspinal Tenderness Upper Extremity: Present: Normal Inspection. No: Cyanosis, Edema Lower Extremity: Present: b/l LE edema with no asymmetry, no tenderness, neurovac intact Neurological: Present: GCS=15, Speech Normal, cranial nerves II through XII fully intact with no cerebellar abnormality, neurosensory fully intact. No focal neurological deficits. Skin: Present: Warm, Dry, Normal Color. No: Rashes Lymphatic: Present: OX3, NI, NC Psychiatric: Present: Alert, Oriented x 3, Normal Insight, Normal Concentration Vital Signs Reviewed: Yes Vital Signs Temp Pulse Resp BP Pulse Ox 04/07/17 16:50 101 H 18 131/94 H 95 04/07/17 16:49 131/94 H 04/07/17 14:24 98.9 F 119 H 17 126/87 95 Temperature: Afebrile Blood Pressure: Normal Pulse: Tachycardic Respiratory Rate: Normal Appearance: Positive for: Well-Appearing Pain Distress: None Mental Status: Positive for: Alert and Oriented X 3 Medical Decision Making ED Course and Treatment: Patient's previous records reviewed. Patient was last admitted on 04/01/17 after being diagnosed with hypokalemia and hypomagnesemia. Patient has a history of diabetic therapy. 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 Patient has a history of jaundice which is thought to be likely to liver metastasis. As per Dr. Hernandez's note, patient is DNR/DNI. 04/07/17 15:09 labs, imaging ordered morphine for pain ordered as well 04/07/17 16:00 Patient was seen in the emergency department by Dr. Dove, who has requested the patient be observed under his service. 04/07/17 17:38 pt with tachycardia, was complaining of chest discomfort CTA ordered CTA Radiologist IMPRESSION: 1. No CTA evidence for acute pulmonary embolism. 2. Multiple nodules in the lungs consistent with known metastasis. 3. Moderate left pleural effusion and compressive atelectasis in the left lower lobe. 4. Diffuse dilatation of fluid-filled esophagus and large sliding hiatal hernia with fluid in the gastric fundus. 5. Diffuse hepatic metastasis and abdominal ascites. pt states he is aware of plan for observation for further w/u states his pain subsided denies sob EKG shows sinus tachycardia, 106 bpm, no ST segment elevations, normal intervals. Interpreted by me. 04/07/17 18:[address] Shayy Hernandez, covering for Dr. Joel Hernandez. Aware that pt to Dr. Thomas' s service. Asked to place DNR/DNI into chart and place on PRN morphine. - Lab Interpretations Lab Results: 04/07/17 15:25 04/07/17 15:25 Lab Results 04/07/17 15:25: Sodium 138, Potassium 3.7, Chloride 102, Carbon Dioxide 25, Anion Gap 15, BUN 19, Creatinine 0.7, Est GFR ( Amer) > 60, Est GFR (Non- Af Amer) > 60, Random Glucose 101, Calcium 8.2 L, Magnesium 1.6 L, Total Bilirubin 18.9 H*, AST 50, ALT 35, Alkaline Phosphatase 628 H D, Lactate Dehydrogenase 904 H, Total Creatine Kinase 47, Troponin I < 0.01, NT-Pro-B Natriuret Pep 1530 H, Total Protein 6.1, Albumin 2.7 L, Globulin 3.4, Albumin/ Globulin Ratio 0.8 L 04/07/17 15:25: PT 25.9 H, INR 2.40 H, APTT 33.3 H 04/07/17 15:25: WBC 14.3 H, RBC 4.30, Hgb 12.9 L, Hct 37.2 L, MCV 86.5, MCH 30.0 , MCHC 34.7, RDW 16.7 H, Plt Count 286, MPV 9.9, Gran % 87.5 H, Lymph % (Auto) 5.1 L, Catron % (Auto) 7.4 H, Eos % (Auto) 0.0 L, Baso % (Auto) 0.0, Gran # 12.47 H, Lymph # 0.7 L, Catron # 1.1 H, Eos # 0.0, Baso # 0.00 - RAD Interpretation Radiology Orders: 04/07/17 14:49 CHEST PORTABLE [RAD] Stat 04/07/17 16:39 ANGIO CHEST PE PROTOCOL [CT] Stat - Medication Orders Current Medication Orders: Discontinued Medications Aspirin (Aspirin Chewable) 81 mg PO STAT STA Stop: 04/07/17 17:47 Furosemide (Lasix) 20 mg IVP STAT STA Stop: 04/07/17 16:39 Last Admin: 04/07/17 16:49 Dose: 20 mg MAR Blood Pressure Document 04/07/17 16:49 GMD (Rec: 04/07/17 16:50 GMD [id number]) Blood Pressure Blood Pressure (100/60-150/90 mm Hg) 131/94 IVP Administration Document 04/07/17 16:49 GMD (Rec: 04/07/17 16:50 GMD [id number]) Charges for Administration # of IVP Administrations 1 Hydromorphone HCl (Dilaudid) 1 mg IVP STAT STA Stop: 04/07/17 16:39 Last Admin: 04/07/17 16:50 Dose: 1 mg MAR Pain Assessment Document 04/07/17 16:50 GMD (Rec: 04/07/17 16:50 GMD [id number]) Pain Reassessment Is this a pain reassessment? No Sleep Is patient sleeping during reassessment? No Presence of Pain Presence of Pain Yes IVP Administration Document 04/07/17 16:50 GMD (Rec: 04/07/17 16:50 GMD [id number]) Charges for Administration # of IVP Administrations 1 Iohexol (Omnipaque 350 100 Ml) Confirm Administered Dose 350 mg .ROUTE .STK-MED ONE Stop: 04/07/17 16:48 Morphine Sulfate (Morphine) 6 mg IVP STAT STA Stop: 04/07/17 14:50 Last Admin: 04/07/17 15:43 Dose: 6 mg MAR Pain Assessment Document 04/07/17 15:43 GMD (Rec: 04/07/17 15:44 GMD [id number]) Pain Reassessment Is this a pain reassessment? No Sleep Is patient sleeping during reassessment? No Presence of Pain Presence of Pain Yes Description Intensity of Pain at present 10 IVP Administration Document 04/07/17 15:43 GMD (Rec: 04/07/17 15:44 GMD [id number]) Charges for Administration # of IVP Administrations 1 Ondansetron HCl (Zofran Inj) 4 mg IVP STAT STA Stop: 04/07/17 16:40 Last Admin: 04/07/17 16:49 Dose: 4 mg IVP Administration Document 04/07/17 16:49 GMD (Rec: 04/07/17 16:49 GMD [id number]) Charges for Administration # of IVP Administrations 1 Disposition/Present on Arrival - Present on Arrival Any Indicators Present on Arrival: No History of DVT/PE: No History of Uncontrolled Diabetes: No Urinary Catheter: No History of Decub. Ulcer: No History Surgical Site Infection Following: None - Disposition Have Diagnosis and Disposition been Completed?: Yes Diagnosis: Chest pain Disposition: HOSPITALIZED Disposition Time: 16:00 Patient Plan: Observation Patient Problems: Current Active Problems Problem Status Onset Chest pain Acute Condition: FAIR
[2017-04-07] MEDS ORDERED: Sodium Chloride 0.9% 1,000 ML IV STA (14:49)
--- NOTE | 2017-04-07 15:24 | RAD ---
HISTORY: cough COMPARISON: 01/29/2017 FINDINGS: The right IJV catheter terminates at the cavoatrial junction. LUNGS: The lungs are well inflated. There is improving left retrocardiac opacity. PLEURA: There is improving left pleural effusion, no pneumothorax apparent. CARDIOVASCULAR: Normal. OSSEOUS STRUCTURES: No significant abnormalities. VISUALIZED UPPER ABDOMEN: Normal. OTHER FINDINGS: None. IMPRESSION: Improving left lower lobe atelectasis/ pneumonia and left pleural effusion.
[2017-04-07 15:46] LABS: GRAN # 12.47 (1.4-6.5); GRAN % 87.5 % (50.0-68.0); HEMATOCRIT 37.2 % (42.0-52.0); LYMPH # 0.7 (1.2-3.4); LYMPH % 5.1 % (22.0-35.0); MEAN CELL VOLUME 86.5 fl (80.0-105.0); MEAN CORPUSCULAR HGB CONC 34.7 g/dl (31.0-37.0); MEAN PLATELET VOLUME 9.9 fl (7.0-11.0); MONO # 1.1 (0.1-0.6); MONO % 7.4 % (1.0-6.0); RED CELL DISTRIBUTION WIDTH 16.7 % (11.5-14.5); WHITE BLOOD COUNT 14.3 10^3/ul (4.5-11.0)
[2017-04-07 15:52] LABS: INR 2.4 (0.93-1.08); PARTIAL THROMBOPLASTIN TIME 33.3 Seconds (23.7-30.8)
[2017-04-07 16:05] LABS: ALB/GLOB RATIO 0.8 (1.1-1.8); ALKALINE PHOSPHATASE 628 U/L (38-126); ALT/SGPT 35 U/L (7-56); AST/SGOT 50 U/L (17-59); BLOOD UREA NITROGEN 19 mg/dL (7-21); CALCIUM 8.2 mg/dL (8.4-10.5); CARBON DIOXIDE 25 mmol/L (21-33); CHLORIDE 102 mmol/L (98-107); GFR AFRICAN-AMERICAN > 60; GLUCOSE,RANDOM 101 mg/dL (70-110); MAGNESIUM 1.6 mg/dL (1.7-2.2); POTASSIUM 3.7 mmol/L (3.6-5.0); SODIUM 138 mmol/L (132-148); TOTAL PROTEIN 6.1 g/dL (5.8-8.3)
[2017-04-07 16:19] LABS: TROPONIN I < 0.01 ng/mL
[2017-04-07 16:22] LABS: BILIRUBIN,TOTAL 18.9 mg/dL (0.2-1.3)
[2017-04-07] MEDS ORDERED: HYDROmorphone 2 mg/ml ISec IVP STA (16:38)
[2017-04-07] MEDS ORDERED: Iohexol 350 MG/100 ML VIAL ONE (16:47)
--- NOTE | 2017-04-07 17:37 | CT ---
PROCEDURE: CT Chest with contrast (Pulmonary Angiogram) HISTORY: r/o PE COMPARISON: Plain radiographs performed earlier the same day TECHNIQUE: Axial computed tomography images were obtained of the chest in the pulmonary arterial phase of enhancement. Coronal and sagittal reformatted images were created and reviewed. Intravenous contrast dose: 100 mL LOCM Radiation dose: Total exam DLP = 441.53 mGy-cm. This CT exam was performed using one or more of the following dose reduction techniques: Automated exposure control, adjustment of the mA and/or kV according to patient size, and/or use of iterative reconstruction technique. FINDINGS: PULMONARY ARTERIES: There are no filling defects in the pulmonary arteries to suggest acute pulmonary embolism. AORTA: No evidence of aortic aneurysm or dissection. LUNGS: There are multiple subcentimeter lung nodules. There is no mass or focal consolidation. There is compressive atelectasis in the left lower lobe. PLEURAL SPACES: There is a moderate left pleural effusion. Also noted is a small right pleural effusion. No pneumothorax. HEART: Unremarkable. No cardiomegaly. No significant pericardial effusion. LYMPH NODES: No pathologic lymphadenopathy. BONES, CHEST WALL: No destructive bony lesions. No fracture or destructive lesion multilevel degenerative disc disease. OTHER FINDINGS: There is diffuse dilatation of fluid-filled esophagus. Also noted is a moderate sliding hiatal hernia and fluid in the gastric fundus. There is diffuse hepatic metastasis. There is small abdominal ascites. IMPRESSION: 1. No CTA evidence for acute pulmonary embolism. 2. Multiple nodules in the lungs consistent with known metastasis. 3. Moderate left pleural effusion and compressive atelectasis in the left lower lobe. 4. Diffuse dilatation of fluid-filled esophagus and large sliding hiatal hernia with fluid in the gastric fundus. 5. Diffuse hepatic metastasis and abdominal ascites.
[2017-04-07] MEDS ORDERED: Morphine 2 mg/ml ISec IVP PRN (18:17)
[2017-04-07 20:03] VITALS: BMI 18.6
[2017-04-07] MEDS: Sucralfate 1 gm/10 ml Oral Susp UD PO SCH (22:30)
[2017-04-08] MEDS: Morphine 4 mg/ml ISec IVP PRN ×3 (00:14→23:42)
[2017-04-08] MEDS: oxyCODONE 10 mg Immediate Release Tab PO PRN ×2 (00:23→18:24)
[2017-04-08] MEDS: Pantoprazole 40 mg EC Tab PO SCH (06:23)
[2017-04-08] MEDS: Morphine 15 mg SR Tab PO PRN (09:05)
[2017-04-08] MEDS: Sucralfate 1 gm/10 ml Oral Susp UD PO SCH ×4 (09:06→23:41)
[2017-04-08] MEDS: Magnesium Oxide 400 mg Tab UD PO SCH ×2 (09:06→18:24)
[2017-04-08] MEDS: Megestrol Acetate 40 mg/ml Cup PO SCH ×2 (09:06→18:25)
--- NOTE | 2017-04-08 10:52 | CP.PCM.PN ---
Subjective - Date & Time of Evaluation Date of Evaluation: 04/08/17 Time of Evaluation: 10:50 - Subjective Subjective: Mr Maria is known to our department. He has metastatic esophageal cancer. He reports feeling generalized weakness, palpitations and epigastric/back discomfort. He was readmitted to the hospital on Saturday. In speaking with the patient, he mentioned that he is considering palliative care given his clinical deterioration. He did mention that he wanted to try the palliative radiation because of his severe back pain. As such, with his consent, we will resume his treatment, however we will touch base with him daily. Objective - Vital Signs/Intake and Output Vital Signs (last 24 hours): Temp Pulse Resp BP Pulse Ox 98.9 F 98 H 20 128/92 H 97 04/07/17 20:00 04/07/17 20:00 04/07/17 20:00 04/07/17 20:00 04/07/17 20:00 Intake and Output: 04/08/17 04/08/17 06:59 18:59 Intake Total 0 Output Total 400 Balance -400 - Medications Medications: Current Medications Cyproheptadine HCl (Periactin) 4 mg PO TID [facility] Last Admin: 04/08/17 09:06 Dose: 4 mg Diphenhydramine HCl (Benadryl) 50 mg PO HS [facility] Last Admin: 04/07/17 23:57 Dose: 50 mg Fentanyl (Duragesic) 1 patch TD Q72H [facility] Last Admin: 04/07/17 22:00 Dose: Not Given Folic Acid (Folic Acid) 1 mg PO DAILY [facility] Last Admin: 04/08/17 09:06 Dose: 1 mg Magnesium Oxide (Mag-Ox) 400 mg PO BID [facility] Last Admin: 04/08/17 09:06 Dose: 400 mg Megestrol Acetate (Megace) 400 mg PO BID [facility] Last Admin: 04/08/17 09:06 Dose: 400 mg Morphine Sulfate (Morphine) 4 mg IVP Q6H PRN PRN Reason: Pain, severe (8-10) Last Admin: 04/08/17 06:23 Dose: 4 mg Morphine Sulfate (Morphine Extended Release Tab) 15 mg PO DAILY PRN PRN Reason: Pain, severe (8-10) Last Admin: 04/08/17 09:05 Dose: 15 mg Ondansetron HCl (Zofran Tab) 4 mg PO Q6H PRN PRN Reason: Nausea/Vomiting Oxycodone HCl (Oxycodone Immediate Release Tab) 10 mg PO Q6H PRN PRN Reason: Pain, severe (8-10) Last Admin: 04/08/17 00:23 Dose: 10 mg Pantoprazole Sodium (Protonix Ec Tab) 40 mg PO 0600 [facility] Last Admin: 04/08/17 06:23 Dose: 40 mg Prochlorperazine (Compazine Tab) 10 mg PO Q8H [facility] Last Admin: 04/08/17 06:00 Dose: 10 mg Sucralfate (Carafate Oral Susp) 1 gm PO QID [facility] Last Admin: 04/08/17 09:06 Dose: 1 gm - Labs Labs: PT 25.9 Seconds (9.9-11.8) H 04/07/17 15:25 INR 2.40 (0.93-1.08) H 04/07/17 15:25 APTT 33.3 Seconds (23.7-30.8) H 04/07/17 15:25
--- NOTE | 2017-04-08 14:46 | CP.PCM.HP ---
History of Present Illness - History of Present Illness History of Present Illness: H&P for Dr. Hernandez's Service HPI: Patient is a 56yo male with past medical history of stage IV metastatic gastroesophageal cancer with metastasis to the liver, lungs and retroperitoneal lymph nodes s/p neoadjuvant chemotherapy with capecitabine, epirubicin, and [place] and surgical resection, history of refractory hypokalemia and cholestatic jaundice that presented for weakness and pain. Patient was recently admitted for electrolyte abnormalities. 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 Patient reported that his pain has been constant and has been evaluated by palliative care as well as radiation oncology for palliative treatment. He reported that the pain was tolerable with adequate pain control. Denied chest pain, palpitations, SOB, abdominal pain, nausea, vomiting. 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 Allergies: NKDA Family Hx: reviewed and non-contributory Social Hx: Denies alcohol and illicit drug use; smokes ~ 5 cigarettes/day for > 25yrs Present on Admission - Present on Admission Any Indicators Present on Admission: No Past Patient History - Infectious Disease Hx of Infectious Diseases: None - Past Social History Smoking Status: Former Smoker - CARDIAC Hx Cardiac Disorders: Yes Other/Comment: hypokalemia - PULMONARY Hx Respiratory Disorders: No - NEUROLOGICAL Hx Neurological Disorder: Yes - HEENT Hx HEENT Problems: Yes (wears glasses) - RENAL Hx Chronic Kidney Disease: No - ENDOCRINE/METABOLIC Hx Endocrine Disorders: No - HEMATOLOGICAL/ONCOLOGICAL Hx Blood Disorders: Yes Hx Anemia: Yes Hx Cancer: Yes (ESAPHAGEAL/STOMACH c LIVER METS) - INTEGUMENTARY Hx Dermatological Problems: No - MUSCULOSKELETAL/RHEUMATOLOGICAL Hx Falls: Yes - GASTROINTESTINAL Other/Comment: Stomach CA,Esaphagal CA, Liver CA - GENITOURINARY/GYNECOLOGICAL Hx Genitourinary Disorders: No - PSYCHIATRIC Hx Psychophysiologic Disorder: No Hx Substance Use: No - SURGICAL HISTORY Other/Comment: "Removed 1/3 or stomach". R chest port - ANESTHESIA Hx Anesthesia: Yes Hx Anesthesia Reactions: No Hx Malignant Hyperthermia: No Meds Allergies/Adverse Reactions: Allergies Allergy/AdvReac Type Severity Reaction Status Date / Time No Known Allergies Allergy Verified 04/07/17 14:18 Physical Exam - Constitutional Appears: Chronically Ill - Head Exam Head Exam: ATRAUMATIC, NORMAL INSPECTION, NORMOCEPHALIC - Eye Exam Eye Exam: EOMI, PERRL, Scleral icterus - ENT Exam ENT Exam: Mucous Membranes Moist - Neck Exam Neck exam: Positive for: Normal Inspection - Respiratory Exam Respiratory Exam: absent: Rales, Rhonchi, Wheezes - Cardiovascular Exam Cardiovascular Exam: RRR, +S1, +S2. absent: Gallop, Rubs - GI/Abdominal Exam GI & Abdominal Exam: Soft. absent: Distended, Firm, Guarding, Rebound, Tenderness - Extremities Exam Extremities exam: Positive for: normal inspection. Negative for: calf tenderness, tenderness - Neurological Exam Neurological exam: Alert, Oriented x3 - Skin Additional comments: jaundice Results - Vital Signs Recent Vital Signs: Last Vital Signs Temp 98.6 F 04/08/17 12:00 Pulse 94 H 04/08/17 12:00 Resp 18 04/08/17 12:00 BP 126/83 04/08/17 12:00 Pulse Ox 97 04/07/17 20:00 - Labs Result Diagrams: 04/07/17 15:25 04/07/17 15:25 Assessment & Plan - Assessment and Plan (Free Text) Plan: 56yo male with history of stage IV metastatic gastroesophageal cancer with metastasis to the liver, lungs and retroperitoneal lymph nodes s/p neoadjuvant chemotherapy with capecitabine, epirubicin, and [place] and surgical resection , history of refractory hypokalemia and cholestatic jaundice that presented for weakness and pain 1. stage IV metastatic gastroesophageal cancer -Patient previously treated with neoadjuvant chemotherapy with capecitabine, epirubicin, and platinol and surgical resection -Palliative care has been consulted and patient to be evaluated for hospice care -Pain control as indicated given prognosis -Patient was also evaluated by radiation oncology for palliative radiation given his severe back pain -CTA reviewed; no evidence of pulmonary embolism, moderate left sided pleural effusion, compressive atelectasis in LLL -Continue with pain control with morphine/fentanyl, zofran for nausea/vomiting, 2. Jaundice -Likely secondary to liver metastasis -Continue cyproheptadine and benadryl -Aldactone 50mg po qd 3. Malnutrition -Continue dietary supplementation with ensure -Calorie count -Secret[employer] consult 4. Constipation -Patient given 1 dose of relistor today, will reevaluate 5. GI/DVT Prophylaxis -Protonix Patient seen and case discussed with attending, Dr. Hernandez - Date & Time Date: 04/08/17 Time: 15:02
--- NOTE | 2017-04-08 15:52 | CARD ---
APPROVED REPORT EKG Measurement Heart [id number] <Conclusion> Sinus tachycardia Left axis deviation Abnormal ECG
[2017-04-09] MEDS: Pantoprazole 40 mg EC Tab PO SCH (06:14)
[2017-04-09] MEDS: Morphine 4 mg/ml ISec IVP PRN ×3 (06:17→21:19)
[2017-04-09 07:10] LABS: BASO # 0.01 K/mm3 (0.0-2.0); BASO % 0.1 % (0.0-3.0); GRAN # 8.37 (1.4-6.5); GRAN % 83.1 % (50.0-68.0); HEMATOCRIT 31.8 % (42.0-52.0); LYMPH # 0.7 (1.2-3.4); MEAN CELL VOLUME 88.6 fl (80.0-105.0); MEAN CORPUSCULAR HEMOGLOBIN 29.8 pg (25.0-35.0); MEAN CORPUSCULAR HGB CONC 33.6 g/dl (31.0-37.0); MEAN PLATELET VOLUME 9.8 fl (7.0-11.0); MONO % 9.8 % (1.0-6.0); RED CELL DISTRIBUTION WIDTH 16.8 % (11.5-14.5); WHITE BLOOD COUNT 10.1 10^3/ul (4.5-11.0)
[2017-04-09 07:43] LABS: ALB/GLOB RATIO 0.8 (1.1-1.8); ALKALINE PHOSPHATASE 644 U/L (38-126); ALT/SGPT 32 U/L (7-56); AST/SGOT 54 U/L (17-59); BLOOD UREA NITROGEN 24 mg/dL (7-21); CALCIUM 8.2 mg/dL (8.4-10.5); CARBON DIOXIDE 29 mmol/L (21-33); CHLORIDE 100 mmol/L (98-107); GFR AFRICAN-AMERICAN > 60; GLUCOSE,RANDOM 65 mg/dL (70-110); MAGNESIUM 1.7 mg/dL (1.7-2.2); PHOSPHOROUS 3.6 mg/dL (2.5-4.5); POTASSIUM 4.1 mmol/L (3.6-5.0); SODIUM 140 mmol/L (132-148); TOTAL PROTEIN 5.9 g/dL (5.8-8.3)
[2017-04-09 07:51] LABS: BILIRUBIN,TOTAL 19.6 mg/dL (0.2-1.3)
[2017-04-09] MEDS: Megestrol Acetate 40 mg/ml Cup PO SCH ×2 (09:41→17:27)
[2017-04-09] MEDS: Sucralfate 1 gm/10 ml Oral Susp UD PO SCH ×4 (09:41→21:26)
[2017-04-09] MEDS: oxyCODONE 10 mg Immediate Release Tab PO PRN (09:42)
[2017-04-09] MEDS: Magnesium Oxide 400 mg Tab UD PO SCH ×2 (09:43→17:27)
--- NOTE | 2017-04-09 14:12 | CP.PCM.PN ---
Subjective - Date & Time of Evaluation Date of Evaluation: 04/09/17 Time of Evaluation: 14:08 - Subjective Subjective: Progress note for Dr. Hernandez's service Patient seen and examined at bedside this morning. No acute overnight events or new complaints reported. Encouraged patient to drink ensure shakes and increase nutritional intake. Denied chest pain, palpitations, SOB. Received palliative radiation today which he reports went well. Objective - Vital Signs/Intake and Output Vital Signs (last 24 hours): Temp Pulse Resp BP Pulse Ox 98.1 F 84 19 118/74 99 04/09/17 12:00 04/09/17 12:00 04/09/17 12:00 04/09/17 12:00 04/09/17 06:00 Intake and Output: 04/09/17 04/09/17 06:59 18:59 Intake Total 120 Output Total 100 500 Balance 20 -500 - Medications Medications: Current Medications Cyproheptadine HCl (Periactin) 4 mg PO TID [facility] Last Admin: 04/09/17 13:58 Dose: 4 mg Diphenhydramine HCl (Benadryl) 50 mg PO HS [facility] Last Admin: 04/08/17 23:42 Dose: 50 mg Fentanyl (Duragesic) 1 patch TD Q72H [facility] Last Admin: 04/07/17 22:00 Dose: Not Given Folic Acid (Folic Acid) 1 mg PO DAILY [facility] Last Admin: 04/09/17 09:42 Dose: 1 mg Magnesium Oxide (Mag-Ox) 400 mg PO BID [facility] Last Admin: 04/09/17 09:43 Dose: 400 mg Megestrol Acetate (Megace) 400 mg PO BID [facility] Last Admin: 04/09/17 09:41 Dose: 400 mg Morphine Sulfate (Morphine) 4 mg IVP Q6H PRN PRN Reason: Pain, severe (8-10) Last Admin: 04/09/17 14:03 Dose: 4 mg Morphine Sulfate (Morphine Extended Release Tab) 15 mg PO DAILY PRN PRN Reason: Pain, severe (8-10) Last Admin: 04/08/17 09:05 Dose: 15 mg Ondansetron HCl (Zofran Tab) 4 mg PO Q6H PRN PRN Reason: Nausea/Vomiting Last Admin: 04/08/17 14:04 Dose: 4 mg Oxycodone HCl (Oxycodone Immediate Release Tab) 10 mg PO Q6H PRN PRN Reason: Pain, severe (8-10) Last Admin: 04/09/17 09:42 Dose: 10 mg Pantoprazole Sodium (Protonix Ec Tab) 40 mg PO 0600 [facility] Last Admin: 04/09/17 06:14 Dose: 40 mg Prochlorperazine (Compazine Tab) 10 mg PO Q8H [facility] Last Admin: 04/09/17 13:58 Dose: 10 mg Spironolactone (Aldactone) 50 mg PO DAILY [facility] Last Admin: 04/09/17 09:42 Dose: 50 mg Sucralfate (Carafate Oral Susp) 1 gm PO QID [facility] Last Admin: 04/09/17 13:58 Dose: 1 gm - Labs Labs: 04/09/17 06:55 04/09/17 06:55 PT 25.9 Seconds (9.9-11.8) H 04/07/17 15:25 INR 2.40 (0.93-1.08) H 04/07/17 15:25 APTT 33.3 Seconds (23.7-30.8) H 04/07/17 15:25 - Constitutional Appears: Cachectic, Chronically Ill - Head Exam Head Exam: ATRAUMATIC, NORMOCEPHALIC - Eye Exam Eye Exam: EOMI, PERRL, Scleral icterus - ENT Exam ENT Exam: Mucous Membranes Dry - Neck Exam Neck Exam: Normal Inspection - Respiratory Exam Respiratory Exam: Decreased Breath Sounds. absent: Rales, Rhonchi, Wheezes - Cardiovascular Exam Cardiovascular Exam: +S1, +S2. absent: Gallop, Rubs, Murmur - GI/Abdominal Exam GI & Abdominal Exam: Soft. 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 stage IV metastatic gastroesophageal cancer -Patient previously treated with neoadjuvant chemotherapy with capecitabine, epirubicin, and platinol and surgical resection -Palliative care has been consulted and patient to be evaluated for hospice care -Pain control as indicated given prognosis -Patient reciving palliative radiation for his severe back pain by radiation oncology - Dr. Arora -CTA reviewed; no evidence of pulmonary embolism, moderate left sided pleural effusion, compressive atelectasis in LLL -Continue with pain control with morphine/fentanyl, zofran for nausea/vomiting, 2. Jaundice -Likely secondary to liver metastasis -Continue cyproheptadine and benadryl -Aldactone 50mg po qd 3. Malnutrition -Continue dietary supplementation with ensure -Calorie count -F[employer] consult 4. Constipation -Patient given 1 dose of relistor yesterday, will continue to monitor 5. GI/DVT Prophylaxis -Protonix Patient seen and case discussed with attending, Dr. Hernandez
[2017-04-09] MEDS: Morphine 15 mg SR Tab PO PRN (17:27)
[2017-04-10] MEDS: Morphine 4 mg/ml ISec IVP PRN ×3 (04:06→22:25)
[2017-04-10] MEDS: Pantoprazole 40 mg EC Tab PO SCH (05:23)
[2017-04-10 06:45] LABS: BASO # 0.01 K/mm3 (0.0-2.0); BASO % 0.1 % (0.0-3.0); GRAN # 9.15 (1.4-6.5); GRAN % 85.6 % (50.0-68.0); HEMATOCRIT 31.1 % (42.0-52.0); LYMPH # 0.4 (1.2-3.4); LYMPH % 3.7 % (22.0-35.0); MEAN CELL VOLUME 87.4 fl (80.0-105.0); MEAN CORPUSCULAR HEMOGLOBIN 29.5 pg (25.0-35.0); MEAN CORPUSCULAR HGB CONC 33.8 g/dl (31.0-37.0); MEAN PLATELET VOLUME 9.4 fl (7.0-11.0); MONO # 1.1 (0.1-0.6); MONO % 10.6 % (1.0-6.0); PLATELET COUNT 256 10^3/uL (120.0-450.0); RED CELL DISTRIBUTION WIDTH 16.9 % (11.5-14.5); WHITE BLOOD COUNT 10.7 10^3/ul (4.5-11.0)
[2017-04-10 06:49] LABS: ALB/GLOB RATIO 0.7 (1.1-1.8); ALKALINE PHOSPHATASE 703 U/L (38-126); ALT/SGPT 38 U/L (7-56); AST/SGOT 55 U/L (17-59); BLOOD UREA NITROGEN 26 mg/dL (7-21); CALCIUM 8.5 mg/dL (8.4-10.5); CARBON DIOXIDE 28 mmol/L (21-33); CHLORIDE 101 mmol/L (95-110); GFR AFRICAN-AMERICAN > 60; GLUCOSE,RANDOM 95 mg/dL (70-110); MAGNESIUM 1.7 mg/dL (1.7-2.2); POTASSIUM 4.1 mmol/L (3.6-5.0); SODIUM 140 mmol/L (132-148); TOTAL PROTEIN 5.9 g/dL (5.8-8.3)
[2017-04-10 07:18] LABS: BILIRUBIN,TOTAL 20.9 mg/dL (0.2-1.3)
--- NOTE | 2017-04-10 07:40 | CP.PCM.PN ---
Subjective - Date & Time of Evaluation Date of Evaluation: 04/10/17 Time of Evaluation: 07:35 - Subjective Subjective: Progress note for Dr. Hernandez's service No acute overnight events or new complaints reported. Cardiology recommended low dose beta ave for tachycardia. Will continue to monitor at this time. He is tolerating palliative radiation therapy well. Objective - Vital Signs/Intake and Output Vital Signs (last 24 hours): Temp Pulse Resp BP Pulse Ox 98.8 F 114 H 18 116/84 96 04/10/17 06:00 04/10/17 06:00 04/10/17 06:00 04/10/17 06:00 04/10/17 00:01 Intake and Output: 04/10/17 04/10/17 06:59 18:59 Intake Total 360 Output Total 200 Balance 160 - Medications Medications: Current Medications Cyproheptadine HCl (Periactin) 4 mg PO TID [facility] Last Admin: 04/09/17 17:27 Dose: 4 mg Diphenhydramine HCl (Benadryl) 50 mg PO HS [facility] Last Admin: 04/09/17 21:20 Dose: 50 mg Fentanyl (Duragesic) 1 patch TD Q72H [facility] Last Admin: 04/07/17 22:00 Dose: Not Given Folic Acid (Folic Acid) 1 mg PO DAILY [facility] Last Admin: 04/09/17 09:42 Dose: 1 mg Magnesium Oxide (Mag-Ox) 400 mg PO BID [facility] Last Admin: 04/09/17 17:27 Dose: 400 mg Megestrol Acetate (Megace) 400 mg PO BID [facility] Last Admin: 04/09/17 17:27 Dose: 400 mg Morphine Sulfate (Morphine) 4 mg IVP Q6H PRN PRN Reason: Pain, severe (8-10) Last Admin: 04/10/17 04:06 Dose: 4 mg Morphine Sulfate (Morphine Extended Release Tab) 15 mg PO DAILY PRN PRN Reason: Pain, severe (8-10) Last Admin: 04/09/17 17:27 Dose: 15 mg Ondansetron HCl (Zofran Tab) 4 mg PO Q6H PRN PRN Reason: Nausea/Vomiting Last Admin: 04/08/17 14:04 Dose: 4 mg Oxycodone HCl (Oxycodone Immediate Release Tab) 10 mg PO Q6H PRN PRN Reason: Pain, severe (8-10) Last Admin: 04/09/17 09:42 Dose: 10 mg Pantoprazole Sodium (Protonix Ec Tab) 40 mg PO 0600 [facility] Last Admin: 04/10/17 05:23 Dose: 40 mg Prochlorperazine (Compazine Tab) 10 mg PO Q8H [facility] Last Admin: 04/10/17 05:23 Dose: 10 mg Spironolactone (Aldactone) 50 mg PO DAILY [facility] Last Admin: 04/09/17 09:42 Dose: 50 mg Sucralfate (Carafate Oral Susp) 1 gm PO QID [facility] Last Admin: 04/09/17 21:26 Dose: 1 gm - Labs Labs: 04/10/17 06:22 04/10/17 06:22 PT 25.9 Seconds (9.9-11.8) H 04/07/17 15:25 INR 2.40 (0.93-1.08) H 04/07/17 15:25 APTT 33.3 Seconds (23.7-30.8) H 04/07/17 15:25 - Constitutional Appears: Cachectic, Chronically Ill - Head Exam Head Exam: ATRAUMATIC, NORMOCEPHALIC - Eye Exam Eye Exam: EOMI, PERRL, Scleral icterus - ENT Exam ENT Exam: Mucous Membranes Dry - Respiratory Exam Respiratory Exam: absent: Rales, Rhonchi, Wheezes - Cardiovascular Exam Cardiovascular Exam: +S1, +S2. absent: Gallop, Rubs, Murmur - GI/Abdominal Exam GI & Abdominal Exam: Soft. 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 stage IV metastatic gastroesophageal cancer -Patient previously treated with neoadjuvant chemotherapy with capecitabine, epirubicin, and platinol and surgical resection -Palliative care has been consulted and patient to be evaluated for hospice care -Pain control as indicated given prognosis -Patient reciving palliative radiation for his severe back pain by radiation oncology - Dr. Arora -CTA reviewed; no evidence of pulmonary embolism, moderate left sided pleural effusion, compressive atelectasis in LLL -Continue with pain control with morphine/fentanyl, zofran for nausea/vomiting 2. Jaundice -Likely secondary to liver metastasis -Continue cyproheptadine and benadryl -Aldactone 50mg po qd 3. Malnutrition -Continue dietary supplementation with ensure -Calorie count -Industrial Therapist consult 4. Constipation -Patient given 1 dose of relistor yesterday, will continue to monitor 5. GI Prophylaxis -Protonix Patient seen and case discussed with attending, Dr. Hernandez
[2017-04-10 08:32] LABS: NEUTROPHIL 83 % (50.0-70.0)
[2017-04-10 08:33] LABS: ANISOCYTOSIS SLIGHT; HYPOCHROMIA 1+; PLATELET ESTIMATE NORMAL (NORMAL)
[2017-04-10] MEDS ORDERED: Morphine 4 mg/ml ISec IM STA (08:49)
[2017-04-10] MEDS ORDERED: Morphine 4 mg/ml ISec IVP STA (08:53)
[2017-04-10] MEDS: Sucralfate 1 gm/10 ml Oral Susp UD PO SCH ×5 (12:24→21:58)
[2017-04-10] MEDS: Megestrol Acetate 40 mg/ml Cup PO SCH ×2 (12:24→17:53)
[2017-04-10] MEDS: Magnesium Oxide 400 mg Tab UD PO SCH ×2 (12:25→17:52)
--- NOTE | 2017-04-10 13:11 | CP.PCM.CON ---
History of Present Illness - History of Present Illness History of Present Illness: Palliative consult requested by Dr Julián Hernandez Reason: Goals of care/ hospice discussion 56 year old male with history of advanced esophageal cancer who presented with chest pain, shortness of breath, weakness and dizziness.He denied fever, cough, nausea headache. PMHX Esophageal cancer metastatic to liver, s/p resection, s/p chemotherapy, receiving palliative RT, hiatal hernia,anemia,jaundice Social History: Former smoker, no alcohol or drug use., resides with spouse Family History: Noncontributory. Advance Care Planning: The patient has an Advanced Directive. He is DNR/DNI. Review of Systems - Constitutional Constitutional: Anorexia, Weight Loss, Weakness - EENT Additional comments: scleral icteris - Cardiovascular Cardiovascular: Chest Pain, Dyspnea on Exertion - Respiratory Respiratory: Dyspnea - Gastrointestinal Gastrointestinal: Constipation, Early Satiety - Genitourinary Additional comments: negative - Musculoskeletal Musculoskeletal: Arthralgias, Muscle Weakness, Myalgias - Integumentary Integumentary: Jaundice - Neurological Neurological: Dizziness - Psychiatric Additional comments: negative - Endocrine Additional Comments: negative Past Patient History - Infectious Disease Hx of Infectious Diseases: None - Past Social History Smoking Status: Former Smoker - CARDIAC Hx Cardiac Disorders: Yes Other/Comment: hypokalemia - PULMONARY Hx Respiratory Disorders: No - NEUROLOGICAL Hx Neurological Disorder: Yes - HEENT Hx HEENT Problems: Yes (wears glasses) - RENAL Hx Chronic Kidney Disease: No - ENDOCRINE/METABOLIC Hx Endocrine Disorders: No - HEMATOLOGICAL/ONCOLOGICAL Hx Blood Disorders: Yes Hx Anemia: Yes Hx Cancer: Yes (ESAPHAGEAL/STOMACH c LIVER METS) - INTEGUMENTARY Hx Dermatological Problems: No - MUSCULOSKELETAL/RHEUMATOLOGICAL Hx Falls: Yes - GASTROINTESTINAL Other/Comment: Stomach CA,Esaphagal CA, Liver CA - GENITOURINARY/GYNECOLOGICAL Hx Genitourinary Disorders: No - PSYCHIATRIC Hx Psychophysiologic Disorder: No Hx Substance Use: No - SURGICAL HISTORY Other/Comment: "Removed 1/3 or stomach". R chest port - ANESTHESIA Hx Anesthesia: Yes Hx Anesthesia Reactions: No Hx Malignant Hyperthermia: No Meds Allergies/Adverse Reactions: Allergies Allergy/AdvReac Type Severity Reaction Status Date / Time No Known Allergies Allergy Verified 04/07/17 14:18 - Medications Medications: Current Medications Cyproheptadine HCl (Periactin) 4 mg PO TID [facility] [place] Last Admin: 04/10/17 12:25 Dose: 4 mg Diphenhydramine HCl (Benadryl) 50 mg PO HS [facility] [place] Last Admin: 04/09/17 21:20 Dose: 50 mg Fentanyl (Duragesic) 1 patch TD Q72H [facility] Last Admin: 04/07/17 22:00 Dose: Not Given Folic Acid (Folic Acid) 1 mg PO DAILY [facility] [place] Last Admin: 04/10/17 12:24 Dose: 1 mg Magnesium Oxide (Mag-Ox) 400 mg PO BID [facility] [place] Last Admin: 04/10/17 12:25 Dose: 400 mg Megestrol Acetate (Megace) 400 mg PO BID [facility] [place] Last Admin: 04/10/17 12:24 Dose: 400 mg Morphine Sulfate (Morphine) 4 mg IVP Q6H PRN PRN Reason: Pain, severe (8-10) Last Admin: 04/10/17 04:06 Dose: 4 mg Morphine Sulfate (Morphine Extended Release Tab) 15 mg PO DAILY PRN PRN Reason: Pain, severe (8-10) Last Admin: 04/09/17 17:27 Dose: 15 mg Ondansetron HCl (Zofran Tab) 4 mg PO Q6H PRN PRN Reason: Nausea/Vomiting Last Admin: 04/08/17 14:04 Dose: 4 mg Oxycodone HCl (Oxycodone Immediate Release Tab) 10 mg PO Q6H PRN PRN Reason: Pain, severe (8-10) Last Admin: 04/09/17 09:42 Dose: 10 mg Pantoprazole Sodium (Protonix Ec Tab) 40 mg PO 0600 [facility] [place] Last Admin: 04/10/17 05:23 Dose: 40 mg Prochlorperazine (Compazine Tab) 10 mg PO Q8H [facility] [place] Last Admin: 04/10/17 05:23 Dose: 10 mg Spironolactone (Aldactone) 50 mg PO DAILY [facility] [place] Last Admin: 04/10/17 12:25 Dose: 50 mg Sucralfate (Carafate Oral Susp) 1 gm PO QID [facility] Last Admin: 04/10/17 12:24 Dose: 1 gm Physical Exam - Constitutional Appears: Cachectic, Chronically Ill - Head Exam Head Exam: NORMAL INSPECTION - Eye Exam Eye Exam: PERRL, Scleral icterus - ENT Exam ENT Exam: Mucous Membranes Moist, Normal Oropharynx - Neck Exam Neck exam: Positive for: Normal Inspection - Respiratory Exam Respiratory Exam: Decreased Breath Sounds, NORMAL BREATHING PATTERN - Cardiovascular Exam Cardiovascular Exam: REGULAR RHYTHM, +S1, +S2 - GI/Abdominal Exam GI & Abdominal Exam: Normal Bowel Sounds, Soft - Extremities Exam Extremities exam: Positive for: normal inspection, pedal pulses present - Neurological Exam Neurological exam: Alert, Oriented x3 - Psychiatric Exam Psychiatric exam: Normal Mood - Skin Skin Exam: Dry, Warm Additional comments: jaundice - Additional Findings Additional findings: Palliative performance rating 40% Results - Vital Signs Recent Vital Signs: Last Vital Signs Temp 98.3 F 04/10/17 12:00 Pulse 113 H 04/10/17 12:00 Resp 20 04/10/17 12:00 BP 116/83 04/10/17 12:00 Pulse Ox 96 04/10/17 00:01 - Labs Result Diagrams: 04/10/17 06:22 04/10/17 06:22 Labs: Laboratory Results - last 24 hr 04/10/17 04/10/17 06:22 06:22 WBC 10.7 RBC 3.56 Hgb 10.5 L Hct 31.1 L MCV 87.4 MCH 29.5 MCHC 33.8 RDW 16.9 H Plt Count 256 MPV 9.4 Gran % 85.6 H Lymph % (Auto) 3.7 L [place] % (Auto) 10.6 H Eos % (Auto) 0.0 L Baso % (Auto) 0.1 Gran # 9.15 H Lymph # 0.4 L [place] # 1.1 H Eos # 0.0 Baso # 0.01 Neutrophils % (Manual) 83 H Lymphocytes % (Manual) 8 L Monocytes % (Manual) 9 H Platelet Evaluation Normal Hypochromasia 1+ Anisocytosis (manual) Slight Sodium 140 Potassium 4.1 Chloride 101 Carbon Dioxide 28 Anion Gap 15 BUN 26 H Creatinine 0.7 Est GFR ( Amer) > 60 Est GFR (Non-Af Amer) > 60 Random Glucose 95 Calcium 8.5 Phosphorus 3.0 Magnesium 1.7 Total Bilirubin 20.9 H* AST 55 ALT 38 Alkaline Phosphatase 703 H Total Protein 5.9 Albumin 2.5 L Globulin 3.4 Albumin/Globulin Ratio 0.7 L Assessment & Plan - Assessment and Plan (Free Text) Assessment: 56 year old male with history of metastatic esophageal cancer who is admitted with chest pain,weakness, intractable pain, jaundice. The patient is alert and oriented. He is known to me for previous admissions. He has as Advanced Directive and is DNR/DNI. The patient and I had discussed option for hospice care during his last admission. At that time he was not ready to transition to this service. Today, he and I had another lengthy conversation about hospice care. He admits that his quality of life has severely diminished and that he has persistent pain. Mr Maria states that he no longer wants to be hospitalized in the future. He is agreeable to hospice care upon completion of his radiation therapy. Psychosocial support given Tie spent in goals of care and end of life planning, 20 minutes Plan: Hospice evaluation,advance care planning, palliative support
[2017-04-10] MEDS: oxyCODONE 10 mg Immediate Release Tab PO PRN (18:19)
--- NOTE | 2017-04-10 19:14 | CON ---
DATE: REASON FOR CONSULTATION: Followup chest pain, epigastric pain, radiating to right-sided in the liver, 10 beats of VT, cardiac evaluation. BRIEF CLINICAL HISTORY: A [id number]-male with past medical history significant for stage IV metastatic esophageal cancer, mets to the liver, lung, and retroperitoneal lymph node, status post chemotherapy, admitted with a complaint of epigastric pain radiating to the liver, right upper quadrant. The patient 10 beats of VT. Denies any chest pain, dyspnea on exertion. The patient is very cachectic, very short of breath on exertion, probably secondary to underlying malignancy and anemia. PAST MEDICAL HISTORY: Significant for stage IV metastatic gastroesophageal cancer with metastasis to liver, lung, and retroperitoneal lymph, status post [id number]-half cycles of chemotherapy. PAST SURGICAL HISTORY: Significant for endoscopy and biopsy that shows adenocarcinoma of gastrointestinal tract. ALLERGIES: NO KNOWN DRUG ALLERGIES. FAMILY HISTORY: Noncontributory. SOCIAL HISTORY: Denies any history of alcohol abuse. Currently, smokes 5 cigarette a day for more than 25 years. History of recent chemo. PREVIOUS CARDIAC WORKUP: The patient had an echocardiography done on 01/18/2017 that showed normal LV size, normal LVH, LV function normal, mild mitral regurgitation, mild tricuspid regurgitation dated 01/18/2017, read by Dr. Goodson. RV systolic pressure reported as 30 and calculated ejection fraction reported as 51%. REVIEW OF SYSTEMS: As per HPI. LABORATORY DATA: Blood workup as follows: WBC , hemoglobin 10.5, hematocrit 31.1, platelet count 256. Chemistry shows sodium 140, potassium 4.1, chloride 101, carbon dioxide of 28, anion gap of 15, BUN 26, creatinine 0.7. Troponin 0.01, total protein 5.0, albumin 2.5, albumin-globulin ratio at 0.7. IMPRESSION: A [id number]-male with past medical history significant for gastroesophageal adenocarcinoma, poorly differentiated with metastasis to liver, retroperitoneal lymph node and epigastric pain most likely secondary to the tumor. The patient had 14 beats of ventricular tachycardia, anemia, protein-calorie malnutrition present on admission, cachexia, and decreased body mass index, poor appetite. Preserved left ventricular function, most recent echocardiogram 01/18/2017 shows ejection fraction preserved 50%, mild mitral regurgitation and mild tricuspid regurgitation. RECOMMENDATIONS: The patient is tachycardic, we will put low-dose beta-ave, but we will give 10 mg of propranolol 3 times a day. Follow up closely. Increase nutritional support as tolerated. We will follow with you. Thank you Dr. Hernandez for providing us the opportunity in taking care of Gareth Maria. Iza Mary MD
[2017-04-11] MEDS: Pantoprazole 40 mg EC Tab PO SCH (05:23)
[2017-04-11 06:10] VITALS: O2SAT 100
[2017-04-11] MEDS: Morphine 4 mg/ml ISec IVP PRN (06:28)
[2017-04-11 07:30] LABS: GRAN # 7.66 (1.4-6.5); GRAN % 82.2 % (50.0-68.0); HEMATOCRIT 29.4 % (42.0-52.0); LYMPH # 0.3 (1.2-3.4); LYMPH % 3.3 % (22.0-35.0); MEAN CORPUSCULAR HEMOGLOBIN 29.9 pg (25.0-35.0); MEAN CORPUSCULAR HGB CONC 34.4 g/dl (31.0-37.0); MEAN PLATELET VOLUME 9.8 fl (7.0-11.0); MONO # 1.4 (0.1-0.6); MONO % 14.5 % (1.0-6.0); PLATELET COUNT 234 10^3/uL (120.0-450.0); WHITE BLOOD COUNT 9.3 10^3/ul (4.5-11.0)
[2017-04-11 07:40] LABS: ALB/GLOB RATIO 0.7 (1.1-1.8); ALKALINE PHOSPHATASE 566 U/L (38-126); ALT/SGPT 36 U/L (7-56); AST/SGOT 45 U/L (17-59); BLOOD UREA NITROGEN 24 mg/dL (7-21); CALCIUM 8.3 mg/dL (8.4-10.5); CARBON DIOXIDE 28 mmol/L (21-33); CHLORIDE 99 mmol/L (95-110); GFR AFRICAN-AMERICAN > 60; GLUCOSE,RANDOM 78 mg/dL (70-110); MAGNESIUM 1.5 mg/dL (1.7-2.2); PHOSPHOROUS 2.9 mg/dL (2.5-4.5); POTASSIUM 3.5 mmol/L (3.6-5.0); SODIUM 137 mmol/L (132-148); TOTAL PROTEIN 5.7 g/dL (5.8-8.3)
[2017-04-11 07:41] LABS: BILIRUBIN,TOTAL 20.5 mg/dL (0.2-1.3)
--- NOTE | 2017-04-11 09:04 | CP.PCM.PN ---
Subjective - Date & Time of Evaluation Date of Evaluation: 04/11/17 Time of Evaluation: 09:01 - Subjective Subjective: Progress note for Dr. Hernandez's service Patient seen and examined at bedside this morning. No acute overnight events or new complaints. Reports pain as being tolerable when he receives his medications on time. Rates his pain at roughly a 6/10. Tolerating palliative radiation therapy well. Denies chest pain, palpitations, SOB. Objective - Vital Signs/Intake and Output Vital Signs (last 24 hours): Temp Pulse Resp BP Pulse Ox 98.8 F 114 H 19 110/78 100 04/11/17 06:00 04/11/17 06:00 04/11/17 06:00 04/11/17 06:00 04/11/17 06:00 Intake and Output: 04/11/17 04/11/17 06:59 18:59 Intake Total 360 Output Total 100 Balance 260 - Medications Medications: Current Medications Cyproheptadine HCl (Periactin) 4 mg PO TID [facility] Last Admin: 04/10/17 17:52 Dose: 4 mg Diphenhydramine HCl (Benadryl) 50 mg PO HS [facility] Last Admin: 04/10/17 21:58 Dose: 50 mg Fentanyl (Duragesic) 1 patch TD Q72H [facility] Last Admin: 04/10/17 22:23 Dose: Not Given Folic Acid (Folic Acid) 1 mg PO DAILY [facility] Last Admin: 04/10/17 12:24 Dose: 1 mg Magnesium Oxide (Mag-Ox) 400 mg PO BID [facility] Last Admin: 04/10/17 17:52 Dose: 400 mg Megestrol Acetate (Megace) 400 mg PO BID [facility] Last Admin: 04/10/17 17:53 Dose: 400 mg Morphine Sulfate (Morphine) 4 mg IVP Q6H PRN PRN Reason: Pain, severe (8-10) Last Admin: 04/11/17 06:28 Dose: 4 mg Morphine Sulfate (Morphine Extended Release Tab) 15 mg PO DAILY PRN PRN Reason: Pain, severe (8-10) Last Admin: 04/09/17 17:27 Dose: 15 mg Ondansetron HCl (Zofran Tab) 4 mg PO Q6H PRN PRN Reason: Nausea/Vomiting Last Admin: 04/08/17 14:04 Dose: 4 mg Oxycodone HCl (Oxycodone Immediate Release Tab) 10 mg PO Q6H PRN PRN Reason: Pain, severe (8-10) Last Admin: 04/10/17 18:19 Dose: 10 mg Pantoprazole Sodium (Protonix Ec Tab) 40 mg PO 0600 [facility] Last Admin: 04/11/17 05:23 Dose: 40 mg Prochlorperazine (Compazine Tab) 10 mg PO Q8H [facility] Last Admin: 04/11/17 05:23 Dose: 10 mg Spironolactone (Aldactone) 50 mg PO DAILY [facility] Last Admin: 04/10/17 12:25 Dose: 50 mg Sucralfate (Carafate Oral Susp) 1 gm PO QID [facility] Last Admin: 04/10/17 21:58 Dose: 1 gm - Labs Labs: 04/11/17 07:00 04/11/17 07:00 PT 25.9 Seconds (9.9-11.8) H 04/07/17 15:25 INR 2.40 (0.93-1.08) H 04/07/17 15:25 APTT 33.3 Seconds (23.7-30.8) H 04/07/17 15:25 - Constitutional Appears: Cachectic, Chronically Ill - Head Exam Head Exam: ATRAUMATIC, NORMOCEPHALIC - Eye Exam Eye Exam: EOMI, PERRL, Scleral icterus - ENT Exam ENT Exam: Mucous Membranes Dry - Respiratory Exam Respiratory Exam: Clear to Ausculation Bilateral. absent: Rales, Rhonchi, Wheezes - Cardiovascular Exam Cardiovascular Exam: +S1, +S2. absent: Gallop, Rubs, Murmur - GI/Abdominal Exam GI & Abdominal Exam: Soft. 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 stage IV metastatic gastroesophageal cancer -Patient previously treated with neoadjuvant chemotherapy with capecitabine, epirubicin, and platinol and surgical resection -Palliative care has been consulted and patient evaluated for hospice care -Patient reciving palliative radiation for his severe back pain by radiation oncology - Dr. Arora -CTA reviewed; no evidence of pulmonary embolism, moderate left sided pleural effusion, compressive atelectasis in LLL -Continue with pain control and zofran for nausea/vomiting 2. Jaundice -Likely secondary to liver metastasis -Continue cyproheptadine and benadryl -Aldactone 50mg po qd 3. Malnutrition -Continue dietary supplementation with ensure -Calorie count -[employer] Consultant consult 4. Constipation -Patient given 1 dose of relistor yesterday, will continue to monitor 5. GI Prophylaxis -Protonix Patient seen and case discussed with attending, Dr. Hernandez
[2017-04-11] MEDS: Magnesium Oxide 400 mg Tab UD PO SCH ×2 (09:33→17:46)
[2017-04-11] MEDS: Sucralfate 1 gm/10 ml Oral Susp UD PO SCH ×4 (09:33→21:59)
[2017-04-11] MEDS: Megestrol Acetate 40 mg/ml Cup PO SCH ×2 (09:33→17:46)
[2017-04-11] MEDS ORDERED: Magnesium Sulfate 2 GM in Sodium Chloride 0.9% 100 ML IVPB ONE (09:36)
[2017-04-11] MEDS ORDERED: Potassium Chloride 20 mEq/15 ml LIQ UD PO STA (09:36)
[2017-04-11] MEDS: oxyCODONE 10 mg Immediate Release Tab PO PRN (09:37)
[2017-04-11 10:09] LABS: BAND 3 % (0-2); EOSINOPHIL 1 % (0.0-3.0); NEUTROPHIL 79 % (50.0-70.0)
[2017-04-11 10:10] LABS: PLATELET ESTIMATE NORMAL (NORMAL)
--- NOTE | 2017-04-11 11:28 | CP.PCM.PN ---
Subjective - Date & Time of Evaluation Date of Evaluation: 04/11/17 Time of Evaluation: 11:00 - Subjective Subjective: Alert, complains of persistent pain. Objective - Vital Signs/Intake and Output Vital Signs (last 24 hours): Temp Pulse Resp BP Pulse Ox 98.8 F 114 H 19 110/78 100 04/11/17 06:00 04/11/17 06:00 04/11/17 06:00 04/11/17 06:00 04/11/17 06:00 Intake and Output: 04/11/17 04/11/17 06:59 18:59 Intake Total 360 Output Total 100 Balance 260 - Medications Medications: Current Medications Cyproheptadine HCl (Periactin) 4 mg PO TID [facility] Last Admin: 04/11/17 09:33 Dose: 4 mg Diphenhydramine HCl (Benadryl) 50 mg PO HS [facility] Last Admin: 04/10/17 21:58 Dose: 50 mg Fentanyl (Duragesic) 1 patch TD Q72H [facility] Last Admin: 04/10/17 22:23 Dose: Not Given Folic Acid (Folic Acid) 1 mg PO DAILY [facility] Last Admin: 04/11/17 09:33 Dose: 1 mg Magnesium Oxide (Mag-Ox) 400 mg PO BID [facility] Last Admin: 04/11/17 09:33 Dose: 400 mg Megestrol Acetate (Megace) 400 mg PO BID [facility] Last Admin: 04/11/17 09:33 Dose: 400 mg Morphine Sulfate (Morphine) 4 mg IVP Q6H PRN PRN Reason: Pain, severe (8-10) Last Admin: 04/11/17 06:28 Dose: 4 mg Morphine Sulfate (Morphine Extended Release Tab) 15 mg PO DAILY PRN PRN Reason: Pain, severe (8-10) Last Admin: 04/09/17 17:27 Dose: 15 mg Ondansetron HCl (Zofran Tab) 4 mg PO Q6H PRN PRN Reason: Nausea/Vomiting Last Admin: 04/08/17 14:04 Dose: 4 mg Oxycodone HCl (Oxycodone Immediate Release Tab) 10 mg PO Q6H PRN PRN Reason: Pain, severe (8-10) Last Admin: 04/11/17 09:37 Dose: 10 mg Pantoprazole Sodium (Protonix Ec Tab) 40 mg PO 0600 [facility] Last Admin: 04/11/17 05:23 Dose: 40 mg Prochlorperazine (Compazine Tab) 10 mg PO Q8H [facility] Last Admin: 04/11/17 05:23 Dose: 10 mg Propranolol HCl (Inderal) 10 mg PO TID [facility] Last Admin: 04/11/17 10:55 Dose: 10 mg Spironolactone (Aldactone) 50 mg PO DAILY [facility] Last Admin: 04/11/17 09:33 Dose: 50 mg Sucralfate (Carafate Oral Susp) 1 gm PO QID [facility] Last Admin: 04/11/17 09:33 Dose: 1 gm - Labs Labs: 04/11/17 07:00 04/11/17 07:00 PT 25.9 Seconds (9.9-11.8) H 04/07/17 15:25 INR 2.40 (0.93-1.08) H 04/07/17 15:25 APTT 33.3 Seconds (23.7-30.8) H 04/07/17 15:25 - Constitutional Appears: Cachectic, Chronically Ill - Eye Exam Eye Exam: PERRL, Scleral icterus - ENT Exam ENT Exam: Mucous Membranes Moist - Respiratory Exam Respiratory Exam: Decreased Breath Sounds, NORMAL BREATHING PATTERN - Cardiovascular Exam Cardiovascular Exam: REGULAR RHYTHM, +S1, +S2 - GI/Abdominal Exam GI & Abdominal Exam: Soft, Normal Bowel Sounds - Extremities Exam Additional comments: lower extremity edema - Back Exam Back Exam: NORMAL INSPECTION - Neurological Exam Neurological Exam: Alert, Oriented x3 - Skin Skin Exam: Warm Additional comments: jaundice Assessment and Plan - Assessment and Plan (Free Text) Assessment: 56 year old male with history of metastatic esophageal cancer who is admitted with intractable pain, jaundice,anemia, cachexia and weakness The patient is currently undergoing palliative RT. The patient has affirmed that he wants to transition home with hospice services. He is meeting with a hospice rn today. He states that his quality of life is greatly diminished. He no longer wants to be hospitalized, preferring to have pain and symptom management at home. He also states that his pain is not well controlled. He consistently remains at a level of 8. he had also been complaining of constipation, but reports having a large BM yesterday. Plan: Pain management: Would discontinue Oxycodone 10 mg IR, Morphine 15mg ER and Morphine 4 mg IV.Start to Dilaudid 1 mg continuos dosing and 0.5 mg RN VISITING lockout very 20 minutes. Taper and discants Fentanyl transdermal patch Miralalx 17 gms daily for to prevent opioid induced constipation. Continue all other medications as ordered. Hospice evaluation
[2017-04-11] MEDS ORDERED: HYDROmorphone 1 mg/ml PCA 25 ML IV PRN ×2 (11:36→20:17)
--- NOTE | 2017-04-11 12:17 | PN ---
DATE: 04/11/2017 REASON FOR CONSULTATION: Followup chest pain, epigastric pain radiating to the liver, 10 beats of ventricular tachycardia, cardiac evaluation. SUBJECTIVE: He denies any chest pain, shortness of breath or any palpitation. Heart rate 114. OBJECTIVE/PHYSICAL EXAMINATION: As follows: GENERAL: Not in apparent distress. Denies any chest pain. VITAL SIGNS: Temperature is afebrile, heart rate is 114, and blood pressure is 110/78. HEENT: PERRLA. Extraocular muscles are intact. NECK: Supple. No carotid bruit or thyromegaly. CHEST: Clear to auscultation. HEART: S1 and S2 regular. ABDOMEN: Soft. EXTREMITIES: Clubbing and cyanosis negative. LABORATORY DATA: Blood workup as follows; WBC of 9.3, hemoglobin of 10.1, hematocrit of 29.4, and platelet count of 234. Chemistry shows sodium of 137, potassium of 3.5, chloride of 99, carbon dioxide of 28, anion gap of 14, BUN of 24, and creatinine of 0.6. Total bilirubin of 20.5 and total protein of 5.3. Albumin of 2.4 and albumin and globulin ratio of 0.7. IMPRESSION: A 56-year-old male with past medical history significant for esophageal cancer with metastasis, severe hyperbilirubinemia, hypomagnesemia, hypokalemia, protein calorie malnutrition, moderate to severe admitted with moderate protein calorie malnutrition, anemia, chest pain is most likely secondary to the invasion of the tumor as well as metastases to the liver that is why the patient had hyperbilirubinemia and abnormal liver function. The patient last echocardiogram dated 01/18/2017 shows a normal left ventricular size and normal left ventricular function, mild mitral regurgitation, mild tricuspid regurgitation and right ventricular systolic pressure 30 dated 01/18/2017. RECOMMENDATIONS: Supplement electrolytes, supplement magnesium, increase nutrition support by add on Glucerna or Ensure Pudding, supplement magnesium, and continue beta ave to prevent tachycardia. We will follow with you. Once the rate is controlled, the beta ave will be . The patient with 5 beat of VT probably secondary to electrolyte imbalance. We will get the magnesium level tomorrow. Thank you Dr. Hernandez for providing us the opportunity in taking care of the patient, Gareth Maria. Iza Mary MD
[2017-04-11] MEDS: POLYETHYLENE GLYCOL 3350 17 GM/Dose PACKET PO SCH (13:26)
[2017-04-11 18:53] VITALS: RESP 18
[2017-04-12] MEDS: Pantoprazole 40 mg EC Tab PO SCH (06:03)
[2017-04-12 07:25] LABS: ALB/GLOB RATIO 0.7 (1.1-1.8); ALKALINE PHOSPHATASE 497 U/L (38-126); ALT/SGPT 23 U/L (7-56); AST/SGOT 34 U/L (17-59); BLOOD UREA NITROGEN 27 mg/dL (7-21); CALCIUM 8.3 mg/dL (8.4-10.5); CARBON DIOXIDE 28 mmol/L (21-33); CHLORIDE 100 mmol/L (98-107); GFR AFRICAN-AMERICAN > 60; GLUCOSE,RANDOM 66 mg/dL (70-110); MAGNESIUM 1.9 mg/dL (1.7-2.2); PHOSPHOROUS 3.8 mg/dL (2.5-4.5); SODIUM 139 mmol/L (132-148); TOTAL PROTEIN 5.7 g/dL (5.8-8.3)
[2017-04-12 07:39] LABS: BILIRUBIN,TOTAL 20.5 mg/dL (0.2-1.3)
[2017-04-12 07:49] VITALS: TEMP 98.1
[2017-04-12] MEDS: POLYETHYLENE GLYCOL 3350 17 GM/Dose PACKET PO SCH (10:00)
[2017-04-12] MEDS: Megestrol Acetate 40 mg/ml Cup PO SCH (10:00)
[2017-04-12] MEDS: Magnesium Oxide 400 mg Tab UD PO SCH (10:00)
[2017-04-12] MEDS: Sucralfate 1 gm/10 ml Oral Susp UD PO SCH ×2 (10:00→14:31)
[2017-04-12 14:38] VITALS: BP 130/72; PULSE 80
--- NOTE | 2017-04-12 15:02 | CP.PCM.DIS ---
Provider - Provider Date of Admission: 04/09/17 13:48 Attending physician: Franky Sandoval MD Consults: Heme/Onc - Dr. Hernandez Palliative Care - [facility] - Dr. Mary Time Spent in preparation of Discharge (in minutes): 35 Hospital Course - Lab Results Lab Results: Most Recent Lab Values WBC 9.3 10^3/ul (4.5-11.0) 04/11/17 07:00 RBC 3.38 10^6/uL (3.5-6.1) L 04/11/17 07:00 Hgb 10.1 g/dL (14.0-18.0) L 04/11/17 07:00 Hct 29.4 % (42.0-52.0) L 04/11/17 07:00 MCV 87.0 fl (80.0-105.0) 04/11/17 07:00 MCH 29.9 pg (25.0-35.0) 04/11/17 07:00 MCHC 34.4 g/dl (31.0-37.0) 04/11/17 07:00 RDW 17.0 % (11.5-14.5) H 04/11/17 07:00 Plt Count 234 10^3/uL (120.0-450.0) 04/11/17 07:00 MPV 9.8 fl (7.0-11.0) 04/11/17 07:00 Gran % 82.2 % (50.0-68.0) H 04/11/17 07:00 Lymph % (Auto) 3.3 % (22.0-35.0) L 04/11/17 07:00 [place] % (Auto) 14.5 % (1.0-6.0) H 04/11/17 07:00 Eos % (Auto) 0.0 % (1.5-5.0) L 04/11/17 07:00 Baso % (Auto) 0.0 % (0.0-3.0) 04/11/17 07:00 Gran # 7.66 (1.4-6.5) H 04/11/17 07:00 Lymph # 0.3 (1.2-3.4) L 04/11/17 07:00 [place] # 1.4 (0.1-0.6) H 04/11/17 07:00 Eos # 0.0 (0.0-0.7) 04/11/17 07:00 Baso # 0.00 K/mm3 (0.0-2.0) 04/11/17 07:00 Neutrophils % (Manual) 79 % (50.0-70.0) H 04/11/17 07:00 Band Neutrophils % 3 % (0-2) H 04/11/17 07:00 Lymphocytes % (Manual) 7 % (22.0-35.0) L 04/11/17 07:00 Monocytes % (Manual) 10 % (1.0-6.0) H 04/11/17 07:00 Eosinophils % (Manual) 1 % (0.0-3.0) 04/11/17 07:00 Platelet Evaluation Normal (NORMAL) 04/11/17 07:00 Hypochromasia 1+ 04/10/17 06:22 Anisocytosis (manual) Slight 04/10/17 06:22 PT 25.9 Seconds (9.9-11.8) H 04/07/17 15:25 INR 2.40 (0.93-1.08) H 04/07/17 15:25 APTT 33.3 Seconds (23.7-30.8) H 04/07/17 15:25 Sodium 139 mmol/L (132-148) 04/12/17 06:10 Potassium 4.0 mmol/L (3.6-5.0) 04/12/17 06:10 Chloride 100 mmol/L (98-107) 04/12/17 06:10 Carbon Dioxide 28 mmol/L (21-33) 04/12/17 06:10 Anion Gap 15 (10-20) 04/12/17 06:10 BUN 27 mg/dL (7-21) H 04/12/17 06:10 Creatinine 0.6 mg/dL (0.5-1.4) 04/12/17 06:10 Est GFR ( Amer) > 60 04/12/17 06:10 Est GFR (Non-Af Amer) > 60 04/12/17 06:10 Random Glucose 66 mg/dL (70-110) L 04/12/17 06:10 Calcium 8.3 mg/dL (8.4-10.5) L 04/12/17 06:10 Phosphorus 3.8 mg/dL (2.5-4.5) 04/12/17 06:10 Magnesium 1.9 mg/dL (1.7-2.2) 04/12/17 06:10 Total Bilirubin 20.5 mg/dL (0.2-1.3) H* 04/12/17 06:10 AST 34 U/L (17-59) 04/12/17 06:10 ALT 23 U/L (7-56) 04/12/17 06:10 Alkaline Phosphatase 497 U/L (38-126) H 04/12/17 06:10 Lactate Dehydrogenase 904 U/L (333-699) H 04/07/17 15:25 Total Creatine Kinase 47 U/L (35-230) 04/07/17 15:25 Troponin I < 0.01 ng/mL 04/07/17 15:25 NT-Pro-B Natriuret Pep 1530 pg/mL (0-450) H 04/07/17 15:25 Total Protein 5.7 g/dL (5.8-8.3) L 04/12/17 06:10 Albumin 2.4 g/dL (3.0-4.8) L 04/12/17 06:10 Globulin 3.3 gm/dL 04/12/17 06:10 Albumin/Globulin Ratio 0.7 (1.1-1.8) L 04/12/17 06:10 - Hospital Course Hospital Course: Patient is a 56yo male with past medical history of 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 Patient had been recently admitted for electrolyte abnormalities. 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 Patient reported that his pain has been constant and has been evaluated by palliative care as well as radiation oncology for palliative treatment. He reported that the pain was tolerable with adequate pain control. During the course of the patient's hospitalization, the following workup/treatment was done : 1. stage IV metastatic gastroesophageal cancer -Patient previously treated with neoadjuvant chemotherapy with capecitabine, epirubicin, and platinol and surgical resection -Palliative care was consulted and patient was agreeable to home hospice services -Patient setup for palliative radiation for his severe back pain by radiation oncology - Dr. Arora -CTA reviewed; no evidence of pulmonary embolism, moderate left sided pleural effusion, compressive atelectasis in LLL -Pain control was achieved with MAIL SORTING SUPERVISOR pump 2. Jaundice -Likely secondary to liver metastasis -Continue cyproheptadine and benadryl -Aldactone 50mg po qd 3. Malnutrition -Continue dietary supplementation with ensure -Calorie count -Restaurant Supervisor consult 4. Constipation -Patient was treated with relistor and miralax; provided relief 5. GI Prophylaxis -Protonix Patient seen and case discussed with attending, Dr. Hernandez Disposition: Extensive discussion was had with Mr. Maria and his . The prognosis of his condition was explained thoroughly and after extensive discussions, Mr. Maria wished to be setup for home hospice services. Palliative care was consulted as well as radiation oncology for palliative radiation. Discharge Exam - Head Exam Head Exam: ATRAUMATIC, NORMOCEPHALIC - Eye Exam Eye Exam: EOMI, PERRL, Scleral icterus - ENT Exam ENT Exam: Mucous Membranes Dry - Respiratory Exam Respiratory Exam: Decreased Breath Sounds. absent: Rales, Rhonchi, Wheezes - Cardiovascular Exam Cardiovascular Exam: +S1, +S2. absent: Gallop, Rubs, Systolic Murmur - GI/Abdominal Exam GI & Abdominal Exam: Hypoactive Bowel Sounds, Soft. absent: Distended, Firm, Guarding, Rebound, Tenderness - Extremities Exam Extremities exam: normal inspection - Neurological Exam Neurological exam: Alert, Oriented x3 - Skin Skin Exam: Dry, Intact, Warm Additional comments: jaundice Discharge Plan - Follow Up Plan Condition: FAIR Disposition: HOME/ ROUTINE Instructions: Chest Pain (DC), Chest Pain (GEN), Jaundice (DC), Jaundice (GEN) Additional Instructions: Patient discharged to home. Visiting nurse to follow up with patient at home this evening.
--- NOTE | 2017-04-15 10:03 | PN ---
DATE: 04/12/2017 LOCATION: The patient in room 368, bed 2. REASON FOR CONSULTATION: Epigastric and chest pain, 10 beats of ventricular tachycardia. SUBJECTIVE: The patient is lying comfortable in bed without chest pain, shortness of breath, or palpitation. PHYSICAL EXAMINATION VITAL SIGNS: Blood pressure 130/72, respirations 18, pulse about 90 per minute, and temperature 98.1. HEENT: Head is normocephalic. Eyes, pupils normal. Conjunctivae pale. Sclera icteric. NECK: JVP low. Carotid equal. THORAX: AP diameter normal. CARDIOVASCULAR: S1 and S2. No rub. No click. LUNGS: Clear. ABDOMEN: Soft. Normal bowel sounds. EXTREMITIES: No clubbing, no cyanosis. LABORATORY DATA: WBC 9.3, hemoglobin 10.1, hematocrit 29.4, and platelets 234. Sodium 139, potassium 4, BUN 27, creatinine 0.6, glucose 66, total bilirubin 20.5. AST and ALT are normal, alkaline phosphatase 497. Total protein 5.7, albumin 2.4. Prothrombin time 25.9 with INR 2.40, PTT 33.3. DIAGNOSES: Gastroesophageal cancer with metastasis to liver, retroperitoneal lymph nodes, hypomagnesemia, hypokalemia, protein-calorie malnutrition, anemia, jaundice, 10 beats of ventricular tachycardia probably on the basis of electrolyte imbalance. Echo 01/18/2017 showed normal size left ventricle, normal left ventricular systolic function, mild mitral regurgitation, mild tricuspid regurgitation, right ventricular systolic pressure of 30 mmHg. PLAN: To continue the nutritional support. The patient is on spironolactone 50 daily, Carafate 1 g q.i.d., folic acid 1 mg daily, Dilaudid IV for pain, propanolol 10 mg t.i.d., magnesium oxide 400 mg b.i.d., Megace 400 mg b.i.d., Periactin 4 mg p.o. t.i.d. The patient is probably going home today on hospice. Iza Wets MD
== END 2017-04-12 20:30 | disposition hospice, home (50) | DRG 403 ==
LOC: ED 14:16 → ERH 17:43 → 2RNO 19:22 → OBSVTOIN 04-09 13:48 → 2RSO 04-09 17:34 → 3RNO 04-11 23:03
PROVIDERS: ADMIT Family Medicine; ATTEND Family Medicine
PROC: D70 Radiation Therapy, Lymphatic and Hematologic System, Beam Radiation (ICD-10-PCS; principal; 2017-04-08)
DX: C77.2 Secondary and unspecified malignant neoplasm of intra-abdominal lymph nodes (principal); C78.7 Secondary malignant neoplasm of liver and intrahepatic bile duct; I47.2 Ventricular tachycardia; R64 Cachexia; J90 Pleural effusion, not elsewhere classified; C78.00 Secondary malignant neoplasm of unspecified lung; C16.0 Malignant neoplasm of cardia; E44.0 Moderate protein-calorie malnutrition; I08.1 Rheumatic disorders of both mitral and tricuspid valves; E87.6 Hypokalemia; G89.3 Neoplasm related pain (acute) (chronic); K59.00 Constipation, unspecified; K44.9 Diaphragmatic hernia without obstruction or gangrene; Z66 Do not resuscitate; D64.9 Anemia, unspecified; Z51.5 Encounter for palliative care; Z87.891 Personal history of nicotine dependence